=== PATIENT | male | born 1965 | race Caucasian/White ===

== ENCOUNTER 2016-10-21 15:16 | Inpatient (IN) | payer MEDICARE, OTHER ==
[2016-10-21] MEDS ORDERED: IPRATROPIUM-ALBUTEROL 3 ML NEB INHALATION STA ×2 (16:24→19:21)
[2016-10-21] MEDS ORDERED: methylPREDNISolone SOD SUCCI 125 MG/2 ML VIAL IV STA (16:35)
[2016-10-21 16:36] LABS: Basophils % (A) 1 %; CH 32.1; Eosinophils # (A) 0.3 k/uL (0-0.7); Eosinophils % (A) 4 %; HCT 44.7 % (39.0-53.0); HDW 2.82; HGB 14.8 gm/dL (13.0-17.5); Luc # (Auto) 0.13; Luc % (Auto) 2; Lymphocytes # (A) 1.3 k/uL (1.0-4.8); Lymphocytes % (A) 20 %; MCH 31.4 pg (25.0-35.0); MCHC 33.2 g/dL (31.0-37.0); MCV 94.8 fL (80.0-100.0); Mean Platelet Volume 6.7; Monocytes # (A) 0.3 k/uL (0-1.0); Monocytes % (A) 6 %; Neutrophils # (A) 4.2 k/uL (1.3-7.7); Neutrophils % (A) 68 %; RBC 4.72 m/uL (4.30-5.90); RDW 12.5 % (11.5-15.5); WBC 6.2 k/uL (3.8-10.6); WBC (Perox) 5.91
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
[2016-10-21 16:42] LABS: Partial Thromboplastin Time 23.4 sec (22.0-30.0); Prothrombin Time 10.2 sec (9.0-12.0)
[2016-10-21 16:44] LABS: ALT 72 U/L (21-72); AST 57 U/L (17-59); Alkaline Phosphatase 66 U/L (38-126); Anion Gap 13 mmol/L; Blood Urea Nitrogen 15 mg/dL (9-20); Calcium 9.2 mg/dL (8.4-10.2); Carbon Dioxide 30 mmol/L (22-30); Chloride 101 mmol/L (98-107); Glucose 105 mg/dL (74-99); Non-African American GFR(MDRD) >60 (>60 ml/min/1.73 sqM); Potassium 4.5 mmol/L (3.5-5.1); Sodium 144 mmol/L (137-145); Total Bilirubin 0.3 mg/dL (0.2-1.3); Total Protein 7.6 g/dL (6.3-8.2)
--- NOTE | 2016-10-21 17:32 | XR ---
EXAMINATION TYPE: XR chest 2V DATE OF EXAM: 10/21/2016 5:25 PM COMPARISON: 06/18/2016 HISTORY: Chest pain TECHNIQUE: Frontal and lateral views of the chest are obtained. FINDINGS: Right middle lobe infiltrate which may reflect pneumonia. Correlate clinically and progress studies a re recommended. No evidence for pnuemothorax.No pleural effusion. The cardiac silhouette size is within normal limits. The osseous structures are grossly intact. IMPRESSION: 1. Right middle lobe infiltrate which may reflect pneumonia. Correlate clinically and progress studi es are recommended.
[2016-10-21] MEDS ORDERED: LEVOFLOXACIN 750MG-D5W PMX 750 MG in DEXTROSE/WATER 1 150ML.BAG IVPB STA (19:21)
[2016-10-21] MEDS ORDERED: PIPERACILLIN-TAZOBACTAM 3.375 GM in DEXTROSE/WATER 1 50ML.BAG IVPB STA (19:33)
[2016-10-21] MEDS ORDERED: PNEUMONIA PROTOCOL UTILIZED 1 EACH MISC PO PRN (19:33)
[2016-10-21] MEDS: IPRATROPIUM-ALBUTEROL 3 ML NEB INHALATION SCH (21:15)
[2016-10-21 21:41] VITALS: BMI 24.3
[2016-10-21 23:08] LABS: Appearance,Urine Clear (Clear); Bilirubin,Urine Negative (Negative); Glucose,Urine (UA) Negative (Negative); Ketones,Urine Negative (Negative); Leukocyte Esterase,Urine Negative (Negative); Nitrite,Urine Negative (Negative); PH, Urine 7.5 (5.0-8.0); Protein,Urine Trace (Negative); Specific Gravity,Urine 1.015 (1.001-1.035); UA Billing (MACRO vs. MICRO) CHEM; Urobilinogen,Urine <2.0 mg/dL (<2.0)
[2016-10-21] MEDS: methylPREDNISolone SOD SUCCI 125 MG/2 ML VIAL IV SCH (23:50)
[2016-10-22] MEDS: IPRATROPIUM-ALBUTEROL 3 ML NEB INHALATION SCH ×4 (00:05→12:07)
[2016-10-22] MEDS: methylPREDNISolone SOD SUCCI 125 MG/2 ML VIAL IV SCH ×2 (05:49→12:13)
[2016-10-22 07:25] VITALS: BP 121/55; RESP 20; TEMP 96.2
[2016-10-22] MEDS ORDERED: PIPERACILLIN-TAZOBACTAM 3.375 GM in DEXTROSE/WATER 1 50ML.BAG IVPB SCH (08:00)
[2016-10-22 12:22] VITALS: PULSE 91
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
[2016-10-22] MEDS ORDERED: LEVOFLOXACIN 750MG-D5W PMX 750 MG in DEXTROSE/WATER 1 150ML.BAG IVPB SCH (20:00)
== END 2016-10-22 13:20 | disposition home or self-care (01) | DRG 178 ==
LOC: EC 15:16 → 4MS4W 19:34
PROVIDERS: ADMIT Internal Medicine; ATTEND Internal Medicine
DX: J69.0 Pneumonitis due to inhalation of food and vomit (principal); G81.91 Hemiplegia, unspecified affecting right dominant side; F32.9 Major depressive disorder, single episode, unspecified; F41.9 Anxiety disorder, unspecified; G40.909 Epilepsy, unspecified, not intractable, without status epilepticus; J45.909 Unspecified asthma, uncomplicated; R13.10 Dysphagia, unspecified; F79 Unspecified intellectual disabilities; R41.3 Other amnesia; Z87.891 Personal history of nicotine dependence; Z79.899 Other long term (current) drug therapy; Z82.49 Family history of ischemic heart disease and other diseases of the circulatory system; Z87.828 Personal history of other (healed) physical injury and trauma
CPT/HCPCS: 36415; 71020; 80053; 81003; 83605; 83880; 85025; 85610; 85730; 87040; 87086; 94640; 96365; 96366; 96375; 99291

== ENCOUNTER → 2017-06-11 | Outpatient (CLI) | payer MEDICARE, OTHER ==
--- NOTE | 2017-06-11 08:37 | CT ---
EXAMINATION TYPE: CT brain wo con DATE OF EXAM: 06/11/2017 COMPARISON: 05/03/2015 HISTORY: epilepsy, not using Lt arm CT DLP: 1403.[address] of the brain was performed. Patient kyphosis and difficulty in positioning in addition to artifact from prior craniotomy results in extensive artifact throughout most of the brain and the refore limiting the examination to virtually nondiagnostic. The ventricles, basal cisterns and sulci overlying the cerebral convexities demonstrate severe enlarg ement. No mass effects are seen.No midline shift. Right temporal parietal craniotomy changes. If symptoms persist consider MRI. IMPRESSION: 1. Essentially nondiagnostic examination for reasons given above. Severe prominence of the ventricula r system unchanged from prior study.
== END | disposition home or self-care (01) ==
LOC: RADCTMAIN 07:04
PROVIDERS: ATTEND Psychiatry & Neurology Neurology
DX: G40.209 Localization-related (focal) (partial) symptomatic epilepsy and epileptic syndromes with complex partial seizures, not intractable, without status epilepticus (principal)
CPT/HCPCS: 70450; 80175

== ENCOUNTER → 2017-06-30 | Outpatient (CLI) | payer MEDICARE, OTHER ==
--- NOTE | 2017-06-30 09:16 | CT ---
EXAMINATION TYPE: CT cervical spine wo con DATE OF EXAM: 06/30/2017 COMPARISON: NONE HISTORY: lt arm weakness CT DLP: 628.[address] of the cervical spine was performed with bone and soft tissue window settings submitted . Coronal and sagittal reconstruction is obtained. Study is limited given patient's overall conditio n and difficulty in positioning. C2-3, C3-4 appear to be within normal limits. C4-5: Mild degenerative disc space narrowing. Ventral spondylosis. Mild posterior disc bulge without herniation protrusion or central stenosis. Degenerative change of the cervical apophyseal joints with mild left foraminal encroachment. C5-6: Moderate degenerative disc space narrowing. Ventral spondylosis. Posterior disc bulge with enca psulating spur resulting in hard disc. Effacement of the ventral thecal sac and moderate left greater than right foraminal encroachment. No definite central stenosis appreciated. C6-7 and C7-T1 appear to be within normal limits. No evidence for fracture or malalignment. IMPRESSION: 1. Degenerative disc disease and spondylosis. Foraminal encroachment left greater than right at C5-6 and to a lesser extent C4-5.
== END | disposition home or self-care (01) ==
LOC: RADCTMAIN 08:32
PROVIDERS: ATTEND Psychiatry & Neurology Neurology
DX: M50.30 Other cervical disc degeneration, unspecified cervical region (principal); M47.812 Spondylosis without myelopathy or radiculopathy, cervical region
CPT/HCPCS: 72125

== ENCOUNTER 2017-10-23 23:17 | Inpatient (IN) | payer MEDICARE, OTHER ==
[2017-10-23] MEDS ORDERED: ACETAMINOPHEN TAB 500 MG TAB PO STA (23:56)
[2017-10-23] MEDS ORDERED: IBUPROFEN IV 600 MG in SODIUM CHLORIDE 0.9% 250 ML IV STA (23:56)
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
[2017-10-24 00:11] LABS: Basophils % (A) 0 %; Eosinophils % (A) 0 %; HCT 50.3 % (39.0-53.0); HGB 16.7 gm/dL (13.0-17.5); Lymphocytes # (A) 0.8 k/uL (1.0-4.8); Lymphocytes % (A) 8 %; MCH 31.8 pg (25.0-35.0); MCHC 33.3 g/dL (31.0-37.0); MCV 95.4 fL (80.0-100.0); Monocytes # (A) 0.4 k/uL (0-1.0); Monocytes % (A) 4 %; Neutrophils # (A) 8.7 k/uL (1.3-7.7); Neutrophils % (A) 87 %; Platelet Count 216 k/uL (150-450); RBC 5.27 m/uL (4.30-5.90); WBC 10.1 k/uL (3.8-10.6)
[2017-10-24 00:19] LABS: INR 1.1 (<1.2); Partial Thromboplastin Time 23.8 sec (22.0-30.0)
[2017-10-24 00:23] LABS: ALT 39 U/L (21-72); AST 26 U/L (17-59); Alkaline Phosphatase 72 U/L (38-126); Anion Gap 12 mmol/L; Blood Urea Nitrogen 30 mg/dL (9-20); Calcium 9.2 mg/dL (8.4-10.2); Carbon Dioxide 29 mmol/L (22-30); Chloride 108 mmol/L (98-107); Glucose 134 mg/dL (74-99); Potassium 3.9 mmol/L (3.5-5.1); Sodium 149 mmol/L (137-145); Total Bilirubin 0.4 mg/dL (0.2-1.3); Total Protein 7.1 g/dL (6.3-8.2)
[2017-10-24] MEDS: SODIUM CHLORIDE 0.9% 500 ML IV SCH ×2 (00:23→01:52)
[2017-10-24 00:28] LABS: Appearance,Urine Cloudy (Clear); Bilirubin,Urine Negative (Negative); Blood,Urine Negative (Negative); Color,Urine Yellow; Glucose,Urine (UA) Negative (Negative); Hyaline Casts,Urine 4 /lpf (0-2); Ketones,Urine Trace (Negative); Leukocyte Esterase,Urine Negative (Negative); Mucus,Urine Few /hpf; Nitrite,Urine Negative (Negative); PH, Urine 5.5 (5.0-8.0); Protein,Urine 1+ (Negative); RBC,Urine 2 /hpf (0-5); Specific Gravity,Urine 1.029 (1.001-1.035); Squamous Epithelial Cell,Urine <1 /hpf (0-4); WBC,Urine 3 /hpf (0-5)
[2017-10-24 00:38] LABS: Creatine Kinase 56 U/L (55-170)
[2017-10-24 00:51] LABS: Creatine Kinase MB 1.2 ng/mL (0.0-2.4); Troponin I <0.012 ng/mL (0.000-0.034)
[2017-10-24] MEDS ORDERED: OSELTAMIVIR 75 MG CAP PO STA (01:50)
--- NOTE | 2017-10-24 01:57 | XR ---
EXAMINATION TYPE: XR chest 2V DATE OF EXAM: 10/24/2017 COMPARISON: 10/21/2016 HISTORY: Fever TECHNIQUE: Frontal and lateral views of the chest are obtained. FINDINGS: Heart and mediastinum are normal. Lungs are clear. There is no evidence of pleural effusio n. There is no heart failure. There are chest leads. IMPRESSION: No active cardiopulmonary disease. There is clearing of the atelectasis in the left lowe r lobe compared to old exam.
[2017-10-24] MEDS ORDERED: IPRATROPIUM-ALBUTEROL 3 ML NEB INHALATION STA (02:11)
[2017-10-24] MEDS ORDERED: SODIUM CHLORIDE 0.9% 1,000 ML IV ONE ×2 (02:28→19:00)
[2017-10-24] MEDS: IPRATROPIUM-ALBUTEROL 3 ML NEB INHALATION PRN ×2 (07:47→12:06)
[2017-10-24] MEDS ORDERED: ACETAMINOPHEN TAB 325 MG TAB PO PRN (08:18)
[2017-10-24] MEDS: OSELTAMIVIR 75 MG CAP PO SCH ×3 (09:02→22:21)
--- NOTE | 2017-10-24 09:48 | XR ---
EXAMINATION TYPE: XR chest 1V portable DATE OF EXAM: 10/24/2017 HISTORY: Resp distress. REFERENCE: Previous study dated 10/24/2017. FINDINGS: Heart size is upper limits of normal. The lungs appear clear. Pleural spaces are clear. The re is prominence of the gastric bubble. IMPRESSION: BORDERLINE CARDIOMEGALY.
[2017-10-24 09:52] LABS: Basophils % (A) 0 %; Eosinophils # (A) 0.1 k/uL (0-0.7); Eosinophils % (A) 1 %; HCT 48.5 % (39.0-53.0); HGB 16.2 gm/dL (13.0-17.5); Lymphocytes # (A) 0.5 k/uL (1.0-4.8); Lymphocytes % (A) 4 %; MCH 31.9 pg (25.0-35.0); MCHC 33.3 g/dL (31.0-37.0); MCV 95.8 fL (80.0-100.0); Mean Platelet Volume 7.6; Monocytes # (A) 0.5 k/uL (0-1.0); Monocytes % (A) 4 %; Neutrophils # (A) 12.3 k/uL (1.3-7.7); Neutrophils % (A) 91 %; Platelet Count 221 k/uL (150-450); RBC 5.07 m/uL (4.30-5.90); RDW 12.3 % (11.5-15.5); WBC 13.5 k/uL (3.8-10.6)
[2017-10-24 09:53] LABS: Glucose,Whole Blood 131 mg/dL (75-99)
[2017-10-24] MEDS ORDERED: methylPREDNISolone SOD SUCCI 125 MG/2 ML VIAL IV STA (10:00)
[2017-10-24 10:03] LABS: ALT 33 U/L (21-72); AST 22 U/L (17-59); Albumin 3.8 g/dL (3.5-5.0); Alkaline Phosphatase 60 U/L (38-126); Anion Gap 13 mmol/L; Blood Urea Nitrogen 30 mg/dL (9-20); Calcium 8.8 mg/dL (8.4-10.2); Carbon Dioxide 24 mmol/L (22-30); Chloride 112 mmol/L (98-107); Glucose 153 mg/dL (74-99); Magnesium 1.8 mg/dL (1.6-2.3); Potassium 4.1 mmol/L (3.5-5.1); Sodium 149 mmol/L (137-145); Total Bilirubin 0.3 mg/dL (0.2-1.3); Total Protein 6.6 g/dL (6.3-8.2)
[2017-10-24 10:15] LABS: ABG HCO3 23 mmol/L (21-25); ABG PCO2 39 mmHg (35-45); ABG PH 7.38 (7.35-7.45); ABG PO2 77 mmHg (83-108); ABG TCO2 24 mmol/L (19-24)
[2017-10-24] MEDS: lamoTRIgine 100 MG TAB PO SCH ×2 (10:37→22:23)
[2017-10-24] MEDS: CITALOPRAM HYDROBROMIDE 20 MG TAB PO SCH (10:37)
[2017-10-24] MEDS ORDERED: cefTRIAXone IN SWFI 1,000 MG/10 ML SYRINGE IVP SCH (11:00)
[2017-10-24] MEDS ORDERED: RX INFO: IV CONTRAST WAS GIVEN 1 EACH MISC MISCELLANE PRN ×2 (11:06→18:53)
[2017-10-24] MEDS ORDERED: DEXTROSE 5%-0.45% NACL 1,000 ML IV SCH (11:15)
--- NOTE | 2017-10-24 12:08 | CT ---
EXAMINATION TYPE: CT angio chest DATE OF EXAM: 10/24/2017 11:55 AM COMPARISON: NONE HISTORY: Shortness of breath and fever CT DLP: 230.6 mGycm Automated exposure control for dose reduction was used. CONTRAST: CTA scan of the thorax is performed with IV Contrast, patient injected with 65 mL of Omnipaque 350, p ulmonary embolism protocol. . FINDINGS: is significant breathing motion artifact on this study. There is inflammation in the poste rior segment of the right upper lobe as well as at the right lung base. There is also inflammatory ch david in the superior segment of the left lower lobe. There is a small left pleural effusion. There is no significant axillary, mediastinal or hilar adenopathy. There is distention of the esophag us which is fluid-filled. There is also distention of the stomach was is partially fluid-filled. There is no evidence of pulmonary embolus. The aorta is normal in size without evidence of dissection . The heart is not enlarged. There is mild hypertrophic spondylosis within the spine. IMPRESSION: 1. THIS EXAMINATION IS NEGATIVE FOR PULMONARY EMBOLUS. 2. MULTIFOCAL INFLAMMATORY CHANGE OF BOTH LUNGS. 3. DILATED AND FLUID-FILLED ESOPHAGUS. 3. DILATED STOMACH. 5. SMALL LEFT EFFUSION. 6. MILD DEGENERATIVE CHANGE WITHIN THE SPINE.
[2017-10-24 14:47] LABS: Glucose,Whole Blood 171 mg/dL (75-99)
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
[2017-10-24] MEDS ORDERED: MORPHINE SULFATE 2 MG/ML SYRINGE ONE ×2 (15:34→15:37)
[2017-10-24] MEDS ORDERED: SUCCINYLCHOLINE CHLORIDE 100 MG/5 ML SYR IV ONE (15:34)
[2017-10-24] MEDS ORDERED: CISATRACURIUM 2 MG/ML 5 ML VIAL IV ONE (15:35)
[2017-10-24] MEDS ORDERED: LORazepam 2 MG/ML INJ ONE (15:35)
[2017-10-24] MEDS ORDERED: PROPOFOL 100 ML IV ONE (15:37)
[2017-10-24] MEDS: SODIUM CHLORIDE 0.9% 1,000 ML IV SCH ×3 (16:00→18:01)
[2017-10-24] MEDS ORDERED: LEVOFLOXACIN 750MG-D5W PMX 750 MG in DEXTROSE/WATER 1 150ML.BAG IVPB SCH (16:00)
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
[2017-10-24] MEDS ORDERED: IPRATROPIUM-ALBUTEROL 3 ML NEB INHALATION PRN (16:05)
[2017-10-24] MEDS ORDERED: Magnesium Replacement Protocol 1 EACH MISC MISCELLANE PRN (16:11)
[2017-10-24] MEDS ORDERED: Potassium Replacement Protocol 1 EACH MISC MISCELLANE PRN (16:11)
[2017-10-24] MEDS ORDERED: Phosphorus Replacement Protoco 1 EACH MISC MISCELLANE PRN (16:11)
[2017-10-24] MEDS ORDERED: NALOXONE 0.4 MG/ML 1 ML VIAL IV PRN (16:12)
--- NOTE | 2017-10-24 16:14 | PCN ---
PROCEDURE NOTE PROCEDURE: Emergent intubation. PREOP DIAGNOSIS: Impending respiratory failure. POSTOP DIAGNOSIS: Impending respiratory failure. DESCRIPTION OF PROCEDURE: We used a #8 endotracheal tube. I used a standard laryngoscope with #3 Marlen blade. The patient received rapid sequence intubation using 2 mg of Ativan, 5 mg of morphine, 3 mL or 60 mg succinylcholine and then after intubation, 10 mg of Nimbex IV push. After the patient was adequately sedated, the endotracheal tube was placed through the glottic opening into the trachea. It was seen to go through the glottic opening into the trachea. There was good bilateral breath sounds. There was good color change on the qualitative capnography. The cuff was inflated on the balloon. The patient was connected to the ventilator. There was no immediate complications. After assuring that the patient was properly intubated, 10 mg of Nimbex was given IV push. The patient tolerated the procedure well. He was stable throughout the procedure. MMODL / IJN: [id number] /
[2017-10-24] MEDS ORDERED: ACETAMINOPHEN IV (For NPO) 1,000 MG in EMPTY BAG 1 BAG IVPB ONE (16:23)
[2017-10-24] MEDS: PROPOFOL 1,000 MG in EMPTY BAG 1 BAG IV SCH (16:30)
[2017-10-24 16:54] LABS: ABG PCO2 58 mmHg (35-45); ABG PH 7.26 (7.35-7.45); ABG PO2 185 mmHg (83-108)
[2017-10-24 16:55] LABS: ABG Base Excess -0.9 mmol/L; ABG HCO3 25 mmol/L (21-25); ABG TCO2 27 mmol/L (19-24)
--- NOTE | 2017-10-24 17:01 | XR ---
EXAMINATION TYPE: XR chest 1V portable DATE OF EXAM: 10/24/2017 COMPARISON: October 24, 2017 HISTORY: Shortness of breath TECHNIQUE: Single frontal view of the chest is obtained. FINDINGS: Opacities identified at the left lung base which is nonsignificant change since previous s tudy. There is a new endotracheal tube which is between the level of the clavicles and jerod. There is an enteric tube which goes below the level of the diaphragm. IMPRESSION: Enteric tube and endotracheal tube appear to be in appropriate position.
--- NOTE | 2017-10-24 17:11 | XR ---
EXAMINATION TYPE: XR abdomen 1V DATE OF EXAM: 10/24/2017 4:50 PM CLINICAL HISTORY: Small bowel obstruction. TECHNIQUE: Single supine KUB image of the abdomen is obtained. COMPARISON: None. FINDINGS: Diffuse dilated small bowel loops are identified throughout the abdomen measuring up to 4.5 cm. Mandujano catheter is noted within the urinary bladder. IMPRESSION: Diffuse dilatation of small bowel loops consistent with small bowel obstruction.
[2017-10-24] MEDS ORDERED: ACETAMINOPHEN IV (For NPO) 1,000 MG in EMPTY BAG 1 BAG IVPB PRN (17:42)
[2017-10-24 17:50] LABS: Glucose,Whole Blood 123 mg/dL (75-99)
[2017-10-24] MEDS ORDERED: methylPREDNISolone SOD SUCCI 125 MG/2 ML VIAL IV SCH (18:00)
[2017-10-24 18:07] LABS: Amorphous Sediment,Urine Rare /hpf; Appearance,Urine Clear (Clear); Bilirubin,Urine Negative (Negative); Blood,Urine Small (Negative); Color,Urine Yellow; Glucose,Urine (UA) Negative (Negative); Ketones,Urine Trace (Negative); Leukocyte Esterase,Urine Negative (Negative); Mucus,Urine Moderate /hpf; Nitrite,Urine Negative (Negative); Protein,Urine 1+ (Negative); RBC,Urine 20 /hpf (0-5); Squamous Epithelial Cell,Urine 1 /hpf (0-4); WBC,Urine 5 /hpf (0-5)
[2017-10-24 18:16] LABS: Blood Urea Nitrogen 28 mg/dL (9-20)
[2017-10-24 18:31] LABS: Specific Gravity,Urine >1.050 (1.001-1.035)
[2017-10-24] MEDS: INSULIN ASPART 100 UNIT/ML 1 ML 10 ML VIAL SQ SCH ×2 (18:49→23:26)
[2017-10-24] MEDS: methylPREDNISolone SOD SUCCI 40 MG/ML 1 ML VIAL IV SCH ×2 (18:50→23:55)
[2017-10-24] MEDS: PANTOPRAZOLE 40 MG/10 ML VIAL IVP SCH (18:51)
[2017-10-24] MEDS: IOHEXOL 350 MG/ML 25 ML BOTTLE (ORAL USE) PO PRN ×2 (19:52→20:56)
[2017-10-24] MEDS: IPRATROPIUM-ALBUTEROL 3 ML NEB INHALATION SCH ×2 (20:21→23:40)
[2017-10-24] MEDS ORDERED: diphenhydrAMINE 50 MG/ML 1 ML VIAL IVP PRN (20:27)
[2017-10-24] MEDS: CHLORHEXIDINE GLUCONATE 15 ML CUP MUCOUS MEM SCH (21:01)
--- NOTE | 2017-10-24 22:03 | CT ---
EXAMINATION TYPE: CT abdomen pelvis w con DATE OF EXAM: 10/24/2017 COMPARISON: NONE HISTORY: Abdominal pain. CT DLP: 785 mGycm Automated exposure control for dose reduction was used. TECHNIQUE: Helical acquisition of images was performed from the lung bases through the pelvis. CONTRAST: Performed with Oral Contrast and with IV Contrast, patient injected with 100 mL of Omnipaque 300. FINDINGS: Lung bases are incompletely visualized. The liver, gallbladder, spleen, pancreas, right adrenal gland, and kidneys are unremarkable. The left adrenal gland is mildly thickened without a discrete mass. There is a large amount of stool in the rectum with rectal wall thickening consistent with a degree o f impaction. Mandujano catheter is noted in the urinary bladder. There are several prominent loops of sma ll bowel noted which measure up to 3 cm. There appears to be a transition point in the right upper qu adrant. There is no free intraperitoneal air or free fluid. There is no mesenteric or retroperitoneal lymphad enopathy. The aorta is not dilated no osteolytic or osteoblastic lesions are identified. IMPRESSION: 1. Small bowel obstruction is identified. Transition point is difficult to precisely identify but is felt to be in the right upper quadrant. 2. Impacted stool within the rectum.
[2017-10-24] MEDS: diphenhydrAMINE 50 MG/ML 1 ML VIAL IVP SCH (22:15)
[2017-10-24] MEDS: PIPERACILLIN-TAZOBACTAM 3.375 GM in DEXTROSE/WATER 1 50ML.BAG IVPB SCH (22:15)
[2017-10-24 22:58] LABS: Glucose,Whole Blood 110 mg/dL (75-99)
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
[2017-10-25] MEDS: IPRATROPIUM-ALBUTEROL 3 ML NEB INHALATION SCH ×6 (03:18→23:36)
[2017-10-25] MEDS: diphenhydrAMINE 50 MG/ML 1 ML VIAL IVP SCH ×2 (03:20→09:07)
[2017-10-25] MEDS: PROPOFOL 1,000 MG in EMPTY BAG 1 BAG IV SCH ×4 (03:35→17:24)
[2017-10-25 04:07] LABS: Glucose,Whole Blood 144 mg/dL (75-99)
[2017-10-25 04:40] LABS: Basophils % (A) 0 %; Eosinophils % (A) 0 %; HCT 40.9 % (39.0-53.0); HGB 13.5 gm/dL (13.0-17.5); Lymphocytes # (A) 0.5 k/uL (1.0-4.8); Lymphocytes % (A) 7 %; MCH 31.9 pg (25.0-35.0); MCV 96.7 fL (80.0-100.0); Mean Platelet Volume 8.9; Monocytes # (A) 0.2 k/uL (0-1.0); Monocytes % (A) 3 %; Neutrophils # (A) 6.4 k/uL (1.3-7.7); Neutrophils % (A) 90 %; Platelet Count 145 k/uL (150-450); RBC 4.23 m/uL (4.30-5.90); RDW 13.1 % (11.5-15.5); WBC 7.1 k/uL (3.8-10.6)
[2017-10-25 04:54] LABS: ALT 26 U/L (21-72); AST 21 U/L (17-59); Albumin 2.2 g/dL (3.5-5.0); Alkaline Phosphatase 35 U/L (38-126); Anion Gap 11 mmol/L; Blood Urea Nitrogen 22 mg/dL (9-20); Calcium 7.8 mg/dL (8.4-10.2); Carbon Dioxide 21 mmol/L (22-30); Chloride 114 mmol/L (98-107); Glucose 143 mg/dL (74-99); Magnesium 1.6 mg/dL (1.6-2.3); Phosphorus 2.1 mg/dL (2.5-4.5); Potassium 3.6 mmol/L (3.5-5.1); Sodium 146 mmol/L (137-145); Total Bilirubin 0.4 mg/dL (0.2-1.3); Total Protein 4.4 g/dL (6.3-8.2)
[2017-10-25] MEDS: INSULIN ASPART 100 UNIT/ML 1 ML 10 ML VIAL SQ SCH ×3 (04:54→17:34)
[2017-10-25] MEDS: methylPREDNISolone SOD SUCCI 40 MG/ML 1 ML VIAL IV SCH ×3 (05:02→17:24)
[2017-10-25] MEDS: PIPERACILLIN-TAZOBACTAM 3.375 GM in DEXTROSE/WATER 1 50ML.BAG IVPB SCH ×3 (05:06→21:07)
[2017-10-25 05:37] LABS: ABG Base Excess -2.8 mmol/L; ABG HCO3 21 mmol/L (21-25); ABG PCO2 36 mmHg (35-45); ABG PH 7.39 (7.35-7.45); ABG PO2 134 mmHg (83-108); ABG TCO2 22 mmol/L (19-24)
[2017-10-25] MEDS ORDERED: diphenhydrAMINE 50 MG/ML 1 ML VIAL IVP SCH (06:00)
[2017-10-25] MEDS: MAGNESIUM SULFATE-D5W PMX 1 GM in DEXTROSE/WATER 1 100ML.BAG IVPB SCH ×2 (06:31→08:05)
[2017-10-25 06:46] LABS: Glucose,Whole Blood 138 mg/dL (75-99)
[2017-10-25] MEDS: POTASSIUM CHLORIDE 10 MEQ in WATER FOR INJECTION 1 100ML.BAG IVPB SCH ×2 (06:57→08:05)
--- NOTE | 2017-10-25 07:21 | XR ---
EXAMINATION TYPE: XR abdomen 1V DATE OF EXAM: 10/25/2017 COMPARISON: 10/24/2017 HISTORY: Pain TECHNIQUE: Single supine KUB image of the abdomen is obtained FINDINGS: NG tube is noted to be in place. Normalization of small bowel with loops measuring up to 2.9 cm versus 4.5 cm previously. Contrast is seen within the colon. No convincing evidence for pneumoperitoneum. No unusual calcifications. The lung bases are clear. The osseous structures are intact. IMPRESSION: 1. Normalization of small bowel with loops measuring up to 2.9 cm versus 4.5 cm previously. Contrast is seen within the colon.
--- NOTE | 2017-10-25 07:23 | XR ---
EXAMINATION TYPE: XR chest 1V portable DATE OF EXAM: 10/25/2017 COMPARISON: 10/24/2017 HISTORY: SOB, Follow Up FINDINGS: Indwelling tubes and catheters are unchanged. No change in bibasilar opacities. Stable appearance of the cardio-mediastinal structures at this time. Pleural effusion unchanged. IMPRESSION: 1. Stable portable chest. Clinical correlation and follow up until resolution is recommended.
[2017-10-25] MEDS ORDERED: SODIUM PHOSPHATE 10 MMOL in SODIUM CHLORIDE 0.9% 250 ML IVPB ONE (07:36)
[2017-10-25] MEDS: CHLORHEXIDINE GLUCONATE 15 ML CUP MUCOUS MEM SCH ×2 (08:15→20:47)
[2017-10-25] MEDS: ENOXAPARIN 40 MG/0.4 ML SYRINGE SQ SCH (08:16)
[2017-10-25] MEDS: OSELTAMIVIR 75 MG CAP PO SCH ×2 (08:16→20:47)
[2017-10-25] MEDS: PANTOPRAZOLE 40 MG/10 ML VIAL IVP SCH (08:17)
[2017-10-25] MEDS: lamoTRIgine 100 MG TAB PO SCH ×2 (08:17→20:46)
[2017-10-25] MEDS: CITALOPRAM HYDROBROMIDE 20 MG TAB PO SCH (08:17)
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
[2017-10-25] MEDS ORDERED: diphenhydrAMINE 50 MG/ML 1 ML VIAL IVP PRN (10:47)
[2017-10-25] MEDS ORDERED: NA PHOS,M-B/NA PHOS,DI-BA 133 ML ENEMA RECTAL ONE (10:54)
[2017-10-25 11:08] LABS: Glucose,Whole Blood 145 mg/dL (75-99)
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
[2017-10-25] MEDS: SODIUM CHLORIDE 0.9% 1,000 ML IV SCH ×2 (13:40)
--- NOTE | 2017-10-25 13:59 | P.PN ---
Subjective Progress Note Date: 10/25/17 Patient's abdominal exam is markedly improved he had a bowel movement overnight. His abdomen is now soft and much less distended. Abdominal x-ray this morning revealed contrast in the colon along with decompressed small bowel Objective - Vital Signs Vital signs: Vital Signs Temp 98.7 F 10/25/17 08:00 Pulse 105 H 10/25/17 12:20 Resp 27 H 10/25/17 09:00 BP 92/54 10/25/17 10:00 Pulse Ox 97 10/25/17 10:00 Intake & Output 10/24/17 10/25/17 10/25/17 18:59 06:59 18:59 Intake Total 3400 2417.543 425.007 Output Total 650 1185 195 Balance 2750 1232.543 230.007 Weight 71.9 kg Intake: IV 400 Sodium Chloride 0.9% 1, 400 000 ml @ 100 mls/hr IV . Q10H [facility] Rx#:[id number] Intake, IV Titration 3400 2417.543 25.007 Amount ACETAMINOPHEN IV (For NPO 100 ) 1,000 mg In Empty Bag 1 bag @ 400 mls/hr IVPB Q6HR PRN Rx#:[id number] Levofloxacin 750Mg-D5w 100 Pmx 750 mg In Dextrose/ Water 1 150ml.bag @ 100 mls/hr IVPB Q24H [facility] Rx#: [id number] Magnesium Sulfate-D5w Pmx 100 1 gm In Dextrose/Water 1 100ml.bag @ 100 mls/hr IVPB Q1H [facility] Rx#: [id number] Piperacillin-Tazobactam 3 50 .375 gm In Dextrose/Water 1 50ml.bag @ 12.5 mls/hr IVPB Q8H [facility] Rx#: [id number] Propofol 1,000 mg In 67.543 25.007 Empty Bag 1 bag @ Titrate IV .Q0M [facility] Rx#: [id number] Sodium Chloride 0.9% 1, 1300 1100 000 ml @ 100 mls/hr IV . Q10H [facility] Rx#:[id number] Sodium Chloride 0.9% 1, 2000 1000 000 ml @ 999 mls/hr IV . Q1H1M [facility] Rx#:[id number] Output: Gastric Drainage 550 600 50 Urine 100 585 145 Other: Voiding Method Diaper Indwelling Catheter Indwelling Catheter # Voids 2 # Bowel Movements 1 1 - Respiratory Details: Intubated on a ventilator - Cardiovascular Rhythm: regular - Gastrointestinal Gastrointestinal Comment(s): Abdomen is soft nondistended nontender palpation - Labs CBC & Chem 7: 10/25/17 03:59 10/25/17 03:59 Labs: Abnormal Lab Results - Last 24 Hours (Table) 10/24/17 10/24/17 10/24/17 Range/Units 14:26 16:43 17:30 RBC (4.30-5.90) m/uL Plt Count (150-450) k/uL Lymphocytes # (1.0-4.8) k/uL ABG pH 7.26 L (7.35-7.45) ABG pCO2 58 H (35-45) mmHg ABG pO2 185 H (83-108) mmHg ABG Total CO2 27 H (19-24) mmol/L ABG O2 Saturation 99.0 H (94-97) % Sodium (137-145) mmol/L Chloride (98-107) mmol/L Carbon Dioxide (22-30) mmol/L BUN (9-20) mg/dL Glucose (74-99) mg/dL POC Glucose (mg/dL) 171 H (75-99) mg/dL Plasma Lactic Acid Patrice (0.7-2.0) mmol/L Calcium (8.4-10.2) mg/dL Phosphorus (2.5-4.5) mg/dL Alkaline Phosphatase (38-126) U/L Total Protein (6.3-8.2) g/dL Albumin (3.5-5.0) g/dL Ur Specific [place] >1.050 H (1.001-1.035) Urine Protein 1+ H (Negative) Urine Ketones Trace H (Negative) Urine Blood Small H (Negative) Urine RBC 20 H (0-5) /hpf Amorphous Sediment Rare H (None) /hpf Urine Mucus Moderate H (None) /hpf 10/24/17 10/24/17 10/24/17 Range/Units 17:43 17:47 19:21 RBC (4.30-5.90) m/uL Plt Count (150-450) k/uL Lymphocytes # (1.0-4.8) k/uL ABG pH (7.35-7.45) ABG pCO2 (35-45) mmHg ABG pO2 (83-108) mmHg ABG Total CO2 (19-24) mmol/L ABG O2 Saturation (94-97) % Sodium (137-145) mmol/L Chloride (98-107) mmol/L Carbon Dioxide (22-30) mmol/L BUN 28 H (9-20) mg/dL Glucose (74-99) mg/dL POC Glucose (mg/dL) 123 H (75-99) mg/dL Plasma Lactic Acid Patrice 2.6 H* (0.7-2.0) mmol/L Calcium (8.4-10.2) mg/dL Phosphorus (2.5-4.5) mg/dL Alkaline Phosphatase (38-126) U/L Total Protein (6.3-8.2) g/dL Albumin (3.5-5.0) g/dL Ur Specific [place] (1.001-1.035) Urine Protein (Negative) Urine Ketones (Negative) Urine Blood (Negative) Urine RBC (0-5) /hpf Amorphous Sediment (None) /hpf Urine Mucus (None) /hpf 10/24/17 10/25/17 10/25/17 Range/Units 22:55 00:00 03:59 RBC (4.30-5.90) m/uL Plt Count (150-450) k/uL Lymphocytes # (1.0-4.8) k/uL ABG pH (7.35-7.45) ABG pCO2 (35-45) mmHg ABG pO2 (83-108) mmHg ABG Total CO2 (19-24) mmol/L ABG O2 Saturation (94-97) % Sodium (137-145) mmol/L Chloride (98-107) mmol/L Carbon Dioxide (22-30) mmol/L BUN (9-20) mg/dL Glucose (74-99) mg/dL POC Glucose (mg/dL) 110 H (75-99) mg/dL Plasma Lactic Acid Patrice 4.8 H* 3.4 H* (0.7-2.0) mmol/L Calcium (8.4-10.2) mg/dL Phosphorus (2.5-4.5) mg/dL Alkaline Phosphatase (38-126) U/L Total Protein (6.3-8.2) g/dL Albumin (3.5-5.0) g/dL Ur Specific [place] (1.001-1.035) Urine Protein (Negative) Urine Ketones (Negative) Urine Blood (Negative) Urine RBC (0-5) /hpf Amorphous Sediment (None) /hpf Urine Mucus (None) /hpf 10/25/17 10/25/17 10/25/17 Range/Units 03:59 03:59 04:05 RBC 4.23 L (4.30-5.90) m/uL Plt Count 145 L (150-450) k/uL Lymphocytes # 0.5 L (1.0-4.8) k/uL ABG pH (7.35-7.45) ABG pCO2 (35-45) mmHg ABG pO2 (83-108) mmHg ABG Total CO2 (19-24) mmol/L ABG O2 Saturation (94-97) % Sodium 146 H (137-145) mmol/L Chloride 114 H (98-107) mmol/L Carbon Dioxide 21 L (22-30) mmol/L BUN 22 H (9-20) mg/dL Glucose 143 H (74-99) mg/dL POC Glucose (mg/dL) 144 H (75-99) mg/dL Plasma Lactic Acid Patrice (0.7-2.0) mmol/L Calcium 7.8 L (8.4-10.2) mg/dL Phosphorus 2.1 L (2.5-4.5) mg/dL Alkaline Phosphatase 35 L (38-126) U/L Total Protein 4.4 L (6.3-8.2) g/dL Albumin 2.2 L (3.5-5.0) g/dL Ur Specific [place] (1.001-1.035) Urine Protein (Negative) Urine Ketones (Negative) Urine Blood (Negative) Urine RBC (0-5) /hpf Amorphous Sediment (None) /hpf Urine Mucus (None) /hpf 10/25/17 10/25/17 10/25/17 Range/Units 05:31 06:32 08:12 RBC (4.30-5.90) m/uL Plt Count (150-450) k/uL Lymphocytes # (1.0-4.8) k/uL ABG pH (7.35-7.45) ABG pCO2 (35-45) mmHg ABG pO2 134 H (83-108) mmHg ABG Total CO2 (19-24) mmol/L ABG O2 Saturation 99.0 H (94-97) % Sodium (137-145) mmol/L Chloride (98-107) mmol/L Carbon Dioxide (22-30) mmol/L BUN (9-20) mg/dL Glucose (74-99) mg/dL POC Glucose (mg/dL) 138 H (75-99) mg/dL Plasma Lactic Acid Partice 4.1 H* (0.7-2.0) mmol/L Calcium (8.4-10.2) mg/dL Phosphorus (2.5-4.5) mg/dL Alkaline Phosphatase (38-126) U/L Total Protein (6.3-8.2) g/dL Albumin (3.5-5.0) g/dL Ur Specific [place] (1.001-1.035) Urine Protein (Negative) Urine Ketones (Negative) Urine Blood (Negative) Urine RBC (0-5) /hpf Amorphous Sediment (None) /hpf Urine Mucus (None) /hpf 10/25/17 Range/Units 11:07 RBC (4.30-5.90) m/uL Plt Count (150-450) k/uL Lymphocytes # (1.0-4.8) k/uL ABG pH (7.35-7.45) ABG pCO2 (35-45) mmHg ABG pO2 (83-108) mmHg ABG Total CO2 (19-24) mmol/L ABG O2 Saturation (94-97) % Sodium (137-145) mmol/L Chloride (98-107) mmol/L Carbon Dioxide (22-30) mmol/L BUN (9-20) mg/dL Glucose (74-99) mg/dL POC Glucose (mg/dL) 145 H (75-99) mg/dL Plasma Lactic Acid Patrice (0.7-2.0) mmol/L Calcium (8.4-10.2) mg/dL Phosphorus (2.5-4.5) mg/dL Alkaline Phosphatase (38-126) U/L Total Protein (6.3-8.2) g/dL Albumin (3.5-5.0) g/dL Ur Specific [place] (1.001-1.035) Urine Protein (Negative) Urine Ketones (Negative) Urine Blood (Negative) Urine RBC (0-5) /hpf Amorphous Sediment (None) /hpf Urine Mucus (None) /hpf Microbiology - Last 24 Hours (Table) 10/24/17 00:08 Urine Culture - Final Urine,Voided 10/23/17 23:35 Blood Culture - Preliminary Blood No Growth after 24 hours 10/24/17 15:45 Gram Stain - Preliminary Sputum Sputum Culture - Preliminary Assessment and Plan Assessment: Small bowel obstruction resolved Influenza Ventilator dependent respiratory failure Plan: Continue NG tube and nothing by mouth at this time. Medical management per ICU and primary. No plans for acute surgical intervention at this time
--- NOTE | 2017-10-25 14:59 | P.PN ---
Subjective Progress Note Date: 10/25/17 This is a 52-year-old mentally handicapped individual status post closed head injury for 30 years. The patient is unable to give any history and he is a verbal her nonverbal. Apparently had a fever and occasional cough. He was brought into the emergency room for evaluation. The patient was found to have influenza A. The patient was admitted to the fifth floor. There he apparently aspirated. It was apparently a large-volume aspiration. Her suctioning lots of material from the patient's posterior oropharynx. Here in the ICU I was asked to see him. The patient was impending respiratory failure. I intubated him with #8 endotracheal tube. The patient tolerated the procedure well. Chest x-ray shows some bilateral infiltrates. Computed tomography scan showed multifocal infiltrates and inflammatory changes particularly in the lower lobes. The patient has a stable hemodynamic status. He has adequate IV access. His past medical history is positive for seizure disorder and pneumonia. He also has a history of previous severe head injury back in 1985. He's had previous sprains surgery with skull plate placement in 1985, a tendon release and some other surgical procedures. On 10/25/2017 I'm seeing this patient for a follow-up. The patient remains intubated on a mechanical ventilator. He is on 50 mics of the prevent however despite that he is awake and he can follow some simple commands and is also communicating with his family members. He is intubated by #8 orotracheal tube. There is some looseness for secretions are being suctioned out. He is on assist control mode of ventilation with a tidal volume of 350, rate of 28, FiO2 of 50% with a PEEP of 5. The morning blood gases showed a pH of 7.39 with a pCO2 of 36 and pO2 of 134 and based on that I dropped FiO2 down to 40%. His chest x-ray from today shows a left lung consolidation indicating an underlying pneumonia. There is adequate positioning of the ET tube. No other acute pneumonitis of been noted. As for the x-ray of the abdomen, there was no air- fluid levels or bowel distention. The patient had a CAT scan of the abdomen earlier that raised the suspicion for bowel obstruction however, the patient seems to have mainly fecal impaction. He does have an NG tube in place at this point in time. No critical evidence of any abdominal distention or small bowel obstruction and he does have adequate bowel sounds. He'll be having a an MT at the bedside. Lactic acid level remains slightly elevated at 4.1 and this is something that we are monitoring. The patient is being treated with broad- spectrum antibiotics and currently the patient is a on a combination of IV Zosyn and Tamiflu for influenza a tracheal bronchitis. The patient was on bronchodilators and systemic steroids. He is on no pressors at this point in time. Objective - Vital Signs Vital signs: Vital Signs Temp 98.7 F 10/25/17 08:00 Pulse 105 H 10/25/17 12:20 Resp 27 H 10/25/17 09:00 BP 92/54 10/25/17 10:00 Pulse Ox 97 10/25/17 10:00 Intake & Output 10/24/17 10/25/17 10/25/17 18:59 06:59 18:59 Intake Total 3400 2417.543 425.007 Output Total 650 1185 195 Balance 2750 1232.543 230.007 Weight 71.9 kg Intake: IV 400 Sodium Chloride 0.9% 1, 400 000 ml @ 100 mls/hr IV . Q10H KORIN Rx#:[id number] Intake, IV Titration 3400 2417.543 25.007 Amount ACETAMINOPHEN IV (For NPO 100 ) 1,000 mg In Empty Bag 1 bag @ 400 mls/hr IVPB Q6HR PRN Rx#:[id number] Levofloxacin 750Mg-D5w 100 Pmx 750 mg In Dextrose/ Water 1 150ml.bag @ 100 mls/hr IVPB Q24H KORIN Rx#: [id number] Magnesium Sulfate-D5w Pmx 100 1 gm In Dextrose/Water 1 100ml.bag @ 100 mls/hr IVPB Q1H KORIN Rx#: [id number] Piperacillin-Tazobactam 3 50 .375 gm In Dextrose/Water 1 50ml.bag @ 12.5 mls/hr IVPB Q8H KORIN Rx#: [id number] Propofol 1,000 mg In 67.543 25.007 Empty Bag 1 bag @ Titrate IV .Q0M KORIN Rx#: [id number] Sodium Chloride 0.9% 1, 1300 1100 000 ml @ 100 mls/hr IV . Q10H KORIN Rx#:[id number] Sodium Chloride 0.9% 1, 2000 1000 000 ml @ 999 mls/hr IV . Q1H1M ONE Rx#:[id number] Output: Gastric Drainage 550 600 50 Urine 100 585 145 Other: Voiding Method Diaper Indwelling Catheter Indwelling Catheter # Voids 2 # Bowel Movements 1 1 - Exam The patient's nonverbal. The patient is intubated on a mechanical ventilator and the patient is calm comfortable on 50 mics of Diprivan. Orotracheal and orogastric tube are both in place. HEENT examination is grossly unremarkable. Mucous membranes are moist. No oral lesions. Orogastric and orotracheal tube are both in place. Neck is somewhat flexed. It's supple. No cervical lymphadenopathy. Neck supple. Full range of motion. No adenopathy thyromegaly or neck vein distention. Cardiovascular examination reveals regular rhythm rate. S1-S2 normal. No S3 or S4. No discernible murmur noted. Lungs reveal coarse bilateral breath sounds. Breath sounds are severely diminished. No wheezes. No crackles.. Abdomen soft bowel sounds are heard. No masses or tenderness. Extremities reveal some flexion contractures.. There is no edema or cyanosis or clubbing at this point Skin is without rash or lesion.Examination of the skin revealed no evidence of significant rashes, suspicious appearing nevi or other concerning lesions. Neurologic examination cannot be adequately assessed. Neurologically the patient is awake and following simple commands. He is bedridden/wheelchair- bound and has extensive contractures in lower oximetry is bilaterally. He has posttraumatic brain injury. - Labs CBC & Chem 7: 10/25/17 03:59 10/25/17 03:59 Labs: Abnormal Lab Results - Last 24 Hours (Table) 10/24/17 10/24/17 10/24/17 Range/Units 16:43 17:30 17:43 RBC (4.30-5.90) m/uL Plt Count (150-450) k/uL Lymphocytes # (1.0-4.8) k/uL ABG pH 7.26 L (7.35-7.45) ABG pCO2 58 H (35-45) mmHg ABG pO2 185 H (83-108) mmHg ABG Total CO2 27 H (19-24) mmol/L ABG O2 Saturation 99.0 H (94-97) % Sodium (137-145) mmol/L Chloride (98-107) mmol/L Carbon Dioxide (22-30) mmol/L BUN 28 H (9-20) mg/dL Glucose (74-99) mg/dL POC Glucose (mg/dL) (75-99) mg/dL Plasma Lactic Acid Patrice (0.7-2.0) mmol/L Calcium (8.4-10.2) mg/dL Phosphorus (2.5-4.5) mg/dL Alkaline Phosphatase (38-126) U/L Total Protein (6.3-8.2) g/dL Albumin (3.5-5.0) g/dL Ur Specific Hominy >1.050 H (1.001-1.035) Urine Protein 1+ H (Negative) Urine Ketones Trace H (Negative) Urine Blood Small H (Negative) Urine RBC 20 H (0-5) /hpf Amorphous Sediment Rare H (None) /hpf Urine Mucus Moderate H (None) /hpf 10/24/17 10/24/17 10/24/17 Range/Units 17:47 19:21 22:55 RBC (4.30-5.90) m/uL Plt Count (150-450) k/uL Lymphocytes # (1.0-4.8) k/uL ABG pH (7.35-7.45) ABG pCO2 (35-45) mmHg ABG pO2 (83-108) mmHg ABG Total CO2 (19-24) mmol/L ABG O2 Saturation (94-97) % Sodium (137-145) mmol/L Chloride (98-107) mmol/L Carbon Dioxide (22-30) mmol/L BUN (9-20) mg/dL Glucose (74-99) mg/dL POC Glucose (mg/dL) 123 H 110 H (75-99) mg/dL Plasma Lactic Acid Patrice 2.6 H* (0.7-2.0) mmol/L Calcium (8.4-10.2) mg/dL Phosphorus (2.5-4.5) mg/dL Alkaline Phosphatase (38-126) U/L Total Protein (6.3-8.2) g/dL Albumin (3.5-5.0) g/dL Ur Specific Hominy (1.001-1.035) Urine Protein (Negative) Urine Ketones (Negative) Urine Blood (Negative) Urine RBC (0-5) /hpf Amorphous Sediment (None) /hpf Urine Mucus (None) /hpf 10/25/17 10/25/17 10/25/17 Range/Units 00:00 03:59 03:59 RBC 4.23 L (4.30-5.90) m/uL Plt Count 145 L (150-450) k/uL Lymphocytes # 0.5 L (1.0-4.8) k/uL ABG pH (7.35-7.45) ABG pCO2 (35-45) mmHg ABG pO2 (83-108) mmHg ABG Total CO2 (19-24) mmol/L ABG O2 Saturation (94-97) % Sodium (137-145) mmol/L Chloride (98-107) mmol/L Carbon Dioxide (22-30) mmol/L BUN (9-20) mg/dL Glucose (74-99) mg/dL POC Glucose (mg/dL) (75-99) mg/dL Plasma Lactic Acid Patrice 4.8 H* 3.4 H* (0.7-2.0) mmol/L Calcium (8.4-10.2) mg/dL Phosphorus (2.5-4.5) mg/dL Alkaline Phosphatase (38-126) U/L Total Protein (6.3-8.2) g/dL Albumin (3.5-5.0) g/dL Ur Specific Hominy (1.001-1.035) Urine Protein (Negative) Urine Ketones (Negative) Urine Blood (Negative) Urine RBC (0-5) /hpf Amorphous Sediment (None) /hpf Urine Mucus (None) /hpf 10/25/17 10/25/17 10/25/17 Range/Units 03:59 04:05 05:31 RBC (4.30-5.90) m/uL Plt Count (150-450) k/uL Lymphocytes # (1.0-4.8) k/uL ABG pH (7.35-7.45) ABG pCO2 (35-45) mmHg ABG pO2 134 H (83-108) mmHg ABG Total CO2 (19-24) mmol/L ABG O2 Saturation 99.0 H (94-97) % Sodium 146 H (137-145) mmol/L Chloride 114 H (98-107) mmol/L Carbon Dioxide 21 L (22-30) mmol/L BUN 22 H (9-20) mg/dL Glucose 143 H (74-99) mg/dL POC Glucose (mg/dL) 144 H (75-99) mg/dL Plasma Lactic Acid Patrice (0.7-2.0) mmol/L Calcium 7.8 L (8.4-10.2) mg/dL Phosphorus 2.1 L (2.5-4.5) mg/dL Alkaline Phosphatase 35 L (38-126) U/L Total Protein 4.4 L (6.3-8.2) g/dL Albumin 2.2 L (3.5-5.0) g/dL Ur Specific Hominy (1.001-1.035) Urine Protein (Negative) Urine Ketones (Negative) Urine Blood (Negative) Urine RBC (0-5) /hpf Amorphous Sediment (None) /hpf Urine Mucus (None) /hpf 10/25/17 10/25/17 10/25/17 Range/Units 06:32 08:12 11:07 RBC (4.30-5.90) m/uL Plt Count (150-450) k/uL Lymphocytes # (1.0-4.8) k/uL ABG pH (7.35-7.45) ABG pCO2 (35-45) mmHg ABG pO2 (83-108) mmHg ABG Total CO2 (19-24) mmol/L ABG O2 Saturation (94-97) % Sodium (137-145) mmol/L Chloride (98-107) mmol/L Carbon Dioxide (22-30) mmol/L BUN (9-20) mg/dL Glucose (74-99) mg/dL POC Glucose (mg/dL) 138 H 145 H (75-99) mg/dL Plasma Lactic Acid Patrice 4.1 H* (0.7-2.0) mmol/L Calcium (8.4-10.2) mg/dL Phosphorus (2.5-4.5) mg/dL Alkaline Phosphatase (38-126) U/L Total Protein (6.3-8.2) g/dL Albumin (3.5-5.0) g/dL Ur Specific Hominy (1.001-1.035) Urine Protein (Negative) Urine Ketones (Negative) Urine Blood (Negative) Urine RBC (0-5) /hpf Amorphous Sediment (None) /hpf Urine Mucus (None) /hpf Microbiology - Last 24 Hours (Table) 10/24/17 00:08 Urine Culture - Final Urine,Voided 10/23/17 23:35 Blood Culture - Preliminary Blood No Growth after 24 hours 10/24/17 15:45 Gram Stain - Preliminary Sputum Sputum Culture - Preliminary Assessment and Plan Plan: Assessment 1 Acute hypoxemic respiratory failure, likely secondary to both influenza A and large-volume aspiration pneumonia. The patient continues to have a dense consolidation of the left lung. The patient remains intubated on a mechanical ventilator. Oxidation is improved. The patient is covered with a combination of Tamiflu and Zosyn. He is also on bronchodilators and systemic steroids. Blood gases was noted. FiO2 has been weaned down to 40%. 2 History of seizure disorder 3 History of severe head injury in 1985 with severe developmental delay and mental retardation 4 Previous history of surgery to skull, 1985 5 Previous history of urinary tract infections 6 mild lactic acidosis 7 stool impaction, post enema. The patient has no evidence of any bowel obstruction at this point. Plan: Continue vent support. Drop the FiO2 down to 40%. Continue sedating this patient with Diprivan. We'll give the patient sedation holiday within next 24 hours and assess the readiness to wean and weaning parameters. Meanwhile, give the patient an enema and facilitate bowel activity. No signs symptoms of small bowel obstruction at this point. Continue current antibiotic coverage. We'll keep the patient intubated for today and he'll be reevaluated in a.m. for possible weaning and extubation. Discussed the case with the family at the bedside and updated them on the condition. Continue DVT and GI prophylaxis. Continue Tamiflu. Continue IV Zosyn. We'll continue to follow. This is a critically care evaluation that was done and more than 35 minutes. Time with Patient: Greater than 30
[2017-10-25] MEDS ORDERED: FUROSEMIDE 10 MG/ML 2 ML VIAL IV ONE (16:37)
[2017-10-25] MEDS: POTASSIUM CHLORIDE 10 MEQ in SODIUM CHLORIDE 0.9% 100 ML IVPB SCH ×2 (17:25→18:36)
[2017-10-25 17:36] LABS: Glucose,Whole Blood 119 mg/dL (75-99)
[2017-10-25 23:52] LABS: Glucose,Whole Blood 119 mg/dL (75-99)
[2017-10-26] MEDS: INSULIN ASPART 100 UNIT/ML 1 ML 10 ML VIAL SQ SCH ×5 (00:19→22:52)
[2017-10-26] MEDS: PROPOFOL 1,000 MG in EMPTY BAG 1 BAG IV SCH ×2 (00:20→06:13)
[2017-10-26] MEDS: SODIUM CHLORIDE 0.9% 1,000 ML IV SCH ×2 (00:20→09:30)
[2017-10-26] MEDS: POTASSIUM CHLORIDE 10 MEQ in WATER FOR INJECTION 1 100ML.BAG IVPB SCH ×4 (00:21→06:48)
[2017-10-26] MEDS: methylPREDNISolone SOD SUCCI 40 MG/ML 1 ML VIAL IV SCH ×5 (00:23→22:57)
[2017-10-26] MEDS: IPRATROPIUM-ALBUTEROL 3 ML NEB INHALATION SCH ×5 (03:20→19:22)
[2017-10-26 04:42] LABS: Basophils % (A) 0 %; Eosinophils % (A) 1 %; HCT 31.4 % (39.0-53.0); HGB 10.7 gm/dL (13.0-17.5); Lymphocytes # (A) 0.4 k/uL (1.0-4.8); Lymphocytes % (A) 6 %; MCH 32.1 pg (25.0-35.0); MCHC 34.1 g/dL (31.0-37.0); MCV 93.9 fL (80.0-100.0); Monocytes # (A) 0.3 k/uL (0-1.0); Monocytes % (A) 4 %; Neutrophils # (A) 6.1 k/uL (1.3-7.7); Neutrophils % (A) 89 %; Platelet Count 152 k/uL (150-450); RBC 3.35 m/uL (4.30-5.90); RDW 13.1 % (11.5-15.5); WBC 6.9 k/uL (3.8-10.6)
[2017-10-26 04:56] LABS: Anion Gap 6 mmol/L; Blood Urea Nitrogen 21 mg/dL (9-20); Calcium 7.8 mg/dL (8.4-10.2); Carbon Dioxide 26 mmol/L (22-30); Chloride 113 mmol/L (98-107); Glucose 106 mg/dL (74-99); Magnesium 2.2 mg/dL (1.6-2.3); Phosphorus 2.3 mg/dL (2.5-4.5); Potassium 3.5 mmol/L (3.5-5.1); Sodium 145 mmol/L (137-145)
[2017-10-26 05:28] LABS: ABG Base Excess 4.7 mmol/L; ABG HCO3 28 mmol/L (21-25); ABG PCO2 37 mmHg (35-45); ABG PH 7.49 (7.35-7.45); ABG PO2 84 mmHg (83-108); ABG TCO2 66 mmol/L (19-24)
[2017-10-26 05:49] LABS: Glucose,Whole Blood 108 mg/dL (75-99)
[2017-10-26] MEDS: PIPERACILLIN-TAZOBACTAM 3.375 GM in DEXTROSE/WATER 1 50ML.BAG IVPB SCH ×3 (05:54→22:16)
[2017-10-26] MEDS ORDERED: POTASSIUM PHOSPHATE 10 MMOL in SODIUM CHLORIDE 0.9% 250 ML IV ONE (06:00)
--- NOTE | 2017-10-26 08:16 | PN ---
PROGRESS NOTE DATE OF SERVICE: 10/25/2017 REASON FOR FOLLOW UP: 1. Acute influenza. 2. Sepsis with aspiration pneumonia. INTERVAL HISTORY: The patient is afebrile. He seemed to be slightly awake and alert. Hemodynamically, he is stable. He did respond to the fluid support. FiO2 is down to 40%. NG is to suction. No diarrhea. PHYSICAL EXAMINATION: On examination, blood pressure 94/50 with a pulse of 96, temperature of 98.4. He is 98% on 40% FiO2. General description is a middle-aged male lying in bed in no distress. RESPIRATORY SYSTEM: Unlabored breathing, coarse breath sounds bilaterally. HEART: S1, S2. Regular rate and rhythm. ABDOMEN: Soft, no tenderness. LABS: Hemoglobin 13.5, white count of 7.1. BUN of 22, creatinine 0.701. Blood and sputum cultures currently pending. DIAGNOSTIC IMPRESSION AND PLAN: 1. Patient with acute influenza A with subsequent aspiration and acute respiratory failure vent dependent with a component of aspiration pneumonia. The patient is currently covered with Zosyn, that will be continued. We will follow up on blood and sputum cultures and adjust the medication further if needed. 2. Acute influenza, Tamiflu will be restarted once the gastrointestinal issues are resolved. Family was present at bedside. Their questions were answered. MMODL / IJN: [id number] /
--- NOTE | 2017-10-26 08:19 | XR ---
EXAMINATION TYPE: XR chest 1V portable DATE OF EXAM: 10/26/2017 COMPARISON: 10/25/2017 HISTORY: SOB, Follow Up FINDINGS: Indwelling tubes and catheters are unchanged. No change in bibasilar opacities. Stable appearance of the cardio-mediastinal structures at this time. Pleural effusion unchanged. IMPRESSION: 1. Stable portable chest. Clinical correlation and follow up until resolution is recommended.
[2017-10-26] MEDS: CHLORHEXIDINE GLUCONATE 15 ML CUP MUCOUS MEM SCH (08:36)
[2017-10-26] MEDS: PANTOPRAZOLE 40 MG/10 ML VIAL IVP SCH (08:36)
[2017-10-26] MEDS: OSELTAMIVIR 75 MG CAP PO SCH ×3 (08:37→20:48)
[2017-10-26] MEDS: lamoTRIgine 100 MG TAB PO SCH ×3 (08:37→20:48)
[2017-10-26] MEDS: CITALOPRAM HYDROBROMIDE 20 MG TAB PO SCH ×2 (08:37→12:00)
[2017-10-26] MEDS ORDERED: FUROSEMIDE 10 MG/ML 4 ML VIAL IV STA (09:04)
--- NOTE | 2017-10-26 09:07 | P.PN ---
Subjective Progress Note Date: 10/26/17 This is a 52-year-old mentally handicapped individual status post closed head injury for 30 years. The patient is unable to give any history and he is a verbal her nonverbal. Apparently had a fever and occasional cough. He was brought into the emergency room for evaluation. The patient was found to have influenza A. The patient was admitted to the fifth floor. There he apparently aspirated. It was apparently a large-volume aspiration. Her suctioning lots of material from the patient's posterior oropharynx. Here in the ICU I was asked to see him. The patient was impending respiratory failure. I intubated him with #8 endotracheal tube. The patient tolerated the procedure well. Chest x-ray shows some bilateral infiltrates. Computed tomography scan showed multifocal infiltrates and inflammatory changes particularly in the lower lobes. The patient has a stable hemodynamic status. He has adequate IV access. His past medical history is positive for seizure disorder and pneumonia. He also has a history of previous severe head injury back in 1985. He's had previous sprains surgery with skull plate placement in 1985, a tendon release and some other surgical procedures. On 10/25/2017 I'm seeing this patient for a follow-up. The patient remains intubated on a mechanical ventilator. He is on 50 mics of the prevent however despite that he is awake and he can follow some simple commands and is also communicating with his family members. He is intubated by #8 orotracheal tube. There is some looseness for secretions are being suctioned out. He is on assist control mode of ventilation with a tidal volume of 350, rate of 28, FiO2 of 50% with a PEEP of 5. The morning blood gases showed a pH of 7.39 with a pCO2 of 36 and pO2 of 134 and based on that I dropped FiO2 down to 40%. His chest x-ray from today shows a left lung consolidation indicating an underlying pneumonia. There is adequate positioning of the ET tube. No other acute pneumonitis of been noted. As for the x-ray of the abdomen, there was no air- fluid levels or bowel distention. The patient had a CAT scan of the abdomen earlier that raised the suspicion for bowel obstruction however, the patient seems to have mainly fecal impaction. He does have an NG tube in place at this point in time. No critical evidence of any abdominal distention or small bowel obstruction and he does have adequate bowel sounds. He'll be having a an [place] at the bedside. Lactic acid level remains slightly elevated at 4.1 and this is something that we are monitoring. The patient is being treated with broad- spectrum antibiotics and currently the patient is a on a combination of IV Zosyn and Tamiflu for influenza a tracheal bronchitis. The patient was on bronchodilators and systemic steroids. He is on no pressors at this point in time. On 10/26/2017 the patient is being seen for a follow-up. The patient remains intubated on a mechanical ventilator. This morning he is essentially on the same vent setting which includes an assist-control of 28, tidal volume 350, FiO2 of 40% and a PEEP of 5. Chest x-ray remains unchanged with stable left lung consolidation. There is also increased pulmonary vascular markings. ET tube is in a good location. The patient is not producing excess amount of respiratory secretions. Blood gases from this morning showed a pH of 7.49 with a pCO2 of 37 and pO2 of 84 and this was done on a FiO2 of 40%. White cell count is not elevated. The patient was taken off the Diprivan and currently the patient is in the process of undergoing a spot his breathing trial. I switched him to a pressure support of 5 and a PEEP of 5. He is weaning parameters were acceptable. He was noted to have a rapid shallow breathing index of less than 100. He started volume is currently ranging between 250 and 325 and he is breathing comfortably. He is coughing reflexes weak and I think it's probably related to some degree of sedation as the patient just came off sedation for now. He did have a bowel movement yesterday. NG tube is in place. Total amount of output from the NG is approximately 30 mL all night. As for the urine output is approximately 25 mL an hour. The patient remains on Tamiflu. The patient remains on Zosyn. The patient is receiving IV fluids at the rate of 100 mL an hour of normal saline. The patient had a drop in hemoglobin down to 10.9 yet that is no evidence of any GI bleeding. The patient remains on Lovenox. He is also on Protonix. He remains nothing by mouth. No evidence of any small bowel obstruction at this point. Objective - Vital Signs Vital signs: Vital Signs Temp 99.5 F 10/26/17 04:00 Pulse 82 10/26/17 08:17 Resp 27 H 10/26/17 07:00 BP 110/56 10/26/17 07:00 Pulse Ox 97 10/26/17 07:00 Intake & Output 10/25/17 10/26/17 10/26/17 18:59 06:59 18:59 Intake Total 2080.857 5012.245 130.037 Output Total 928 605 25 Balance 479.534 951.245 105.037 Weight 70.4 kg Intake: IV 1300 1400 100 Potassium Chloride 10 meq 300 In Water For Injection 1 100ml.bag @ 100 mls/hr IVPB Q1H [facility] Rx#: [id number] Sodium Chloride 0.9% 1, 1300 1100 100 000 ml @ 100 mls/hr IV . Q10H [facility] Rx#:[id number] Intake, IV Titration 107.534 156.245 30.037 Amount Propofol 1,000 mg In 107.534 156.245 30.037 Empty Bag 1 bag @ Titrate IV .Q0M [facility] Rx#: [id number] Output: Gastric Drainage 70 Urine 858 605 25 Other: Voiding Method Indwelling Catheter Indwelling Catheter # Bowel Movements 1 1 - Exam The patient's nonverbal. The patient is intubated on a mechanical ventilator and the patient is calm comfortable off Diprivan. Orotracheal and orogastric tube are both in place. HEENT examination is grossly unremarkable. Mucous membranes are moist. No oral lesions. Orogastric and orotracheal tube are both in place. Neck is somewhat flexed. It's supple. No cervical lymphadenopathy. Neck supple. Full range of motion. No adenopathy thyromegaly or neck vein distention. Cardiovascular examination reveals regular rhythm rate. S1-S2 normal. No S3 or S4. No discernible murmur noted. Lungs reveal coarse bilateral breath sounds. Breath sounds are severely diminished. No wheezes. No crackles.. Abdomen soft bowel sounds are heard. No masses or tenderness. Extremities reveal some flexion contractures.. There is no edema or cyanosis or clubbing at this point Skin is without rash or lesion.Examination of the skin revealed no evidence of significant rashes, suspicious appearing nevi or other concerning lesions. Neurologic examination cannot be adequately assessed. Neurologically the patient is awake and following simple commands. He is bedridden/wheelchair- bound and has extensive contractures in lower oximetry is bilaterally. He has posttraumatic brain injury. - Labs CBC & Chem 7: 10/26/17 04:01 10/26/17 04:01 Labs: Abnormal Lab Results - Last 24 Hours (Table) 10/25/17 10/25/17 10/25/17 Range/Units 11:07 15:26 15:26 RBC (4.30-5.90) m/uL Hgb (13.0-17.5) gm/dL Hct (39.0-53.0) % Lymphocytes # (1.0-4.8) k/uL ABG pH (7.35-7.45) ABG HCO3 (21-25) mmol/L ABG Total CO2 (19-24) mmol/L Potassium 3.2 L (3.5-5.1) mmol/L Chloride (98-107) mmol/L BUN (9-20) mg/dL Glucose (74-99) mg/dL POC Glucose (mg/dL) 145 H (75-99) mg/dL Plasma Lactic Acid Patrice 3.3 H* (0.7-2.0) mmol/L Calcium (8.4-10.2) mg/dL Phosphorus (2.5-4.5) mg/dL 10/25/17 10/25/17 10/25/17 Range/Units 17:34 21:20 23:49 RBC (4.30-5.90) m/uL Hgb (13.0-17.5) gm/dL Hct (39.0-53.0) % Lymphocytes # (1.0-4.8) k/uL ABG pH (7.35-7.45) ABG HCO3 (21-25) mmol/L ABG Total CO2 (19-24) mmol/L Potassium 3.4 L (3.5-5.1) mmol/L Chloride (98-107) mmol/L BUN (9-20) mg/dL Glucose (74-99) mg/dL POC Glucose (mg/dL) 119 H 119 H (75-99) mg/dL Plasma Lactic Acid Patrice (0.7-2.0) mmol/L Calcium (8.4-10.2) mg/dL Phosphorus (2.5-4.5) mg/dL 10/26/17 10/26/17 10/26/17 Range/Units 04:01 04:01 05:20 RBC 3.35 L (4.30-5.90) m/uL Hgb 10.7 L (13.0-17.5) gm/dL Hct 31.4 L (39.0-53.0) % Lymphocytes # 0.4 L (1.0-4.8) k/uL ABG pH 7.49 H (7.35-7.45) ABG HCO3 28 H (21-25) mmol/L ABG Total CO2 66 H (19-24) mmol/L Potassium (3.5-5.1) mmol/L Chloride 113 H (98-107) mmol/L BUN 21 H (9-20) mg/dL Glucose 106 H (74-99) mg/dL POC Glucose (mg/dL) (75-99) mg/dL Plasma Lactic Acid Patrice (0.7-2.0) mmol/L Calcium 7.8 L (8.4-10.2) mg/dL Phosphorus 2.3 L (2.5-4.5) mg/dL 10/26/17 Range/Units 05:48 RBC (4.30-5.90) m/uL Hgb (13.0-17.5) gm/dL Hct (39.0-53.0) % Lymphocytes # (1.0-4.8) k/uL ABG pH (7.35-7.45) ABG HCO3 (21-25) mmol/L ABG Total CO2 (19-24) mmol/L Potassium (3.5-5.1) mmol/L Chloride (98-107) mmol/L BUN (9-20) mg/dL Glucose (74-99) mg/dL POC Glucose (mg/dL) 108 H (75-99) mg/dL Plasma Lactic Acid Patrice (0.7-2.0) mmol/L Calcium (8.4-10.2) mg/dL Phosphorus (2.5-4.5) mg/dL Microbiology - Last 24 Hours (Table) 10/23/17 23:35 Blood Culture - Preliminary Blood No Growth after 48 hours 10/24/17 18:39 Blood Culture - Preliminary Blood No Growth after 24 hours 10/24/17 00:08 Urine Culture - Final Urine,Voided Assessment and Plan Plan: Assessment 1 Acute hypoxemic respiratory failure, likely secondary to both influenza A and large-volume aspiration pneumonia. The patient continues to have a dense consolidation of the left lung. The patient remains intubated on a mechanical ventilator. Oxidation is improved. The patient is covered with a combination of Tamiflu and Zosyn. He is also on bronchodilators and systemic steroids. Blood gases was noted. FiO2 has been weaned down to 40%. On 10/26/2017, the patient remains intubated on a mechanical ventilator. Chest x-ray findings are essentially stable. Suspect an aspiration left lung pneumonia. The patient also has acute influenza a tracheobronchitis/pneumonia and the patient is on a combination of Zosyn and Tamiflu. Blood gases was noted and there is a component of respiratory alkalosis. The patient is in process of being given a spontaneous breathing trial in anticipation for extubation if he is able to past a spontaneous breathing trial. 2 History of seizure disorder, currently inactive and stable. 3 History of severe head injury in 1985 with severe developmental delay and mental retardation 4 Previous history of surgery to skull, 1985 5 Previous history of urinary tract infections 6 mild lactic acidosis, the lactic acidosis recovered and the patient's lactic acid normalized is down to 1.0. 7 stool impaction, the patient had a enema yesterday and the patient produced an small amount of stool. Abdomen is non-distended. No clinical evidence of any small bowel obstruction and NG tube is still in place. 8 drop in hemoglobin without evidence of any GI bleeding. The patient is on Lovenox for DVT prophylaxis. Plan: The patient has been switched this point is breathing mode. Currently is on a pressure support mode with a personal support of 5 and a PEEP of 5. We'll obtain a blood gas in 30-45 minutes and if the patient has adequate blood gases an adequate ability to clear his rest or secretions he will be considered for extubation. He'll be taken off propofol for now. Continue antibiotics. Continue steroids. Given a dose of Lasix 40 mg IV push. Kept on IV fluids to 50 mL an hour. Monitor hemoglobin. Further recommendations are to follow based on his progress. Critically care evaluation was done and more than 30 minutes. Time with Patient: Greater than 30
[2017-10-26] MEDS: ENOXAPARIN 40 MG/0.4 ML SYRINGE SQ SCH (09:27)
[2017-10-26 09:50] LABS: ABG Base Excess 4.2 mmol/L; ABG HCO3 28 mmol/L (21-25); ABG Oxygen Saturation 97.2 % (94-97); ABG PCO2 39 mmHg (35-45); ABG PH 7.46 (7.35-7.45); ABG PO2 77 mmHg (83-108); ABG TCO2 65 mmol/L (19-24)
[2017-10-26] MEDS ORDERED: NA PHOS,M-B/NA PHOS,DI-BA 133 ML ENEMA RECTAL ONE (10:57)
--- NOTE | 2017-10-26 11:27 | XR ---
EXAMINATION TYPE: XR chest 1V portable DATE OF EXAM: 10/26/2017 COMPARISON: 10/26/2017 HISTORY: SOB, Follow Up FINDINGS: NG tube is coiled within the stomach. Endotracheal tube appears to have been removed. Perihilar and basilar infiltrates persist essentially unchanged. Stable appearance of the cardio-mediastinal structures at this time. Pleural effusion unchanged. IMPRESSION: 1. Stable portable chest. Clinical correlation and follow up until resolution is recommended.
--- NOTE | 2017-10-26 11:55 | P.PN ---
Subjective Progress Note Date: 10/26/17 Principal diagnosis: Esophageal gastric distention 52-year-old gentleman with a history of head trauma developmental delay admitted with acute influenza A aspiration pneumonia with radiographic imaging on admission suggestive of distention of esophagus and stomach as well as small bowel obstruction. Receiving Tamiflu. Patient has been evaluated by general surgery. Abdominal films yesterday reported no evidence of small bowel obstruction. Stool retention was identified. Patient was provided enema with small nonbloody bowel movement yesterday. No overt bleeding such as hematemesis hematochezia melena. Nasogastric tube in place without hematemesis. Hemoglobin today 10.7. Resting comfortably. Family at bedside. Objective - Vital Signs Vital signs: Vital Signs Temp 98.3 F 10/26/17 08:00 Pulse 90 10/26/17 11:00 Resp 26 H 10/26/17 11:00 BP 109/61 10/26/17 11:00 Pulse Ox 95 10/26/17 11:00 Intake & Output 10/25/17 10/26/17 10/26/17 18:59 06:59 18:59 Intake Total 8608.776 4977.245 480.825 Output Total 839 071 3199 Balance 479.534 951.245 -1554.175 Weight 70.4 kg Intake: IV 1300 1400 450 Potassium Chloride 10 meq 200 In Sodium Chloride 0.9% 100 ml @ 100 mls/hr IVPB Q1H [facility] Rx#:[id number] Potassium Chloride 10 meq 300 In Water For Injection 1 100ml.bag @ 100 mls/hr IVPB Q1H [facility] Rx#: [id number] Sodium Chloride 0.9% 1, 1300 1100 250 000 ml @ 50 mls/hr IV . Q20H [facility] Rx#:[id number] Intake, IV Titration 107.534 156.245 30.825 Amount Propofol 1,000 mg In 107.534 156.245 30.825 Empty Bag 1 bag @ Titrate IV .Q0M [facility] Rx#: [id number] Output: Gastric Drainage 70 Urine [phone] Other: Voiding Method Indwelling Catheter Indwelling Catheter # Bowel Movements 1 1 - Exam General appearance: The patient is alert, in no acute distress. HET: Head is normocephalic and atraumatic. Pupils are equal and reactive. Oropharynx is clear without lesions. Naso gastric tube with bilious fluid. Neck: Supple without lymphadenopathy. Trachea midline. Heart: S1 S2. Regular rate and rhythm. Lungs: Coarse bilaterally diminished in bases. Abdomen: Soft, nontender, nondistended with bowel sounds. No peritoneal signs. No palpable organomegaly or masses. Extremities: Normal skin color and turgor. No cyanosis, rash, ulceration, clubbing, or edema. Radial and pedal pulses are 2/4 bilaterally. Neurological: No focal deficits. Strength and sensation are grossly intact. - Labs CBC & Chem 7: 10/26/17 04:01 10/26/17 04:01 Labs: Abnormal Lab Results - Last 24 Hours (Table) 10/25/17 10/25/17 10/25/17 Range/Units 15:26 15:26 17:34 RBC (4.30-5.90) m/uL Hgb (13.0-17.5) gm/dL Hct (39.0-53.0) % Lymphocytes # (1.0-4.8) k/uL ABG pH (7.35-7.45) ABG pO2 (83-108) mmHg ABG HCO3 (21-25) mmol/L ABG Total CO2 (19-24) mmol/L ABG O2 Saturation (94-97) % Potassium 3.2 L (3.5-5.1) mmol/L Chloride (98-107) mmol/L BUN (9-20) mg/dL Glucose (74-99) mg/dL POC Glucose (mg/dL) 119 H (75-99) mg/dL Plasma Lactic Acid Patrice 3.3 H* (0.7-2.0) mmol/L Calcium (8.4-10.2) mg/dL Phosphorus (2.5-4.5) mg/dL 10/25/17 10/25/17 10/26/17 Range/Units 21:20 23:49 04:01 RBC 3.35 L (4.30-5.90) m/uL Hgb 10.7 L (13.0-17.5) gm/dL Hct 31.4 L (39.0-53.0) % Lymphocytes # 0.4 L (1.0-4.8) k/uL ABG pH (7.35-7.45) ABG pO2 (83-108) mmHg ABG HCO3 (21-25) mmol/L ABG Total CO2 (19-24) mmol/L ABG O2 Saturation (94-97) % Potassium 3.4 L (3.5-5.1) mmol/L Chloride (98-107) mmol/L BUN (9-20) mg/dL Glucose (74-99) mg/dL POC Glucose (mg/dL) 119 H (75-99) mg/dL Plasma Lactic Acid Patrice (0.7-2.0) mmol/L Calcium (8.4-10.2) mg/dL Phosphorus (2.5-4.5) mg/dL 10/26/17 10/26/17 10/26/17 Range/Units 04:01 05:20 05:48 RBC (4.30-5.90) m/uL Hgb (13.0-17.5) gm/dL Hct (39.0-53.0) % Lymphocytes # (1.0-4.8) k/uL ABG pH 7.49 H (7.35-7.45) ABG pO2 (83-108) mmHg ABG HCO3 28 H (21-25) mmol/L ABG Total CO2 66 H (19-24) mmol/L ABG O2 Saturation (94-97) % Potassium (3.5-5.1) mmol/L Chloride 113 H (98-107) mmol/L BUN 21 H (9-20) mg/dL Glucose 106 H (74-99) mg/dL POC Glucose (mg/dL) 108 H (75-99) mg/dL Plasma Lactic Acid Patrice (0.7-2.0) mmol/L Calcium 7.8 L (8.4-10.2) mg/dL Phosphorus 2.3 L (2.5-4.5) mg/dL 10/26/17 Range/Units 09:45 RBC (4.30-5.90) m/uL Hgb (13.0-17.5) gm/dL Hct (39.0-53.0) % Lymphocytes # (1.0-4.8) k/uL ABG pH 7.46 H (7.35-7.45) ABG pO2 77 L (83-108) mmHg ABG HCO3 28 H (21-25) mmol/L ABG Total CO2 65 H (19-24) mmol/L ABG O2 Saturation 97.2 H (94-97) % Potassium (3.5-5.1) mmol/L Chloride (98-107) mmol/L BUN (9-20) mg/dL Glucose (74-99) mg/dL POC Glucose (mg/dL) (75-99) mg/dL Plasma Lactic Acid Patrice (0.7-2.0) mmol/L Calcium (8.4-10.2) mg/dL Phosphorus (2.5-4.5) mg/dL Microbiology - Last 24 Hours (Table) 10/24/17 18:39 Blood Culture Gram Stain - Preliminary Blood 10/24/17 18:39 Blood Culture - Final Blood 10/24/17 15:45 Gram Stain - Final Sputum Sputum Culture - Final 10/23/17 23:35 Blood Culture - Preliminary Blood No Growth after 48 hours 10/24/17 00:08 Urine Culture - Final Urine,Voided Assessment and Plan (1) Small bowel obstruction Narrative/Plan: Dilated esophagus and stomach on CT imaging most likely on the basis of admission small bowel obstruction since resolved. Repeat abdominal films reported no evidence of obstruction. Fecal impaction evident on imaging received enema yesterday with result of small nonbloody bowel movement. Presently no symptoms to suggest bowel obstruction. Current Visit: Yes Status: Acute Code(s): K56.609 - UNSP INTESTNL OBST, UNSP TO PARTIAL VERSUS COMPLETE OBST SNOMED Code(s): 084218099 (2) Influenza Current Visit: Yes Status: Acute Code(s): J11.1 - FLU DUE TO UNIDENTIFIED INFLUENZA VIRUS W OTH RESP MANIFEST SNOMED Code(s): 3228738 (3) Acute respiratory failure Current Visit: No Status: Acute Code(s): J96.00 - ACUTE RESPIRATORY FAILURE , UNSP W HYPOXIA OR HYPERCAPNIA SNOMED Code(s): 62403162 (4) Aspiration pneumonia Current Visit: No Status: Acute Code(s): J69.0 - PNEUMONITIS DUE TO INHALATION OF FOOD AND VOMIT SNOMED Code(s): 362949382 (5) Fecal impaction Current Visit: Yes Status: Acute Code(s): K56.41 - FECAL IMPACTION SNOMED Code(s): 23994627 Plan: 1. Continue with stool softeners repeat enema laxatives. 2. Upper endoscopy will be contingent on clinical course will continue to monitor. 3. CBC monitoring. Observe for any overt GI bleeding. 4. Plan a care was discussed with patient's sister at bedside. We'll continue to follow. 5. Diet per surgery and vice president mission integration; swallow eval prior to initiation of diet. Assessment and plan a care discussed with Dr. Wang.
[2017-10-26 12:14] LABS: Glucose,Whole Blood 112 mg/dL (75-99)
[2017-10-26] MEDS: DEXTROSE 5%-0.9% NACL 1,000 ML IV SCH (12:15)
[2017-10-26] MEDS ORDERED: VANCOMYCIN IV PER PHARMACY 1 EACH MISC MISCELLANE PRN (12:24)
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
[2017-10-26] MEDS: VANCOMYCIN 1,250 MG in SODIUM CHLORIDE 0.9% 250 ML IVPB SCH ×2 (13:49→20:30)
[2017-10-26] MEDS: POTASSIUM CHLORIDE ORAL LIQUID 40 MEQ/30 ML CUP NG-TUBE SCH ×2 (17:09→18:09)
[2017-10-26 18:10] LABS: Glucose,Whole Blood 138 mg/dL (75-99)
--- NOTE | 2017-10-26 22:25 | PN ---
PROGRESS NOTE DATE OF SERVICE: 10/26/2017. REASON FOR FOLLOWUP: 1. Acute influenza. 2. Aspiration pneumonia. 3. Gram-positive bacteremia. INTERVAL HISTORY: The patient is afebrile. He was extubated this morning. Post extubation, the patient has been breathing comfortably. No distress. No nausea, vomiting, or any diarrhea. EXAMINATION: Blood pressure 132/65 with a pulse of 97, temperature 98. He is 95% on 8 L high-flow oxygen. General description is a middle-aged male lying in bed in no distress. Respiratory system: Unlabored breathing. Some coarse breath sounds bilaterally. No wheeze. Heart S1, S2. Regular rate and rhythm. Abdomen soft, minimally distended. No guarding or rigidity. LABS: Hemoglobin is 10.7, white count 6.9, BUN of 21, creatinine 0.70. Sputum culture currently pending. Blood cultures with gram-positive cocci. DIAGNOSTIC IMPRESSION AND PLAN: Patient admitted to the hospital with fever in a patient who did have a component of acute influenza subsequently did have an abscess aspiration pneumonia. The patient is now with positive blood culture with gram-positive cocci with question of possible Staph aureus/MRSA. Vancomycin will be added after obtaining a repeat blood cultures. Keep the patient on Zosyn and Tamiflu adjusting antibiotics further on the basis of his clinical response and culture. Continue supportive care. MMODL / IJN: [id number] /
[2017-10-26 22:54] LABS: Glucose,Whole Blood 108 mg/dL (75-99)
[2017-10-27] MEDS ORDERED: IPRATROPIUM-ALBUTEROL 3 ML NEB ONE
[2017-10-27] MEDS: IPRATROPIUM-ALBUTEROL 3 ML NEB INHALATION SCH ×5 (04:58→20:03)
[2017-10-27] MEDS: VANCOMYCIN 1,250 MG in SODIUM CHLORIDE 0.9% 250 ML IVPB SCH ×3 (05:07→20:37)
[2017-10-27] MEDS: methylPREDNISolone SOD SUCCI 40 MG/ML 1 ML VIAL IV SCH ×4 (05:41→23:58)
[2017-10-27] MEDS: PIPERACILLIN-TAZOBACTAM 3.375 GM in DEXTROSE/WATER 1 50ML.BAG IVPB SCH ×3 (05:47→22:22)
[2017-10-27 05:55] LABS: Basophils % (A) 0 %; Eosinophils % (A) 0 %; HCT 32.5 % (39.0-53.0); HGB 10.8 gm/dL (13.0-17.5); Lymphocytes # (A) 0.5 k/uL (1.0-4.8); Lymphocytes % (A) 5 %; MCH 31.5 pg (25.0-35.0); MCHC 33.1 g/dL (31.0-37.0); MCV 95.1 fL (80.0-100.0); Mean Platelet Volume 8.4; Monocytes # (A) 0.3 k/uL (0-1.0); Monocytes % (A) 3 %; Neutrophils % (A) 91 %; Platelet Count 161 k/uL (150-450); RBC 3.42 m/uL (4.30-5.90); RDW 13.5 % (11.5-15.5); WBC 8.8 k/uL (3.8-10.6)
[2017-10-27] MEDS: INSULIN ASPART 100 UNIT/ML 1 ML 10 ML VIAL SQ SCH ×4 (05:56→22:24)
[2017-10-27 06:10] LABS: Glucose,Whole Blood 116 mg/dL (75-99)
[2017-10-27 06:22] LABS: Anion Gap 6 mmol/L; Blood Urea Nitrogen 25 mg/dL (9-20); Calcium 8.1 mg/dL (8.4-10.2); Carbon Dioxide 31 mmol/L (22-30); Chloride 109 mmol/L (98-107); Glucose 126 mg/dL (74-99); Magnesium 2.5 mg/dL (1.6-2.3); Phosphorus 3.2 mg/dL (2.5-4.5); Potassium 3.9 mmol/L (3.5-5.1); Sodium 146 mmol/L (137-145)
--- NOTE | 2017-10-27 07:21 | XR ---
EXAMINATION TYPE: XR chest 1V portable DATE OF EXAM: 10/27/2017 COMPARISON: 10/26/2017 HISTORY: Shortness of breath TECHNIQUE: Single frontal view of the chest is obtained. FINDINGS: Bilateral effusion diffuse airspace disease stable. NG tube stable. No pneumothorax. IMPRESSION: Stable bilateral diffuse airspace disease and pleural effusion.
[2017-10-27] MEDS: CITALOPRAM HYDROBROMIDE 20 MG TAB PO SCH (08:46)
[2017-10-27] MEDS: ENOXAPARIN 40 MG/0.4 ML SYRINGE SQ SCH (08:46)
[2017-10-27] MEDS: OSELTAMIVIR 75 MG CAP PO SCH ×2 (08:46→20:37)
[2017-10-27] MEDS: PANTOPRAZOLE 40 MG/10 ML VIAL IVP SCH (08:46)
[2017-10-27] MEDS: lamoTRIgine 100 MG TAB PO SCH ×2 (08:46→20:37)
[2017-10-27] MEDS: DEXTROSE 5%-0.9% NACL 1,000 ML IV SCH (10:09)
[2017-10-27] MEDS ORDERED: DEXTROSE 5% IN WATER 1,000 ML IV ONE (11:02)
[2017-10-27] MEDS: FUROSEMIDE 10 MG/ML 2 ML VIAL IV SCH ×2 (11:47→20:37)
[2017-10-27 11:56] LABS: Glucose,Whole Blood 123 mg/dL (75-99)
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
--- NOTE | 2017-10-27 12:26 | P.PN ---
Subjective Progress Note Date: 10/27/17 Principal diagnosis: Esophageal gastric distention 52-year-old gentleman with a history of head trauma developmental delay admitted with acute influenza A aspiration pneumonia with radiographic imaging on admission suggestive of distention of esophagus and stomach as well as small bowel obstruction. Receiving Tamiflu. Patient has been evaluated by general surgery. Abdominal films 2 days ago reported no evidence of small bowel obstruction. Stool retention was identified. Patient was provided enemas with nonbloody bowel movements. Failed bedside swallow. NGT present possible initiation of tube feeds today. No overt bleeding such as hematemesis hematochezia melena. Hemoglobin today 10.8. Resting comfortably. Objective - Vital Signs Vital signs: Vital Signs Temp 98.6 F 10/27/17 12:00 Pulse 72 10/27/17 12:00 Resp 12 10/27/17 12:00 BP 118/55 10/27/17 12:00 Pulse Ox 93 L 10/27/17 12:00 Intake & Output 10/26/17 10/27/17 10/27/17 18:59 06:59 18:59 Intake Total 1060.825 825 425 Output Total 3505 635 515 Balance -2444.175 190 -90 Weight 68.1 kg 68.1 kg Intake: IV 1000.0 825 425 Dextrose 5%-0.9% NaCl 1, 350 250 000 ml @ 50 mls/hr IV . Q20H [facility] Rx#:[id number] Piperacillin-Tazobactam 3 50.0 50 .375 gm In Dextrose/Water 1 50ml.bag @ 12.5 mls/hr IVPB Q8H [facility] Rx#: [id number] Potassium Chloride 10 meq 200 In Sodium Chloride 0.9% 100 ml @ 100 mls/hr IVPB Q1H [facility] Rx#:[id number] Sodium Chloride 0.9% 1, 500 100 000 ml @ 50 mls/hr IV . Q20H [facility] Rx#:[id number] Vancomycin 1,250 mg In 250 375 125 Sodium Chloride 0.9% 250 ml @ 125 mls/hr IVPB Q8HR @0400,1200,2000 [facility] Rx#: [id number] Intake, IV Titration 30.825 Amount Propofol 1,000 mg In 30.825 Empty Bag 1 bag @ Titrate IV .Q0M [facility] Rx#: [id number] Tube Feeding 30 Output: Gastric Drainage 200 Urine 3505 635 315 Other: Voiding Method Indwelling Catheter Indwelling Catheter Indwelling Catheter - Exam General appearance: The patient is alert, in no acute distress. HET: Head is normocephalic and atraumatic. Pupils are equal and reactive. Oropharynx is clear without lesions. Naso gastric tube with bilious fluid. Neck: Supple without lymphadenopathy. Trachea midline. Heart: S1 S2. Regular rate and rhythm. Lungs: Coarse bilaterally diminished in bases. Abdomen: Soft, nontender, nondistended with bowel sounds. No peritoneal signs. No palpable organomegaly or masses. Extremities: Normal skin color and turgor. No cyanosis, rash, ulceration, clubbing, or edema. Radial and pedal pulses are 2/4 bilaterally. Neurological: No focal deficits. Strength and sensation are grossly intact. - Labs CBC & Chem 7: 10/27/17 05:32 10/27/17 05:32 Labs: Abnormal Lab Results - Last 24 Hours (Table) 10/26/17 10/26/17 10/27/17 Range/Units 18:08 22:52 05:32 RBC 3.42 L (4.30-5.90) m/uL Hgb 10.8 L (13.0-17.5) gm/dL Hct 32.5 L (39.0-53.0) % Neutrophils # 8.0 H (1.3-7.7) k/uL Lymphocytes # 0.5 L (1.0-4.8) k/uL Sodium (137-145) mmol/L Chloride (98-107) mmol/L Carbon Dioxide (22-30) mmol/L BUN (9-20) mg/dL Glucose (74-99) mg/dL POC Glucose (mg/dL) 138 H 108 H (75-99) mg/dL Calcium (8.4-10.2) mg/dL Magnesium (1.6-2.3) mg/dL 10/27/17 10/27/17 10/27/17 Range/Units 05:32 05:56 11:52 RBC (4.30-5.90) m/uL Hgb (13.0-17.5) gm/dL Hct (39.0-53.0) % Neutrophils # (1.3-7.7) k/uL Lymphocytes # (1.0-4.8) k/uL Sodium 146 H (137-145) mmol/L Chloride 109 H (98-107) mmol/L Carbon Dioxide 31 H (22-30) mmol/L BUN 25 H (9-20) mg/dL Glucose 126 H (74-99) mg/dL POC Glucose (mg/dL) 116 H 123 H (75-99) mg/dL Calcium 8.1 L (8.4-10.2) mg/dL Magnesium 2.5 H (1.6-2.3) mg/dL Microbiology - Last 24 Hours (Table) 10/23/17 23:35 Blood Culture - Preliminary Blood No Growth after 72 hours 10/24/17 18:39 Blood Culture Gram Stain - Preliminary Blood 10/24/17 18:39 Blood Culture - Final Blood 10/24/17 15:45 Gram Stain - Final Sputum Sputum Culture - Final Assessment and Plan (1) Small bowel obstruction Narrative/Plan: Dilated esophagus and stomach on CT imaging most likely on the basis of admission small bowel obstruction since resolved. Repeat abdominal films reported no evidence of obstruction. Fecal impaction evident on imaging received enema yesterday with result of small nonbloody bowel movement. Presently no symptoms to suggest bowel obstruction. Current Visit: Yes Status: Acute Code(s): K56.609 - UNSP INTESTNL OBST, UNSP TO PARTIAL VERSUS COMPLETE OBST SNOMED Code(s): 642838405 (2) Influenza Current Visit: Yes Status: Acute Code(s): J11.1 - FLU DUE TO UNIDENTIFIED INFLUENZA VIRUS W OTH RESP MANIFEST SNOMED Code(s): 7986669 (3) Acute respiratory failure Current Visit: No Status: Acute Code(s): J96.00 - ACUTE RESPIRATORY FAILURE , UNSP W HYPOXIA OR HYPERCAPNIA SNOMED Code(s): 75664902 (4) Aspiration pneumonia Current Visit: No Status: Acute Code(s): J69.0 - PNEUMONITIS DUE TO INHALATION OF FOOD AND VOMIT SNOMED Code(s): 223984551 (5) Fecal impaction Current Visit: Yes Status: Acute Code(s): K56.41 - FECAL IMPACTION SNOMED Code(s): 63887479 Plan: 1. Continue with stool softeners repeat enema laxatives as needed. 2. Upper endoscopy will be contingent on clinical course will continue to monitor; not planned at this time. 3. CBC monitoring. Observe for any overt GI bleeding. 4. Enteral feeds. Assessment and plan a care discussed with Dr. Wang.
[2017-10-27] MEDS ORDERED: BISACODYL 10 MG SUPP RECTAL PRN (12:28)
--- NOTE | 2017-10-27 17:22 | P.PN ---
<Dee Whelan - Last Filed: 10/27/17 17:13> Subjective Progress Note Date: 10/27/17 Principal diagnosis: Acute hypoxic respiratory failure secondary to both influenza A and a large volume aspiration pneumonia. This is a 52-year-old mentally handicapped individual status post closed head injury for 30 years. The patient is unable to give any history and he is a verbal her nonverbal. Apparently had a fever and occasional cough. He was brought into the emergency room for evaluation. The patient was found to have influenza A. The patient was admitted to the fifth floor. There he apparently aspirated. It was apparently a large-volume aspiration. Her suctioning lots of material from the patient's posterior oropharynx. Here in the ICU I was asked to see him. The patient was impending respiratory failure. I intubated him with #8 endotracheal tube. The patient tolerated the procedure well. Chest x-ray shows some bilateral infiltrates. Computed tomography scan showed multifocal infiltrates and inflammatory changes particularly in the lower lobes. The patient has a stable hemodynamic status. He has adequate IV access. His past medical history is positive for seizure disorder and pneumonia. He also has a history of previous severe head injury back in 1985. He's had previous sprains surgery with skull plate placement in 1985, a tendon release and some other surgical procedures. On 10/25/2017 I'm seeing this patient for a follow-up. The patient remains intubated on a mechanical ventilator. He is on 50 mics of the prevent however despite that he is awake and he can follow some simple commands and is also communicating with his family members. He is intubated by #8 orotracheal tube. There is some looseness for secretions are being suctioned out. He is on assist control mode of ventilation with a tidal volume of 350, rate of 28, FiO2 of 50% with a PEEP of 5. The morning blood gases showed a pH of 7.39 with a pCO2 of 36 and pO2 of 134 and based on that I dropped FiO2 down to 40%. His chest x-ray from today shows a left lung consolidation indicating an underlying pneumonia. There is adequate positioning of the ET tube. No other acute pneumonitis of been noted. As for the x-ray of the abdomen, there was no air- fluid levels or bowel distention. The patient had a CAT scan of the abdomen earlier that raised the suspicion for bowel obstruction however, the patient seems to have mainly fecal impaction. He does have an NG tube in place at this point in time. No critical evidence of any abdominal distention or small bowel obstruction and he does have adequate bowel sounds. He'll be having a an OH at the bedside. Lactic acid level remains slightly elevated at 4.1 and this is something that we are monitoring. The patient is being treated with broad- spectrum antibiotics and currently the patient is a on a combination of IV Zosyn and Tamiflu for influenza a tracheal bronchitis. The patient was on bronchodilators and systemic steroids. He is on no pressors at this point in time. On 10/26/2017 the patient is being seen for a follow-up. The patient remains intubated on a mechanical ventilator. This morning he is essentially on the same vent setting which includes an assist-control of 28, tidal volume 350, FiO2 of 40% and a PEEP of 5. Chest x-ray remains unchanged with stable left lung consolidation. There is also increased pulmonary vascular markings. ET tube is in a good location. The patient is not producing excess amount of respiratory secretions. Blood gases from this morning showed a pH of 7.49 with a pCO2 of 37 and pO2 of 84 and this was done on a FiO2 of 40%. White cell count is not elevated. The patient was taken off the Diprivan and currently the patient is in the process of undergoing a spot his breathing trial. I switched him to a pressure support of 5 and a PEEP of 5. He is weaning parameters were acceptable. He was noted to have a rapid shallow breathing index of less than 100. He started volume is currently ranging between 250 and 325 and he is breathing comfortably. He is coughing reflexes weak and I think it's probably related to some degree of sedation as the patient just came off sedation for now. He did have a bowel movement yesterday. NG tube is in place. Total amount of output from the NG is approximately 30 mL all night. As for the urine output is approximately 25 mL an hour. The patient remains on Tamiflu. The patient remains on Zosyn. The patient is receiving IV fluids at the rate of 100 mL an hour of normal saline. The patient had a drop in hemoglobin down to 10.9 yet that is no evidence of any GI bleeding. The patient remains on Lovenox. He is also on Protonix. He remains nothing by mouth. No evidence of any small bowel obstruction at this point. The patient is seen again today 10/27/2017 in follow-up in the intensive care unit. He was successfully extubated yesterday. He is still requiring 7 L of high flow nasal cannula to maintain O2 saturations in the 90s. He's had a low- grade fever currently 99.1. He has been hemodynamically stable. Sputum and urine cultures revealed no growth. One blood culture is revealing gram- positive bacilli. He has been maintained on vancomycin, Zosyn. He remains on Tamiflu. His chest x-ray reveals stable bilateral diffuse airspace disease and small pleural effusions. He is on Lasix IV 20 mg every 12 hours. White count 8.8, hemoglobin 10.8, creatinine 0.70. Sodium 146. Objective - Vital Signs Vital signs: Vital Signs Temp 99.1 F 10/27/17 16:00 Pulse 80 10/27/17 17:00 Resp 20 10/27/17 17:00 BP 111/72 10/27/17 17:00 Pulse Ox 93 L 10/27/17 17:00 Intake & Output 10/26/17 10/27/17 10/27/17 18:59 06:59 18:59 Intake Total 1060.825 825 775.0 Output Total 3505 635 1890 Balance -2444.175 190 -1115.0 Weight 68.1 kg 68.1 kg Intake: IV 1000.0 825 725.0 Dextrose 5% in Water 1, 150 000 ml @ 50 mls/hr IV . Q20H [facility] Rx#:[id number] Dextrose 5%-0.9% NaCl 1, 350 250 000 ml @ 50 mls/hr IV . Q20H [facility] Rx#:[id number] Piperacillin-Tazobactam 3 50.0 75.0 .375 gm In Dextrose/Water 1 50ml.bag @ 12.5 mls/hr IVPB Q8H [facility] Rx#: [id number] Potassium Chloride 10 meq 200 In Sodium Chloride 0.9% 100 ml @ 100 mls/hr IVPB Q1H [facility] Rx#:[id number] Sodium Chloride 0.9% 1, 500 100 000 ml @ 50 mls/hr IV . Q20H [facility] Rx#:[id number] Vancomycin 1,250 mg In 250 375 250 Sodium Chloride 0.9% 250 ml @ 125 mls/hr IVPB Q8HR @0400,1200,2000 [facility] Rx#: [id number] Intake, IV Titration 30.825 Amount Propofol 1,000 mg In 30.825 Empty Bag 1 bag @ Titrate IV .Q0M [facility] Rx#: [id number] Tube Feeding 30 20 Other 30 Output: Gastric Drainage 200 Urine 3505 635 1690 Other: Voiding Method Indwelling Catheter Indwelling Catheter Indwelling Catheter - Exam The patient's nonverbal. HEENT examination is grossly unremarkable. Mucous membranes are moist. No oral lesions. Orogastric and orotracheal tube are both in place. Neck is somewhat flexed. It's supple. No cervical lymphadenopathy. Neck supple. Full range of motion. No adenopathy thyromegaly or neck vein distention. Cardiovascular examination reveals regular rhythm rate. S1-S2 normal. No S3 or S4. No discernible murmur noted. Lungs reveal coarse bilateral breath sounds. Breath sounds are severely diminished. No wheezes. No crackles.. Abdomen soft bowel sounds are heard. No masses or tenderness. Extremities reveal some flexion contractures.. There is no edema or cyanosis or clubbing at this point Skin is without rash or lesion.Examination of the skin revealed no evidence of significant rashes, suspicious appearing nevi or other concerning lesions. Neurologic examination cannot be adequately assessed. Neurologically the patient is awake and following simple commands. He is bedridden/wheelchair- bound and has extensive contractures in lower oximetry is bilaterally. He has posttraumatic brain injury. - Labs CBC & Chem 7: 10/27/17 05:32 10/27/17 05:32 Labs: Abnormal Lab Results - Last 24 Hours (Table) 10/26/17 10/26/17 10/27/17 Range/Units 18:08 22:52 05:32 RBC 3.42 L (4.30-5.90) m/uL Hgb 10.8 L (13.0-17.5) gm/dL Hct 32.5 L (39.0-53.0) % Neutrophils # 8.0 H (1.3-7.7) k/uL Lymphocytes # 0.5 L (1.0-4.8) k/uL Sodium (137-145) mmol/L Chloride (98-107) mmol/L Carbon Dioxide (22-30) mmol/L BUN (9-20) mg/dL Glucose (74-99) mg/dL POC Glucose (mg/dL) 138 H 108 H (75-99) mg/dL Calcium (8.4-10.2) mg/dL Magnesium (1.6-2.3) mg/dL 10/27/17 10/27/17 10/27/17 Range/Units 05:32 05:56 11:52 RBC (4.30-5.90) m/uL Hgb (13.0-17.5) gm/dL Hct (39.0-53.0) % Neutrophils # (1.3-7.7) k/uL Lymphocytes # (1.0-4.8) k/uL Sodium 146 H (137-145) mmol/L Chloride 109 H (98-107) mmol/L Carbon Dioxide 31 H (22-30) mmol/L BUN 25 H (9-20) mg/dL Glucose 126 H (74-99) mg/dL POC Glucose (mg/dL) 116 H 123 H (75-99) mg/dL Calcium 8.1 L (8.4-10.2) mg/dL Magnesium 2.5 H (1.6-2.3) mg/dL Microbiology - Last 24 Hours (Table) 10/26/17 12:58 Blood Culture - Preliminary Blood No Growth after 24 hours 10/23/17 23:35 Blood Culture - Preliminary Blood No Growth after 72 hours 10/24/17 18:39 Blood Culture Gram Stain - Preliminary Blood Assessment and Plan Assessment: Assessment 1 Acute hypoxemic respiratory failure, likely secondary to both influenza A and large-volume aspiration pneumonia. The patient continues to have a dense consolidation of the left lung. Successfully extubated yesterday. He is currently on 7 L high flow nasal cannula.. The patient is covered with a combination of Tamiflu and Zosyn and vancomycin.. He is also on bronchodilators and systemic steroids. On 10/26/2017, the patient remains intubated on a mechanical ventilator. Chest x-ray findings are essentially stable. Suspect an aspiration left lung pneumonia. The patient also has acute influenza a tracheobronchitis/pneumonia and the patient is on a combination of Zosyn and Tamiflu. Blood gases was noted and there is a component of respiratory alkalosis. The patient is in process of being given a spontaneous breathing trial in anticipation for extubation if he is able to past a spontaneous breathing trial. On 10/27/2017, the patient was successfully extubated yesterday. His chest x- ray is stable. He remains on vancomycin, Zosyn and Tamiflu. He had 1 blood culture positive for gram-positive bacilli. He is initiated on Lasix 20 mg IV push every 12 hours. 2 History of seizure disorder, currently inactive and stable. 3 History of severe head injury in 1985 with severe developmental delay and mental retardation 4 Previous history of surgery to skull, 1985 5 Previous history of urinary tract infections 6 mild lactic acidosis, the lactic acidosis recovered and the patient's lactic acid normalized is down to 1.0. 7 stool impaction, the patient had a enema yesterday and the patient produced an small amount of stool. Abdomen is non-distended. No clinical evidence of any small bowel obstruction and NG tube is still in place. 8 drop in hemoglobin without evidence of any GI bleeding. The patient is on Lovenox for DVT prophylaxis. Plan: The patient was seen and evaluated by Dr. Ortega. His chest x-ray and labs were reviewed. He had a recent echocardiogram in September 2017 that revealed preserved left ventricular systolic function. He'll remain on Lasix 20 mg IV push every 12 hours. Change the IV to D5W at 50 MLS per hour. We'll begin tube feedings per dietary recommendations. We'll repeat his chest x-ray in the a.m. We'll continue to follow and make further recommendations based on his clinical status. I, the cosigning physician, performed a history & physical examination of the patient. Lungs sounds have few scattered rhonchi, crackles in the posterior bases. Maintaining good O2 saturations in the 90s on 7 L high flow nasal cannula I discussed the assessment and plan of care with my nurse practitioner, Dee Whelan. I attest to the above note as dictated by her. Time with Patient: Greater than 30 <Nelly Ortega - Last Filed: 10/27/17 18:12> Objective - Vital Signs Vital signs: Vital Signs Temp 99.1 F 10/27/17 16:00 Pulse 80 10/27/17 17:00 Resp 20 10/27/17 17:00 BP 111/72 10/27/17 17:00 Pulse Ox 93 L 10/27/17 17:00 Intake & Output 10/26/17 10/27/17 10/27/17 18:59 06:59 18:59 Intake Total 1060.825 825 847.5 Output Total 3505 635 1965 Balance -2444.175 190 -1117.5 Weight 68.1 kg 68.1 kg Intake: IV 1000.0 825 787.5 Dextrose 5% in Water 1, 200 000 ml @ 50 mls/hr IV . Q20H [facility] Rx#:[id number] Dextrose 5%-0.9% NaCl 1, 350 250 000 ml @ 50 mls/hr IV . Q20H [facility] Rx#:[id number] Piperacillin-Tazobactam 3 50.0 87.5 .375 gm In Dextrose/Water 1 50ml.bag @ 12.5 mls/hr IVPB Q8H [facility] Rx#: [id number] Potassium Chloride 10 meq 200 In Sodium Chloride 0.9% 100 ml @ 100 mls/hr IVPB Q1H [facility] Rx#:[id number] Sodium Chloride 0.9% 1, 500 100 000 ml @ 50 mls/hr IV . Q20H [facility] Rx#:[id number] Vancomycin 1,250 mg In 250 375 250 Sodium Chloride 0.9% 250 ml @ 125 mls/hr IVPB Q8HR @0400,1200,2000 [facility] Rx#: [id number] Intake, IV Titration 30.825 Amount Propofol 1,000 mg In 30.825 Empty Bag 1 bag @ Titrate IV .Q0M [facility] Rx#: [id number] Tube Feeding 30 30 Other 30 Output: Gastric Drainage 200 Urine 3505 635 1765 Other: Voiding Method Indwelling Catheter Indwelling Catheter Indwelling Catheter - Labs CBC & Chem 7: 10/27/17 05:32 10/27/17 05:32 Labs: Abnormal Lab Results - Last 24 Hours (Table) 10/26/17 10/27/17 10/27/17 Range/Units 22:52 05:32 05:32 RBC 3.42 L (4.30-5.90) m/uL Hgb 10.8 L (13.0-17.5) gm/dL Hct 32.5 L (39.0-53.0) % Neutrophils # 8.0 H (1.3-7.7) k/uL Lymphocytes # 0.5 L (1.0-4.8) k/uL Sodium 146 H (137-145) mmol/L Chloride 109 H (98-107) mmol/L Carbon Dioxide 31 H (22-30) mmol/L BUN 25 H (9-20) mg/dL Glucose 126 H (74-99) mg/dL POC Glucose (mg/dL) 108 H (75-99) mg/dL Calcium 8.1 L (8.4-10.2) mg/dL Magnesium 2.5 H (1.6-2.3) mg/dL 10/27/17 10/27/17 10/27/17 Range/Units 05:56 11:52 17:23 RBC (4.30-5.90) m/uL Hgb (13.0-17.5) gm/dL Hct (39.0-53.0) % Neutrophils # (1.3-7.7) k/uL Lymphocytes # (1.0-4.8) k/uL Sodium (137-145) mmol/L Chloride (98-107) mmol/L Carbon Dioxide (22-30) mmol/L BUN (9-20) mg/dL Glucose (74-99) mg/dL POC Glucose (mg/dL) 116 H 123 H 136 H (75-99) mg/dL Calcium (8.4-10.2) mg/dL Magnesium (1.6-2.3) mg/dL Microbiology - Last 24 Hours (Table) 10/26/17 12:58 Blood Culture - Preliminary Blood No Growth after 24 hours 10/23/17 23:35 Blood Culture - Preliminary Blood No Growth after 72 hours 10/24/17 18:39 Blood Culture Gram Stain - Preliminary Blood Assessment and Plan Assessment: Joint evaluation and I attest to the above-mentioned information. The patient will be started on a Lasix. The patient will continue the current antibiotic coverage. Keep NG tube in place. Keep the patient nothing by mouth for now. Start enteral feeding through NG tube. We'll continue to follow. High likelihood that the patient may fail again knowing that he has a weak cough and he has extensive consolidation in the lung specially on the left. We'll monitor here in the ICU very closely.
[2017-10-27 17:25] LABS: Glucose,Whole Blood 136 mg/dL (75-99)
[2017-10-27] MEDS ORDERED: VANCOMYCIN TROUGH DUE 1 EACH MISC MISCELLANE ONE (19:00)
--- NOTE | 2017-10-27 19:41 | PN ---
PROGRESS NOTE DATE OF SERVICE: 10/27/2017 REASON FOR FOLLOWUP: 1. Acute influenza A. 2. Aspiration pneumonia. 3. Positive blood culture. INTERVAL HISTORY: The patient is afebrile. He is breathing comfortably, hemodynamically stable, not on any pressor support. No nausea, vomiting or any diarrhea. He remains non-verbal and unable to provide a reliable history. PHYSICAL EXAMINATION: Blood pressure is 119/55 with a pulse of 84, temperature of 98. He is 94% on 7 L high- flow oxygen. General description is a middle-aged male lying in bed in no distress. RESPIRATORY SYSTEM: Unlabored breathing. Some coarse breath sounds in the bases. No wheeze. HEART: S1, S2. Regular rate and rhythm. ABDOMEN: Soft. Mildly distended. EXTREMITIES: No edema of feet. LABS: Hemoglobin is 10.8, white count 8.8 with a BUN of 25, creatinine 0.70. Blood cultures with a Gram-positive, ID and sensitivity pending. Sputum culture so far negative. DIAGNOSTIC IMPRESSION AND PLAN: Patient with acute influenza A with subsequent element of aspiration with aspiration pneumonia and vent-dependent respiratory failure. The patient has shown overall clinical improvement, as he has been extubated, currently breathing comfortably. He will be kept on Zosyn and vancomycin while waiting for the final ID on the composite in the blood. Continue supportive care. MMODL / IJN: [id number] /
[2017-10-27] MEDS: DOCUSATE ORAL SOLN 100 MG/10 ML CUP NG-TUBE SCH (20:37)
--- NOTE | 2017-10-27 21:14 | XR ---
EXAMINATION: XR chest 1V DATE AND TIME: 10/27/2017 8:39 PM ORDERING PROVIDER: Nelly Ortega CLINICAL INDICATION: verify NG tube placement TECHNIQUE: AP upright portable COMPARISON: 10/27/2017 at 6:43 AM DESCRIPTION: NG tube courses over the expected course of the thoracic esophagus, the stomach, and the first and second portion of the duodenum. The port of the NG tube is superimposed over the expected position of the proximal second portion of the duodenum. If the NG tube is retracted by 5 cm, it is s uspected that the port of the NG tube would be within the stomach. The previously seen left-sided lung abnormalities are redemonstrated. There is evidence of the overal l lung inflation pattern is mildly improved when compared the prior study. There is no pneumothorax. No evident pneumoperitoneum. IMPRESSION: NG tube placement.
[2017-10-27 22:27] LABS: Glucose,Whole Blood 123 mg/dL (75-99)
[2017-10-27] MEDS ORDERED: POTASSIUM CHLORIDE ORAL LIQUID 40 MEQ/30 ML CUP NG-TUBE SCH (23:00)
[2017-10-27 23:44] LABS: Glucose,Whole Blood 121 mg/dL (75-99)
[2017-10-28] MEDS: IPRATROPIUM-ALBUTEROL 3 ML NEB INHALATION SCH ×7 (00:06→23:43)
[2017-10-28 04:43] LABS: Basophils % (A) 0 %; Eosinophils % (A) 0 %; HCT 33.3 % (39.0-53.0); HGB 11.5 gm/dL (13.0-17.5); Lymphocytes # (A) 0.4 k/uL (1.0-4.8); Lymphocytes % (A) 4 %; MCH 31.9 pg (25.0-35.0); MCHC 34.6 g/dL (31.0-37.0); MCV 92.3 fL (80.0-100.0); Monocytes # (A) 0.4 k/uL (0-1.0); Monocytes % (A) 4 %; Neutrophils # (A) 8.7 k/uL (1.3-7.7); Neutrophils % (A) 91 %; Platelet Count 180 k/uL (150-450); RDW 12.9 % (11.5-15.5); WBC 9.5 k/uL (3.8-10.6)
[2017-10-28 04:57] LABS: Glucose,Whole Blood 137 mg/dL (75-99)
[2017-10-28] MEDS: VANCOMYCIN 1,250 MG in SODIUM CHLORIDE 0.9% 250 ML IVPB SCH ×2 (04:58→12:04)
[2017-10-28] MEDS: methylPREDNISolone SOD SUCCI 40 MG/ML 1 ML VIAL IV SCH ×3 (05:01→17:50)
[2017-10-28] MEDS: INSULIN ASPART 100 UNIT/ML 1 ML 10 ML VIAL SQ SCH ×4 (05:01→23:30)
[2017-10-28 05:03] LABS: Anion Gap 7 mmol/L; Blood Urea Nitrogen 30 mg/dL (9-20); Calcium 8.5 mg/dL (8.4-10.2); Carbon Dioxide 32 mmol/L (22-30); Chloride 103 mmol/L (98-107); Glucose 144 mg/dL (74-99); Magnesium 2.6 mg/dL (1.6-2.3); Phosphorus 3.5 mg/dL (2.5-4.5); Potassium 4.3 mmol/L (3.5-5.1); Sodium 142 mmol/L (137-145)
[2017-10-28] MEDS: PIPERACILLIN-TAZOBACTAM 3.375 GM in DEXTROSE/WATER 1 50ML.BAG IVPB SCH ×3 (06:32→21:59)
[2017-10-28] MEDS: ENOXAPARIN 40 MG/0.4 ML SYRINGE SQ SCH (09:07)
[2017-10-28] MEDS: lamoTRIgine 100 MG TAB PO SCH ×2 (09:07→21:02)
[2017-10-28] MEDS: CITALOPRAM HYDROBROMIDE 20 MG TAB PO SCH (09:07)
[2017-10-28] MEDS: OSELTAMIVIR 75 MG CAP PO SCH ×2 (09:07→21:02)
[2017-10-28] MEDS: DOCUSATE ORAL SOLN 100 MG/10 ML CUP NG-TUBE SCH ×2 (09:07→21:02)
[2017-10-28] MEDS: PANTOPRAZOLE 40 MG/10 ML VIAL IVP SCH (09:07)
[2017-10-28] MEDS: FUROSEMIDE 10 MG/ML 2 ML VIAL IV SCH ×2 (09:07→21:02)
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
--- NOTE | 2017-10-28 11:03 | XR ---
EXAMINATION TYPE: XR chest 1V portable DATE OF EXAM: 10/28/2017 COMPARISON: Prior chest x-ray 10/27/2017 HISTORY: Tube placement TECHNIQUE: Single frontal view of the chest is obtained. FINDINGS: NG tube is in place and coiled within the stomach, distal tip not included on the exam may course into the proximal small bowel. Lung volumes are low. Airspace disease present in the left low er lobe. Exam is expiratory rotated. No evident pneumothorax. Patchy density also present at the righ t lung base may represent atelectasis rather than airspace disease. Heart is stable. There are overly ing cardiac leads. Chronic acromioclavicular separation noted on the right. IMPRESSION: Findings likely represent left lower lobe pneumonia. Distal tip of the NG tube is not in cluded on the exam.
[2017-10-28 12:02] LABS: Glucose,Whole Blood 127 mg/dL (75-99)
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
[2017-10-28] MEDS: DEXTROSE 5% IN WATER 1,000 ML IV SCH (14:07)
--- NOTE | 2017-10-28 14:54 | P.PN ---
Subjective Progress Note Date: 10/28/17 Principal diagnosis: Small bowel obstruction Patient is progressing well. He is having bowel movements. He is tolerating his tube feeds at this time. Objective - Vital Signs Vital signs: Vital Signs Temp 97.5 F L 10/28/17 12:00 Pulse 77 10/28/17 14:00 Resp 19 10/28/17 14:00 BP 124/65 10/28/17 14:00 Pulse Ox 91 L 10/28/17 14:00 Intake & Output 10/27/17 10/28/17 10/28/17 18:59 06:59 18:59 Intake Total 920.0 1160 700 Output Total 202 1445 1865 Balance -1105.0 -285 -1165 Weight 68.1 kg Intake: IV 850.0 900 400 Dextrose 5% in Water 1, 250 600 400 000 ml @ 50 mls/hr IV . Q20H [facility] Rx#:[id number] Dextrose 5%-0.9% NaCl 1, 250 000 ml @ 50 mls/hr IV . Q20H [facility] Rx#:[id number] Piperacillin-Tazobactam 3 100.0 50 .375 gm In Dextrose/Water 1 50ml.bag @ 12.5 mls/hr IVPB Q8H [facility] Rx#: [id number] Vancomycin 1,250 mg In 250 250 Sodium Chloride 0.9% 250 ml @ 125 mls/hr IVPB Q8HR @0400,1200,2000 [facility] Rx#: [id number] Tube Feeding 40 260 240 Other 30 60 Output: Gastric Drainage 200 Urine 1825 1445 1865 Other: Voiding Method Indwelling Catheter Indwelling Catheter Indwelling Catheter - Constitutional General appearance: Present: cooperative - Respiratory Details: Nonlabored - Cardiovascular Rhythm: regular - Gastrointestinal Gastrointestinal Comment(s): Soft nondistended nontender to palpation - Labs CBC & Chem 7: 10/28/17 04:22 10/28/17 04:22 Labs: Abnormal Lab Results - Last 24 Hours (Table) 10/27/17 10/27/17 10/27/17 Range/Units 17:23 22:23 23:43 RBC (4.30-5.90) m/uL Hgb (13.0-17.5) gm/dL Hct (39.0-53.0) % Neutrophils # (1.3-7.7) k/uL Lymphocytes # (1.0-4.8) k/uL Carbon Dioxide (22-30) mmol/L BUN (9-20) mg/dL Glucose (74-99) mg/dL POC Glucose (mg/dL) 136 H 123 H 121 H (75-99) mg/dL Magnesium (1.6-2.3) mg/dL 10/28/17 10/28/17 10/28/17 Range/Units 04:22 04:22 04:56 RBC 3.60 L (4.30-5.90) m/uL Hgb 11.5 L (13.0-17.5) gm/dL Hct 33.3 L (39.0-53.0) % Neutrophils # 8.7 H (1.3-7.7) k/uL Lymphocytes # 0.4 L (1.0-4.8) k/uL Carbon Dioxide 32 H (22-30) mmol/L BUN 30 H (9-20) mg/dL Glucose 144 H (74-99) mg/dL POC Glucose (mg/dL) 137 H (75-99) mg/dL Magnesium 2.6 H (1.6-2.3) mg/dL 10/28/17 Range/Units 11:59 RBC (4.30-5.90) m/uL Hgb (13.0-17.5) gm/dL Hct (39.0-53.0) % Neutrophils # (1.3-7.7) k/uL Lymphocytes # (1.0-4.8) k/uL Carbon Dioxide (22-30) mmol/L BUN (9-20) mg/dL Glucose (74-99) mg/dL POC Glucose (mg/dL) 127 H (75-99) mg/dL Magnesium (1.6-2.3) mg/dL Microbiology - Last 24 Hours (Table) 10/23/17 23:35 Blood Culture - Preliminary Blood No Growth after 96 hours 10/26/17 12:58 Blood Culture - Preliminary Blood No Growth after 24 hours Assessment and Plan Assessment: Small bowel obstruction resolved Plan: Patient small bowel obstruction is resolved, he can continue enteral feeding as tolerated. Should there be any more concerns please feel free to contact me.
--- NOTE | 2017-10-28 15:23 | P.PN ---
<Dee Whelan - Last Filed: 10/28/17 15:11> Subjective Progress Note Date: 10/28/17 Principal diagnosis: Acute hypoxic respiratory failure secondary to both influenza A and a large volume aspiration pneumonia. This is a 52-year-old mentally handicapped individual status post closed head injury for 30 years. The patient is unable to give any history and he is a verbal her nonverbal. Apparently had a fever and occasional cough. He was brought into the emergency room for evaluation. The patient was found to have influenza A. The patient was admitted to the fifth floor. There he apparently aspirated. It was apparently a large-volume aspiration. Her suctioning lots of material from the patient's posterior oropharynx. Here in the ICU I was asked to see him. The patient was impending respiratory failure. I intubated him with #8 endotracheal tube. The patient tolerated the procedure well. Chest x-ray shows some bilateral infiltrates. Computed tomography scan showed multifocal infiltrates and inflammatory changes particularly in the lower lobes. The patient has a stable hemodynamic status. He has adequate IV access. His past medical history is positive for seizure disorder and pneumonia. He also has a history of previous severe head injury back in 1985. He's had previous sprains surgery with skull plate placement in 1985, a tendon release and some other surgical procedures. On 10/25/2017 I'm seeing this patient for a follow-up. The patient remains intubated on a mechanical ventilator. He is on 50 mics of the prevent however despite that he is awake and he can follow some simple commands and is also communicating with his family members. He is intubated by #8 orotracheal tube. There is some looseness for secretions are being suctioned out. He is on assist control mode of ventilation with a tidal volume of 350, rate of 28, FiO2 of 50% with a PEEP of 5. The morning blood gases showed a pH of 7.39 with a pCO2 of 36 and pO2 of 134 and based on that I dropped FiO2 down to 40%. His chest x-ray from today shows a left lung consolidation indicating an underlying pneumonia. There is adequate positioning of the ET tube. No other acute pneumonitis of been noted. As for the x-ray of the abdomen, there was no air- fluid levels or bowel distention. The patient had a CAT scan of the abdomen earlier that raised the suspicion for bowel obstruction however, the patient seems to have mainly fecal impaction. He does have an NG tube in place at this point in time. No critical evidence of any abdominal distention or small bowel obstruction and he does have adequate bowel sounds. He'll be having a an WA at the bedside. Lactic acid level remains slightly elevated at 4.1 and this is something that we are monitoring. The patient is being treated with broad- spectrum antibiotics and currently the patient is a on a combination of IV Zosyn and Tamiflu for influenza a tracheal bronchitis. The patient was on bronchodilators and systemic steroids. He is on no pressors at this point in time. On 10/26/2017 the patient is being seen for a follow-up. The patient remains intubated on a mechanical ventilator. This morning he is essentially on the same vent setting which includes an assist-control of 28, tidal volume 350, FiO2 of 40% and a PEEP of 5. Chest x-ray remains unchanged with stable left lung consolidation. There is also increased pulmonary vascular markings. ET tube is in a good location. The patient is not producing excess amount of respiratory secretions. Blood gases from this morning showed a pH of 7.49 with a pCO2 of 37 and pO2 of 84 and this was done on a FiO2 of 40%. White cell count is not elevated. The patient was taken off the Diprivan and currently the patient is in the process of undergoing a spot his breathing trial. I switched him to a pressure support of 5 and a PEEP of 5. He is weaning parameters were acceptable. He was noted to have a rapid shallow breathing index of less than 100. He started volume is currently ranging between 250 and 325 and he is breathing comfortably. He is coughing reflexes weak and I think it's probably related to some degree of sedation as the patient just came off sedation for now. He did have a bowel movement yesterday. NG tube is in place. Total amount of output from the NG is approximately 30 mL all night. As for the urine output is approximately 25 mL an hour. The patient remains on Tamiflu. The patient remains on Zosyn. The patient is receiving IV fluids at the rate of 100 mL an hour of normal saline. The patient had a drop in hemoglobin down to 10.9 yet that is no evidence of any GI bleeding. The patient remains on Lovenox. He is also on Protonix. He remains nothing by mouth. No evidence of any small bowel obstruction at this point. The patient is seen again today 10/27/2017 in follow-up in the intensive care unit. He was successfully extubated yesterday. He is still requiring 7 L of high flow nasal cannula to maintain O2 saturations in the 90s. He's had a low- grade fever currently 99.1. He has been hemodynamically stable. Sputum and urine cultures revealed no growth. One blood culture is revealing gram- positive bacilli. He has been maintained on vancomycin, Zosyn. He remains on Tamiflu. His chest x-ray reveals stable bilateral diffuse airspace disease and small pleural effusions. He is on Lasix IV 20 mg every 12 hours. White count 8.8, hemoglobin 10.8, creatinine 0.70. Sodium 146. The patient is seen again today 10/28/2017 in follow-up in the intensive care unit. He is more awake and alert today. He is stating short sentences. He has a stronger cough as well. Tolerating his tube feedings for now. No plans for barium swallow at this point. His chest x-ray continues to show low lung volumes and airspace disease in the left lower lobe secondary to aspiration pneumonia. There is slight improvement however. He is currently maintaining O2 saturations in the low 90s on 7 L of high flow nasal cannula. He's been afebrile. Hemodynamically stable. Blood and sputum cultures revealed no growth. No leukocytosis. He does remain on Zosyn. He continues to diurese well. He is on Lasix 20 mg IV twice a day. Echocardiogram from September 2017 revealed preserved left ventricular systolic function. Objective - Vital Signs Vital signs: Vital Signs Temp 97.5 F L 10/28/17 12:00 Pulse 77 10/28/17 14:00 Resp 19 10/28/17 14:00 BP 124/65 10/28/17 14:00 Pulse Ox 91 L 10/28/17 14:00 Intake & Output 10/27/17 10/28/17 10/28/17 18:59 06:59 18:59 Intake Total 920.0 1160 700 Output Total 2024 1445 1865 Balance -1105.0 -285 -1165 Weight 68.1 kg Intake: IV 850.0 900 400 Dextrose 5% in Water 1, 250 600 400 000 ml @ 50 mls/hr IV . Q20H [facility] Rx#:[id number] Dextrose 5%-0.9% NaCl 1, 250 000 ml @ 50 mls/hr IV . Q20H [facility] Rx#:[id number] Piperacillin-Tazobactam 3 100.0 50 .375 gm In Dextrose/Water 1 50ml.bag @ 12.5 mls/hr IVPB Q8H [facility] Rx#: [id number] Vancomycin 1,250 mg In 250 250 Sodium Chloride 0.9% 250 ml @ 125 mls/hr IVPB Q8HR @0400,1200,2000 [facility] Rx#: [id number] Tube Feeding 40 260 240 Other 30 60 Output: Gastric Drainage 200 Urine 1825 1445 1865 Other: Voiding Method Indwelling Catheter Indwelling Catheter Indwelling Catheter - Exam The patient is alert. He is stating short sentences including "I feel fine now ". He has a stronger cough as well.. HEENT examination is grossly unremarkable. Mucous membranes are moist. No oral lesions. Neck is somewhat flexed. It's supple. No cervical lymphadenopathy. Neck supple. Full range of motion. No adenopathy thyromegaly or neck vein distention. Cardiovascular examination reveals regular rhythm rate. S1-S2 normal. No S3 or S4. No discernible murmur noted. Lungs reveal coarse bilateral breath sounds. Crackles in the bases more so on the left. Abdomen soft bowel sounds are heard. No masses or tenderness. Extremities reveal some flexion contractures.. There is no edema or cyanosis or clubbing at this point Skin is without rash or lesion.Examination of the skin revealed no evidence of significant rashes, suspicious appearing nevi or other concerning lesions. Neurologic examination cannot be adequately assessed. Neurologically the patient is awake and following simple commands. He is bedridden/wheelchair- bound and has extensive contractures in lower extremities bilaterally. He has posttraumatic brain injury. - Labs CBC & Chem 7: 10/28/17 04:22 10/28/17 04:22 Labs: Abnormal Lab Results - Last 24 Hours (Table) 10/27/17 10/27/17 10/27/17 Range/Units 17:23 22:23 23:43 RBC (4.30-5.90) m/uL Hgb (13.0-17.5) gm/dL Hct (39.0-53.0) % Neutrophils # (1.3-7.7) k/uL Lymphocytes # (1.0-4.8) k/uL Carbon Dioxide (22-30) mmol/L BUN (9-20) mg/dL Glucose (74-99) mg/dL POC Glucose (mg/dL) 136 H 123 H 121 H (75-99) mg/dL Magnesium (1.6-2.3) mg/dL 10/28/17 10/28/17 10/28/17 Range/Units 04:22 04:22 04:56 RBC 3.60 L (4.30-5.90) m/uL Hgb 11.5 L (13.0-17.5) gm/dL Hct 33.3 L (39.0-53.0) % Neutrophils # 8.7 H (1.3-7.7) k/uL Lymphocytes # 0.4 L (1.0-4.8) k/uL Carbon Dioxide 32 H (22-30) mmol/L BUN 30 H (9-20) mg/dL Glucose 144 H (74-99) mg/dL POC Glucose (mg/dL) 137 H (75-99) mg/dL Magnesium 2.6 H (1.6-2.3) mg/dL 10/28/17 Range/Units 11:59 RBC (4.30-5.90) m/uL Hgb (13.0-17.5) gm/dL Hct (39.0-53.0) % Neutrophils # (1.3-7.7) k/uL Lymphocytes # (1.0-4.8) k/uL Carbon Dioxide (22-30) mmol/L BUN (9-20) mg/dL Glucose (74-99) mg/dL POC Glucose (mg/dL) 127 H (75-99) mg/dL Magnesium (1.6-2.3) mg/dL Microbiology - Last 24 Hours (Table) 10/23/17 23:35 Blood Culture - Preliminary Blood No Growth after 96 hours 10/26/17 12:58 Blood Culture - Preliminary Blood No Growth after 24 hours Assessment and Plan Assessment: Assessment 1 Acute hypoxemic respiratory failure, likely secondary to both influenza A and large-volume aspiration pneumonia. The patient continues to have a dense consolidation of the left lung. Successfully extubated yesterday. He is currently on 7 L high flow nasal cannula.. The patient is covered with a combination of Tamiflu and Zosyn. He is also on bronchodilators and systemic steroids. On 10/26/2017, the patient remains intubated on a mechanical ventilator. Chest x-ray findings are essentially stable. Suspect an aspiration left lung pneumonia. The patient also has acute influenza a tracheobronchitis/pneumonia and the patient is on a combination of Zosyn and Tamiflu. Blood gases was noted and there is a component of respiratory alkalosis. The patient is in process of being given a spontaneous breathing trial in anticipation for extubation if he is able to past a spontaneous breathing trial. On 10/27/2017, the patient was successfully extubated yesterday. His chest x- ray is stable. He remains on vancomycin, Zosyn and Tamiflu. He had 1 blood culture positive for gram-positive bacilli. He is initiated on Lasix 20 mg IV push every 12 hours. On 10/28/2017, the patient is more awake and alert today. He is stating short sentences. He is coughing stronger. Chest x-ray continues to show some left lower lobe infiltration but slightly improved today as compared to yesterday. He is currently on Zosyn and Tamiflu. No plans for barium swallow today. He is tolerating his tube feedings well. 2 History of seizure disorder, currently inactive and stable. 3 History of severe head injury in 1985 with severe developmental delay and mental retardation 4 Previous history of surgery to skull, 1985 5 Previous history of urinary tract infections 6 mild lactic acidosis, the lactic acidosis recovered and the patient's lactic acid normalized is down to 1.0. 7 stool impaction, the patient had a enema yesterday and the patient produced an small amount of stool. Abdomen is non-distended. No clinical evidence of any small bowel obstruction and NG tube is still in place. 8 drop in hemoglobin without evidence of any GI bleeding. The patient is on Lovenox for DVT prophylaxis. Plan: The patient was seen and evaluated by Dr. Ortega. His chest x-ray and labs were reviewed. He'll remain on Lasix 20 mg IV push every 12 hours. Change the IV to D5W at 50 MLS per hour. Tolerating tube feedings. Continue Zosyn and Tamiflu. He is on Lovenox for DVT prophylaxis. Protonix for GI prophylaxis. We'll repeat his chest x-ray in the a.m. We'll continue to follow and make further recommendations based on his clinical status. I, the cosigning physician, performed a history & physical examination of the patient. Lungs sounds have few scattered rhonchi, crackles in the posterior bases. Maintaining good O2 saturations in the 90s on 7 L high flow nasal cannula I discussed the assessment and plan of care with my nurse practitioner, Dee Whelan. I attest to the above note as dictated by her. <Nelly Ortega - Last Filed: 10/28/17 15:44> Objective - Vital Signs Vital signs: Vital Signs Temp 97.5 F L 10/28/17 12:00 Pulse 77 10/28/17 14:00 Resp 19 10/28/17 14:00 BP 124/65 10/28/17 14:00 Pulse Ox 91 L 10/28/17 14:00 Intake & Output 10/27/17 10/28/17 10/28/17 18:59 06:59 18:59 Intake Total 920.0 1160 700 Output Total 202 1445 1865 Balance -1105.0 -285 -1165 Weight 68.1 kg Intake: IV 850.0 900 400 Dextrose 5% in Water 1, 250 600 400 000 ml @ 50 mls/hr IV . Q20H [facility] Rx#:[id number] Dextrose 5%-0.9% NaCl 1, 250 000 ml @ 50 mls/hr IV . Q20H [facility] Rx#:[id number] Piperacillin-Tazobactam 3 100.0 50 .375 gm In Dextrose/Water 1 50ml.bag @ 12.5 mls/hr IVPB Q8H [facility] Rx#: [id number] Vancomycin 1,250 mg In 250 250 Sodium Chloride 0.9% 250 ml @ 125 mls/hr IVPB Q8HR @0400,1200,2000 [facility] Rx#: [id number] Tube Feeding 40 260 240 Other 30 60 Output: Gastric Drainage 200 Urine 1825 1445 1865 Other: Voiding Method Indwelling Catheter Indwelling Catheter Indwelling Catheter - Labs CBC & Chem 7: 10/28/17 04:22 10/28/17 04:22 Labs: Abnormal Lab Results - Last 24 Hours (Table) 10/27/17 10/27/17 10/27/17 Range/Units 17:23 22:23 23:43 RBC (4.30-5.90) m/uL Hgb (13.0-17.5) gm/dL Hct (39.0-53.0) % Neutrophils # (1.3-7.7) k/uL Lymphocytes # (1.0-4.8) k/uL Carbon Dioxide (22-30) mmol/L BUN (9-20) mg/dL Glucose (74-99) mg/dL POC Glucose (mg/dL) 136 H 123 H 121 H (75-99) mg/dL Magnesium (1.6-2.3) mg/dL 10/28/17 10/28/17 10/28/17 Range/Units 04:22 04:22 04:56 RBC 3.60 L (4.30-5.90) m/uL Hgb 11.5 L (13.0-17.5) gm/dL Hct 33.3 L (39.0-53.0) % Neutrophils # 8.7 H (1.3-7.7) k/uL Lymphocytes # 0.4 L (1.0-4.8) k/uL Carbon Dioxide 32 H (22-30) mmol/L BUN 30 H (9-20) mg/dL Glucose 144 H (74-99) mg/dL POC Glucose (mg/dL) 137 H (75-99) mg/dL Magnesium 2.6 H (1.6-2.3) mg/dL 10/28/17 Range/Units 11:59 RBC (4.30-5.90) m/uL Hgb (13.0-17.5) gm/dL Hct (39.0-53.0) % Neutrophils # (1.3-7.7) k/uL Lymphocytes # (1.0-4.8) k/uL Carbon Dioxide (22-30) mmol/L BUN (9-20) mg/dL Glucose (74-99) mg/dL POC Glucose (mg/dL) 127 H (75-99) mg/dL Magnesium (1.6-2.3) mg/dL Microbiology - Last 24 Hours (Table) 10/26/17 12:58 Blood Culture - Preliminary Blood No Growth after 48 hours 10/23/17 23:35 Blood Culture - Preliminary Blood No Growth after 96 hours Assessment and Plan Assessment: I attest to the above-mentioned information. The patient is quite stable. There is still a dense consolidation of the left lung. He is coughing better and he is producing some sputum. Continue Zosyn and Tamiflu. Repeat chest x- ray in the morning. Continue diuretics. Continue enteral feeding for nutritional support. Chest PT. Percussion. Echo is showing preserved LV function. We'll continue to follow.
[2017-10-28 17:50] LABS: Glucose,Whole Blood 128 mg/dL (75-99)
[2017-10-28 23:23] LABS: Glucose,Whole Blood 117 mg/dL (75-99)
[2017-10-29] MEDS: methylPREDNISolone SOD SUCCI 40 MG/ML 1 ML VIAL IV SCH ×4 (00:33→18:36)
[2017-10-29] MEDS: IPRATROPIUM-ALBUTEROL 3 ML NEB INHALATION SCH ×6 (03:43→23:47)
[2017-10-29 04:48] LABS: Basophils % (A) 0 %; Eosinophils # (A) 0.1 k/uL (0-0.7); Eosinophils % (A) 1 %; HCT 37.8 % (39.0-53.0); HGB 12.9 gm/dL (13.0-17.5); Lymphocytes # (A) 0.6 k/uL (1.0-4.8); Lymphocytes % (A) 5 %; MCH 31.5 pg (25.0-35.0); MCV 92.7 fL (80.0-100.0); Mean Platelet Volume 7.9; Monocytes # (A) 0.7 k/uL (0-1.0); Monocytes % (A) 5 %; Neutrophils # (A) 11.5 k/uL (1.3-7.7); Neutrophils % (A) 88 %; Platelet Count 227 k/uL (150-450); RBC 4.08 m/uL (4.30-5.90); RDW 13.2 % (11.5-15.5)
[2017-10-29 04:57] LABS: Anion Gap 10 mmol/L; Blood Urea Nitrogen 31 mg/dL (9-20); Calcium 8.6 mg/dL (8.4-10.2); Carbon Dioxide 31 mmol/L (22-30); Chloride 97 mmol/L (98-107); Glucose 130 mg/dL (74-99); Magnesium 2.4 mg/dL (1.6-2.3); Phosphorus 3.6 mg/dL (2.5-4.5); Potassium 4.2 mmol/L (3.5-5.1); Sodium 138 mmol/L (137-145)
--- NOTE | 2017-10-29 05:03 | XR ---
EXAM: XR Chest, 1 View CLINICAL HISTORY: Reason: Confirm Nasogastric tube placement TECHNIQUE: Frontal view of the chest. COMPARISON: Chest x-ray dated 10/28/17 FINDINGS: Lungs: Lungs demonstrate left greater than right alveolar infiltrates. Pleural space: Unremarkable. No pneumothorax. Heart: Unremarkable. No cardiomegaly. Mediastinum: Unremarkable. Bones/joints: Unremarkable. Tubes, lines and devices: Nasogastric tube tip below the edge of the study, possibly within the duodenum. IMPRESSION: 1. Nasogastric tube tip below the edge of the study, possibly within the duodenum. 2. Lungs demonstrate left greater than right alveolar infiltrates.
[2017-10-29] MEDS: INSULIN ASPART 100 UNIT/ML 1 ML 10 ML VIAL SQ SCH ×4 (05:05→22:03)
[2017-10-29] MEDS: PIPERACILLIN-TAZOBACTAM 3.375 GM in DEXTROSE/WATER 1 50ML.BAG IVPB SCH ×3 (06:13→21:59)
--- NOTE | 2017-10-29 06:19 | XR ---
EXAMINATION TYPE: XR chest 1V portable DATE OF EXAM: 10/29/2017 CLINICAL HISTORY: NG tube placement. TECHNIQUE: Single AP portable upright view of the chest is obtained. COMPARISON: Chest x-ray from earlier today. FINDINGS: Nasogastric tube is redemonstrated with tip likely in proximal portion of duodenum some bu t there is some retraction from prior. There is persistent low lung volumes with bilateral lower lung and perihilar opacities and elevated r ight hemidiaphragm. Upper lungs are clear without pneumothorax. Cardiac silhouette size is stable and upper limits of normal. Osseous structures are intact. IMPRESSION: Some interval retraction of nasogastric tube. Persistent low lung volumes with elevated r ight hemidiaphragm and bilateral mid to lower lung edema and/or infiltrates all redemonstrated.
--- NOTE | 2017-10-29 06:58 | PN ---
PROGRESS NOTE DATE OF SERVICE: 10/28/2017. REASON FOR FOLLOWUP: 1. Acute influenza. 2. Aspiration pneumonia. INTERVAL HISTORY: The patient is afebrile. He is hemodynamically stable not on pressor support. A NG has been placed for nutrition. No nausea, vomiting, or any diarrhea. EXAMINATION: Blood pressure is 119/59 with a pulse of 92, temperature of 98. He is 94% on 2 L nasal cannula. General description is a middle-aged male lying in bed in no distress. RESPIRATORY SYSTEM: Unlabored breathing. Coarse breath sounds bilaterally. No wheeze. HEART: S1, S2. Regular rate and rhythm. ABDOMEN: Soft, no tenderness. EXTREMITIES: No edema of the feet. LABS: Hemoglobin 11.5, white count 9.5, BUN of 13, creatinine 0.90. Blood culture with gram- positive bacilli. DIAGNOSTIC IMPRESSION AND PLAN: Patient with acute influenza with an episode of vomiting and aspiration, aspiration pneumonia. The patient's sputum has been negative so far. Blood culture with gram- positive bacilli that could be more likely contamination. Repeat blood culture should be negative. Keep the patient on Zosyn and discontinue the vancomycin. MMODL / IJN: [id number] /
--- NOTE | 2017-10-29 07:01 | XR ---
EXAMINATION TYPE: XR chest 1V portable DATE OF EXAM: 10/29/2017 CLINICAL HISTORY: NG tube placement. TECHNIQUE: Single AP portable upright view of the chest is obtained. COMPARISON: Chest x-ray from earlier today FINDINGS: Nasogastric tube has been retracted and now is completely within stomach and side-port is below diaphragm. There is persistent low lung volumes are elevated right hemidiaphragm. There is persistent bilateral hilar and lower lung opacities. Cardiac silhouette size is stable and upper limits of normal. Osseous structures are intact. IMPRESSION: Satisfactory positioning of nasogastric tube after adjustment. Other findings stable.
[2017-10-29] MEDS: PANTOPRAZOLE 40 MG/10 ML VIAL IVP SCH (08:40)
[2017-10-29] MEDS: ENOXAPARIN 40 MG/0.4 ML SYRINGE SQ SCH (08:40)
[2017-10-29] MEDS: lamoTRIgine 100 MG TAB PO SCH ×2 (08:40→20:25)
[2017-10-29] MEDS: FUROSEMIDE 10 MG/ML 2 ML VIAL IV SCH (08:40)
[2017-10-29] MEDS: DOCUSATE ORAL SOLN 100 MG/10 ML CUP NG-TUBE SCH ×2 (08:41→20:25)
[2017-10-29] MEDS: CITALOPRAM HYDROBROMIDE 20 MG TAB PO SCH (08:41)
[2017-10-29 11:57] LABS: Glucose,Whole Blood 135 mg/dL (75-99)
[2017-10-29] MEDS: DEXTROSE 5% IN WATER 1,000 ML IV SCH (12:09)
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
[2017-10-29 18:37] LABS: Glucose,Whole Blood 138 mg/dL (75-99)
[2017-10-29 22:06] LABS: Glucose,Whole Blood 122 mg/dL (75-99)
[2017-10-30] MEDS: methylPREDNISolone SOD SUCCI 40 MG/ML 1 ML VIAL IV SCH ×4 (00:52→18:57)
[2017-10-30] MEDS: IPRATROPIUM-ALBUTEROL 3 ML NEB INHALATION SCH ×5 (03:59→20:27)
[2017-10-30 06:00] LABS: Basophils # (A) 0.1 k/uL (0-0.2); Basophils % (A) 1 %; Eosinophils % (A) 0 %; HCT 38.4 % (39.0-53.0); HGB 12.3 gm/dL (13.0-17.5); Lymphocytes # (A) 0.5 k/uL (1.0-4.8); Lymphocytes % (A) 4 %; MCH 30.3 pg (25.0-35.0); MCHC 32.1 g/dL (31.0-37.0); MCV 94.4 fL (80.0-100.0); Mean Platelet Volume 8.3; Monocytes # (A) 0.7 k/uL (0-1.0); Monocytes % (A) 5 %; Neutrophils # (A) 11.5 k/uL (1.3-7.7); Neutrophils % (A) 89 %; Platelet Count 247 k/uL (150-450); RBC 4.07 m/uL (4.30-5.90); RDW 12.9 % (11.5-15.5); WBC 12.8 k/uL (3.8-10.6)
[2017-10-30] MEDS: DEXTROSE 5% IN WATER 1,000 ML IV SCH (06:02)
[2017-10-30 06:03] LABS: Glucose,Whole Blood 163 mg/dL (75-99)
[2017-10-30] MEDS: INSULIN ASPART 100 UNIT/ML 1 ML 10 ML VIAL SQ SCH ×4 (06:04→22:20)
[2017-10-30] MEDS: PIPERACILLIN-TAZOBACTAM 3.375 GM in DEXTROSE/WATER 1 50ML.BAG IVPB SCH ×3 (06:04→22:17)
[2017-10-30 06:24] LABS: Anion Gap 9 mmol/L; Blood Urea Nitrogen 26 mg/dL (9-20); Calcium 8.4 mg/dL (8.4-10.2); Carbon Dioxide 31 mmol/L (22-30); Chloride 97 mmol/L (98-107); Glucose 140 mg/dL (74-99); Magnesium 2.3 mg/dL (1.6-2.3); Phosphorus 3.7 mg/dL (2.5-4.5); Sodium 137 mmol/L (137-145)
--- NOTE | 2017-10-30 07:56 | XR ---
EXAMINATION TYPE: XR chest 1V portable DATE OF EXAM: 10/30/2017 HISTORY: PNA. REFERENCE: Previous study dated 10/29/2017. FINDINGS: Left-sided airspace disease is largely cleared. There is, however, worsening right basilar airspace disease. The heart is not enlarged. Patient is ET tube and NG tube remain in place, unchanged in appearance. There is blunting of the right CP angle. I could not exclude a small right effusion. IMPRESSION: 1. IMPROVING LEFT-SIDED PNEUMONIA. 2. WORSENING RIGHT-SIDED PNEUMONIA. 3. I CANNOT EXCLUDE A SMALL EFFUSION ON THE RIGHT.
[2017-10-30] MEDS: FUROSEMIDE 10 MG/ML 2 ML VIAL IV SCH (08:44)
[2017-10-30] MEDS: CITALOPRAM HYDROBROMIDE 20 MG TAB PO SCH (08:44)
[2017-10-30] MEDS: PANTOPRAZOLE 40 MG/10 ML VIAL IVP SCH (08:44)
[2017-10-30] MEDS: ENOXAPARIN 40 MG/0.4 ML SYRINGE SQ SCH (08:44)
[2017-10-30] MEDS: DOCUSATE ORAL SOLN 100 MG/10 ML CUP NG-TUBE SCH ×2 (08:44→20:10)
[2017-10-30] MEDS: lamoTRIgine 100 MG TAB PO SCH ×2 (08:44→20:16)
[2017-10-30] MEDS: metroNIDAZOLE-NS PMX 500 MG in SALINE 1 100ML.BAG IVPB SCH ×2 (09:52→09:58)
--- NOTE | 2017-10-30 10:02 | PN ---
PROGRESS NOTE DATE OF SERVICE: 10/29/2017. REASON FOR FOLLOWUP: 1. Acute influenza A. 2. Aspiration pneumonia. INTERVAL HISTORY: The patient is afebrile. He has been breathing comfortably. Seems to be more awake and alert. Denies having any chest pain. He did have some cough. No nausea, vomiting, or any diarrhea. EXAMINATION: Blood pressure 105/62 with a pulse of 82, temperature of 98. He is 97% on 4 L nasal cannula. General description is a middle-aged male lying in bed in no distress. RESPIRATORY SYSTEM: Unlabored breathing. Coarse breath sounds bilaterally. No wheeze. HEART: S1, S2. Regular rate and rhythm. ABDOMEN: Soft, no tenderness. LABS: Hemoglobin is 12.9, white count 94983, BUN of 31, creatinine 0.70. Blood culture with diphtheroid species. Patient's sputum so far negative. DIAGNOSTIC IMPRESSION AND PLAN: 1. Patient with acute influenza A with subsequently episode of vomiting and aspiration with acute vent dependent respiratory failure. Since then the patient has been extubated. Sputum has been negative for any resistant pathogen. Currently on pip- tazobactam to cover for his aspiration pneumonia and has finished his 5 week course of therapy for the flu. 2. Positive blood culture with diphtheroid species, likely a contamination. No need for further therapy for the same. MMODL / IJN: [id number] /
[2017-10-30] MEDS ORDERED: INFLUENZA VACCINE (6 MOS+) 60 MCG/0.5 ML SYRINGE IM ONE (11:25)
[2017-10-30 11:29] LABS: Glucose,Whole Blood 141 mg/dL (75-99)
--- NOTE | 2017-10-30 13:26 | P.PN ---
<Dee Whelan - Last Filed: 10/30/17 13:19> Subjective Progress Note Date: 10/30/17 Principal diagnosis: Acute hypoxic respiratory failure secondary to both influenza A and a large volume aspiration pneumonia. This is a 52-year-old mentally handicapped individual status post closed head injury for 30 years. The patient is unable to give any history and he is a verbal her nonverbal. Apparently had a fever and occasional cough. He was brought into the emergency room for evaluation. The patient was found to have influenza A. The patient was admitted to the fifth floor. There he apparently aspirated. It was apparently a large-volume aspiration. Her suctioning lots of material from the patient's posterior oropharynx. Here in the ICU I was asked to see him. The patient was impending respiratory failure. I intubated him with #8 endotracheal tube. The patient tolerated the procedure well. Chest x-ray shows some bilateral infiltrates. Computed tomography scan showed multifocal infiltrates and inflammatory changes particularly in the lower lobes. The patient has a stable hemodynamic status. He has adequate IV access. His past medical history is positive for seizure disorder and pneumonia. He also has a history of previous severe head injury back in 1985. He's had previous sprains surgery with skull plate placement in 1985, a tendon release and some other surgical procedures. On 10/25/2017 I'm seeing this patient for a follow-up. The patient remains intubated on a mechanical ventilator. He is on 50 mics of the prevent however despite that he is awake and he can follow some simple commands and is also communicating with his family members. He is intubated by #8 orotracheal tube. There is some looseness for secretions are being suctioned out. He is on assist control mode of ventilation with a tidal volume of 350, rate of 28, FiO2 of 50% with a PEEP of 5. The morning blood gases showed a pH of 7.39 with a pCO2 of 36 and pO2 of 134 and based on that I dropped FiO2 down to 40%. His chest x-ray from today shows a left lung consolidation indicating an underlying pneumonia. There is adequate positioning of the ET tube. No other acute pneumonitis of been noted. As for the x-ray of the abdomen, there was no air- fluid levels or bowel distention. The patient had a CAT scan of the abdomen earlier that raised the suspicion for bowel obstruction however, the patient seems to have mainly fecal impaction. He does have an NG tube in place at this point in time. No critical evidence of any abdominal distention or small bowel obstruction and he does have adequate bowel sounds. He'll be having a an AL at the bedside. Lactic acid level remains slightly elevated at 4.1 and this is something that we are monitoring. The patient is being treated with broad- spectrum antibiotics and currently the patient is a on a combination of IV Zosyn and Tamiflu for influenza a tracheal bronchitis. The patient was on bronchodilators and systemic steroids. He is on no pressors at this point in time. On 10/26/2017 the patient is being seen for a follow-up. The patient remains intubated on a mechanical ventilator. This morning he is essentially on the same vent setting which includes an assist-control of 28, tidal volume 350, FiO2 of 40% and a PEEP of 5. Chest x-ray remains unchanged with stable left lung consolidation. There is also increased pulmonary vascular markings. ET tube is in a good location. The patient is not producing excess amount of respiratory secretions. Blood gases from this morning showed a pH of 7.49 with a pCO2 of 37 and pO2 of 84 and this was done on a FiO2 of 40%. White cell count is not elevated. The patient was taken off the Diprivan and currently the patient is in the process of undergoing a spot his breathing trial. I switched him to a pressure support of 5 and a PEEP of 5. He is weaning parameters were acceptable. He was noted to have a rapid shallow breathing index of less than 100. He started volume is currently ranging between 250 and 325 and he is breathing comfortably. He is coughing reflexes weak and I think it's probably related to some degree of sedation as the patient just came off sedation for now. He did have a bowel movement yesterday. NG tube is in place. Total amount of output from the NG is approximately 30 mL all night. As for the urine output is approximately 25 mL an hour. The patient remains on Tamiflu. The patient remains on Zosyn. The patient is receiving IV fluids at the rate of 100 mL an hour of normal saline. The patient had a drop in hemoglobin down to 10.9 yet that is no evidence of any GI bleeding. The patient remains on Lovenox. He is also on Protonix. He remains nothing by mouth. No evidence of any small bowel obstruction at this point. The patient is seen again today 10/27/2017 in follow-up in the intensive care unit. He was successfully extubated yesterday. He is still requiring 7 L of high flow nasal cannula to maintain O2 saturations in the 90s. He's had a low- grade fever currently 99.1. He has been hemodynamically stable. Sputum and urine cultures revealed no growth. One blood culture is revealing gram- positive bacilli. He has been maintained on vancomycin, Zosyn. He remains on Tamiflu. His chest x-ray reveals stable bilateral diffuse airspace disease and small pleural effusions. He is on Lasix IV 20 mg every 12 hours. White count 8.8, hemoglobin 10.8, creatinine 0.70. Sodium 146. The patient is seen again today 10/28/2017 in follow-up in the intensive care unit. He is more awake and alert today. He is stating short sentences. He has a stronger cough as well. Tolerating his tube feedings for now. No plans for barium swallow at this point. His chest x-ray continues to show low lung volumes and airspace disease in the left lower lobe secondary to aspiration pneumonia. There is slight improvement however. He is currently maintaining O2 saturations in the low 90s on 7 L of high flow nasal cannula. He's been afebrile. Hemodynamically stable. Blood and sputum cultures revealed no growth. No leukocytosis. He does remain on Zosyn. He continues to diurese well. He is on Lasix 20 mg IV twice a day. Echocardiogram from September 2017 revealed preserved left ventricular systolic function. On 10/29/2017, the patient is being seen for a follow-up in the intensive care unit. I reviewed his follow-up chest x-ray and it shows some limited improvement in the lateral pulmonary infiltrates that were perihilar more so on the left. The patient is coughing and he is trying hard to bring up any sputum. He is unable to still do adequate pulmonary toileting knowing that his cough is still weak. The patient is on 3 L of oxygen nasal cannula. No significant hypoxemia. No respiratory distress. He is tolerating the NG tube feeding which is currently on goal. The patient was also adequate diuresis with IV Lasix. The patient is afebrile. No leukocytosis. Echocardiac Robbin showed a preserved LV function. Blood cultures showing a diphtheroid species which is probably contaminant. The patient undergoing chest aggressive physical therapy and chest percussion. The patient is seen again today 10/30/2017 in follow-up in the intensive care unit. He is more awake and alert today as compared to yesterday. He continues with a stronger cough. His chest x-ray reveals improving left-sided pneumonia with continued right-sided pneumonia. White count 12.8. He is maintaining good O2 saturations in the 90s on 3 L/m per nasal cannula. He's been afebrile. No tachycardia. No tachypnea. Continues with chest physiotherapy. Objective - Vital Signs Vital signs: Vital Signs Temp 97.6 F 10/30/17 12:00 Pulse 82 10/30/17 13:13 Resp 14 10/30/17 12:00 BP 114/66 10/30/17 12:00 Pulse Ox 93 L 10/30/17 12:00 Intake & Output 10/29/17 10/30/17 10/30/17 18:59 06:59 18:59 Intake Total 840 1627.5 865.0 Output Total 730 625 825 Balance 110 1002.5 40.0 Weight 68.1 kg 65.2 kg Intake: IV 600 637.5 325.0 D5W 500 600 300 Dextrose 5% in Water 1, 50 000 ml @ 50 mls/hr IV . Q20H ONE Rx#:[id number] Piperacillin-Tazobactam 3 50 37.5 25.0 .375 gm In Dextrose/Water 1 50ml.bag @ 12.5 mls/hr IVPB Q8H [facility] Rx#: [id number] Tube Feeding 240 900 480 Other 90 60 Output: Urine 730 625 825 Other: Voiding Method Indwelling Catheter Indwelling Catheter Indwelling Catheter # Bowel Movements 1 - Exam The patient is alert. He is stating short sentences. He has a stronger cough as well.. HEENT examination is grossly unremarkable. Mucous membranes are moist. No oral lesions. Neck is somewhat flexed. It's supple. No cervical lymphadenopathy. Neck supple. Full range of motion. No adenopathy thyromegaly or neck vein distention. Cardiovascular examination reveals regular rhythm rate. S1-S2 normal. No S3 or S4. No discernible murmur noted. Lungs reveal coarse bilateral breath sounds. Crackles in the bases more so on the left. Abdomen soft bowel sounds are heard. No masses or tenderness. Extremities reveal some flexion contractures.. There is no edema or cyanosis or clubbing at this point Skin is without rash or lesion.Examination of the skin revealed no evidence of significant rashes, suspicious appearing nevi or other concerning lesions. Neurologic examination cannot be adequately assessed. Neurologically the patient is awake and following simple commands. He is bedridden/wheelchair- bound and has extensive contractures in lower extremities bilaterally. He has posttraumatic brain injury. - Labs CBC & Chem 7: 10/30/17 05:18 10/30/17 05:18 Labs: Abnormal Lab Results - Last 24 Hours (Table) 10/29/17 10/29/17 10/30/17 Range/Units 18:34 22:01 05:18 WBC 12.8 H (3.8-10.6) k/uL RBC 4.07 L (4.30-5.90) m/uL Hgb 12.3 L (13.0-17.5) gm/dL Hct 38.4 L (39.0-53.0) % Neutrophils # 11.5 H (1.3-7.7) k/uL Lymphocytes # 0.5 L (1.0-4.8) k/uL Chloride (98-107) mmol/L Carbon Dioxide (22-30) mmol/L BUN (9-20) mg/dL Glucose (74-99) mg/dL POC Glucose (mg/dL) 138 H 122 H (75-99) mg/dL 10/30/17 10/30/17 10/30/17 Range/Units 05:18 06:01 11:27 WBC (3.8-10.6) k/uL RBC (4.30-5.90) m/uL Hgb (13.0-17.5) gm/dL Hct (39.0-53.0) % Neutrophils # (1.3-7.7) k/uL Lymphocytes # (1.0-4.8) k/uL Chloride 97 L (98-107) mmol/L Carbon Dioxide 31 H (22-30) mmol/L BUN 26 H (9-20) mg/dL Glucose 140 H (74-99) mg/dL POC Glucose (mg/dL) 163 H 141 H (75-99) mg/dL Microbiology - Last 24 Hours (Table) 10/23/17 23:35 Blood Culture - Final Blood No Growth after 144 hours 10/26/17 12:58 Blood Culture - Preliminary Blood No Growth after 72 hours Assessment and Plan Assessment: Assessment 1 Acute hypoxemic respiratory failure, likely secondary to both influenza A and large-volume aspiration pneumonia. The patient continues to have a dense consolidation of the left lung. Successfully extubated yesterday. He is currently on 7 L high flow nasal cannula.. The patient is covered with a combination of Tamiflu and Zosyn. He is also on bronchodilators and systemic steroids. On 10/26/2017, the patient remains intubated on a mechanical ventilator. Chest x-ray findings are essentially stable. Suspect an aspiration left lung pneumonia. The patient also has acute influenza a tracheobronchitis/pneumonia and the patient is on a combination of Zosyn and Tamiflu. Blood gases was noted and there is a component of respiratory alkalosis. The patient is in process of being given a spontaneous breathing trial in anticipation for extubation if he is able to past a spontaneous breathing trial. On 10/27/2017, the patient was successfully extubated yesterday. His chest x- ray is stable. He remains on vancomycin, Zosyn and Tamiflu. He had 1 blood culture positive for gram-positive bacilli. He is initiated on Lasix 20 mg IV push every 12 hours. On 10/28/2017, the patient is more awake and alert today. He is stating short sentences. He is coughing stronger. Chest x-ray continues to show some left lower lobe infiltration but slightly improved today as compared to yesterday. He is currently on Zosyn and Tamiflu. No plans for barium swallow today. He is tolerating his tube feedings well. On 10/29/2017, the patient is being seen for a follow-up. There is some limited improvement in the perihilar pulmonary consolidation the most extensive which is on the left. The patient is still on IV Zosyn. No worsening in her oxygenation. The patient is undergoing aggressive all my toileting and chest PT. He may need some deep suctioning. NG tube is in place and the patient is receiving enteral feeding for nutritional support. No signs of septicemia this point. There is ongoing slow yesterday improvement. The patient is seen again today 10/30/2017 in follow-up in the intensive care unit. He is awake and alert in no acute distress. His chest x-ray is showing improvement been in the infiltrate of the left lung, stable right lung. He is receiving chest physiotherapy. His cough is stronger today compared to yesterday. Continue to try to bring up some sputum. 2 History of seizure disorder, currently inactive and stable. 3 History of severe head injury in 1985 with severe developmental delay and mental retardation 4 Previous history of surgery to skull, 1985 5 Previous history of urinary tract infections 6 mild lactic acidosis, the lactic acidosis recovered and the patient's lactic acid normalized is down to 1.0. 7 stool impaction, the patient had a enema yesterday and the patient produced an small amount of stool. Abdomen is non-distended. No clinical evidence of any small bowel obstruction and NG tube is still in place. 8 drop in hemoglobin without evidence of any GI bleeding. The patient is on Lovenox for DVT prophylaxis. Plan: The patient was seen and evaluated by Dr. Ortega. His chest x-ray and labs were reviewed. His Lasix was dropped to 20 mg IV daily. Tolerating tube feedings. Continue Zosyn. He is on Lovenox for DVT prophylaxis. Protonix for GI prophylaxis. We'll continue to follow and make further recommendations based on his clinical status. I, the cosigning physician, performed a history & physical examination of the patient. Lungs sounds have few scattered rhonchi, crackles in the posterior bases. Maintaining good O2 saturations in the 90s on 3 L nasal cannula I discussed the assessment and plan of care with my nurse practitioner, Dee Whelan. I attest to the above note as dictated by her. <Nelly Ortega - Last Filed: 10/31/17 15:18> Objective - Vital Signs Vital signs: Vital Signs Temp 97.9 F 10/31/17 12:00 Pulse 73 10/31/17 14:00 Resp 11 L 10/31/17 14:00 BP 100/54 10/31/17 14:00 Pulse Ox 96 10/31/17 14:00 Intake & Output 10/30/17 10/31/17 10/31/17 18:59 06:59 18:59 Intake Total 1615.0 2040.0 865.0 Output Total 1185 665 785 Balance 430.0 1375.0 80.0 Weight 59.1 kg Intake: IV 625.0 1650.0 325.0 D5W 600 600 300 Piperacillin-Tazobactam 3 25.0 50.0 25.0 .375 gm In Dextrose/Water 1 50ml.bag @ 12.5 mls/hr IVPB Q8H [facility] Rx#: [id number] Sodium Chloride 0.9% 1, 1000 000 ml @ 999 mls/hr IV . Q1H1M [facility] Rx#:[id number] Tube Feeding 900 360 480 Other 90 30 60 Output: Urine 1185 665 785 Other: Voiding Method Indwelling Catheter Indwelling Catheter Indwelling Catheter # Bowel Movements 1 - Labs CBC & Chem 7: 10/31/17 04:37 10/31/17 04:37 Labs: Abnormal Lab Results - Last 24 Hours (Table) 10/30/17 10/30/17 10/31/17 Range/Units 18:54 22:19 04:37 WBC 11.3 H (3.8-10.6) k/uL RBC 3.89 L (4.30-5.90) m/uL Hgb 12.0 L (13.0-17.5) gm/dL Hct 37.7 L (39.0-53.0) % Neutrophils # 9.8 H (1.3-7.7) k/uL Lymphocytes # 0.6 L (1.0-4.8) k/uL Carbon Dioxide (22-30) mmol/L BUN (9-20) mg/dL Glucose (74-99) mg/dL POC Glucose (mg/dL) 110 H 105 H (75-99) mg/dL Calcium (8.4-10.2) mg/dL 10/31/17 10/31/17 10/31/17 Range/Units 04:37 05:24 12:09 WBC (3.8-10.6) k/uL RBC (4.30-5.90) m/uL Hgb (13.0-17.5) gm/dL Hct (39.0-53.0) % Neutrophils # (1.3-7.7) k/uL Lymphocytes # (1.0-4.8) k/uL Carbon Dioxide 31 H (22-30) mmol/L BUN 25 H (9-20) mg/dL Glucose 112 H (74-99) mg/dL POC Glucose (mg/dL) 105 H 106 H (75-99) mg/dL Calcium 8.2 L (8.4-10.2) mg/dL Microbiology - Last 24 Hours (Table) 10/26/17 12:58 Blood Culture - Preliminary Blood No Growth after 120 hours Assessment and Plan Assessment: This is a joint evaluation that was done along with a nurse practitioner. I do attest to the above-mentioned information. I also have to add that the patient will be kept on IV Zosyn. The pneumonia itself is improving. NG tube is in place. The patient is receiving his enteral feeding for nutritional support without any major difficulties. May consider a PEG tube inserted later stage regarding enteral feeding at high risk of aspiration. We'll continue to follow.
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
[2017-10-30 19:10] LABS: Glucose,Whole Blood 110 mg/dL (75-99)
[2017-10-30 22:23] LABS: Glucose,Whole Blood 105 mg/dL (75-99)
[2017-10-30] MEDS ORDERED: SODIUM CHLORIDE 0.9% 1,000 ML IV ONE (23:44)
[2017-10-31] MEDS: DEXTROSE 5% IN WATER 1,000 ML IV SCH ×2 (00:08→23:41)
[2017-10-31] MEDS: methylPREDNISolone SOD SUCCI 40 MG/ML 1 ML VIAL IV SCH ×3 (00:09→12:04)
[2017-10-31] MEDS: IPRATROPIUM-ALBUTEROL 3 ML NEB INHALATION SCH ×6 (00:11→19:49)
--- NOTE | 2017-10-31 02:33 | XR ---
EXAM: XR Chest, 1 View CLINICAL HISTORY: Reason: replaced NG tube. TECHNIQUE: Frontal view of the chest. COMPARISON: 10/30/17 FINDINGS: Lungs: Stable interstitial and alveolar airspace opacities. Pleural space: Unremarkable. No pneumothorax. Heart: Stable cardiac size. Mediastinum: Unremarkable. Bones/joints: Unremarkable. Tubes, lines and devices: Nasogastric tube is noted with side-port at the gastric antrum and tip likely within the proximity of the pylorus. Upper abdomen: Stable nonspecific bowel gas pattern. IMPRESSION: 1. Nasogastric tube in adequate location as above. 2. Otherwise stable findings.
[2017-10-31 05:01] LABS: Basophils # (A) 0.1 k/uL (0-0.2); Basophils % (A) 1 %; Eosinophils # (A) 0.1 k/uL (0-0.7); Eosinophils % (A) 1 %; HCT 37.7 % (39.0-53.0); Lymphocytes # (A) 0.6 k/uL (1.0-4.8); Lymphocytes % (A) 6 %; MCH 30.9 pg (25.0-35.0); MCHC 31.9 g/dL (31.0-37.0); MCV 96.9 fL (80.0-100.0); Monocytes # (A) 0.6 k/uL (0-1.0); Monocytes % (A) 6 %; Neutrophils # (A) 9.8 k/uL (1.3-7.7); Neutrophils % (A) 87 %; Platelet Count 288 k/uL (150-450); RBC 3.89 m/uL (4.30-5.90); RDW 13.5 % (11.5-15.5); WBC 11.3 k/uL (3.8-10.6)
[2017-10-31 05:11] LABS: Anion Gap 7 mmol/L; Blood Urea Nitrogen 25 mg/dL (9-20); Calcium 8.2 mg/dL (8.4-10.2); Carbon Dioxide 31 mmol/L (22-30); Chloride 101 mmol/L (98-107); Glucose 112 mg/dL (74-99); Magnesium 2.2 mg/dL (1.6-2.3); Phosphorus 3.9 mg/dL (2.5-4.5); Potassium 4.3 mmol/L (3.5-5.1); Sodium 139 mmol/L (137-145)
[2017-10-31 05:26] LABS: Glucose,Whole Blood 105 mg/dL (75-99)
[2017-10-31] MEDS: INSULIN ASPART 100 UNIT/ML 1 ML 10 ML VIAL SQ SCH ×4 (05:43→23:42)
[2017-10-31] MEDS: PIPERACILLIN-TAZOBACTAM 3.375 GM in DEXTROSE/WATER 1 50ML.BAG IVPB SCH ×3 (06:19→21:08)
[2017-10-31] MEDS: DOCUSATE ORAL SOLN 100 MG/10 ML CUP NG-TUBE SCH ×2 (08:10→20:27)
[2017-10-31] MEDS: ENOXAPARIN 40 MG/0.4 ML SYRINGE SQ SCH (08:10)
[2017-10-31] MEDS: CITALOPRAM HYDROBROMIDE 20 MG TAB PO SCH (08:10)
[2017-10-31] MEDS: lamoTRIgine 100 MG TAB PO SCH ×2 (08:10→20:30)
[2017-10-31] MEDS: PANTOPRAZOLE 40 MG/10 ML VIAL IVP SCH (08:11)
[2017-10-31] MEDS: FUROSEMIDE 10 MG/ML 2 ML VIAL IV SCH (08:11)
--- NOTE | 2017-10-31 11:52 | XR ---
EXAMINATION TYPE: XR chest 1V portable DATE OF EXAM: 10/31/2017 HISTORY: poss pneumonia, NG tube in place. REFERENCE: Previous study dated 10/31/2017. FINDINGS: Unfortunately, the patient's chin projects over the chest. An NG tube is present. Its tip i s in the stomach. The heart is mildly enlarged. The lungs appear clear. Pleural spaces are clear. IMPRESSION: MILD CARDIOMEGALY.
[2017-10-31 12:12] LABS: Glucose,Whole Blood 106 mg/dL (75-99)
--- NOTE | 2017-10-31 15:23 | P.PN ---
Subjective Progress Note Date: 10/31/17 Acute hypoxic respiratory failure secondary to both influenza A and a large volume aspiration pneumonia. This is a 52-year-old mentally handicapped individual status post closed head injury for 30 years. The patient is unable to give any history and he is a verbal her nonverbal. Apparently had a fever and occasional cough. He was brought into the emergency room for evaluation. The patient was found to have influenza A. The patient was admitted to the fifth floor. There he apparently aspirated. It was apparently a large-volume aspiration. Her suctioning lots of material from the patient's posterior oropharynx. Here in the ICU I was asked to see him. The patient was impending respiratory failure. I intubated him with #8 endotracheal tube. The patient tolerated the procedure well. Chest x-ray shows some bilateral infiltrates. Computed tomography scan showed multifocal infiltrates and inflammatory changes particularly in the lower lobes. The patient has a stable hemodynamic status. He has adequate IV access. His past medical history is positive for seizure disorder and pneumonia. He also has a history of previous severe head injury back in 1985. He's had previous sprains surgery with skull plate placement in 1985, a tendon release and some other surgical procedures. On 10/25/2017 I'm seeing this patient for a follow-up. The patient remains intubated on a mechanical ventilator. He is on 50 mics of the prevent however despite that he is awake and he can follow some simple commands and is also communicating with his family members. He is intubated by #8 orotracheal tube. There is some looseness for secretions are being suctioned out. He is on assist control mode of ventilation with a tidal volume of 350, rate of 28, FiO2 of 50% with a PEEP of 5. The morning blood gases showed a pH of 7.39 with a pCO2 of 36 and pO2 of 134 and based on that I dropped FiO2 down to 40%. His chest x-ray from today shows a left lung consolidation indicating an underlying pneumonia. There is adequate positioning of the ET tube. No other acute pneumonitis of been noted. As for the x-ray of the abdomen, there was no air- fluid levels or bowel distention. The patient had a CAT scan of the abdomen earlier that raised the suspicion for bowel obstruction however, the patient seems to have mainly fecal impaction. He does have an NG tube in place at this point in time. No critical evidence of any abdominal distention or small bowel obstruction and he does have adequate bowel sounds. He'll be having a an RI at the bedside. Lactic acid level remains slightly elevated at 4.1 and this is something that we are monitoring. The patient is being treated with broad- spectrum antibiotics and currently the patient is a on a combination of IV Zosyn and Tamiflu for influenza a tracheal bronchitis. The patient was on bronchodilators and systemic steroids. He is on no pressors at this point in time. On 10/26/2017 the patient is being seen for a follow-up. The patient remains intubated on a mechanical ventilator. This morning he is essentially on the same vent setting which includes an assist-control of 28, tidal volume 350, FiO2 of 40% and a PEEP of 5. Chest x-ray remains unchanged with stable left lung consolidation. There is also increased pulmonary vascular markings. ET tube is in a good location. The patient is not producing excess amount of respiratory secretions. Blood gases from this morning showed a pH of 7.49 with a pCO2 of 37 and pO2 of 84 and this was done on a FiO2 of 40%. White cell count is not elevated. The patient was taken off the Diprivan and currently the patient is in the process of undergoing a spot his breathing trial. I switched him to a pressure support of 5 and a PEEP of 5. He is weaning parameters were acceptable. He was noted to have a rapid shallow breathing index of less than 100. He started volume is currently ranging between 250 and 325 and he is breathing comfortably. He is coughing reflexes weak and I think it's probably related to some degree of sedation as the patient just came off sedation for now. He did have a bowel movement yesterday. NG tube is in place. Total amount of output from the NG is approximately 30 mL all night. As for the urine output is approximately 25 mL an hour. The patient remains on Tamiflu. The patient remains on Zosyn. The patient is receiving IV fluids at the rate of 100 mL an hour of normal saline. The patient had a drop in hemoglobin down to 10.9 yet that is no evidence of any GI bleeding. The patient remains on Lovenox. He is also on Protonix. He remains nothing by mouth. No evidence of any small bowel obstruction at this point. The patient is seen again today 10/27/2017 in follow-up in the intensive care unit. He was successfully extubated yesterday. He is still requiring 7 L of high flow nasal cannula to maintain O2 saturations in the 90s. He's had a low- grade fever currently 99.1. He has been hemodynamically stable. Sputum and urine cultures revealed no growth. One blood culture is revealing gram- positive bacilli. He has been maintained on vancomycin, Zosyn. He remains on Tamiflu. His chest x-ray reveals stable bilateral diffuse airspace disease and small pleural effusions. He is on Lasix IV 20 mg every 12 hours. White count 8.8, hemoglobin 10.8, creatinine 0.70. Sodium 146. The patient is seen again today 10/28/2017 in follow-up in the intensive care unit. He is more awake and alert today. He is stating short sentences. He has a stronger cough as well. Tolerating his tube feedings for now. No plans for barium swallow at this point. His chest x-ray continues to show low lung volumes and airspace disease in the left lower lobe secondary to aspiration pneumonia. There is slight improvement however. He is currently maintaining O2 saturations in the low 90s on 7 L of high flow nasal cannula. He's been afebrile. Hemodynamically stable. Blood and sputum cultures revealed no growth. No leukocytosis. He does remain on Zosyn. He continues to diurese well. He is on Lasix 20 mg IV twice a day. Echocardiogram from September 2017 revealed preserved left ventricular systolic function. On 10/29/2017, the patient is being seen for a follow-up in the intensive care unit. I reviewed his follow-up chest x-ray and it shows some limited improvement in the lateral pulmonary infiltrates that were perihilar more so on the left. The patient is coughing and he is trying hard to bring up any sputum. He is unable to still do adequate pulmonary toileting knowing that his cough is still weak. The patient is on 3 L of oxygen nasal cannula. No significant hypoxemia. No respiratory distress. He is tolerating the NG tube feeding which is currently on goal. The patient was also adequate diuresis with IV Lasix. The patient is afebrile. No leukocytosis. Echocardiac Robbin showed a preserved LV function. Blood cultures showing a diphtheroid species which is probably contaminant. The patient undergoing chest aggressive physical therapy and chest percussion. The patient is seen again today 10/30/2017 in follow-up in the intensive care unit. He is more awake and alert today as compared to yesterday. He continues with a stronger cough. His chest x-ray reveals improving left-sided pneumonia with continued right-sided pneumonia. White count 12.8. He is maintaining good O2 saturations in the 90s on 3 L/m per nasal cannula. He's been afebrile. No tachycardia. No tachypnea. Continues with chest physiotherapy. On 10/31/2079 I'm seeing this patient for a follow-up. The patient is awake and interactive. The mother is the bedside. I am very much impressed with the recover the patient is making. The patient was extubated in the patient's subsequent chest x-ray shows improvement in the consolidation of the lungs especially the one on the left. The patient is receiving enteral feeding through an NG tube today. Is tolerating the every feeding well without any aspiration. His having regular bowel movements. No chest pain. He has occasional cough. His cough is getting gradually stronger. He does not have any significant sputum production. He is receiving chest PT. He is receiving chest percussion. He is hemodynamically stable. No fever. A swallow evaluation will be done at a later stage probably by tomorrow before making a final decision regarding PEG tube insertion. Atelectatic discussion with the patient's mother. I am more inclined of putting the PEG tube knowing that the patient may be at an increased risk of aspiration the future. Influenza is also being treated with Tamiflu. The patient is resting comfortably in bed. Objective - Vital Signs Vital signs: Vital Signs Temp 97.9 F 10/31/17 12:00 Pulse 73 10/31/17 14:00 Resp 11 L 10/31/17 14:00 BP 100/54 10/31/17 14:00 Pulse Ox 96 10/31/17 14:00 Intake & Output 10/30/17 10/31/17 10/31/17 18:59 06:59 18:59 Intake Total 1615.0 2040.0 865.0 Output Total 1185 665 785 Balance 430.0 1375.0 80.0 Weight 59.1 kg Intake: IV 625.0 1650.0 325.0 D5W 600 600 300 Piperacillin-Tazobactam 3 25.0 50.0 25.0 .375 gm In Dextrose/Water 1 50ml.bag @ 12.5 mls/hr IVPB Q8H [facility] Rx#: [id number] Sodium Chloride 0.9% 1, 1000 000 ml @ 999 mls/hr IV . Q1H1M ONE Rx#:[id number] Tube Feeding 900 360 480 Other 90 30 60 Output: Urine 1185 [id number] 785 Other: Voiding Method Indwelling Catheter Indwelling Catheter Indwelling Catheter # Bowel Movements 1 - Exam The patient is alert. He is stating short sentences. He has a stronger cough as well.. The patient is an NG tube in place for enteral feeding and nutritional support. His chronic contractures in lower extremities bilaterally. He has a BMI of 21.7. HEENT examination is grossly unremarkable. Mucous membranes are moist. No oral lesions. Neck is somewhat flexed. It's supple. No cervical lymphadenopathy. Neck supple. Full range of motion. No adenopathy thyromegaly or neck vein distention. Cardiovascular examination reveals regular rhythm rate. S1-S2 normal. No S3 or S4. No discernible murmur noted. Lungs sounds are improved bilaterally without any significant rhonchi or crackles at this point Abdomen soft bowel sounds are heard. No masses or tenderness. Extremities reveal some flexion contractures.. There is no edema or cyanosis or clubbing at this point Skin is without rash or lesion.Examination of the skin revealed no evidence of significant rashes, suspicious appearing nevi or other concerning lesions. Neurologic examination cannot be adequately assessed. Neurologically the patient is awake and following simple commands. He is bedridden/wheelchair- bound and has extensive contractures in lower extremities bilaterally. He has posttraumatic brain injury. - Labs CBC & Chem 7: 10/31/17 04:37 10/31/17 04:37 Labs: Abnormal Lab Results - Last 24 Hours (Table) 10/30/17 10/30/17 10/31/17 Range/Units 18:54 22:19 04:37 WBC 11.3 H (3.8-10.6) k/uL RBC 3.89 L (4.30-5.90) m/uL Hgb 12.0 L (13.0-17.5) gm/dL Hct 37.7 L (39.0-53.0) % Neutrophils # 9.8 H (1.3-7.7) k/uL Lymphocytes # 0.6 L (1.0-4.8) k/uL Carbon Dioxide (22-30) mmol/L BUN (9-20) mg/dL Glucose (74-99) mg/dL POC Glucose (mg/dL) 110 H 105 H (75-99) mg/dL Calcium (8.4-10.2) mg/dL 10/31/17 10/31/17 10/31/17 Range/Units 04:37 05:24 12:09 WBC (3.8-10.6) k/uL RBC (4.30-5.90) m/uL Hgb (13.0-17.5) gm/dL Hct (39.0-53.0) % Neutrophils # (1.3-7.7) k/uL Lymphocytes # (1.0-4.8) k/uL Carbon Dioxide 31 H (22-30) mmol/L BUN 25 H (9-20) mg/dL Glucose 112 H (74-99) mg/dL POC Glucose (mg/dL) 105 H 106 H (75-99) mg/dL Calcium 8.2 L (8.4-10.2) mg/dL Microbiology - Last 24 Hours (Table) 10/26/17 12:58 Blood Culture - Preliminary Blood No Growth after 120 hours Assessment and Plan Plan: 1 Acute hypoxemic respiratory failure, likely secondary to both influenza A and large-volume aspiration pneumonia. This patient is post extubation subsequent chest x-ray showed complete clearing of the previous described pulmonary consolidation and pneumonias. I'm very pleased with his overall progress. His acute hypoxic respiratory failure was related to influenza A and pneumonia and aspiration and we have stabilized his own rest status and currently is only on 2 L of oxygen nasal cannula. He is having some difficulties in performing pulmonate toileting due to a weak cough. He is receiving chest PT and percussion. The patient is whether to allow this patient to go back swallowing and for that reason he will need a swallow evaluation to later stage. Currently is receiving enteral feeding through an NG tube for nutritional support. 2 History of seizure disorder, currently inactive and stable. 3 History of severe head injury in 1985 with severe developmental delay and mental retardation 4 Previous history of surgery to skull, 1985 5 Previous history of urinary tract infections 6 mild lactic acidosis, the lactic acidosis recovered and the patient's lactic acid normalized is down to 1.0. 7 stool impaction, the patient had a enema yesterday and the patient produced an small amount of stool. Abdomen is non-distended. No clinical evidence of any small bowel obstruction and NG tube is still in place. The patient is tolerating her tube feeds and the patient was able to have a bowel movement yesterday. Plan Continued IV Zosyn. Continue Tamiflu. Give the swelling in a.m. Give another 24-48 hours to see if the patient will be able to swallow independently versus the a PEG tube to be inserted for enteral feeding and nutritional support. Hemodynamically stable. We'll cut down the Solu-Medrol to 40 mg by mouth 24 hours. Continue IV fluid D5 water at the rate of 50 mL an hour. Continue IV Zosyn. Will follow.
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
[2017-10-31 18:04] LABS: Glucose,Whole Blood 118 mg/dL (75-99)
[2017-10-31 23:42] LABS: Glucose,Whole Blood 93 mg/dL (75-99)
[2017-11-01 05:12] LABS: Basophils # (A) 0.1 k/uL (0-0.2); Basophils % (A) 1 %; Eosinophils % (A) 0 %; HCT 36.4 % (39.0-53.0); Lymphocytes # (A) 1.4 k/uL (1.0-4.8); Lymphocytes % (A) 13 %; MCH 31.2 pg (25.0-35.0); MCV 94.5 fL (80.0-100.0); Mean Platelet Volume 7.8; Monocytes # (A) 0.7 k/uL (0-1.0); Monocytes % (A) 6 %; Neutrophils # (A) 9.2 k/uL (1.3-7.7); Neutrophils % (A) 80 %; Platelet Count 308 k/uL (150-450); RBC 3.86 m/uL (4.30-5.90); RDW 14.2 % (11.5-15.5); WBC 11.5 k/uL (3.8-10.6)
[2017-11-01 05:41] LABS: Anion Gap 7 mmol/L; Blood Urea Nitrogen 25 mg/dL (9-20); Calcium 8.4 mg/dL (8.4-10.2); Carbon Dioxide 32 mmol/L (22-30); Chloride 100 mmol/L (98-107); Glucose 102 mg/dL (74-99); Magnesium 2.2 mg/dL (1.6-2.3); Phosphorus 3.5 mg/dL (2.5-4.5); Potassium 3.6 mmol/L (3.5-5.1); Sodium 139 mmol/L (137-145)
[2017-11-01 05:59] LABS: Glucose,Whole Blood 105 mg/dL (75-99)
[2017-11-01] MEDS: PIPERACILLIN-TAZOBACTAM 3.375 GM in DEXTROSE/WATER 1 50ML.BAG IVPB SCH ×3 (05:59→23:18)
[2017-11-01] MEDS: INSULIN ASPART 100 UNIT/ML 1 ML 10 ML VIAL SQ SCH ×4 (05:59→18:35)
[2017-11-01] MEDS ORDERED: POTASSIUM CHLORIDE ORAL LIQUID 40 MEQ/30 ML CUP NG-TUBE SCH (06:00)
[2017-11-01] MEDS: IPRATROPIUM-ALBUTEROL 3 ML NEB INHALATION SCH ×4 (07:37→20:26)
--- NOTE | 2017-11-01 08:01 | PN ---
PROGRESS NOTE DATE OF SERVICE: 10/31/2017. REASON FOR FOLLOW UP: Aspiration pneumonia and acute influenza. INTERVAL HISTORY: The patient is afebrile, has been hemodynamically stable, breathing comfortably. Denies significant chest pain. Did have some congested cough. No nausea, vomiting. Tolerating his tube feeds and no significant diarrhea per the RN. EXAMINATION: Blood pressure is 96/55 with a pulse of 68, temperature of 97.5. He is 98% on 2 L nasal cannula. General description is a middle-aged male lying in bed in no distress. Respiratory system unlabored breathing. Coarse crackles bilaterally. No wheeze. Heart S1 , S2. Regular rate and rhythm. ABDOMEN: Soft, no tenderness. LABS: Hemoglobin 12, white count 11.3. BUN of 25, creatinine 0.70. Blood culture repeat has been negative. Sputum was negative. DIAGNOSTIC IMPRESSION AND PLAN: 1. Patient with acute influenza A with a component of vomiting and aspiration pneumonia with vent dependent respiratory failure. Patient has been extubated. Currently on Zosyn. Waiting for his oral intake to improve to transition him to oral antibiotics to finish a course of antibiotics. 2. Patient with acute influenza has finished his Tamiflu therapy. MMODL / IJN: [id number] / MTDD
[2017-11-01] MEDS: FUROSEMIDE 10 MG/ML 2 ML VIAL IV SCH (08:10)
[2017-11-01] MEDS: DOCUSATE ORAL SOLN 100 MG/10 ML CUP NG-TUBE SCH ×2 (08:10→23:18)
[2017-11-01] MEDS: ENOXAPARIN 40 MG/0.4 ML SYRINGE SQ SCH (08:10)
[2017-11-01] MEDS: CITALOPRAM HYDROBROMIDE 20 MG TAB PO SCH (08:10)
[2017-11-01] MEDS: PANTOPRAZOLE 40 MG/10 ML VIAL IVP SCH (08:11)
[2017-11-01] MEDS: lamoTRIgine 100 MG TAB PO SCH ×2 (08:11→23:18)
[2017-11-01] MEDS: methylPREDNISolone SOD SUCCI 40 MG/ML 1 ML VIAL IV SCH (08:11)
--- NOTE | 2017-11-01 10:54 | P.PN ---
Subjective Progress Note Date: 11/01/17 Principal diagnosis: Acute hypoxic respiratory failure secondary to aspiration pneumonia and influenza A. This is a 52-year-old mentally handicapped individual status post closed head injury for 30 years. The patient is unable to give any history and he is a verbal her nonverbal. Apparently had a fever and occasional cough. He was brought into the emergency room for evaluation. The patient was found to have influenza A. The patient was admitted to the fifth floor. There he apparently aspirated. It was apparently a large-volume aspiration. Her suctioning lots of material from the patient's posterior oropharynx. Here in the ICU I was asked to see him. The patient was impending respiratory failure. I intubated him with #8 endotracheal tube. The patient tolerated the procedure well. Chest x-ray shows some bilateral infiltrates. Computed tomography scan showed multifocal infiltrates and inflammatory changes particularly in the lower lobes. The patient has a stable hemodynamic status. He has adequate IV access. His past medical history is positive for seizure disorder and pneumonia. He also has a history of previous severe head injury back in 1985. He's had previous sprains surgery with skull plate placement in 1985, a tendon release and some other surgical procedures. On 10/25/2017 I'm seeing this patient for a follow-up. The patient remains intubated on a mechanical ventilator. He is on 50 mics of the prevent however despite that he is awake and he can follow some simple commands and is also communicating with his family members. He is intubated by #8 orotracheal tube. There is some looseness for secretions are being suctioned out. He is on assist control mode of ventilation with a tidal volume of 350, rate of 28, FiO2 of 50% with a PEEP of 5. The morning blood gases showed a pH of 7.39 with a pCO2 of 36 and pO2 of 134 and based on that I dropped FiO2 down to 40%. His chest x-ray from today shows a left lung consolidation indicating an underlying pneumonia. There is adequate positioning of the ET tube. No other acute pneumonitis of been noted. As for the x-ray of the abdomen, there was no air- fluid levels or bowel distention. The patient had a CAT scan of the abdomen earlier that raised the suspicion for bowel obstruction however, the patient seems to have mainly fecal impaction. He does have an NG tube in place at this point in time. No critical evidence of any abdominal distention or small bowel obstruction and he does have adequate bowel sounds. He'll be having a an MT at the bedside. Lactic acid level remains slightly elevated at 4.1 and this is something that we are monitoring. The patient is being treated with broad- spectrum antibiotics and currently the patient is a on a combination of IV Zosyn and Tamiflu for influenza a tracheal bronchitis. The patient was on bronchodilators and systemic steroids. He is on no pressors at this point in time. On 10/26/2017 the patient is being seen for a follow-up. The patient remains intubated on a mechanical ventilator. This morning he is essentially on the same vent setting which includes an assist-control of 28, tidal volume 350, FiO2 of 40% and a PEEP of 5. Chest x-ray remains unchanged with stable left lung consolidation. There is also increased pulmonary vascular markings. ET tube is in a good location. The patient is not producing excess amount of respiratory secretions. Blood gases from this morning showed a pH of 7.49 with a pCO2 of 37 and pO2 of 84 and this was done on a FiO2 of 40%. White cell count is not elevated. The patient was taken off the Diprivan and currently the patient is in the process of undergoing a spot his breathing trial. I switched him to a pressure support of 5 and a PEEP of 5. He is weaning parameters were acceptable. He was noted to have a rapid shallow breathing index of less than 100. He started volume is currently ranging between 250 and 325 and he is breathing comfortably. He is coughing reflexes weak and I think it's probably related to some degree of sedation as the patient just came off sedation for now. He did have a bowel movement yesterday. NG tube is in place. Total amount of output from the NG is approximately 30 mL all night. As for the urine output is approximately 25 mL an hour. The patient remains on Tamiflu. The patient remains on Zosyn. The patient is receiving IV fluids at the rate of 100 mL an hour of normal saline. The patient had a drop in hemoglobin down to 10.9 yet that is no evidence of any GI bleeding. The patient remains on Lovenox. He is also on Protonix. He remains nothing by mouth. No evidence of any small bowel obstruction at this point. The patient is seen again today 10/27/2017 in follow-up in the intensive care unit. He was successfully extubated yesterday. He is still requiring 7 L of high flow nasal cannula to maintain O2 saturations in the 90s. He's had a low- grade fever currently 99.1. He has been hemodynamically stable. Sputum and urine cultures revealed no growth. One blood culture is revealing gram- positive bacilli. He has been maintained on vancomycin, Zosyn. He remains on Tamiflu. His chest x-ray reveals stable bilateral diffuse airspace disease and small pleural effusions. He is on Lasix IV 20 mg every 12 hours. White count 8.8, hemoglobin 10.8, creatinine 0.70. Sodium 146. The patient is seen again today 10/28/2017 in follow-up in the intensive care unit. He is more awake and alert today. He is stating short sentences. He has a stronger cough as well. Tolerating his tube feedings for now. No plans for barium swallow at this point. His chest x-ray continues to show low lung volumes and airspace disease in the left lower lobe secondary to aspiration pneumonia. There is slight improvement however. He is currently maintaining O2 saturations in the low 90s on 7 L of high flow nasal cannula. He's been afebrile. Hemodynamically stable. Blood and sputum cultures revealed no growth. No leukocytosis. He does remain on Zosyn. He continues to diurese well. He is on Lasix 20 mg IV twice a day. Echocardiogram from September 2017 revealed preserved left ventricular systolic function. On 10/29/2017, the patient is being seen for a follow-up in the intensive care unit. I reviewed his follow-up chest x-ray and it shows some limited improvement in the lateral pulmonary infiltrates that were perihilar more so on the left. The patient is coughing and he is trying hard to bring up any sputum. He is unable to still do adequate pulmonary toileting knowing that his cough is still weak. The patient is on 3 L of oxygen nasal cannula. No significant hypoxemia. No respiratory distress. He is tolerating the NG tube feeding which is currently on goal. The patient was also adequate diuresis with IV Lasix. The patient is afebrile. No leukocytosis. Echocardiac Robbin showed a preserved LV function. Blood cultures showing a diphtheroid species which is probably contaminant. The patient undergoing chest aggressive physical therapy and chest percussion. The patient is seen again today 10/30/2017 in follow-up in the intensive care unit. He is more awake and alert today as compared to yesterday. He continues with a stronger cough. His chest x-ray reveals improving left-sided pneumonia with continued right-sided pneumonia. White count 12.8. He is maintaining good O2 saturations in the 90s on 3 L/m per nasal cannula. He's been afebrile. No tachycardia. No tachypnea. Continues with chest physiotherapy. On 10/31/2017 I'm seeing this patient for a follow-up. The patient is awake and interactive. The mother is the bedside. I am very much impressed with the recover the patient is making. The patient was extubated in the patient's subsequent chest x-ray shows improvement in the consolidation of the lungs especially the one on the left. The patient is receiving enteral feeding through an NG tube today. Is tolerating the every feeding well without any aspiration. His having regular bowel movements. No chest pain. He has occasional cough. His cough is getting gradually stronger. He does not have any significant sputum production. He is receiving chest PT. He is receiving chest percussion. He is hemodynamically stable. No fever. A swallow evaluation will be done at a later stage probably by tomorrow before making a final decision regarding PEG tube insertion. Atelectatic discussion with the patient's mother. I am more inclined of putting the PEG tube knowing that the patient may be at an increased risk of aspiration the future. Influenza is also being treated with Tamiflu. The patient is resting comfortably in bed. Reevaluated today on 11/01/2017, patient is awake, interactive, seems to be in no form of respiratory distress, follow-up chest x-ray showed improvement, patient is now receiving enteral feeding via nasogastric tube, seems to be tolerating that quite well, may consider swallow evaluation again and possibly recommend a PEG tube placement. Considering the presentation, I believe the patient will definitely need a PEG tube placement, in the meantime the patient is to be continued on Tamiflu. CBC was reviewed and basic metabolic profile was also reviewed and they seem to be relatively unremarkable. Chest x-ray today showed areas of atelectasis especially in the right lower lobe and left midlung. Nasogastric tube seems to be in proper position. Objective - Vital Signs Vital signs: Vital Signs Temp 98.1 F 11/01/17 08:00 Pulse 78 11/01/17 10:00 Resp 12 11/01/17 10:00 BP 87/57 11/01/17 10:00 Pulse Ox 93 L 11/01/17 10:00 Intake & Output 10/31/17 11/01/17 11/01/17 18:59 06:59 18:59 Intake Total 1542.5 1652.5 687.5 Output Total 1020 770 700 Balance 522.5 882.5 -12.5 Weight 61.5 kg Intake: IV 612.5 662.5 237.5 D5W 550 600 200 Piperacillin-Tazobactam 3 62.5 62.5 37.5 .375 gm In Dextrose/Water 1 50ml.bag @ 12.5 mls/hr IVPB Q8H [facility] Rx#: [id number] Tube Feeding 840 900 360 Other 90 90 90 Output: Urine 1020 770 700 Other: Voiding Method Indwelling Catheter Indwelling Catheter Indwelling Catheter - Exam The patient is alert. He is stating short sentences. He has a stronger cough as well.. The patient is an NG tube in place for enteral feeding and nutritional support. His chronic contractures in lower extremities bilaterally. He has a BMI of 21.7. HEENT examination is grossly unremarkable. Mucous membranes are moist. No oral lesions. Neck is somewhat flexed. It's supple. No cervical lymphadenopathy. Neck supple. Full range of motion. No adenopathy thyromegaly or neck vein distention. Cardiovascular examination reveals regular rhythm rate. S1-S2 normal. No S3 or S4. No discernible murmur noted. Lungs sounds clear bilaterally, no crackles or rhonchi or wheezes noted. Abdomen soft bowel sounds are heard. No masses or tenderness. Extremities reveal some flexion contractures.. There is no edema or cyanosis or clubbing at this point Skin is without rash or lesion.Examination of the skin revealed no evidence of significant rashes, suspicious appearing nevi or other concerning lesions. Neurologic examination cannot be adequately assessed. Neurologically the patient is awake and following simple commands. He is bedridden/wheelchair- bound and has extensive contractures in lower extremities bilaterally. He has posttraumatic brain injury. - Labs CBC & Chem 7: 11/01/17 04:35 11/01/17 04:35 Labs: Abnormal Lab Results - Last 24 Hours (Table) 10/31/17 10/31/17 11/01/17 Range/Units 12:09 18:03 04:35 WBC 11.5 H (3.8-10.6) k/uL RBC 3.86 L (4.30-5.90) m/uL Hgb 12.0 L (13.0-17.5) gm/dL Hct 36.4 L (39.0-53.0) % Neutrophils # 9.2 H (1.3-7.7) k/uL Carbon Dioxide (22-30) mmol/L BUN (9-20) mg/dL Glucose (74-99) mg/dL POC Glucose (mg/dL) 106 H 118 H (75-99) mg/dL 11/01/17 11/01/17 Range/Units 04:35 05:58 WBC (3.8-10.6) k/uL RBC (4.30-5.90) m/uL Hgb (13.0-17.5) gm/dL Hct (39.0-53.0) % Neutrophils # (1.3-7.7) k/uL Carbon Dioxide 32 H (22-30) mmol/L BUN 25 H (9-20) mg/dL Glucose 102 H (74-99) mg/dL POC Glucose (mg/dL) 105 H (75-99) mg/dL Microbiology - Last 24 Hours (Table) 10/26/17 12:58 Blood Culture - Preliminary Blood No Growth after 120 hours Assessment and Plan Assessment: 1 Acute hypoxemic respiratory failure, likely secondary to both influenza A and large-volume aspiration pneumonia. This patient is post extubation subsequent chest x-ray showed complete clearing of the previous described pulmonary consolidation and pneumonias. I'm very pleased with his overall progress. His acute hypoxic respiratory failure was related to influenza A and pneumonia and aspiration and we have stabilized his own rest status and currently is only on 2 L of oxygen nasal cannula. He is having some difficulties in performing pulmonate toileting due to a weak cough. He is receiving chest PT and percussion. I will plan to send the patient for a modified barium swallow based on the recommendation of the speech therapist. This will be done today. In the meantime we'll start making arrangements for the patient be transferred out of the ICU to a regular medical floor. 2 History of seizure disorder, currently inactive and stable. 3 History of severe head injury in 1985 with severe developmental delay and mental retardation 4 Previous history of surgery to skull, 1985 5 Previous history of urinary tract infections 6 mild lactic acidosis, the lactic acidosis recovered and the patient's lactic acid normalized is down to 1.0. 7 stool impaction, improving, patient is tolerating feeding via nasogastric tube. Recommendation: Continue Zosyn, Tamiflu, modified barium swallow to be done today, possibly arrange for transfer out of the ICU in the next 24 hours. We' ll continue to follow. Time with Patient: Less than 30
[2017-11-01 12:29] LABS: Glucose,Whole Blood 100 mg/dL (75-99)
--- NOTE | 2017-11-01 13:02 | FL ---
EXAMINATION TYPE: FL barium swallow w video DATE OF EXAM: 11/01/2017 MODIFIED SWALLOW / DEGLUTITION STUDY CLINICAL HISTORY: Dysphagia. Possible silent aspiration. Admitted for flu. TECHNIQUE: Deglutition study is performed utilizing honey thick liquid barium, barium thick applesau ce, and barium coated cracker. A total of 74 seconds of fluoroscopic time was utilized during procedu re. Approximately 9 cine sequences were acquired. 0 images are saved to PACS. COMPARISON: None. FINDINGS: Exam noted suboptimal due to patient underlying medical condition of chronic head trauma. T he oral and pharyngeal phases show some mild delay in initiation with satisfactory propagation with a ll modalities tested. Satisfactory mastication is seen with solid modalities tested. There is no donna dence of penetration or aspiration with any modality tested. No significant pharyngeal residue was a ppreciated. IMPRESSION: No penetration or aspiration observed. Please refer to speech therapist notes for further details if necessary.
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
[2017-11-01] MEDS: DEXTROSE 5% IN WATER 1,000 ML IV SCH (15:19)
--- NOTE | 2017-11-01 16:24 | PN ---
PROGRESS NOTE DATE OF SERVICE: 11/01/2017. REASON FOR FOLLOWUP: Aspiration pneumonia. INTERVAL HISTORY: The patient is afebrile, has been breathing comfortably. No nausea or vomiting has been noted. Has been tolerating his tube feeds. No significant diarrhea. EXAMINATION: Blood pressure is 93/52 with a pulse of 90, temperature 98.1. He is 96% on 2 L nasal cannula. General description is a middle-aged male lying in bed in no distress. Respiratory system unlabored breathing. Some coarse breath sounds in the bases bilaterally. Heart S1, S2. Regular rate and rhythm. Abdomen soft, no tenderness. LABS: Hemoglobin is 12.7, white count 11.5 with a BUN of 25, creatinine 0.70. Blood culture has been negative. DIAGNOSTIC IMPRESSION AND PLAN: Patient with acute influenza adequatly treated followed by an episode of aspiration and aspiration pneumonia with vent dependent respiratory failure. The patient at this time will continue Zosyn. Await the swallow evaluation. Once his oral intake is improved to switch him to oral antibiotics. Continue supportive care. MMODL / IJN: [id number] / MTDD
--- NOTE | 2017-11-01 16:58 | P.PN ---
Progress Note - Text Progress Note Date: 11/01/17 Patient underwent video swallow today with no aspiration seen. Will follow up with speech recs on swallowing and if patient needs PEG. Available for PEG placement should patient require PEG.
[2017-11-01 18:25] LABS: Glucose,Whole Blood 103 mg/dL (75-99)
--- NOTE | 2017-11-01 22:07 | XR ---
EXAMINATION TYPE: XR chest 1V portable DATE OF EXAM: 11/01/2017 COMPARISON: 10/31/2017 INDICATION: Pneumonia NG tube placement TECHNIQUE: Single frontal view of the chest is obtained. FINDINGS: The heart size is normal. The pulmonary vasculature is normal. There is mild infiltrate through the left midlung. Correlate for atelectasis. Right basilar atelectas is is present. Patient is rotated to the right on this examination. Nasogastric tube transverses the thorax with tip in the midabdomen. Multiple EKG leads overlie the ch est. IMPRESSION: 1. Right basilar and left midlung atelectasis. 2. Nasogastric tube with the tip within the mid abdomen.
[2017-11-02 00:03] LABS: Glucose,Whole Blood 98 mg/dL (75-99)
[2017-11-02] MEDS: INSULIN ASPART 100 UNIT/ML 1 ML 10 ML VIAL SQ SCH ×4 (00:23→18:12)
[2017-11-02 06:05] LABS: Glucose,Whole Blood 88 mg/dL (75-99)
[2017-11-02] MEDS: PIPERACILLIN-TAZOBACTAM 3.375 GM in DEXTROSE/WATER 1 50ML.BAG IVPB SCH ×3 (06:19→22:58)
[2017-11-02] MEDS: IPRATROPIUM-ALBUTEROL 3 ML NEB INHALATION SCH ×4 (07:18→20:22)
[2017-11-02] MEDS: PANTOPRAZOLE 40 MG/10 ML VIAL IVP SCH (09:13)
[2017-11-02] MEDS: ENOXAPARIN 40 MG/0.4 ML SYRINGE SQ SCH (09:14)
[2017-11-02] MEDS: DOCUSATE ORAL SOLN 100 MG/10 ML CUP NG-TUBE SCH ×2 (09:14→22:57)
[2017-11-02] MEDS: FUROSEMIDE 10 MG/ML 2 ML VIAL IV SCH (09:14)
[2017-11-02] MEDS: lamoTRIgine 100 MG TAB PO SCH ×2 (09:14→22:57)
[2017-11-02] MEDS: methylPREDNISolone SOD SUCCI 40 MG/ML 1 ML VIAL IV SCH (09:14)
[2017-11-02] MEDS: CITALOPRAM HYDROBROMIDE 20 MG TAB PO SCH (09:14)
[2017-11-02 10:20] LABS: Basophils % (A) 0 %; Eosinophils # (A) 0.1 k/uL (0-0.7); Eosinophils % (A) 1 %; HCT 40.9 % (39.0-53.0); Lymphocytes # (A) 1.5 k/uL (1.0-4.8); Lymphocytes % (A) 14 %; MCH 30.8 pg (25.0-35.0); MCHC 31.9 g/dL (31.0-37.0); MCV 96.6 fL (80.0-100.0); Mean Platelet Volume 7.2; Monocytes # (A) 0.6 k/uL (0-1.0); Monocytes % (A) 6 %; Neutrophils % (A) 77 %; Platelet Count 343 k/uL (150-450); RBC 4.23 m/uL (4.30-5.90); RDW 12.7 % (11.5-15.5); WBC 10.3 k/uL (3.8-10.6)
[2017-11-02 10:37] LABS: Anion Gap 9 mmol/L; Blood Urea Nitrogen 25 mg/dL (9-20); Calcium 8.5 mg/dL (8.4-10.2); Carbon Dioxide 28 mmol/L (22-30); Chloride 101 mmol/L (98-107); Glucose 109 mg/dL (74-99); Phosphorus 3.9 mg/dL (2.5-4.5); Potassium 3.7 mmol/L (3.5-5.1); Sodium 138 mmol/L (137-145)
--- NOTE | 2017-11-02 11:25 | P.PN ---
Subjective Progress Note Date: 11/02/17 Principal diagnosis: Acute hypoxic respiratory failure secondary to both influenza A and a large volume aspiration pneumonia. This is a 52-year-old mentally handicapped individual status post closed head injury for 30 years. The patient is unable to give any history and he is a verbal her nonverbal. Apparently had a fever and occasional cough. He was brought into the emergency room for evaluation. The patient was found to have influenza A. The patient was admitted to the fifth floor. There he apparently aspirated. It was apparently a large-volume aspiration. Her suctioning lots of material from the patient's posterior oropharynx. Here in the ICU I was asked to see him. The patient was impending respiratory failure. I intubated him with #8 endotracheal tube. The patient tolerated the procedure well. Chest x-ray shows some bilateral infiltrates. Computed tomography scan showed multifocal infiltrates and inflammatory changes particularly in the lower lobes. The patient has a stable hemodynamic status. He has adequate IV access. His past medical history is positive for seizure disorder and pneumonia. He also has a history of previous severe head injury back in 1985. He's had previous sprains surgery with skull plate placement in 1985, a tendon release and some other surgical procedures. On 10/25/2017 I'm seeing this patient for a follow-up. The patient remains intubated on a mechanical ventilator. He is on 50 mics of the prevent however despite that he is awake and he can follow some simple commands and is also communicating with his family members. He is intubated by #8 orotracheal tube. There is some looseness for secretions are being suctioned out. He is on assist control mode of ventilation with a tidal volume of 350, rate of 28, FiO2 of 50% with a PEEP of 5. The morning blood gases showed a pH of 7.39 with a pCO2 of 36 and pO2 of 134 and based on that I dropped FiO2 down to 40%. His chest x-ray from today shows a left lung consolidation indicating an underlying pneumonia. There is adequate positioning of the ET tube. No other acute pneumonitis of been noted. As for the x-ray of the abdomen, there was no air- fluid levels or bowel distention. The patient had a CAT scan of the abdomen earlier that raised the suspicion for bowel obstruction however, the patient seems to have mainly fecal impaction. He does have an NG tube in place at this point in time. No critical evidence of any abdominal distention or small bowel obstruction and he does have adequate bowel sounds. He'll be having a an ME at the bedside. Lactic acid level remains slightly elevated at 4.1 and this is something that we are monitoring. The patient is being treated with broad- spectrum antibiotics and currently the patient is a on a combination of IV Zosyn and Tamiflu for influenza a tracheal bronchitis. The patient was on bronchodilators and systemic steroids. He is on no pressors at this point in time. On 10/26/2017 the patient is being seen for a follow-up. The patient remains intubated on a mechanical ventilator. This morning he is essentially on the same vent setting which includes an assist-control of 28, tidal volume 350, FiO2 of 40% and a PEEP of 5. Chest x-ray remains unchanged with stable left lung consolidation. There is also increased pulmonary vascular markings. ET tube is in a good location. The patient is not producing excess amount of respiratory secretions. Blood gases from this morning showed a pH of 7.49 with a pCO2 of 37 and pO2 of 84 and this was done on a FiO2 of 40%. White cell count is not elevated. The patient was taken off the Diprivan and currently the patient is in the process of undergoing a spot his breathing trial. I switched him to a pressure support of 5 and a PEEP of 5. He is weaning parameters were acceptable. He was noted to have a rapid shallow breathing index of less than 100. He started volume is currently ranging between 250 and 325 and he is breathing comfortably. He is coughing reflexes weak and I think it's probably related to some degree of sedation as the patient just came off sedation for now. He did have a bowel movement yesterday. NG tube is in place. Total amount of output from the NG is approximately 30 mL all night. As for the urine output is approximately 25 mL an hour. The patient remains on Tamiflu. The patient remains on Zosyn. The patient is receiving IV fluids at the rate of 100 mL an hour of normal saline. The patient had a drop in hemoglobin down to 10.9 yet that is no evidence of any GI bleeding. The patient remains on Lovenox. He is also on Protonix. He remains nothing by mouth. No evidence of any small bowel obstruction at this point. The patient is seen again today 10/27/2017 in follow-up in the intensive care unit. He was successfully extubated yesterday. He is still requiring 7 L of high flow nasal cannula to maintain O2 saturations in the 90s. He's had a low- grade fever currently 99.1. He has been hemodynamically stable. Sputum and urine cultures revealed no growth. One blood culture is revealing gram- positive bacilli. He has been maintained on vancomycin, Zosyn. He remains on Tamiflu. His chest x-ray reveals stable bilateral diffuse airspace disease and small pleural effusions. He is on Lasix IV 20 mg every 12 hours. White count 8.8, hemoglobin 10.8, creatinine 0.70. Sodium 146. The patient is seen again today 10/28/2017 in follow-up in the intensive care unit. He is more awake and alert today. He is stating short sentences. He has a stronger cough as well. Tolerating his tube feedings for now. No plans for barium swallow at this point. His chest x-ray continues to show low lung volumes and airspace disease in the left lower lobe secondary to aspiration pneumonia. There is slight improvement however. He is currently maintaining O2 saturations in the low 90s on 7 L of high flow nasal cannula. He's been afebrile. Hemodynamically stable. Blood and sputum cultures revealed no growth. No leukocytosis. He does remain on Zosyn. He continues to diurese well. He is on Lasix 20 mg IV twice a day. Echocardiogram from September 2017 revealed preserved left ventricular systolic function. On 10/29/2017, the patient is being seen for a follow-up in the intensive care unit. I reviewed his follow-up chest x-ray and it shows some limited improvement in the lateral pulmonary infiltrates that were perihilar more so on the left. The patient is coughing and he is trying hard to bring up any sputum. He is unable to still do adequate pulmonary toileting knowing that his cough is still weak. The patient is on 3 L of oxygen nasal cannula. No significant hypoxemia. No respiratory distress. He is tolerating the NG tube feeding which is currently on goal. The patient was also adequate diuresis with IV Lasix. The patient is afebrile. No leukocytosis. Echocardiac Robbin showed a preserved LV function. Blood cultures showing a diphtheroid species which is probably contaminant. The patient undergoing chest aggressive physical therapy and chest percussion. The patient is seen again today 10/30/2017 in follow-up in the intensive care unit. He is more awake and alert today as compared to yesterday. He continues with a stronger cough. His chest x-ray reveals improving left-sided pneumonia with continued right-sided pneumonia. White count 12.8. He is maintaining good O2 saturations in the 90s on 3 L/m per nasal cannula. He's been afebrile. No tachycardia. No tachypnea. Continues with chest physiotherapy. On 10/31/2017 I'm seeing this patient for a follow-up. The patient is awake and interactive. The mother is the bedside. I am very much impressed with the recover the patient is making. The patient was extubated in the patient's subsequent chest x-ray shows improvement in the consolidation of the lungs especially the one on the left. The patient is receiving enteral feeding through an NG tube today. Is tolerating the every feeding well without any aspiration. His having regular bowel movements. No chest pain. He has occasional cough. His cough is getting gradually stronger. He does not have any significant sputum production. He is receiving chest PT. He is receiving chest percussion. He is hemodynamically stable. No fever. A swallow evaluation will be done at a later stage probably by tomorrow before making a final decision regarding PEG tube insertion. Atelectatic discussion with the patient's mother. I am more inclined of putting the PEG tube knowing that the patient may be at an increased risk of aspiration the future. Influenza is also being treated with Tamiflu. The patient is resting comfortably in bed. Reevaluated today on 11/01/2017, patient is awake, interactive, seems to be in no form of respiratory distress, follow-up chest x-ray showed improvement, patient is now receiving enteral feeding via nasogastric tube, seems to be tolerating that quite well, may consider swallow evaluation again and possibly recommend a PEG tube placement. Considering the presentation, I believe the patient will definitely need a PEG tube placement, in the meantime the patient is to be continued on Tamiflu. CBC was reviewed and basic metabolic profile was also reviewed and they seem to be relatively unremarkable. Chest x-ray today showed areas of atelectasis especially in the right lower lobe and left midlung. Nasogastric tube seems to be in proper position. The patient is seen again today 11/02/2017 in follow-up on the regular medical floor. He is awake and alert in no acute distress. He is answering yes and no questions. He is tolerating his tube feedings. He did undergo a video swallowing examination yesterday and there was no aspiration seen. He is maintaining good O2 saturations in the 90s on 3 L/m per nasal cannula. He has been afebrile. Hemodynamically stable. No tachycardia, no tachypnea. No leukocytosis. The plan is for discharge to an extended care facility once cleared medically. Objective - Vital Signs Vital signs: Vital Signs Temp 97.7 F 11/02/17 07:00 Pulse 76 11/02/17 11:08 Resp 20 11/02/17 07:00 BP 104/54 11/02/17 07:00 Pulse Ox 96 11/02/17 09:43 Intake & Output 11/01/17 11/02/17 11/02/17 18:59 06:59 18:59 Intake Total 1047.5 180 Output Total 850 Balance 197.5 180 Weight 71.5 kg Intake: IV 337.5 D5W 250 Piperacillin-Tazobactam 3 87.5 .375 gm In Dextrose/Water 1 50ml.bag @ 12.5 mls/hr IVPB Q8H [facility] Rx#: [id number] Intake, IV Titration 200 Amount Dextrose 5% in Water 1, 200 000 ml @ 50 mls/hr IV . Q20H [facility] Rx#:[id number] Tube Feeding 420 180 Other 90 Output: Urine 850 Other: Voiding Method Indwelling Catheter Urinal # Voids 2 - Exam The patient is alert. He is stating short sentences. He has a stronger cough as well.. HEENT examination is grossly unremarkable. Mucous membranes are moist. No oral lesions. Neck is somewhat flexed. It's supple. No cervical lymphadenopathy. Neck supple. Full range of motion. No adenopathy thyromegaly or neck vein distention. Cardiovascular examination reveals regular rhythm rate. S1-S2 normal. No S3 or S4. No discernible murmur noted. Lungs reveal coarse bilateral breath sounds. Crackles in the bases more so on the left. Abdomen soft bowel sounds are heard. No masses or tenderness. Extremities reveal some flexion contractures.. There is no edema or cyanosis or clubbing at this point Skin is without rash or lesion.Examination of the skin revealed no evidence of significant rashes, suspicious appearing nevi or other concerning lesions. Neurologic examination cannot be adequately assessed. Neurologically the patient is awake and following simple commands. He is bedridden/wheelchair- bound and has extensive contractures in lower extremities bilaterally. He has posttraumatic brain injury. - Labs CBC & Chem 7: 11/02/17 09:34 11/02/17 09:34 Labs: Abnormal Lab Results - Last 24 Hours (Table) 11/01/17 11/01/17 11/02/17 Range/Units 12:09 18:12 09:34 RBC 4.23 L (4.30-5.90) m/uL Neutrophils # 8.0 H (1.3-7.7) k/uL BUN (9-20) mg/dL Glucose (74-99) mg/dL POC Glucose (mg/dL) 100 H 103 H (75-99) mg/dL 11/02/17 Range/Units 09:34 RBC (4.30-5.90) m/uL Neutrophils # (1.3-7.7) k/uL BUN 25 H (9-20) mg/dL Glucose 109 H (74-99) mg/dL POC Glucose (mg/dL) (75-99) mg/dL Microbiology - Last 24 Hours (Table) 10/26/17 12:58 Blood Culture - Final Blood No Growth after 144 hours Assessment and Plan Assessment: Assessment 1 Acute hypoxemic respiratory failure, likely secondary to both influenza A and large-volume aspiration pneumonia. The patient continues to have a dense consolidation of the left lung. Successfully extubated yesterday. He is currently on 7 L high flow nasal cannula.. The patient is covered with a combination of Tamiflu and Zosyn. He is also on bronchodilators and systemic steroids. 2 History of seizure disorder, currently inactive and stable. 3 History of severe head injury in 1985 with severe developmental delay and mentally challenged. 4 Previous history of surgery to skull, 1985 5 Previous history of urinary tract infections 6 mild lactic acidosis, the lactic acidosis recovered. 7 stool impaction, the patient had a enema yesterday and the patient produced an small amount of stool. Abdomen is non-distended. No clinical evidence of any small bowel obstruction and NG tube is still in place. 8 drop in hemoglobin without evidence of any GI bleeding. The patient is on Lovenox for DVT prophylaxis. Plan: The patient was seen and evaluated by Dr. Lazcano. He is stable from the pulmonary standpoint. The plan is for transfer to an extended care facility post discharge. The patient did not reveal evidence of aspiration during a video swallow examination. Surgical services and speech therapy are determining whether PEG tube is needed or not. I, the cosigning physician, performed a history & physical examination of the patient. Lungs sounds have few scattered rhonchi, crackles in the posterior bases. Maintaining good O2 saturations in the 90s on 3 L nasal cannula I discussed the assessment and plan of care with my nurse practitioner, Dee Whelan. I attest to the above note as dictated by her.
[2017-11-02 12:13] LABS: Glucose,Whole Blood 113 mg/dL (75-99)
[2017-11-02] MEDS: DEXTROSE 5% IN WATER 1,000 ML IV SCH (13:01)
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
[2017-11-02 18:04] LABS: Glucose,Whole Blood 110 mg/dL (75-99)
--- NOTE | 2017-11-02 19:10 | PN ---
PROGRESS NOTE DATE OF SERVICE: 11/02/2017 REASON FOR FOLLOWUP: Recurrent aspiration pneumonia and acute influenza. INTERVAL HISTORY: The patient is afebrile. He seems to be slightly lethargic though awake and alert. No nausea or vomiting has been noted. He has been tolerating his tube feeds. No significant diarrhea, per the nursing staff. PHYSICAL EXAMINATION: Blood pressure is 104/54 with a pulse of 80, temperature of 97.7. He is 93% on room air. General description is a middle-aged male lying in bed in no distress. RESPIRATORY SYSTEM: Unlabored breathing. Some coarse breath sounds in the bases. No wheeze. HEART: S1, S2. Regular rate and rhythm. ABDOMEN: Soft. No tenderness. LABS: Hemoglobin is 13, white count 10.3, BUN of 25, creatinine 0.75. DIAGNOSTIC IMPRESSION AND PLAN: 1. Patient with acute influenza, adequately treated. 2. Patient with aspiration pneumonia with concern about recurrent aspiration, for which a PEG tube is being considered. He is currently on Zosyn. Once his GI issues are resolved, will switch him to oral antibiotic to finish a course of therapy. Family was present at the bedside. Their questions were answered. MMODL / IJN: [id number] /
[2017-11-03 00:03] LABS: Glucose,Whole Blood 83 mg/dL (75-99)
[2017-11-03] MEDS: INSULIN ASPART 100 UNIT/ML 1 ML 10 ML VIAL SQ SCH ×4 (00:07→17:38)
[2017-11-03] MEDS: PIPERACILLIN-TAZOBACTAM 3.375 GM in DEXTROSE/WATER 1 50ML.BAG IVPB SCH ×2 (06:04→15:57)
[2017-11-03 06:10] LABS: Glucose,Whole Blood 102 mg/dL (75-99)
[2017-11-03] MEDS: IPRATROPIUM-ALBUTEROL 3 ML NEB INHALATION SCH ×4 (06:54→19:17)
--- NOTE | 2017-11-03 08:25 | P.PN ---
Subjective Progress Note Date: 11/03/17 Principal diagnosis: Recurrent aspiration, inability to safely tolerate by mouth intake Medically patient is much improved however there is concern that he is not able to safely tolerate by mouth intake. He is a significant aspiration risk. Objective - Vital Signs Vital signs: Vital Signs Temp 97.2 F L 11/03/17 07:00 Pulse 77 11/03/17 07:04 Resp 18 11/03/17 07:00 BP 110/62 11/03/17 07:00 Pulse Ox 92 L 11/03/17 07:00 Intake & Output 11/02/17 11/03/17 11/03/17 18:59 06:59 18:59 Intake Total 660 900 Balance 660 900 Weight 71.5 kg Intake: Tube Feeding 660 900 Other: Voiding Method Urinal Urinal Diaper Diaper - EENT Eyes: Present: PERRLA - Respiratory Details: Nonlabored breathing - Cardiovascular Rhythm: regular - Gastrointestinal Gastrointestinal Comment(s): Soft and nontender nondistended, upper midline incision from previous G-tube many years ago when he was a child - Labs CBC & Chem 7: 11/02/17 09:34 11/02/17 09:34 Labs: Abnormal Lab Results - Last 24 Hours (Table) 11/02/17 11/02/17 11/02/17 Range/Units 09:34 09:34 11:46 RBC 4.23 L (4.30-5.90) m/uL Neutrophils # 8.0 H (1.3-7.7) k/uL BUN 25 H (9-20) mg/dL Glucose 109 H (74-99) mg/dL POC Glucose (mg/dL) 113 H (75-99) mg/dL 11/02/17 11/03/17 Range/Units 18:02 06:08 RBC (4.30-5.90) m/uL Neutrophils # (1.3-7.7) k/uL BUN (9-20) mg/dL Glucose (74-99) mg/dL POC Glucose (mg/dL) 110 H 102 H (75-99) mg/dL Assessment and Plan Assessment: Aspiration risk Plan: Plan is for nothing by mouth after midnight discussed PEG tube placement with family who was agreeable. Patient is a significant risk for pulling out the PEG tube. Because of this I would recommend having abdominal binder on the patient at all times. The binder should be fastened in the back to avoid the patient undoing the binder and pulling the tube.
[2017-11-03] MEDS: PANTOPRAZOLE 40 MG/10 ML VIAL IVP SCH (10:22)
[2017-11-03] MEDS: DOCUSATE ORAL SOLN 100 MG/10 ML CUP NG-TUBE SCH ×2 (10:22→20:52)
[2017-11-03] MEDS: lamoTRIgine 100 MG TAB PO SCH ×2 (10:23→23:40)
[2017-11-03] MEDS: methylPREDNISolone SOD SUCCI 40 MG/ML 1 ML VIAL IV SCH (10:23)
[2017-11-03] MEDS: ENOXAPARIN 40 MG/0.4 ML SYRINGE SQ SCH (10:23)
[2017-11-03] MEDS: CITALOPRAM HYDROBROMIDE 20 MG TAB PO SCH (10:23)
[2017-11-03] MEDS: FUROSEMIDE 10 MG/ML 2 ML VIAL IV SCH (10:23)
[2017-11-03] MEDS: DEXTROSE 5% IN WATER 1,000 ML IV SCH (10:27)
[2017-11-03 12:09] LABS: Glucose,Whole Blood 119 mg/dL (75-99)
--- NOTE | 2017-11-03 13:19 | P.PN ---
Subjective Progress Note Date: 11/03/17 Principal diagnosis: Acute hypoxic respiratory failure secondary to both influenza A and a large volume aspiration pneumonia. This is a 52-year-old mentally handicapped individual status post closed head injury for 30 years. The patient is unable to give any history and he is a verbal her nonverbal. Apparently had a fever and occasional cough. He was brought into the emergency room for evaluation. The patient was found to have influenza A. The patient was admitted to the fifth floor. There he apparently aspirated. It was apparently a large-volume aspiration. Her suctioning lots of material from the patient's posterior oropharynx. Here in the ICU I was asked to see him. The patient was impending respiratory failure. I intubated him with #8 endotracheal tube. The patient tolerated the procedure well. Chest x-ray shows some bilateral infiltrates. Computed tomography scan showed multifocal infiltrates and inflammatory changes particularly in the lower lobes. The patient has a stable hemodynamic status. He has adequate IV access. His past medical history is positive for seizure disorder and pneumonia. He also has a history of previous severe head injury back in 1985. He's had previous sprains surgery with skull plate placement in 1985, a tendon release and some other surgical procedures. On 10/25/2017 I'm seeing this patient for a follow-up. The patient remains intubated on a mechanical ventilator. He is on 50 mics of the prevent however despite that he is awake and he can follow some simple commands and is also communicating with his family members. He is intubated by #8 orotracheal tube. There is some looseness for secretions are being suctioned out. He is on assist control mode of ventilation with a tidal volume of 350, rate of 28, FiO2 of 50% with a PEEP of 5. The morning blood gases showed a pH of 7.39 with a pCO2 of 36 and pO2 of 134 and based on that I dropped FiO2 down to 40%. His chest x-ray from today shows a left lung consolidation indicating an underlying pneumonia. There is adequate positioning of the ET tube. No other acute pneumonitis of been noted. As for the x-ray of the abdomen, there was no air- fluid levels or bowel distention. The patient had a CAT scan of the abdomen earlier that raised the suspicion for bowel obstruction however, the patient seems to have mainly fecal impaction. He does have an NG tube in place at this point in time. No critical evidence of any abdominal distention or small bowel obstruction and he does have adequate bowel sounds. He'll be having a an WA at the bedside. Lactic acid level remains slightly elevated at 4.1 and this is something that we are monitoring. The patient is being treated with broad- spectrum antibiotics and currently the patient is a on a combination of IV Zosyn and Tamiflu for influenza a tracheal bronchitis. The patient was on bronchodilators and systemic steroids. He is on no pressors at this point in time. On 10/26/2017 the patient is being seen for a follow-up. The patient remains intubated on a mechanical ventilator. This morning he is essentially on the same vent setting which includes an assist-control of 28, tidal volume 350, FiO2 of 40% and a PEEP of 5. Chest x-ray remains unchanged with stable left lung consolidation. There is also increased pulmonary vascular markings. ET tube is in a good location. The patient is not producing excess amount of respiratory secretions. Blood gases from this morning showed a pH of 7.49 with a pCO2 of 37 and pO2 of 84 and this was done on a FiO2 of 40%. White cell count is not elevated. The patient was taken off the Diprivan and currently the patient is in the process of undergoing a spot his breathing trial. I switched him to a pressure support of 5 and a PEEP of 5. He is weaning parameters were acceptable. He was noted to have a rapid shallow breathing index of less than 100. He started volume is currently ranging between 250 and 325 and he is breathing comfortably. He is coughing reflexes weak and I think it's probably related to some degree of sedation as the patient just came off sedation for now. He did have a bowel movement yesterday. NG tube is in place. Total amount of output from the NG is approximately 30 mL all night. As for the urine output is approximately 25 mL an hour. The patient remains on Tamiflu. The patient remains on Zosyn. The patient is receiving IV fluids at the rate of 100 mL an hour of normal saline. The patient had a drop in hemoglobin down to 10.9 yet that is no evidence of any GI bleeding. The patient remains on Lovenox. He is also on Protonix. He remains nothing by mouth. No evidence of any small bowel obstruction at this point. The patient is seen again today 10/27/2017 in follow-up in the intensive care unit. He was successfully extubated yesterday. He is still requiring 7 L of high flow nasal cannula to maintain O2 saturations in the 90s. He's had a low- grade fever currently 99.1. He has been hemodynamically stable. Sputum and urine cultures revealed no growth. One blood culture is revealing gram- positive bacilli. He has been maintained on vancomycin, Zosyn. He remains on Tamiflu. His chest x-ray reveals stable bilateral diffuse airspace disease and small pleural effusions. He is on Lasix IV 20 mg every 12 hours. White count 8.8, hemoglobin 10.8, creatinine 0.70. Sodium 146. The patient is seen again today 10/28/2017 in follow-up in the intensive care unit. He is more awake and alert today. He is stating short sentences. He has a stronger cough as well. Tolerating his tube feedings for now. No plans for barium swallow at this point. His chest x-ray continues to show low lung volumes and airspace disease in the left lower lobe secondary to aspiration pneumonia. There is slight improvement however. He is currently maintaining O2 saturations in the low 90s on 7 L of high flow nasal cannula. He's been afebrile. Hemodynamically stable. Blood and sputum cultures revealed no growth. No leukocytosis. He does remain on Zosyn. He continues to diurese well. He is on Lasix 20 mg IV twice a day. Echocardiogram from September 2017 revealed preserved left ventricular systolic function. On 10/29/2017, the patient is being seen for a follow-up in the intensive care unit. I reviewed his follow-up chest x-ray and it shows some limited improvement in the lateral pulmonary infiltrates that were perihilar more so on the left. The patient is coughing and he is trying hard to bring up any sputum. He is unable to still do adequate pulmonary toileting knowing that his cough is still weak. The patient is on 3 L of oxygen nasal cannula. No significant hypoxemia. No respiratory distress. He is tolerating the NG tube feeding which is currently on goal. The patient was also adequate diuresis with IV Lasix. The patient is afebrile. No leukocytosis. Echocardiac Robbin showed a preserved LV function. Blood cultures showing a diphtheroid species which is probably contaminant. The patient undergoing chest aggressive physical therapy and chest percussion. The patient is seen again today 10/30/2017 in follow-up in the intensive care unit. He is more awake and alert today as compared to yesterday. He continues with a stronger cough. His chest x-ray reveals improving left-sided pneumonia with continued right-sided pneumonia. White count 12.8. He is maintaining good O2 saturations in the 90s on 3 L/m per nasal cannula. He's been afebrile. No tachycardia. No tachypnea. Continues with chest physiotherapy. On 10/31/2017 I'm seeing this patient for a follow-up. The patient is awake and interactive. The mother is the bedside. I am very much impressed with the recover the patient is making. The patient was extubated in the patient's subsequent chest x-ray shows improvement in the consolidation of the lungs especially the one on the left. The patient is receiving enteral feeding through an NG tube today. Is tolerating the every feeding well without any aspiration. His having regular bowel movements. No chest pain. He has occasional cough. His cough is getting gradually stronger. He does not have any significant sputum production. He is receiving chest PT. He is receiving chest percussion. He is hemodynamically stable. No fever. A swallow evaluation will be done at a later stage probably by tomorrow before making a final decision regarding PEG tube insertion. Atelectatic discussion with the patient's mother. I am more inclined of putting the PEG tube knowing that the patient may be at an increased risk of aspiration the future. Influenza is also being treated with Tamiflu. The patient is resting comfortably in bed. Reevaluated today on 11/01/2017, patient is awake, interactive, seems to be in no form of respiratory distress, follow-up chest x-ray showed improvement, patient is now receiving enteral feeding via nasogastric tube, seems to be tolerating that quite well, may consider swallow evaluation again and possibly recommend a PEG tube placement. Considering the presentation, I believe the patient will definitely need a PEG tube placement, in the meantime the patient is to be continued on Tamiflu. CBC was reviewed and basic metabolic profile was also reviewed and they seem to be relatively unremarkable. Chest x-ray today showed areas of atelectasis especially in the right lower lobe and left midlung. Nasogastric tube seems to be in proper position. The patient is seen again today 11/02/2017 in follow-up on the regular medical floor. He is awake and alert in no acute distress. He is answering yes and no questions. He is tolerating his tube feedings. He did undergo a video swallowing examination yesterday and there was no aspiration seen. He is maintaining good O2 saturations in the 90s on 3 L/m per nasal cannula. He has been afebrile. Hemodynamically stable. No tachycardia, no tachypnea. No leukocytosis. The plan is for discharge to an extended care facility once cleared medically. The patient is seen again today 11/03/2017 in follow-up on the regular medical floor. He is resting quite comfortably in bed. No acute distress. Maintaining O2 saturations in the 90s on room air. His been afebrile. No tachycardia. No tachypnea. Hemodynamically stable. He is tolerating his tube feedings. The plan is for PEG tube insertion tomorrow morning. Objective - Vital Signs Vital signs: Vital Signs Temp 97.2 F L 11/03/17 07:00 Pulse 74 11/03/17 10:51 Resp 18 11/03/17 10:33 BP 110/62 11/03/17 07:00 Pulse Ox 92 L 11/03/17 07:00 Intake & Output 11/02/17 11/03/17 11/03/17 18:59 06:59 18:59 Intake Total 660 900 300 Balance 660 900 300 Weight 71.5 kg Intake: Tube Feeding 660 900 300 Other: Voiding Method Urinal Urinal Urinal Diaper Diaper Diaper # Voids 2 - Exam The patient is alert. He is stating short sentences. He has a stronger cough as well.. HEENT examination is grossly unremarkable. Mucous membranes are moist. No oral lesions. Neck is somewhat flexed. It's supple. No cervical lymphadenopathy. Neck supple. Full range of motion. No adenopathy thyromegaly or neck vein distention. Cardiovascular examination reveals regular rhythm rate. S1-S2 normal. No S3 or S4. No discernible murmur noted. Lungs reveal coarse bilateral breath sounds. Crackles in the bases more so on the left. Abdomen soft bowel sounds are heard. No masses or tenderness. Extremities reveal some flexion contractures.. There is no edema or cyanosis or clubbing at this point Skin is without rash or lesion.Examination of the skin revealed no evidence of significant rashes, suspicious appearing nevi or other concerning lesions. Neurologic examination cannot be adequately assessed. Neurologically the patient is awake and following simple commands. He is bedridden/wheelchair- bound and has extensive contractures in lower extremities bilaterally. He has posttraumatic brain injury. - Labs CBC & Chem 7: 11/02/17 09:34 11/02/17 09:34 Labs: Abnormal Lab Results - Last 24 Hours (Table) 11/02/17 11/03/17 11/03/17 Range/Units 18:02 06:08 12:04 POC Glucose (mg/dL) 110 H 102 H 119 H (75-99) mg/dL Assessment and Plan Assessment: Assessment 1 Acute hypoxemic respiratory failure, likely secondary to both influenza A and large-volume aspiration pneumonia. The patient continues to have a dense consolidation of the left lung. Successfully extubated yesterday. He is currently on 7 L high flow nasal cannula.. The patient is covered with a combination of Tamiflu and Zosyn. He is also on bronchodilators and systemic steroids. 2 History of seizure disorder, currently inactive and stable. 3 History of severe head injury in 1985 with severe developmental delay and mentally challenged. 4 Previous history of surgery to skull, 1985 5 Previous history of urinary tract infections 6 mild lactic acidosis, the lactic acidosis recovered. 7 stool impaction, the patient had a enema yesterday and the patient produced an small amount of stool. Abdomen is non-distended. No clinical evidence of any small bowel obstruction and NG tube is still in place. 8 drop in hemoglobin without evidence of any GI bleeding. The patient is on Lovenox for DVT prophylaxis. Plan: The patient was seen and evaluated by Dr. Lazcano. He is stable from the pulmonary standpoint. The plan is for PEG tube insertion tomorrow morning. The plan is for transfer to an extended care facility post discharge. I, the cosigning physician, performed a history & physical examination of the patient. Lungs sounds have few scattered rhonchi, crackles in the posterior bases. Maintaining good O2 saturations in the 90s on 3 L nasal cannula I discussed the assessment and plan of care with my nurse practitioner, Dee Whelan. I attest to the above note as dictated by her.
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
[2017-11-03 18:36] LABS: Glucose,Whole Blood 112 mg/dL (75-99)
--- NOTE | 2017-11-03 19:57 | PN ---
PROGRESS NOTE DATE OF SERVICE: 11/03/2017 REASON FOR FOLLOWUP: Aspiration pneumonia. INTERVAL HISTORY: The patient is afebrile, has been breathing comfortably. The patient did pull up his NG and is scheduled to go for a PEG tube placement tomorrow. No nausea, vomiting or diarrhea per the patient's nursing staff. PHYSICAL EXAMINATION: Blood pressure is 101/59 with a pulse of 89, temperature of 98. He is 91% on room air. General description is a middle-aged male lying in bed in no distress. RESPIRATORY SYSTEM: Unlabored breathing. Clear to auscultation anteriorly. HEART: S1, S2. Regular rate and rhythm. ABDOMEN: Soft. No tenderness. LABS: Reviewed. DIAGNOSTIC IMPRESSION AND PLAN: 1. Patient with acute influenza, adequately treated. 2. Patient with a component of aspiration pneumonia with recurrent aspiration. He is currently waiting for PEG tube placement. Once the patient's enteral feeding starts, the antibiotic will be switched to down the PEG tube and Zosyn will be discontinued. Continue with supportive care. MMODL / IJN: [id number] / JAVAD
[2017-11-03] MEDS ORDERED: levETIRAcetam IV 500 MG in SODIUM CHLORIDE 0.9% 100 ML IVPB STA (23:35)
[2017-11-03] MEDS ORDERED: LORazepam 2 MG/ML INJ IV PRN (23:37)
[2017-11-04] MEDS: PIPERACILLIN-TAZOBACTAM 3.375 GM in DEXTROSE/WATER 1 50ML.BAG IVPB SCH ×4 (00:08→23:02)
[2017-11-04 00:17] LABS: Glucose,Whole Blood 96 mg/dL (75-99)
[2017-11-04] MEDS: INSULIN ASPART 100 UNIT/ML 1 ML 10 ML VIAL SQ SCH ×4 (00:28→18:15)
[2017-11-04] MEDS ORDERED: LORazepam 2 MG/ML INJ IV PRN (04:48)
[2017-11-04] MEDS: DEXTROSE 5% IN WATER 1,000 ML IV SCH ×2 (05:59→16:10)
[2017-11-04 06:25] LABS: Glucose,Whole Blood 111 mg/dL (75-99)
[2017-11-04 07:23] LABS: HCT 38.9 % (39.0-53.0); HGB 12.5 gm/dL (13.0-17.5); MCH 31.3 pg (25.0-35.0); MCHC 32.2 g/dL (31.0-37.0); MCV 97.2 fL (80.0-100.0); Mean Platelet Volume 7.3; Platelet Count 384 k/uL (150-450); RDW 13.9 % (11.5-15.5); WBC 9.3 k/uL (3.8-10.6)
[2017-11-04] MEDS: IPRATROPIUM-ALBUTEROL 3 ML NEB INHALATION SCH ×4 (07:49→19:40)
[2017-11-04 07:54] LABS: Prothrombin Time 11.3 sec (9.0-12.0)
[2017-11-04 07:55] LABS: INR 1.2 (<1.2)
[2017-11-04] MEDS: DOCUSATE ORAL SOLN 100 MG/10 ML CUP NG-TUBE SCH ×2 (10:02→19:59)
[2017-11-04] MEDS: CITALOPRAM HYDROBROMIDE 20 MG TAB PO SCH ×2 (10:02→11:04)
[2017-11-04] MEDS: lamoTRIgine 100 MG TAB PO SCH ×2 (10:03→19:59)
[2017-11-04] MEDS: ENOXAPARIN 40 MG/0.4 ML SYRINGE SQ SCH ×2 (10:03→11:03)
[2017-11-04] MEDS ORDERED: IV FLUID CONTINUATION 1,000 ML IV ONE (10:06)
[2017-11-04] MEDS ORDERED: fentaNYL (PF) 50 MCG/ML 2 ML AMP ONE (10:06)
[2017-11-04] MEDS ORDERED: GLYCOPYRROLATE 0.2 MG/ML 2 ML VIAL ONE (10:06)
[2017-11-04] MEDS ORDERED: PROPOFOL 10 MG/ML 20 ML VIAL IV ONE (10:06)
[2017-11-04] MEDS ORDERED: LIDOCAINE 1% INJ 10MG/ML (20 ML MDV) ONE (10:06)
--- NOTE | 2017-11-04 10:46 | P.OP ---
Date of Procedure: 11/04/17 Preoperative Diagnosis: Aspiration Risk Postoperative Diagnosis: Same Procedure(s) Performed: EGD with biopsy and Attempted PEG tube placement Anesthesia: MAC Surgeon: Herminio Higginbotham Estimated Blood Loss (ml): 5 Pathology: other (Biopsy of stomach body) Condition: stable Disposition: floor Indications for Procedure: This is a 52-year-old male who presents with aspiration. He is unable to tolerate oral intake and therefore PEG tube was indicated. Patient has a history of an open G-tube when he was a child. There is an upper midline scar and a G-tube scar. Risks benefits and alternatives were discussed with the family stated they understood agreed and consented Description of Procedure: Patient was brought into the Endo suite remained in the supine position underwent sedation per department of anesthesia endoscope was then passed through the oropharynx down the esophagus under direct visualization. This passed and the first and second part of the duodenum there is no abnormalities noted the scope was withdrawn and retroflexed it was an area of inflammation in the body of the stomach this was biopsied likely secondary to the NG tube that had been placed and replaced many times. Attempts were then made at transilluminating the stomach. Poor transillumination was noted. An area where transillumination was able to be seen was prepped and draped and then local anesthetic was used to anesthetize the skin as a needle was passed before it entered the stomach it was withdrawn and air was noted. At this time did not feel that it was safe to continue the procedure with poor transillumination and therefore the procedure was terminated. The scope was withdrawn patient tolerated the procedure well no apparent complications
--- NOTE | 2017-11-04 10:47 | P.PN ---
Progress Note - Text Progress Note Date: 11/04/17 was unable to safely perform PEG tube placement secondary to old scar tissue and poor transillumination patient has previously had open G-tube placement. Plan will be for open feeding tube placement in the operating room tomorrow. this is discussed with the patient's family who were agreeable
[2017-11-04] MEDS: PANTOPRAZOLE 40 MG/10 ML VIAL IVP SCH (11:04)
[2017-11-04] MEDS: methylPREDNISolone SOD SUCCI 40 MG/ML 1 ML VIAL IV SCH (11:04)
[2017-11-04] MEDS: FUROSEMIDE 10 MG/ML 2 ML VIAL IV SCH (11:04)
--- NOTE | 2017-11-04 11:47 | P.PN ---
Subjective Progress Note Date: 11/04/17 Principal diagnosis: Acute hypoxic respiratory failure secondary to both influenza A and a large volume aspiration pneumonia This is a 52-year-old mentally handicapped individual status post closed head injury for 30 years. The patient is unable to give any history and he is a verbal her nonverbal. Apparently had a fever and occasional cough. He was brought into the emergency room for evaluation. The patient was found to have influenza A. The patient was admitted to the fifth floor. There he apparently aspirated. It was apparently a large-volume aspiration. Her suctioning lots of material from the patient's posterior oropharynx. Here in the ICU I was asked to see him. The patient was impending respiratory failure. I intubated him with #8 endotracheal tube. The patient tolerated the procedure well. Chest x-ray shows some bilateral infiltrates. Computed tomography scan showed multifocal infiltrates and inflammatory changes particularly in the lower lobes. The patient has a stable hemodynamic status. He has adequate IV access. His past medical history is positive for seizure disorder and pneumonia. He also has a history of previous severe head injury back in 1985. He's had previous sprains surgery with skull plate placement in 1985, a tendon release and some other surgical procedures. On 10/25/2017 I'm seeing this patient for a follow-up. The patient remains intubated on a mechanical ventilator. He is on 50 mics of the prevent however despite that he is awake and he can follow some simple commands and is also communicating with his family members. He is intubated by #8 orotracheal tube. There is some looseness for secretions are being suctioned out. He is on assist control mode of ventilation with a tidal volume of 350, rate of 28, FiO2 of 50% with a PEEP of 5. The morning blood gases showed a pH of 7.39 with a pCO2 of 36 and pO2 of 134 and based on that I dropped FiO2 down to 40%. His chest x-ray from today shows a left lung consolidation indicating an underlying pneumonia. There is adequate positioning of the ET tube. No other acute pneumonitis of been noted. As for the x-ray of the abdomen, there was no air- fluid levels or bowel distention. The patient had a CAT scan of the abdomen earlier that raised the suspicion for bowel obstruction however, the patient seems to have mainly fecal impaction. He does have an NG tube in place at this point in time. No critical evidence of any abdominal distention or small bowel obstruction and he does have adequate bowel sounds. He'll be having a an AR at the bedside. Lactic acid level remains slightly elevated at 4.1 and this is something that we are monitoring. The patient is being treated with broad- spectrum antibiotics and currently the patient is a on a combination of IV Zosyn and Tamiflu for influenza a tracheal bronchitis. The patient was on bronchodilators and systemic steroids. He is on no pressors at this point in time. On 10/26/2017 the patient is being seen for a follow-up. The patient remains intubated on a mechanical ventilator. This morning he is essentially on the same vent setting which includes an assist-control of 28, tidal volume 350, FiO2 of 40% and a PEEP of 5. Chest x-ray remains unchanged with stable left lung consolidation. There is also increased pulmonary vascular markings. ET tube is in a good location. The patient is not producing excess amount of respiratory secretions. Blood gases from this morning showed a pH of 7.49 with a pCO2 of 37 and pO2 of 84 and this was done on a FiO2 of 40%. White cell count is not elevated. The patient was taken off the Diprivan and currently the patient is in the process of undergoing a spot his breathing trial. I switched him to a pressure support of 5 and a PEEP of 5. He is weaning parameters were acceptable. He was noted to have a rapid shallow breathing index of less than 100. He started volume is currently ranging between 250 and 325 and he is breathing comfortably. He is coughing reflexes weak and I think it's probably related to some degree of sedation as the patient just came off sedation for now. He did have a bowel movement yesterday. NG tube is in place. Total amount of output from the NG is approximately 30 mL all night. As for the urine output is approximately 25 mL an hour. The patient remains on Tamiflu. The patient remains on Zosyn. The patient is receiving IV fluids at the rate of 100 mL an hour of normal saline. The patient had a drop in hemoglobin down to 10.9 yet that is no evidence of any GI bleeding. The patient remains on Lovenox. He is also on Protonix. He remains nothing by mouth. No evidence of any small bowel obstruction at this point. The patient is seen again today 10/27/2017 in follow-up in the intensive care unit. He was successfully extubated yesterday. He is still requiring 7 L of high flow nasal cannula to maintain O2 saturations in the 90s. He's had a low- grade fever currently 99.1. He has been hemodynamically stable. Sputum and urine cultures revealed no growth. One blood culture is revealing gram- positive bacilli. He has been maintained on vancomycin, Zosyn. He remains on Tamiflu. His chest x-ray reveals stable bilateral diffuse airspace disease and small pleural effusions. He is on Lasix IV 20 mg every 12 hours. White count 8.8, hemoglobin 10.8, creatinine 0.70. Sodium 146. The patient is seen again today 10/28/2017 in follow-up in the intensive care unit. He is more awake and alert today. He is stating short sentences. He has a stronger cough as well. Tolerating his tube feedings for now. No plans for barium swallow at this point. His chest x-ray continues to show low lung volumes and airspace disease in the left lower lobe secondary to aspiration pneumonia. There is slight improvement however. He is currently maintaining O2 saturations in the low 90s on 7 L of high flow nasal cannula. He's been afebrile. Hemodynamically stable. Blood and sputum cultures revealed no growth. No leukocytosis. He does remain on Zosyn. He continues to diurese well. He is on Lasix 20 mg IV twice a day. Echocardiogram from September 2017 revealed preserved left ventricular systolic function. On 10/29/2017, the patient is being seen for a follow-up in the intensive care unit. I reviewed his follow-up chest x-ray and it shows some limited improvement in the lateral pulmonary infiltrates that were perihilar more so on the left. The patient is coughing and he is trying hard to bring up any sputum. He is unable to still do adequate pulmonary toileting knowing that his cough is still weak. The patient is on 3 L of oxygen nasal cannula. No significant hypoxemia. No respiratory distress. He is tolerating the NG tube feeding which is currently on goal. The patient was also adequate diuresis with IV Lasix. The patient is afebrile. No leukocytosis. Echocardiac Robbin showed a preserved LV function. Blood cultures showing a diphtheroid species which is probably contaminant. The patient undergoing chest aggressive physical therapy and chest percussion. The patient is seen again today 10/30/2017 in follow-up in the intensive care unit. He is more awake and alert today as compared to yesterday. He continues with a stronger cough. His chest x-ray reveals improving left-sided pneumonia with continued right-sided pneumonia. White count 12.8. He is maintaining good O2 saturations in the 90s on 3 L/m per nasal cannula. He's been afebrile. No tachycardia. No tachypnea. Continues with chest physiotherapy. On 10/31/2017 I'm seeing this patient for a follow-up. The patient is awake and interactive. The mother is the bedside. I am very much impressed with the recover the patient is making. The patient was extubated in the patient's subsequent chest x-ray shows improvement in the consolidation of the lungs especially the one on the left. The patient is receiving enteral feeding through an NG tube today. Is tolerating the every feeding well without any aspiration. His having regular bowel movements. No chest pain. He has occasional cough. His cough is getting gradually stronger. He does not have any significant sputum production. He is receiving chest PT. He is receiving chest percussion. He is hemodynamically stable. No fever. A swallow evaluation will be done at a later stage probably by tomorrow before making a final decision regarding PEG tube insertion. Atelectatic discussion with the patient's mother. I am more inclined of putting the PEG tube knowing that the patient may be at an increased risk of aspiration the future. Influenza is also being treated with Tamiflu. The patient is resting comfortably in bed. Reevaluated today on 11/01/2017, patient is awake, interactive, seems to be in no form of respiratory distress, follow-up chest x-ray showed improvement, patient is now receiving enteral feeding via nasogastric tube, seems to be tolerating that quite well, may consider swallow evaluation again and possibly recommend a PEG tube placement. Considering the presentation, I believe the patient will definitely need a PEG tube placement, in the meantime the patient is to be continued on Tamiflu. CBC was reviewed and basic metabolic profile was also reviewed and they seem to be relatively unremarkable. Chest x-ray today showed areas of atelectasis especially in the right lower lobe and left midlung. Nasogastric tube seems to be in proper position. The patient is seen again today 11/02/2017 in follow-up on the regular medical floor. He is awake and alert in no acute distress. He is answering yes and no questions. He is tolerating his tube feedings. He did undergo a video swallowing examination yesterday and there was no aspiration seen. He is maintaining good O2 saturations in the 90s on 3 L/m per nasal cannula. He has been afebrile. Hemodynamically stable. No tachycardia, no tachypnea. No leukocytosis. The plan is for discharge to an extended care facility once cleared medically. The patient is seen again today 11/03/2017 in follow-up on the regular medical floor. He is resting quite comfortably in bed. No acute distress. Maintaining O2 saturations in the 90s on room air. His been afebrile. No tachycardia. No tachypnea. Hemodynamically stable. He is tolerating his tube feedings. The plan is for PEG tube insertion tomorrow morning. On 11/04/2017 patient is seen in follow-up on medical surgical floor. He had just returned from his procedure, EGD with biopsy and attempted PEG tube placement. The PEG tube placement was unsuccessful due to poor transillumination of the stomach secondary to old scar tissue where the patient had a previous open G-tube placement. Gen. surgery is planning for open feeding tube placement in the OR tomorrow on 11/05/2017. Patient is currently somnolent, still under the effect of sedatives, but arousable to verbal stimuli , able to give 1 or 2 word answers. In no distress, lung sounds are diminished , but no rhonchi or wheezes were noted. his vitals are stable,he has been afebrile, currently on room air with O2 sat at 93%.blood culture from 2017 showed diphtheroid species, awaiting final report. Sputum and urine culture as well as the follow-up blood culture on 10/26/2017 are negative. He remains on Zosyn, methylprednisolone 40 mg IV push daily. Objective - Vital Signs Vital signs: Vital Signs Temp 97.6 F 11/04/17 09:21 Pulse 66 11/04/17 09:21 Resp 16 11/04/17 09:21 BP 95/49 11/04/17 09:21 Pulse Ox 93 L 11/04/17 09:21 Intake & Output 0111/04/17 11/04/17 18:59 06:59 18:59 Intake Total 300 300 Balance 300 300 Weight 71.5 kg 63 kg Intake: IV 300 Tube Feeding 300 Other: Voiding Method Urinal Urinal Urinal Diaper Diaper Diaper # Voids 2 2 1 # Bowel Movements 1 - Exam The patient is somnolent, but arousable to verbal stimuli. He is able to give 1 -2 word answers. He has a stronger cough as well.. HEENT examination is grossly unremarkable. Mucous membranes are moist. No oral lesions. Neck is somewhat flexed. It's supple. No cervical lymphadenopathy. Neck supple. Full range of motion. No adenopathy thyromegaly or neck vein distention. Cardiovascular examination reveals regular rhythm rate. S1-S2 normal. No S3 or S4. No discernible murmur noted. Lungs reveal diminished breath sounds, no rhonchi, wheezes or rales auscultated. Abdomen soft bowel sounds are heard. No masses or tenderness. Extremities reveal some flexion contractures.. There is no edema or cyanosis or clubbing at this point Skin is without rash or lesion.Examination of the skin revealed no evidence of significant rashes, suspicious appearing nevi or other concerning lesions. Neurologic examination cannot be adequately assessed. Neurologically the patient is sleepy, but able to follow simple commands. He is bedridden/ wheelchair-bound and has extensive contractures in lower extremities bilaterally. He has posttraumatic brain injury. - Labs CBC & Chem 7: 11/04/17 06:46 11/02/17 09:34 Labs: Abnormal Lab Results - Last 24 Hours (Table) 11/03/17 11/03/17 11/04/17 Range/Units 12:04 18:16 06:09 RBC (4.30-5.90) m/uL Hgb (13.0-17.5) gm/dL Hct (39.0-53.0) % INR (<1.2) POC Glucose (mg/dL) 119 H 112 H 111 H (75-99) mg/dL 11/04/17 11/04/17 Range/Units 06:46 06:46 RBC 4.00 L (4.30-5.90) m/uL Hgb 12.5 L (13.0-17.5) gm/dL Hct 38.9 L (39.0-53.0) % INR 1.2 H (<1.2) POC Glucose (mg/dL) (75-99) mg/dL Assessment and Plan Plan: 1 Acute hypoxemic respiratory failure, likely secondary to both influenza A and large-volume aspiration pneumonia. The patient continues to have a dense consolidation of the left lung. Successfully extubated. He is currently on room air, and maintaining his oxygenation at 93%. patient has completed a course of Tamiflu, remains on Zosyn, IV steroids, and bronchodilator treatments. 2. dysphagia, with history of recurrent aspiration pneumonia. Patient underwent EGD and attempted PEG tube placement today, the PEG tube placement was unsuccessful due to scar tissue related to previous placement of G-tube. The plan is for surgical placement of a G-tube on 11/05/2017 3 History of seizure disorder, currently inactive and stable. 4 History of severe head injury in 1985 with severe developmental delay and mentally challenged. 5 Previous history of surgery to skull, 1985 6 Previous history of urinary tract infections 7 mild lactic acidosis, the lactic acidosis recovered. 8 stool impaction, resolved 9 drop in hemoglobin without evidence of any GI bleeding. The patient is on Lovenox for DVT prophylaxis. Plan: Continue present antibiotics, Zosyn, continue IV Solu-Medrol, DuoNeb nebulized treatments. clinically from pulmonary standpoint patient continues to improve. He is currently on room air, no acute dyspnea, chest congestion or cough production. Maintain aspiration precautions. His placement of a PEG tube was unsuccessful today, the plan is to proceed with surgically placed G-tube tomorrow on 11/05/2017. Following that discharge to subacute rehab is anticipated. I performed a history & physical examination of the patient and discussed their management with my nurse practitioner, Flora Siegel. I reviewed the nurse practitioner's note and agree with the documented findings and plan of care. Lung sounds are diminished. The findings and the impression was discussed with the patient. I attest to the documentation by the nurse practitioner. Time with Patient: Less than 30
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
[2017-11-04 12:06] LABS: Glucose,Whole Blood 96 mg/dL (75-99)
[2017-11-04] MEDS: levETIRAcetam IV 750 MG in SODIUM CHLORIDE 0.9% 100 ML IVPB SCH ×2 (13:32→23:00)
[2017-11-04 18:03] LABS: Glucose,Whole Blood 101 mg/dL (75-99)
[2017-11-04] MEDS ORDERED: SODIUM CHLORIDE 0.9% 500 ML IV ONE (20:36)
--- NOTE | 2017-11-04 20:56 | PN ---
PROGRESS NOTE DATE OF SERVICE: 11/04/2017. REASON FOR FOLLOWUP: Recurrent aspiration pneumonia. INTERVAL HISTORY: The patient is afebrile. The patient is status post EGD with attempted PEG tube placement by surgery. The patient RN mentioned no vomiting has been noticed or any diarrhea. EXAMINATION: Blood pressure 96/54 with a pulse of 84, temperature 97.4. He is 94% on room air. General description is a middle-aged male lying in bed in no distress. Respiratory system: Unlabored breathing. Clear to auscultation anteriorly. Heart S1, S2. Regular rate and rhythm. Abdomen soft, nontender. No guarding. No rigidity. LABS: Hemoglobin 12.5, white count 9.3. DIAGNOSTIC IMPRESSION AND PLAN: 1. Patient with acute influenza adequately treated. 2. Patient with aspiration pneumonia and complaint of recurrent aspiration with attempted PEG tube placement currently maintained on Zosyn. That'll be continued until the PEG tube is placed at that time switched to Augmentin Continue supportive care. MMODL / IJN: [id number] / MTDD
[2017-11-05] MEDS: INSULIN ASPART 100 UNIT/ML 1 ML 10 ML VIAL SQ SCH ×4 (00:19→18:23)
[2017-11-05 00:26] LABS: Glucose,Whole Blood 80 mg/dL (75-99)
[2017-11-05] MEDS: PIPERACILLIN-TAZOBACTAM 3.375 GM in DEXTROSE/WATER 1 50ML.BAG IVPB SCH ×3 (06:27→22:22)
[2017-11-05 06:31] LABS: Glucose,Whole Blood 81 mg/dL (75-99)
[2017-11-05] MEDS: methylPREDNISolone SOD SUCCI 40 MG/ML 1 ML VIAL IV SCH (07:32)
[2017-11-05] MEDS: ENOXAPARIN 40 MG/0.4 ML SYRINGE SQ SCH (07:32)
[2017-11-05] MEDS: PANTOPRAZOLE 40 MG/10 ML VIAL IVP SCH (07:33)
[2017-11-05] MEDS: CITALOPRAM HYDROBROMIDE 20 MG TAB PO SCH (07:40)
[2017-11-05] MEDS: DOCUSATE ORAL SOLN 100 MG/10 ML CUP NG-TUBE SCH ×2 (07:40→19:25)
[2017-11-05] MEDS: FUROSEMIDE 10 MG/ML 2 ML VIAL IV SCH (07:41)
[2017-11-05] MEDS: lamoTRIgine 100 MG TAB PO SCH ×2 (07:41→19:25)
[2017-11-05] MEDS: IPRATROPIUM-ALBUTEROL 3 ML NEB INHALATION SCH ×4 (08:51→19:28)
--- NOTE | 2017-11-05 09:53 | XR ---
EXAMINATION TYPE: XR chest 1V portable DATE OF EXAM: 11/05/2017 COMPARISON: Prior chest x-ray 11/01/2017 HISTORY: Pneumonia TECHNIQUE: Single frontal view of the chest is obtained. FINDINGS: There is been interval removal of the NG tube. Patient is again rotated. Lung volumes are low. Perihilar increased density may reflect atelectasis or scar. There is some improved aeration at the right lung base. Heart size is likely stable. No pneumothorax or pleural effusion evident. IMPRESSION: There is some improvement in aeration at the right lung base. Persistent abnormal densit y in the perihilar region on the left, follow-up PA and lateral chest x-ray recommended.
[2017-11-05] MEDS ORDERED: LACTATED RINGERS 1,000 ML IV ONE (11:29)
[2017-11-05] MEDS ORDERED: SUCCINYLCHOLINE CHLORIDE 100 MG/5 ML SYR IV ONE (11:54)
[2017-11-05] MEDS ORDERED: VECURONIUM 10 MG VIAL IV ONE (11:54)
[2017-11-05] MEDS ORDERED: GLYCOPYRROLATE 0.2 MG/ML 2 ML VIAL ONE (11:54)
[2017-11-05] MEDS ORDERED: NEOSTIGMINE 1 MG/ML 10 ML VIAL ONE (11:54)
[2017-11-05] MEDS ORDERED: PROPOFOL 10 MG/ML 20 ML VIAL IV ONE (11:54)
[2017-11-05] MEDS ORDERED: LIDOCAINE 1% INJ 10MG/ML (20 ML MDV) ONE (11:54)
[2017-11-05] MEDS ORDERED: fentaNYL (PF) 50 MCG/ML 2 ML AMP ONE (11:54)
--- NOTE | 2017-11-05 11:56 | P.PN ---
Progress Note - Text Progress Note Date: 11/05/17 Plan for patient to go to OR for open feeding tube today. This is secondary to being unable to trans illuminate during PEG. Plan discussed with family who consented.
--- NOTE | 2017-11-05 13:11 | P.OP ---
Date of Procedure: 11/05/17 Preoperative Diagnosis: Aspiration Risk Postoperative Diagnosis: Same Procedure(s) Performed: Open G-tube placement Anesthesia: ELSY Surgeon: Herminio Higginbotham Estimated Blood Loss (ml): 10 Pathology: none sent Condition: stable Disposition: PACU Indications for Procedure: This is a 52-year-old male who was admitted to the hospital with influenza and subsequently had an aspiration he was then intubated for some time in the ICU. After extubation he was found to not be able to swallow and is a high aspiration risk. PEG tube was attempted to be placed however transillumination was not possible therefore open G-tube placement was discussed with the family they were agreeable. Description of Procedure: Patient brought operative suite remained supine position underwent general endotracheal anesthesia per Department of anesthesia was then prepped and draped in the usual sterile fashion timeout was performed correct patient correct procedure correct site was verified. An upper midline incision was made directly over his old incision from a previous G-tube. This was carried down to the fascia which was incised. Multiple adhesions were noted these were taken down. The stomach was noted to be covered by the transverse colon. The transverse colon was swept out of the way caudad and the stomach was dressed with Payal graspers. The body of the stomach along the greater curve was identified and double pursestring sutures placed with 3-0 Vicryl suture. A small gastrotomy was made in the middle and a 14-Irish ANGELA tube was placed. The balloon was inflated to 5 mL and the pursestrings were tied. The stomach was then pexied to the anterior abdominal wall using 3-0 Vicryl. Hemostasis was achieved and the incision was closed with a running looped Maxon suture. Skin humberto were applied and the ANGELA tube bumper was placed at [address] with nylon sutures. Patient tolerated procedure well no apparent complications
--- NOTE | 2017-11-05 13:12 | P.PN ---
Progress Note - Text Progress Note Date: 11/12/17 PEG tube placed without complication. We will begin tube feeds at 10 mL tomorrow 11/06/17. Nothing through PEG tube at this time. Patient is to leave abdominal binder fastened with the Velcro behind him covering the PEG tube at all times.
[2017-11-05] MEDS: HYDROmorphone 4 MG/ML 1 ML SYRINGE IVP ONE ×2 (13:50→14:00)
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
[2017-11-05] MEDS: levETIRAcetam IV 750 MG in SODIUM CHLORIDE 0.9% 100 ML IVPB SCH (14:33)
[2017-11-05 14:55] LABS: Glucose,Whole Blood 114 mg/dL (75-99)
[2017-11-05 18:13] LABS: Glucose,Whole Blood 107 mg/dL (75-99)
[2017-11-05] MEDS ORDERED: LACTATED RINGERS 1,000 ML IV SCH (19:40)
[2017-11-05] MEDS ORDERED: ACETAMINOPHEN IV (For NPO) 1,000 MG in EMPTY BAG 1 BAG IVPB PRN (21:36)
[2017-11-05] MEDS: DEXTROSE 5%-0.45% NACL 1,000 ML IV SCH (22:22)
--- NOTE | 2017-11-05 23:12 | PN ---
PROGRESS NOTE DATE OF SERVICE: 11/05/2017 REASON FOR FOLLOWUP: Recurrent aspiration pneumonia. INTERVAL HISTORY: The patient is afebrile. The patient is status post open G-tube placement for recurrent aspiration pneumonia, unable to breathe and PEG tube. The patient had tolerated her procedure. The patient is breathing comfortably. He remains to be nonverbal, unable to provide any history. No nausea or vomiting has been noticed or any diarrhea per the nursing staff. EXAMINATION: Blood pressure 108/72 with a pulse 88, temperature of 97.8. He is 99% on 8L nasal cannula. General description is a middle-aged male lying in bed in no distress. RESPIRATORY SYSTEM: Unlabored breathing. Decreased breath sounds in the bases. No wheeze. HEART: S1, S2. Regular rate and rhythm. ABDOMEN: Soft. EXTREMITIES: No edema of the feet. LABS: Hemoglobin 12.5 with a white count 9.3. BUN of 25, creatinine 0.75. DIAGNOSTIC IMPRESSION AND PLAN: 1. Patient with acute aspiration pneumonia, adequately treated. 2. Positive blood culture likely contamination. 3. Aspiration pneumonia, status post gastrostomy tube placement, currently on Zosyn, hopefully switch to Augmentin and down the percutaneous endoscopic gastrostomy tube when his tube feeds restarted and the patient able to tolerate. MMODL / IJN: [id number] / JAVAD
[2017-11-06] MEDS: levETIRAcetam IV 750 MG in SODIUM CHLORIDE 0.9% 100 ML IVPB SCH (00:43)
[2017-11-06 01:20] LABS: Glucose,Whole Blood 91 mg/dL (75-99)
[2017-11-06] MEDS: INSULIN ASPART 100 UNIT/ML 1 ML 10 ML VIAL SQ SCH ×4 (01:33→19:08)
[2017-11-06 05:30] LABS: Glucose,Whole Blood 102 mg/dL (75-99)
[2017-11-06] MEDS: PIPERACILLIN-TAZOBACTAM 3.375 GM in DEXTROSE/WATER 1 50ML.BAG IVPB SCH ×3 (07:10→22:00)
[2017-11-06 07:30] LABS: HCT 37.3 % (39.0-53.0); HGB 12.1 gm/dL (13.0-17.5); MCHC 32.5 g/dL (31.0-37.0); MCV 95.3 fL (80.0-100.0); Mean Platelet Volume 6.5; Platelet Count 388 k/uL (150-450); RBC 3.91 m/uL (4.30-5.90); RDW 12.7 % (11.5-15.5); WBC 10.4 k/uL (3.8-10.6)
[2017-11-06] MEDS: IPRATROPIUM-ALBUTEROL 3 ML NEB INHALATION SCH ×4 (07:41→21:06)
[2017-11-06 08:07] LABS: ALT 41 U/L (21-72); AST 20 U/L (17-59); Albumin 2.5 g/dL (3.5-5.0); Alkaline Phosphatase 33 U/L (38-126); Anion Gap 7 mmol/L; Blood Urea Nitrogen 16 mg/dL (9-20); Calcium 8.2 mg/dL (8.4-10.2); Carbon Dioxide 29 mmol/L (22-30); Chloride 102 mmol/L (98-107); Glucose 108 mg/dL (74-99); Potassium 3.9 mmol/L (3.5-5.1); Sodium 138 mmol/L (137-145); Total Bilirubin 0.5 mg/dL (0.2-1.3); Total Protein 4.9 g/dL (6.3-8.2)
[2017-11-06 08:18] VITALS: RESP 16
[2017-11-06] MEDS: DOCUSATE ORAL SOLN 100 MG/10 ML CUP NG-TUBE SCH ×2 (09:58→19:30)
[2017-11-06] MEDS: ENOXAPARIN 40 MG/0.4 ML SYRINGE SQ SCH (09:58)
[2017-11-06] MEDS: PANTOPRAZOLE 40 MG/10 ML VIAL IVP SCH (09:58)
[2017-11-06] MEDS: methylPREDNISolone SOD SUCCI 40 MG/ML 1 ML VIAL IV SCH (09:59)
[2017-11-06] MEDS: FUROSEMIDE 10 MG/ML 2 ML VIAL IV SCH (09:59)
[2017-11-06] MEDS: CITALOPRAM HYDROBROMIDE 20 MG TAB PO SCH (09:59)
[2017-11-06] MEDS: lamoTRIgine 100 MG TAB PO SCH ×2 (09:59→22:00)
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
[2017-11-06 11:39] LABS: Glucose,Whole Blood 106 mg/dL (75-99)
--- NOTE | 2017-11-06 13:24 | P.PN ---
Subjective Progress Note Date: 11/06/17 Patient seen and examined at bedside. Tube feeds are currently running. No nausea or emesis. Abdominal binder in place. Objective - Vital Signs Vital signs: Vital Signs Temp 96.8 F L 11/06/17 07:00 Pulse 82 11/06/17 11:29 Resp 16 11/06/17 08:00 BP 111/64 11/06/17 07:00 Pulse Ox 94 L 11/06/17 07:43 Intake & Output 11/05/17 11/06/17 11/06/17 18:59 06:59 18:59 Intake Total 900 Output Total 30 Balance 870 Weight 64.8 kg Intake: IV 900 Output: Estimated Blood Loss 30 Other: Voiding Method Diaper Diaper Diaper # Voids 1 - Constitutional General appearance: Present: cooperative - Respiratory Details: No difficulty with respiration - Gastrointestinal Gastrointestinal Comment(s): Soft, nontender, nondistended, no rebound, no guarding, G-tube in place with tube feeds currently running at 20 mL per hour - Labs CBC & Chem 7: 11/06/17 07:04 11/06/17 07:04 Labs: Abnormal Lab Results - Last 24 Hours (Table) 11/05/17 11/05/17 11/06/17 Range/Units 14:53 18:10 05:22 RBC (4.30-5.90) m/uL Hgb (13.0-17.5) gm/dL Hct (39.0-53.0) % Glucose (74-99) mg/dL POC Glucose (mg/dL) 114 H 107 H 102 H (75-99) mg/dL Calcium (8.4-10.2) mg/dL Alkaline Phosphatase (38-126) U/L Total Protein (6.3-8.2) g/dL Albumin (3.5-5.0) g/dL 11/06/17 11/06/17 11/06/17 Range/Units 07:04 07:04 11:36 RBC 3.91 L (4.30-5.90) m/uL Hgb 12.1 L (13.0-17.5) gm/dL Hct 37.3 L (39.0-53.0) % Glucose 108 H (74-99) mg/dL POC Glucose (mg/dL) 106 H (75-99) mg/dL Calcium 8.2 L (8.4-10.2) mg/dL Alkaline Phosphatase 33 L (38-126) U/L Total Protein 4.9 L (6.3-8.2) g/dL Albumin 2.5 L (3.5-5.0) g/dL Assessment and Plan Plan: 52-year-old male status post G-tube placement postop day #1 #1 continue tube feeds, check residuals every 4 hours until advanced to goal #2 continue abdominal binder #3 medical management
[2017-11-06 18:00] LABS: Glucose,Whole Blood 122 mg/dL (75-99)
[2017-11-06] MEDS: DEXTROSE 5%-0.45% NACL 1,000 ML IV SCH (19:08)
--- NOTE | 2017-11-06 22:44 | PN ---
PROGRESS NOTE DATE OF SERVICE: 11/06/2016. REASON FOR FOLLOWUP: Aspiration pneumonia, recurrent. INTERVAL HISTORY: The patient is afebrile. The patient is status post G-tube placement, has been started on tube feeds, which the patient has been currently tolerating. He seems to be breathing comfortably. No nausea, no vomiting or any diarrhea per the nursing staff pt cant provide history. EXAMINATION: Blood pressure is a 111/64, pulse of 83, temperature of 96.8. He is 92% on 2L nasal cannula. General description is a middle-aged male lying in bed in no distress. RESPIRATORY SYSTEM: Unlabored breathing, decreased breath sounds at the base. No wheeze. HEART: S1, S2. Regular rate and rhythm. ABDOMEN: Soft, nontender. LABS: White count of 10.4 with a BUN of 16, creatinine 0.70. DIAGNOSTIC IMPRESSION AND PLAN: Patient with recurrent aspiration pneumonia, status post gastrostomy tube placement. Has received about 8 days of IV antibiotic therapy. Antibiotic will be switched over to Augmentin down gastrostomy tube for another week. Continue supportive care. MMODL / IJN: [id number] / MTDD
[2017-11-07 00:25] LABS: Glucose,Whole Blood 92 mg/dL (75-99)
[2017-11-07] MEDS: INSULIN ASPART 100 UNIT/ML 1 ML 10 ML VIAL SQ SCH ×4 (00:25→17:08)
[2017-11-07 05:13] LABS: Glucose,Whole Blood 87 mg/dL (75-99)
[2017-11-07] MEDS: ACETAMINOPHEN ORAL SUSP 160 MG/5 ML CUP PEJ/J-Tube PRN ×3 (06:15→23:10)
[2017-11-07] MEDS: IPRATROPIUM-ALBUTEROL 3 ML NEB INHALATION SCH ×4 (07:25→19:53)
[2017-11-07] MEDS: AMOXIC-POT CLAV 875-125MG 1 EACH TAB PEG/G-TUBE SCH ×2 (08:47→23:58)
[2017-11-07] MEDS: CITALOPRAM HYDROBROMIDE 20 MG TAB PO SCH (08:47)
[2017-11-07] MEDS: DOCUSATE ORAL SOLN 100 MG/10 ML CUP NG-TUBE SCH ×2 (08:48→23:09)
[2017-11-07] MEDS: ENOXAPARIN 40 MG/0.4 ML SYRINGE SQ SCH (08:48)
[2017-11-07] MEDS: lamoTRIgine 100 MG TAB PO SCH ×2 (08:49→23:11)
[2017-11-07] MEDS: FUROSEMIDE 10 MG/ML 2 ML VIAL IV SCH (08:49)
[2017-11-07] MEDS: methylPREDNISolone SOD SUCCI 40 MG/ML 1 ML VIAL IV SCH (08:50)
[2017-11-07] MEDS: PANTOPRAZOLE 40 MG/10 ML VIAL IVP SCH (08:50)
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
[2017-11-07 11:44] LABS: Glucose,Whole Blood 95 mg/dL (75-99)
[2017-11-07] MEDS: predniSONE 20 MG TAB PO SCH (12:32)
--- NOTE | 2017-11-07 12:45 | P.PN ---
Subjective Patient seen and examined at bedside. G-tube is in place with tube feeds at goal. No evidence of residuals. Objective - Vital Signs Vital signs: Vital Signs Temp 98.3 F 11/07/17 05:39 Pulse 88 11/07/17 11:26 Resp 16 11/07/17 08:00 BP 109/68 11/07/17 05:39 Pulse Ox 94 L 11/07/17 07:25 Intake & Output 11/06/17 11/07/17 11/07/17 18:59 06:59 18:59 Intake Total 280 240 Balance 280 240 Weight 64.5 kg Intake: Tube Feeding 280 240 Other: Voiding Method Diaper Diaper Diaper - Constitutional General appearance: Present: cooperative - Respiratory Details: No difficulty with respiration - Gastrointestinal Gastrointestinal Comment(s): Soft, appropriate tenderness, nondistended, no rebound, no guarding, G-tube in place and secure, abdominal binder in place. - Labs CBC & Chem 7: 11/06/17 07:04 11/06/17 07:04 Labs: Abnormal Lab Results - Last 24 Hours (Table) 11/06/17 Range/Units 17:48 POC Glucose (mg/dL) 122 H (75-99) mg/dL Assessment and Plan Plan: 52-year-old male status post G-tube placement postop day #2 #1 continue tube feeds at goal #2 continue abdominal binder #3 local tube care #4 medical management
[2017-11-07 16:54] LABS: Glucose,Whole Blood 92 mg/dL (75-99)
[2017-11-08 00:38] LABS: Glucose,Whole Blood 111 mg/dL (75-99)
[2017-11-08] MEDS: INSULIN ASPART 100 UNIT/ML 1 ML 10 ML VIAL SQ SCH ×4 (04:11→18:11)
[2017-11-08 06:07] LABS: Glucose,Whole Blood 97 mg/dL (75-99)
[2017-11-08] MEDS: IPRATROPIUM-ALBUTEROL 3 ML NEB INHALATION SCH ×3 (06:58→15:53)
[2017-11-08] MEDS: DOCUSATE ORAL SOLN 100 MG/10 ML CUP NG-TUBE SCH (07:02)
--- NOTE | 2017-11-08 07:02 | PN ---
PROGRESS NOTE DATE OF SERVICE: 11/07/2017 REASON FOR FOLLOWUP: Recurrent aspiration pneumonia. INTERVAL HISTORY: The patient is afebrile. Has been breathing comfortably. Tolerating his tube feeds. No nausea, vomiting has been noticed or any diarrhea or any respiratory distress. Currently on room air. PHYSICAL EXAMINATION: On examination, blood pressure is 102/59 with a pulse of 91, temperature of 97. He is 92% on room air. General description is a middle aged male up in the bed, in no distress. RESPIRATORY SYSTEM: Unlabored breathing with decreased breath sounds in the bases. HEART: S1, S2. Regular rate and rhythm. ABDOMEN: Soft, no tenderness. LABS: Hemoglobin is 12.1 with a white count of 10.4. BUN of 16, creatinine 0.70. DIAGNOSTIC IMPRESSION AND PLAN: Patient with recurrent aspiration pneumonia. The patient did get a G-tube and is tolerating his tube feeds and Augmentin down the G-tube. Continue for another 5 to 7 days to finish course of therapy. Continue supportive care. MMODL / IJN: [id number] /
[2017-11-08 08:50] VITALS: BP 103/60; TEMP 98.4
[2017-11-08] MEDS: predniSONE 20 MG TAB PO SCH (09:43)
[2017-11-08] MEDS: lamoTRIgine 100 MG TAB PO SCH (09:43)
[2017-11-08] MEDS: CITALOPRAM HYDROBROMIDE 20 MG TAB PO SCH (09:43)
[2017-11-08] MEDS: AMOXIC-POT CLAV 875-125MG 1 EACH TAB PEG/G-TUBE SCH (09:43)
[2017-11-08] MEDS: ENOXAPARIN 40 MG/0.4 ML SYRINGE SQ SCH (09:43)
[2017-11-08] MEDS: FUROSEMIDE 10 MG/ML 2 ML VIAL IV SCH (09:43)
[2017-11-08] MEDS: PANTOPRAZOLE 40 MG/10 ML VIAL IVP SCH (09:43)
--- NOTE | 2017-11-08 11:23 | PN ---
PROGRESS NOTE DATE OF SERVICE: 11/08/2017 REASON FOR FOLLOWUP: 1. Aspiration pneumonia. 2. Diarrhea. INTERVAL HISTORY: The patient is afebrile. Has been tolerating his tube feed. However, the patient did have multiple loose stools per the RN. He seemed to be in no distress, unable to provide reliable history. No nausea or vomiting has been noticed. Only worsening respiratory status. PHYSICAL EXAMINATION: On examination, blood pressure is 103/60 with a pulse of 87, temperature 98.4. He is 92% on room air. General description is a middle-aged male lying in bed in no distress. RESPIRATORY SYSTEM: Unlabored breathing, clear to auscultation anteriorly. HEART: S1, S2. Regular rate and rhythm. ABDOMEN: Soft, no tenderness. LABS: No new labs have been obtained today. DIAGNOSTIC IMPRESSION AND PLAN: 1. The patient has recurrent aspiration pneumonia, status post G-tube placement. Plan at this time is to continue with oral Augmentin for another 4 to 5 days. 2. Patient with diarrhea, could be antibiotic associated. Will check a stool for Clostridium difficile. If negative, will add Questran for symptomatic relief. MMODL / IJN: [id number] /
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
[2017-11-08 11:52] LABS: Glucose,Whole Blood 116 mg/dL (75-99)
[2017-11-08 14:01] VITALS: BMI 23.7
[2017-11-08 15:55] VITALS: PULSE 88
== END 2017-11-08 18:10 | DRG 853 ==
LOC: EC 23:17 → 5MS5E 10-24 02:28 → 6ICU 10-24 14:24 → 4MS4W 11-01 11:04 → 5MS5E 11-03 19:41
PROVIDERS: ADMIT Internal Medicine; ATTEND Internal Medicine
PROC: 5A1945Z Respiratory Ventilation, 24-96 Consecutive Hours (ICD-10-PCS; 2017-10-24)
PROC: 0BH17EZ Insertion of Endotracheal Airway into Trachea, Via Natural or Artificial Opening (ICD-10-PCS; 2017-10-24)
PROC: 0D9670Z Drainage of Stomach with Drainage Device, Via Natural or Artificial Opening (ICD-10-PCS; 2017-10-24)
PROC: 3E0234Z Introduction of Serum, Toxoid and Vaccine into Muscle, Percutaneous Approach (ICD-10-PCS; 2017-10-30)
PROC: 0DB68ZX Excision of Stomach, Via Natural or Artificial Opening Endoscopic, Diagnostic (ICD-10-PCS; 2017-11-04)
PROC: 0DH60UZ Insertion of Feeding Device into Stomach, Open Approach (ICD-10-PCS; principal; 2017-11-05 11:30)
PROC: 3E0G76Z Introduction of Nutritional Substance into Upper GI, Via Natural or Artificial Opening (ICD-10-PCS; 2017-11-06)
DX: A41.9 Sepsis, unspecified organism (principal); J10.08 Influenza due to other identified influenza virus with other specified pneumonia; J96.01 Acute respiratory failure with hypoxia; J69.0 Pneumonitis due to inhalation of food and vomit; K56.609 Unspecified intestinal obstruction, unspecified as to partial versus complete obstruction; E43 Unspecified severe protein-calorie malnutrition; R65.21 Severe sepsis with septic shock; E87.4 Mixed disorder of acid-base balance; E87.0 Hyperosmolality and hypernatremia; G81.91 Hemiplegia, unspecified affecting right dominant side; F72 Severe intellectual disabilities; R47.01 Aphasia; J98.11 Atelectasis; R71.0 Precipitous drop in hematocrit; Z23 Encounter for immunization; R13.10 Dysphagia, unspecified; J10.1 Influenza due to other identified influenza virus with other respiratory manifestations; J20.9 Acute bronchitis, unspecified; K22.8 Other specified diseases of esophagus; K31.89 Other diseases of stomach and duodenum; F89 Unspecified disorder of psychological development; K56.41 Fecal impaction; F41.1 Generalized anxiety disorder; G40.909 Epilepsy, unspecified, not intractable, without status epilepticus; Z79.899 Other long term (current) drug therapy; Z87.891 Personal history of nicotine dependence; Z87.820 Personal history of traumatic brain injury; Z99.3 Dependence on wheelchair; Z87.440 Personal history of urinary (tract) infections; Z87.828 Personal history of other (healed) physical injury and trauma
CPT/HCPCS: 36415; 36600; 43239; 51701; 71045; 71046; 71275; 74018; 74177; 74230; 80048; 80053; 80202; 81001; 82550; 82553; 82565; 82805; 83036; 83605; 83735; 84100; 84132; 84484; 84520; 85025; 85027; 85610; 85730; 87040; 87070; 87086; 87205; 87502; 88305; 88342; 90686; 93005; 94002; 94003; 94640; 94760; 96365; 99285

== ENCOUNTER 2018-12-21 14:16 | Emergency (ER) | payer MEDICARE, OTHER ==
[2018-12-21 14:27] VITALS: BP 131/87; PULSE 98; RESP 19; TEMP 97.3
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
[2018-12-21 15:11] LABS: Basophils % (A) 0 %; Eosinophils # (A) 0.3 k/uL (0-0.7); Eosinophils % (A) 5 %; HCT 48.1 % (39.0-53.0); HGB 15.5 gm/dL (13.0-17.5); Lymphocytes # (A) 2.5 k/uL (1.0-4.8); Lymphocytes % (A) 40 %; MCHC 32.2 g/dL (31.0-37.0); MCV 96.2 fL (80.0-100.0); Mean Platelet Volume 7.8; Monocytes # (A) 0.5 k/uL (0-1.0); Monocytes % (A) 8 %; Neutrophils # (A) 2.8 k/uL (1.3-7.7); Neutrophils % (A) 45 %; Platelet Count 225 k/uL (150-450); RDW 12.5 % (11.5-15.5); WBC 6.3 k/uL (3.8-10.6)
[2018-12-21 15:25] LABS: ALT 26 U/L (21-72); AST 24 U/L (17-59); Albumin 4.3 g/dL (3.5-5.0); Alkaline Phosphatase 60 U/L (38-126); Anion Gap 7 mmol/L; Blood Urea Nitrogen 24 mg/dL (9-20); Calcium 9.8 mg/dL (8.4-10.2); Carbon Dioxide 32 mmol/L (22-30); Chloride 109 mmol/L (98-107); Glucose 113 mg/dL (74-99); Potassium 3.8 mmol/L (3.5-5.1); Sodium 148 mmol/L (137-145); Total Bilirubin 0.5 mg/dL (0.2-1.3); Total Protein 7.4 g/dL (6.3-8.2)
--- NOTE | 2018-12-21 15:28 | XR ---
EXAMINATION TYPE: XR chest 2V DATE OF EXAM: 12/21/2018 COMPARISON: 10/24/2017 HISTORY: Shortness of breath TECHNIQUE: Frontal and lateral views of the chest are obtained. FINDINGS: Scattered senescent parenchymal changes noted. Hyperinflation compatible with COPD. No evidence for infiltrate. No evidence for atelectasis. Heart size is stable. Mediastinal structures are stable and grossly unremarkable. No evidence for hilar prominence. Degenerative changes dorsal spine. IMPRESSION: 1. No evidence for acute pulmonary disease.
== END 2018-12-21 16:07 | disposition home or self-care (01) ==
LOC: EC 14:16
DX: T17.920A Food in respiratory tract, part unspecified causing asphyxiation, initial encounter (principal); G40.909 Epilepsy, unspecified, not intractable, without status epilepticus; Z86.14 Personal history of Methicillin resistant Staphylococcus aureus infection; Z87.891 Personal history of nicotine dependence; Z79.899 Other long term (current) drug therapy
CPT/HCPCS: 36415; 71046; 80053; 85025; 87040; 99285

== ENCOUNTER 2019-05-15 16:41 | Emergency (ER) | payer MEDICARE, OTHER ==
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
[2019-05-15] MEDS ORDERED: ACETAMINOPHEN TAB 500 MG TAB PO STA (18:45)
[2019-05-15 18:58] LABS: ALT 27 U/L (21-72); AST 32 U/L (17-59); African American GFR (CKD) >90 (>60 ml/min/1.73 sqM); Albumin 4.4 g/dL (3.5-5.0); Alkaline Phosphatase 61 U/L (38-126); Anion Gap 10 mmol/L; Blood Urea Nitrogen 22 mg/dL (9-20); Calcium 9.3 mg/dL (8.4-10.2); Carbon Dioxide 32 mmol/L (22-30); Chloride 98 mmol/L (98-107); Glucose 102 mg/dL (74-99); Magnesium 2.1 mg/dL (1.6-2.3); Potassium 4.1 mmol/L (3.5-5.1); Sodium 140 mmol/L (137-145); Total Bilirubin 0.6 mg/dL (0.2-1.3); Total Protein 7.8 g/dL (6.3-8.2)
[2019-05-15 18:59] LABS: Prothrombin Time 10.8 sec (9.0-12.0)
--- NOTE | 2019-05-15 19:00 | XR ---
EXAMINATION TYPE: XR chest 2V DATE OF EXAM: 05/15/2019 COMPARISON: 12/21/2018 HISTORY: Chest pain TECHNIQUE: Frontal and lateral views of the chest are obtained. FINDINGS: Heart and mediastinum are normal. There is some elevation of the right diaphragm and sligh t blunting right costophrenic angle. There is no heart failure. IMPRESSION: There is some pleural reaction at the right lung base with atelectasis that is increased compared to last exam. No heart failure.
[2019-05-15 19:15] LABS: Basophils % (A) 0 %; Eosinophils % (A) 0 %; HCT 43.5 % (39.0-53.0); Lymphocytes # (A) 0.7 k/uL (1.0-4.8); Lymphocytes % (A) 4 %; MCH 32.8 pg (25.0-35.0); MCHC 34.5 g/dL (31.0-37.0); MCV 94.9 fL (80.0-100.0); Mean Platelet Volume 7.9; Monocytes # (A) 0.5 k/uL (0-1.0); Monocytes % (A) 3 %; Neutrophils # (A) 14.6 k/uL (1.3-7.7); Neutrophils % (A) 92 %; Platelet Count 219 k/uL (150-450); RBC 4.59 m/uL (4.30-5.90); RDW 14.3 % (11.5-15.5)
[2019-05-15] MEDS ORDERED: cefTRIAXone IN SWFI 1,000 MG/10 ML SYRINGE IVP STA (20:44)
[2019-05-15] MEDS ORDERED: AZITHROMYCIN 500 MG TAB PO STA (20:44)
[2019-05-15 21:01] LABS: Appearance,Urine Cloudy (Clear); Bilirubin,Urine Negative (Negative); Blood,Urine Negative (Negative); Color,Urine Yellow; Glucose,Urine (UA) Negative (Negative); Ketones,Urine Trace (Negative); Leukocyte Esterase,Urine Negative (Negative); Mucus,Urine Many /hpf; Nitrite,Urine Negative (Negative); PH, Urine 5.5 (5.0-8.0); Protein,Urine 1+ (Negative); RBC,Urine 1 /hpf (0-5); Specific Gravity,Urine 1.041 (1.001-1.035); WBC,Urine 2 /hpf (0-5)
[2019-05-15 21:19] VITALS: BP 121/57; PULSE 79; RESP 19; TEMP 98.5
== END 2019-05-15 21:59 | disposition home or self-care (01) ==
LOC: EC 16:41
DX: J18.9 Pneumonia, unspecified organism (principal); J98.11 Atelectasis; D72.829 Elevated white blood cell count, unspecified; R10.9 Unspecified abdominal pain; R00.0 Tachycardia, unspecified; R07.9 Chest pain, unspecified; F99 Mental disorder, not otherwise specified; R41.3 Other amnesia; G40.909 Epilepsy, unspecified, not intractable, without status epilepticus; Z79.899 Other long term (current) drug therapy; Z87.891 Personal history of nicotine dependence; Z86.14 Personal history of Methicillin resistant Staphylococcus aureus infection; Z87.820 Personal history of traumatic brain injury
CPT/HCPCS: 36415; 93005; 80053; 83605; 83735; 84484; 85025; 85610; 81001; 87040; 87086; 71046; 99284; 96374; J0696

== ENCOUNTER 2021-03-18 03:39 | Inpatient (IN) | payer MEDICARE, OTHER ==
[2021-03-18] MEDS ORDERED: ALBUTEROL NEBULIZED 2.5 MG/3 ML INHALATION STA (03:47)
[2021-03-18] MEDS ORDERED: IPRATROPIUM 0.5 MG/2.5 ML NEBU INHALATION STA (03:47)
[2021-03-18] MEDS ORDERED: methylPREDNISolone SOD SUCCI 125 MG/2 ML VIAL IV STA (03:47)
[2021-03-18] MEDS ORDERED: SODIUM CHLORIDE 0.9% 1,000 ML IV STA ×2 (03:47→06:46)
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
[2021-03-18] MEDS ORDERED: MORPHINE SULFATE 4 MG/ML SYRINGE IVP STA (03:55)
[2021-03-18] MEDS ORDERED: MORPHINE SULFATE 4 MG/ML SYRINGE IVP PRN (03:55)
[2021-03-18 04:32] LABS: Basophils # (A) 0.1 k/uL (0-0.2); Basophils % (A) 1 %; Eosinophils % (A) 10 %; HCT 46.5 % (39.0-53.0); HGB 16.4 gm/dL (13.0-17.5); Lymphocytes # (A) 1.6 k/uL (1.0-4.8); Lymphocytes % (A) 16 %; MCH 33.3 pg (25.0-35.0); MCHC 35.3 g/dL (31.0-37.0); MCV 94.4 fL (80.0-100.0); Mean Platelet Volume 7.7; Monocytes # (A) 0.6 k/uL (0-1.0); Monocytes % (A) 6 %; Neutrophils # (A) 6.9 k/uL (1.3-7.7); Neutrophils % (A) 67 %; Platelet Count 268 k/uL (150-450); RBC 4.93 m/uL (4.30-5.90); RDW 12.4 % (11.5-15.5); WBC 10.3 k/uL (3.8-10.6)
[2021-03-18 04:44] LABS: INR 0.9 (<1.2); Partial Thromboplastin Time 24.6 sec (22.0-30.0)
[2021-03-18 05:05] LABS: ALT 20 U/L (4-49); AST 28 U/L (17-59); African American GFR (CKD) >90 (>60 ml/min/1.73 sqM); Albumin 4.3 g/dL (3.5-5.0); Alkaline Phosphatase 66 U/L (38-126); Anion Gap 9 mmol/L; Blood Urea Nitrogen 27 mg/dL (9-20); Calcium 9.7 mg/dL (8.4-10.2); Carbon Dioxide 31 mmol/L (22-30); Chloride 105 mmol/L (98-107); Creatine Kinase 68 U/L (55-170); Glucose 103 mg/dL (74-99); Magnesium 1.9 mg/dL (1.6-2.3); Non-African American GFR(CKD) >90 (>60 ml/min/1.73 sqM); Potassium 4.3 mmol/L (3.5-5.1); Sodium 145 mmol/L (137-145); Total Bilirubin 0.1 mg/dL (0.2-1.3); Total Protein 7.1 g/dL (6.3-8.2)
[2021-03-18] MEDS ORDERED: SODIUM CHLORIDE 0.9% 500 ML 500 ML IV STA (06:46)
[2021-03-18] MEDS ORDERED: LORazepam 2 MG/ML INJ IV STA (07:42)
--- NOTE | 2021-03-18 07:42 | CT ---
EXAM: CT Abdomen and Pelvis With Intravenous Contrast CLINICAL HISTORY: pain TECHNIQUE: Axial computed tomography images of the abdomen and pelvis with intravenous contrast. CTDI is 19.88 mGy and DLP is 740.85 mGy-cm. This CT exam was performed using one or more of the following dose reduction techniques: automated exposure control, adjustment of the mA and/or kV according to patient size, and/or use of iterative reconstruction technique. COMPARISON: CT of the abdomen/pelvis dated 10/24/2017. FINDINGS: Artifacts: Patient's arms were not elevated which results in beam hardening artifact and limits evaluation. ABDOMEN: Liver: Unremarkable. No mass. Gallbladder and bile ducts: Unremarkable. No calcified stones. No ductal dilation. Pancreas: Unremarkable. No mass. No ductal dilation. Spleen: Unremarkable. No splenomegaly. Adrenals: Unremarkable. No mass. Kidneys and ureters: Unremarkable. No solid mass. No hydronephrosis. Stomach and bowel: Increased stool burden is seen throughout the colon. Moderate stool ball is seen within the rectum, likely impacted, with finding suggestive of early stercoral proctitis. No obstruction. PELVIS: Appendix: No findings to suggest acute appendicitis. Bladder: Unremarkable. No mass. Reproductive: Prostatomegaly, measuring up to 4.5 cm in greatest transverse dimension. ABDOMEN and PELVIS: Intraperitoneal space: Unremarkable. No free air. No significant fluid collection. Bones/joints: Osseous structures are essentially unchanged. No acute fracture. No dislocation. Soft tissues: Small fat-containing left inguinal hernia. Vasculature: Flattening of the IVC suggesting hypovolemia. No abdominal aortic aneurysm. Lymph nodes: Mildly prominent upper abdominal lymph nodes, likely reactive to the esophageal pathology. IMPRESSION: 1. Increased stool burden throughout the colon. Moderate stool ball is seen within the rectum, likely impacted, with finding suggestive of early stercoral proctitis. 2. Flattening of the IVC suggesting hypovolemia. <MYCVCSECTION> Communications: 03/18/21 07:34 Call Doctor Regarding Other, called Dr. Loera on 03/18 07: 34 (-04:00)
--- NOTE | 2021-03-18 07:49 | CT ---
EXAM: CT Angiography Chest With Intravenous Contrast CLINICAL HISTORY: pain TECHNIQUE: Axial computed tomographic angiography images of the chest with intravenous contrast. CTDI is 19.88 mGy and DLP is 740.8 mGy-cm. This CT exam was performed using one or more of the following dose reduction techniques: automated exposure control, adjustment of the mA and/or kV according to patient size, and/or use of iterative reconstruction technique. MIP reconstructed images were created and reviewed. COMPARISON: CT of the chest dated 10/24/2017 FINDINGS: Limitations: Motion degrades image quality and limits evaluation. Pulmonary arteries: No evidence of PE. Aorta: No acute findings. No thoracic aortic aneurysm. Lungs: Elevation of the right hemidiaphragm resulting in compressive atelectasis of the right lung base. No mass. Pleural space: Unremarkable. No significant effusion. No pneumothorax. Heart: Unremarkable. No cardiomegaly. No significant pericardial effusion. No evidence of RV dysfunction. Mediastinum: Esophageal wall thickening suggesting infectious versus inflammatory esophagitis. Fluid is seen throughout the esophagus raising concern for gastroesophageal reflux, as seen on prior study. Bones/joints: No acute fracture. No dislocation. Soft tissues: Unremarkable. Lymph nodes: Unremarkable. No enlarged lymph nodes. IMPRESSION: 1. No evidence of PE. 2. Esophageal wall thickening suggesting infectious versus inflammatory esophagitis. Fluid is seen throughout the esophagus raising concern for gastroesophageal reflux, as seen on prior study.
[2021-03-18] MEDS ORDERED: DOCUSATE 283 MG/5 ML ENEMA RECTAL STA (08:08)
--- NOTE | 2021-03-18 08:31 | XR ---
EXAMINATION TYPE: XR chest 1V portable DATE OF EXAM: 03/18/2021 COMPARISON: Chest x-ray May 15, 2019 HISTORY: Shortness of breath TECHNIQUE: Single AP portable frontal upright view of the chest is obtained. FINDINGS: Low lung volumes and elevated right hemidiaphragm redemonstrated. Increased interstitial pr ominence bilaterally. There is no new focal air space opacity, pleural effusion, or pneumothorax seen . The cardiac silhouette size is stable and mildly enlarged. The osseous structures are intact. IMPRESSION: Low lung volumes redemonstrated. New mild interstitial edema. Correlate for fluid overlo ad state and/or CHF exacerbation.
[2021-03-18] MEDS ORDERED: LORazepam 2 MG/ML INJ IV PRN (08:37)
[2021-03-18] MEDS ORDERED: NALOXONE 0.4 MG/ML 1 ML VIAL IV PRN (08:37)
[2021-03-18] MEDS: SODIUM CHLORIDE 0.9% 1,000 ML IV SCH (09:28)
[2021-03-18] MEDS: bisacodyL 10 MG SUPP RECTAL SCH (09:28)
[2021-03-18] MEDS: PANTOPRAZOLE 40 MG/10 ML VIAL IV SCH (09:28)
[2021-03-18] MEDS ORDERED: IPRATROPIUM-ALBUTEROL 3 ML NEB INHALATION PRN (12:54)
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
[2021-03-18] MEDS: methylPREDNISolone SOD SUCCI 125 MG/2 ML VIAL IV SCH (14:44)
[2021-03-18] MEDS: PIPERACILLIN-TAZOBACTAM 3.375 GM in SODIUM CHLORIDE 0.9% 100 ML IVPB SCH (17:11)
--- NOTE | 2021-03-18 17:14 | ECHOF ---
Referral Reason:LVF MEASUREMENTS -------- HEIGHT: 180.3 cm WEIGHT: 59.0 kg BP: IVSd: 0.9 cm (0.6 - 1.1) LVIDd: 2.9 cm (3.9 - 5.3) LVPWd: 1.0 cm (0.6 - 1.1) IVSs: 1.2 cm LVIDs: 1.5 cm LVPWs: 1.2 cm Ao Diam: 3.3 cm (2.0 - 3.7) AV Cusp: 1.9 cm (1.5 - 2.6) LA Diam: 3.0 cm (2.7 - 3.8) MV E Alon: 1.14 m/s MV DecT: 147 ms MV A Alon: 1.25 m/s MV E/A Ratio: 0.92 RAP: 5.00 mmHg RVSP: 17.13 mmHg FINDINGS -------- Sinus rhythm. This was a technically difficult study with suboptimal views. The left ventricular size is normal. Left ventricular wall thickness is normal. Overall left vent ricular systolic function is normal with, an EF between 55 - 60 %. The right ventricle is normal in size. The left atrial size is normal. The right atrial size is normal. Lumason used The aortic valve is trileaflet, and appears structurally normal. No aortic stenosis or regurgitation. The mitral valve is normal. There is trace mitral regurgitation. The tricuspid valve appears structurally normal. Trace tricuspid regurgitation present. Right abhinav tricular systolic pressure is normal at < 35 mmHg. The pulmonic valve was not well visualized. The aortic root size is normal. IVC Not well visulized. There is no pericardial effusion. CONCLUSIONS -------- 1. Left ventricular wall thickness is normal. 2. Overall left ventricular systolic function is normal with, an EF between 55 - 60 %. 3. The left atrial size is normal. 4. The aortic valve is trileaflet, and appears structurally normal. No aortic stenosis or regurgitati on. 5. There is trace mitral regurgitation. 6. Trace tricuspid regurgitation present. 7. There is no pericardial effusion. LEG MAN: Izabela Carr [facility]
[2021-03-18] MEDS: INSULIN ASPART (NovoLOG) 100 UNIT/ML VIAL SQ SCH ×2 (17:52→22:51)
[2021-03-18] MEDS: IPRATROPIUM-ALBUTEROL 3 ML NEB INHALATION SCH ×2 (20:04→20:06)
[2021-03-18 22:04] LABS: Glucose,Whole Blood 109 mg/dL (75-99)
[2021-03-19] MEDS: methylPREDNISolone SOD SUCCI 125 MG/2 ML VIAL IV SCH ×4 (02:59→15:11)
[2021-03-19] MEDS: HEPARIN SODIUM,PORCINE/PF 5,000 UNIT/0.5 ML SYRINGE SQ SCH ×3 (03:00→20:55)
[2021-03-19] MEDS: lamoTRIgine 100 MG TAB PO SCH ×3 (03:01→20:53)
[2021-03-19] MEDS: PIPERACILLIN-TAZOBACTAM 3.375 GM in SODIUM CHLORIDE 0.9% 100 ML IVPB SCH ×4 (03:03→23:30)
[2021-03-19 06:48] LABS: Glucose,Whole Blood 111 mg/dL (75-99)
[2021-03-19] MEDS: INSULIN ASPART (NovoLOG) 100 UNIT/ML VIAL SQ SCH ×4 (07:18→20:36)
[2021-03-19] MEDS: bisacodyL 10 MG SUPP RECTAL SCH (09:17)
[2021-03-19] MEDS: CITALOPRAM HYDROBROMIDE 20 MG TAB PO SCH (09:17)
[2021-03-19] MEDS: PANTOPRAZOLE 40 MG/10 ML VIAL IV SCH (09:26)
[2021-03-19] MEDS: IPRATROPIUM-ALBUTEROL 3 ML NEB INHALATION SCH ×3 (09:47→19:24)
[2021-03-19] MEDS: SODIUM CHLORIDE 0.9% 1,000 ML IV SCH (10:30)
--- NOTE | 2021-03-19 11:16 | FL ---
EXAMINATION TYPE: FL barium swallow w video DATE OF EXAM: 03/19/2021 MODIFIED SWALLOW / DEGLUTITION STUDY CLINICAL HISTORY: Dysphagia. TECHNIQUE: Deglutition study is performed utilizing thick liquid barium, barium thick pudding, and b arium coated cracker. Videofluoroscopy was obtained. Total fluoroscopy time 2 minutes and 18 seconds. COMPARISON: 11/01/2017. FINDINGS: The oral and pharyngeal phases show delayed initiation and propagation with all modalities tested. Normal mastication is seen with solid modalities tested. There is penetration and gross asp iration with thick barium. There is no evidence of penetration or aspiration with pudding or barium coated cracker. IMPRESSION: 1. Penetration with gross aspiration of barium. 2. Delayed initiation and propagation with thick barium, barium pudding and barium coated cracker.
[2021-03-19 11:18] LABS: Glucose,Whole Blood 168 mg/dL (75-99)
[2021-03-19 12:44] VITALS: BMI 18.6
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
[2021-03-19 16:11] LABS: Glucose,Whole Blood 101 mg/dL (75-99)
[2021-03-19] MEDS: methylPREDNISolone SOD SUCCI 40 MG/ML 1 ML VIAL IV SCH ×2 (16:46→23:31)
[2021-03-19 20:36] LABS: Glucose,Whole Blood 115 mg/dL (75-99)
[2021-03-19] MEDS: levETIRAcetam IV 500 MG in SODIUM CHLORIDE 0.9% 100 ML IVPB SCH (21:55)
[2021-03-20 06:57] LABS: Glucose,Whole Blood 117 mg/dL (75-99)
[2021-03-20] MEDS: INSULIN ASPART (NovoLOG) 100 UNIT/ML VIAL SQ SCH ×4 (07:32→21:12)
[2021-03-20] MEDS: PANTOPRAZOLE 40 MG/10 ML VIAL IV SCH (08:44)
[2021-03-20] MEDS: methylPREDNISolone SOD SUCCI 40 MG/ML 1 ML VIAL IV SCH ×3 (08:44→23:39)
[2021-03-20] MEDS: PIPERACILLIN-TAZOBACTAM 3.375 GM in SODIUM CHLORIDE 0.9% 100 ML IVPB SCH ×3 (08:44→23:37)
[2021-03-20] MEDS: HEPARIN SODIUM,PORCINE/PF 5,000 UNIT/0.5 ML SYRINGE SQ SCH ×2 (08:45→20:11)
[2021-03-20] MEDS: bisacodyL 10 MG SUPP RECTAL SCH (08:45)
[2021-03-20] MEDS: CITALOPRAM HYDROBROMIDE 20 MG TAB PO SCH (08:50)
[2021-03-20] MEDS: lamoTRIgine 100 MG TAB PO SCH ×2 (08:50→20:06)
[2021-03-20] MEDS: IPRATROPIUM-ALBUTEROL 3 ML NEB INHALATION SCH ×3 (09:52→21:48)
[2021-03-20 11:12] LABS: Glucose,Whole Blood 115 mg/dL (75-99)
[2021-03-20] MEDS: levETIRAcetam IV 500 MG in SODIUM CHLORIDE 0.9% 100 ML IVPB SCH ×2 (11:25→20:11)
[2021-03-20 11:39] LABS: HCT 40.6 % (39.6-50.0); HGB 13.2 g/dL (13.0-17.0); MCH 31.7 pg (27.0-32.0); MCHC 32.5 g/dL (32.0-37.0); MCV 97.6 fL (80.0-97.0); Mean Platelet Volume 10.7 fL (9.5-12.2); Platelet Count 244 X 10*3/uL (140-440); RBC 4.16 X 10*6/uL (4.40-5.60); RDW 12.5 % (11.5-14.5); WBC 9.52 X 10*3/uL (4.50-10.00)
--- NOTE | 2021-03-20 13:44 | P.PN ---
Subjective Progress Note Date: 03/20/21 Principal diagnosis: Altered mental status This is a 56-year-old white male patient with past medical history of closed head injury, seizure disorder, right hemiplegia, chronic dysphagia, and aphasia, previous history of aspiration pneumonia, and a remote history of tobacco abuse. Patient used to reside at a local [facility], [facility] on the [place], but most recently has been living in an apartment and has a 24-hour caregiver. Patient usually able to self transfer and feed himself, but needs assistance with all other ADLs. He is currently on the chopped consistency diet with nectar thick liquids. Patient was recently started on antibiotic Augmentin in possibly a steroid last , 5 days ago for cough and congestion. He was tested for COVID-19 and was found to be negative, his chest x-ray was reportedly negative for pneumonia. On 03/18/2021 patient was brought in to the hospital per EMS at 3:30 in the morning for complaints of worsening shortness of breath, chest pain, and his caregivers reported acting unusual last night. He was yelling out, and trying to communicate to his caregiver that he was having chest discomfort and stomach discomfort. Patient was found to be afebrile on presentation, generally does not require oxygen, however he was placed on nasal cannula at 3 L and his pulse ox of 99%. No evidence of leukocytosis on his lab work, white blood cell count was 10.3, hemoglobin is 16.4, coagulation profile is within normal limits, CO2 is 31, the rest of the electrolytes were unremarkable, B1 is 27, creatinine 0.81, lactic acid was 1.4, troponins were negative 3 at less than 0.012, proBNP was 19, he was tested for COVID-19 again and was found to be negative, CTA chest showed no evidence of ulnar embolism, and esophageal wall thickening suggesting infectious versus inflammatory esophagitis, and fluid was seen throughout the esophagus raising concern for gastroesophageal reflux. CT of the abdomen and pelvis showed increased stool b urden throughout the colon, moderate stool ball within the rectum likely impacted suggestive of early stercoral proctitis, there was flattening of the IVC suggesting hypovolemia. Patient was given 1/2 L fluid bolus in the emergency department, he was started on Zosyn and breathing treatments for an tibiotic coverage, IV steroids have also been started. On 03/19/2021 patient seen in follow-up on medical surgical floor. He is awake and alert, much more responsive today, his speech is garbled, difficult to understand, but patient is more interactive, he denies any acute distress, he states his breathing is okay, no cough, no chest pain complaints, his lungs are clear on today's exam. No wheezing. His been afebrile overnight, he is on room air, pulse ox is 92-94%, he remains on Zosyn for possibility of aspiration. No new labs, COVID-19 test was negative. Patient had a modified barium swallow today which showed evidence penetration with gross aspiration of barium. Delayed initiation and propagation with thick barium, barium pudding and barium coated cracker. Patient is being followed by speech therapy, and patient was observed at the bedside with severe coughing episode with honey thick liquids. Patient apparently tolerated all other consistencies with no overt signs of aspiration. However he remains a high risk for aspiration related to his delayed swallow initiation, impaired laryngeal excursion oral transit difficulties. Patient is well-known totherapy related to his lengthy history of dysphagia. We're awaiting further recommendations based on his modified barium swallow. For now he remains on chopped diet with thick liquids. Clinically he is stable, feeling much better, much more awake. On 03/20/2021 patient seen in follow-up on medical surgical floor, he is awake and in no acute distress breathing comfortably, room air pulse ox is 96%, no fever or chills. Vital signs have been stable, she has a productive cough, denies any chest discomfort, no phlegm production. Patient's MBS showed evidence of penetration even with thickened liquids, and there is a possibility that PEG tube insertion will be recommended. Patient is nothing by mouth right now. He is on 0.9 normal saline at a rate of 75 ML per hour. He is on Zosyn for antibiotic coverage, he is on IV Solu-Medrol 40 mg every 12 hours, is receiving breathing treatments. These labs have been reviewed, white blood cell count 9.5, hemoglobin is 13.2, BMP is pending right now. No altered mentation, he seems to be back to his baseline neurologically, his speech is at times difficult to understand, however patient is able to make his needs known. Is pleasant and cooperative, denies any acute distress. No abd pain, no nausea or vomiting. Objective - Vital Signs Vital signs: Vital Signs Temp 98.4 F 03/20/21 07:00 Pulse 68 03/20/21 10:01 Resp 16 03/20/21 07:47 BP 123/78 03/20/21 07:00 Pulse Ox 96 03/20/21 07:00 Intake & Output 03/19/21 03/20/21 03/20/21 18:59 06:59 18:59 Intake Total 100 440 Balance 100 440 Weight 58.967 kg Intake: IV 100 240 Sodium Chloride 0.9% 1, 100 240 000 ml @ 20 mls/hr IV . 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 patient has garbled speech related to his history of closed head injury HEAD: Normocephalic/atraumatic. EYES: Normal reaction of pupils, equal size. Conjunctiva pink, sclera white. NOSE: Clear with pink turbinates. THROAT: No erythema or exudates. NECK: No masses, no JVD, no thyroid enlargement, no adenopathy. CHEST: No chest wall deformity. Symmetrical expansion. LUNGS: Equal air entry with no crackles, wheeze, rhonchi or dullness. CVS: Regular rate and rhythm, normal S1 and S2, no gallops, no murmurs, no rubs ABDOMEN: Soft, nontender. No hepatosplenomegaly, normal bowel sounds, no guarding or rigidity. EXTREMITIES: No clubbing, no edema, no cyanosis, 2+ pulses and upper and lower extremities. has chronic contractures of his bilateral hands, more so in his right hand MUSCULOSKELETAL: Muscle strength and tone normal. SPINE: No scoliosis or deformity SKIN: No rashes CENTRAL NERVOUS SYSTEM: Alert and oriented, oriented to self and place. No focal deficits, tone is normal in all 4 extremities. - Labs CBC & Chem 7: 03/20/21 06:48 03/18/21 04:19 Labs: Abnormal Lab Results - Last 24 Hours (Table) 03/19/21 03/19/21 03/20/21 Range/Units 16:09 20:34 06:48 RBC 4.16 L (4.40-5.60) X 10*6/uL MCV 97.6 H (80.0-97.0) fL POC Glucose (mg/dL) 101 H 115 H (75-99) mg/dL 03/20/21 03/20/21 Range/Units 06:53 11:10 RBC (4.40-5.60) X 10*6/uL MCV (80.0-97.0) fL POC Glucose (mg/dL) 117 H 115 H (75-99) mg/dL Assessment and Plan Plan: 1 Acute hypoxemic respiratory failure, likely secondary to aspiration, bacterial versus chemical. Patient is known to have aspiration and patient had previous hospitalizations requiring intubation and placement on mechanical ventilator for aspiration related pneumonia. CT chest shows chronic changes at the lung bases supporting the diagnosis of chronic aspiration. Patient's previous although evaluations with modified barium swallow showed evidence of penetration with nectar thick liquids. As such, his clinical scenario, its reasonable to some of the patient is having episodes of aspiration on a chronic basis. Currently his present back with worsening shortness of breath and there is some chronic changes in the lung bases bilaterally supporting diagnosis of ongoing episodic aspiration. 2 History of seizure disorder, currently inactive and stable. 3 History of severe head injury in 1985 with severe developmental delay and me ntal retardation 4 Previous history of surgery to skull, 1985 5 Previous history of urinary tract infections, currently inactive 6 mild lactic acidosis, the lactic acidosis recovered and the patient's lactic acid normalized is down to 1.0. 7 stool impaction, a chronic problem because the patient was having the same issue on previous hospitalizations. 8 Abdominal pain, likely secondary to chronic constipation Right-sided hemiparesis secondary to traumatic brain injury, status. Plan Maintain Aspiration precautions Await further recommendations from speech therapy Patient appears to be stable from pulmonary perspective, he is on room air Follow-up chest x-rays pending Clinically improving No altered mentation Continue Zosyn Continue bronchodilators Patient may require PEG tube placement, and this will be left up to the patient to decide If no plans for PEG tube placement, patient may be considered for discharge back to his residence on the diet of speech therapist's recommendation I performed a history & physical examination of the patient and discussed their management with my nurse practitioner, Flora Siegel. I reviewed the nurse practitioner's note and agree with the documented findings and plan of care. Lung sounds are positive for diminished breath sounds throughout the lung boo. The findings and the impression was discussed with the patient. I atte st to the documentation by the nurse practitioner. Time with Patient: Less than 30
[2021-03-20 14:30] LABS: African American GFR (CKD) 111.8 (60.0-200.0); Albumin 3.8 g/dL (3.80-4.90); Albumin/Globulin Ratio 1.58 (1.60-3.17); Anion Gap 11.1 mmol/L (4.00-12.00); BUN/Creat Ratio 21.11 Ratio (12.00-20.00); Carbon Dioxide 24.9 mmol/L (21.6-31.8); Globulin 2.4 g/dL (1.6-3.3); Non-African American GFR(CKD) 96.5 (60.0-200.0); Potassium 4.1 mmol/L (3.5-5.5); Total Bilirubin 0.5 mg/dL (0.3-1.2); Total Protein 6.2 g/dL (6.2-8.2)
[2021-03-20] MEDS ORDERED: NA PHOS,M-B/NA PHOS,DI-BA 133 ML ENEMA RECTAL STA (15:57)
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
[2021-03-20] MEDS: SODIUM CHLORIDE 0.9% 1,000 ML IV SCH ×2 (16:38→16:42)
[2021-03-20 17:03] LABS: Glucose,Whole Blood 101 mg/dL (75-99)
[2021-03-20 20:11] LABS: Glucose,Whole Blood 114 mg/dL (75-99)
[2021-03-21] MEDS: SODIUM CHLORIDE 0.9% 1,000 ML IV SCH ×3 (05:57→22:06)
[2021-03-21] MEDS: lamoTRIgine 100 MG TAB PO SCH ×2 (07:11→22:06)
[2021-03-21 07:12] LABS: Glucose,Whole Blood 109 mg/dL (75-99)
[2021-03-21] MEDS: INSULIN ASPART (NovoLOG) 100 UNIT/ML VIAL SQ SCH ×4 (07:26→22:05)
[2021-03-21] MEDS: bisacodyL 10 MG SUPP RECTAL SCH (07:28)
[2021-03-21] MEDS: levETIRAcetam IV 500 MG in SODIUM CHLORIDE 0.9% 100 ML IVPB SCH ×2 (07:28→22:09)
[2021-03-21] MEDS: PANTOPRAZOLE 40 MG/10 ML VIAL IV SCH (07:28)
[2021-03-21] MEDS: HEPARIN SODIUM,PORCINE/PF 5,000 UNIT/0.5 ML SYRINGE SQ SCH ×2 (07:28→22:10)
[2021-03-21] MEDS: CITALOPRAM HYDROBROMIDE 20 MG TAB PO SCH (07:30)
[2021-03-21] MEDS: PIPERACILLIN-TAZOBACTAM 3.375 GM in SODIUM CHLORIDE 0.9% 100 ML IVPB SCH ×2 (07:30→16:35)
[2021-03-21] MEDS: IPRATROPIUM-ALBUTEROL 3 ML NEB INHALATION SCH ×3 (08:27→20:30)
[2021-03-21] MEDS: methylPREDNISolone SOD SUCCI 40 MG/ML 1 ML VIAL IV SCH (11:52)
[2021-03-21 12:03] LABS: Glucose,Whole Blood 91 mg/dL (75-99)
[2021-03-21] MEDS ORDERED: IV FLUID CONTINUATION 700 ML IV ONE (15:43)
--- NOTE | 2021-03-21 16:13 | P.OP ---
Date of Procedure: 03/21/21 Preoperative Diagnosis: Dysphagia Aspiration risk Postoperative Diagnosis: Dysphagia Aspiration risk Procedure(s) Performed: Percutaneous endoscopic gastric tube placement Anesthesia: MAC Surgeon: Yoselin Desouza Pathology: none sent Condition: stable Disposition: floor Indications for Procedure: 56-year-old male with history of traumatic brain injury and mental retardation has developed worsening dysphagia and high risk of aspiration. He is unable to pass swallow tests. Secondary to this, plan is for PEG tube insertion. Patient's guardians did provide consent after being explained the risks, benefits and alternatives to the procedure. Operative Findings: Appropriate transillumination and ballottement Description of Procedure: The patient was brought to the endoscopy suite and placed in supine position. After adequate IV sedation was obtained by anesthesia, EGD was performed. The esophagus, stomach and duodenum were visualized without difficulty. There is no gross evidence of any malignancy or any ulceration. The appropriate location was noted on the anterior wall of the stomach. The area was transilluminated with appropriate visualization along with ballottement. This area was then localized externally with 1% lidocaine. Large gauge needle was used to enter the lumen of the stomach under direct visualization. A guidewire was then passed again under visualization of the needle was subsequently removed. The guidewire was then adhered with the snare and pulled through. The scope was then removed completely and the PEG tube was secured to the guidewire. The guidewire and PEG tube were then pulled through the mouth and esophagus and snugged to the abdominal wall. This was confirmed with direct visualization from the scope. There was no evidence of bleeding. Photos were taken. Scope was then removed. The bolster was then placed on the PEG site. This was secured in place using 2-0 nylon suture and secured to the abdominal wall. At this point, patient was awakened and taken to postanesthesia care unit in stable condition. Abdominal binder was placed. We will wait 24 hours prior to using tube.
--- NOTE | 2021-03-21 16:24 | P.PN ---
Subjective Progress Note Date: 03/21/21 Principal diagnosis: Altered mental status This is a 56-year-old white male patient with past medical history of closed head injury, seizure disorder, right hemiplegia, chronic dysphagia, and aphasia, previous history of aspiration pneumonia, and a remote history of tobacco abuse. Patient used to reside at a local [facility], [facility] on the [address], but most recently has been living in an apartment and has a 24-hour caregiver. Patient usually able to self transfer and feed himself, but needs assistance with all other ADLs. He is currently on the chopped consistency diet with nectar thick liquids. Patient was recently started on antibiotic Augmentin in possibly a steroid last , 5 days ago for cough and congestion. He was tested for COVID-19 and was found to be negative, his chest x-ray was reportedly negative for pneumonia. On 03/18/2021 patient was brought in to the hospital per EMS at 3:30 in the morning for complaints of worsening shortness of breath, chest pain, and his caregivers reported acting unusual last night. He was yelling out, and trying to communicate to his caregiver that he was having chest discomfort and stomach discomfort. Patient was found to be afebrile on presentation, generally does not require oxygen, however he was placed on nasal cannula at 3 L and his pulse ox of 99%. No evidence of leukocytosis on his lab work, white blood cell count was 10.3, hemoglobin is 16.4, coagulation profile is within normal limits, CO2 is 31, the rest of the electrolytes were unremarkable, B1 is 27, creatinine 0.81, lactic acid was 1.4, troponins were negative 3 at less than 0.012, proBNP was 19, he was tested for COVID-19 again and was found to be negative, CTA chest showed no evidence of ulnar embolism, and esophageal wall thickening suggesting infectious versus inflammatory esophagitis, and fluid was seen throughout the esophagus raising concern for gastroesophageal reflux. CT of the abdomen and pelvis showed increased stool b urden throughout the colon, moderate stool ball within the rectum likely impacted suggestive of early stercoral proctitis, there was flattening of the IVC suggesting hypovolemia. Patient was given 1/2 L fluid bolus in the emergency department, he was started on Zosyn and breathing treatments for an tibiotic coverage, IV steroids have also been started. On 03/19/2021 patient seen in follow-up on medical surgical floor. He is awake and alert, much more responsive today, his speech is garbled, difficult to understand, but patient is more interactive, he denies any acute distress, he states his breathing is okay, no cough, no chest pain complaints, his lungs are clear on today's exam. No wheezing. His been afebrile overnight, he is on room air, pulse ox is 92-94%, he remains on Zosyn for possibility of aspiration. No new labs, COVID-19 test was negative. Patient had a modified barium swallow today which showed evidence penetration with gross aspiration of barium. Delayed initiation and propagation with thick barium, barium pudding and barium coated cracker. Patient is being followed by speech therapy, and patient was observed at the bedside with severe coughing episode with honey thick liquids. Patient apparently tolerated all other consistencies with no overt signs of aspiration. However he remains a high risk for aspiration related to his delayed swallow initiation, impaired laryngeal excursion oral transit difficulties. Patient is well-known totherapy related to his lengthy history of dysphagia. We're awaiting further recommendations based on his modified barium swallow. For now he remains on chopped diet with thick liquids. Clinically he is stable, feeling much better, much more awake. On 03/20/2021 patient seen in follow-up on medical surgical floor, he is awake and in no acute distress breathing comfortably, room air pulse ox is 96%, no fever or chills. Vital signs have been stable, she has a productive cough, denies any chest discomfort, no phlegm production. Patient's MBS showed evidence of penetration even with thickened liquids, and there is a possibility that PEG tube insertion will be recommended. Patient is nothing by mouth right now. He is on 0.9 normal saline at a rate of 75 ML per hour. He is on Zosyn for antibiotic coverage, he is on IV Solu-Medrol 40 mg every 12 hours, is receiving breathing treatments. These labs have been reviewed, white blood cell count 9.5, hemoglobin is 13.2, BMP is pending right now. No altered mentation, he seems to be back to his baseline neurologically, his speech is at times difficult to understand, however patient is able to make his needs known. Is pleasant and cooperative, denies any acute distress. No abd pain, no nausea or vomiting. On 03/21/2021 patient is seen in follow-up. He is awake and alert, he is on room air pulse ox 93%, he is afebrile. He is awake and alert, in no acute distress, he is breathing comfortably. Vital signs have been stable, he denies any chest discomfort, general surgery was consulted in regards to a failed modified barium swallow that showed evidence of penetration even with thickened liquids. PEG tube placement is scheduled for this afternoon. In the meantime patient remains on Zosyn and IV steroids. No new chest x-rays today Objective - Vital Signs Vital signs: Vital Signs Temp 97.0 F L 03/21/21 16:02 Pulse 84 03/21/21 16:02 Resp 16 03/21/21 16:02 BP 130/88 03/21/21 16:02 Pulse Ox 93 L 03/21/21 16:02 Intake & Output 03/20/21 03/21/21 03/21/21 18:59 06:59 18:59 Intake Total 430 240 600 Output Total 200 Balance 430 240 400 Weight 58.967 kg Intake: IV 240 600 Sodium Chloride 0.9% 1, 240 000 ml @ 20 mls/hr IV . Q24H KORIN Rx#:[id number] Intake, IV Titration 430 Amount Piperacillin-Tazobactam 3 100 .375 gm In Sodium Chloride 0.9% 100 ml @ 25 mls/hr IVPB Q8HR K[facility]IN Rx# :[id number] Sodium Chloride 0.9% 1, 80 000 ml @ 20 mls/hr IV . Q24H KORIN Rx#:[id number] Sodium Chloride 0.9% 1, 150 000 ml @ 75 mls/hr IV . [id number] K[facility]IN Rx#:[id number] levETIRAcetam IV 500 mg 100 In Sodium Chloride 0.9% 100 ml @ 400 mls/hr IVPB Q12HR [facility]IN Rx#:[id number] Output: Urine 200 Other: Voiding Method Diaper Diaper Incontinent Incontinent # Voids 1 3 # Bowel Movements 1 - Exam GENERAL EXAM: Alert, active, 56-year-old white male, resting comfortably in bed, on room air, with a pulse ox of 93% comfortable in no apparent distress. patient has garbled speech related to his history of closed head injury HEAD: Normocephalic/atraumatic. EYES: Normal reaction of pupils, equal size. Conjunctiva pink, sclera white. NOSE: Clear with pink turbinates. THROAT: No erythema or exudates. NECK: No masses, no JVD, no thyroid enlargement, no adenopathy. CHEST: No chest wall deformity. Symmetrical expansion. LUNGS: Equal air entry with no crackles, wheeze, rhonchi or dullness. CVS: Regular rate and rhythm, normal S1 and S2, no gallops, no murmurs, no rubs ABDOMEN: Soft, nontender. No hepatosplenomegaly, normal bowel sounds, no guarding or rigidity. EXTREMITIES: No clubbing, no edema, no cyanosis, 2+ pulses and upper and lower extremities. has chronic contractures of his bilateral hands, more so in his right hand MUSCULOSKELETAL: Muscle strength and tone normal. SPINE: No scoliosis or deformity SKIN: No rashes CENTRAL NERVOUS SYSTEM: Alert and oriented, oriented to self and place. No focal deficits, tone is normal in all 4 extremities. - Labs CBC & Chem 7: 03/20/21 06:48 03/20/21 06:48 Labs: Abnormal Lab Results - Last 24 Hours (Table) 03/20/21 03/20/21 03/21/21 Range/Units 17:01 20:08 07:10 POC Glucose (mg/dL) 101 H 114 H 109 H (75-99) mg/dL Assessment and Plan Plan: 1 Acute hypoxemic respiratory failure, likely secondary to aspiration, bacterial versus chemical. Patient is known to have aspiration and patient had previous hospitalizations requiring intubation and placement on mechanical ventilator for aspiration related pneumonia. CT chest shows chronic changes at the lung bases supporting the diagnosis of chronic aspiration. Patient's previous although evaluations with modified barium swallow showed evidence of penetration with nectar thick liquids. As such, his clinical scenario, its reasonable to some of the patient is having episodes of aspiration on a chronic basis. Currently his present back with worsening shortness of breath and there is some chronic changes in the lung bases bilaterally supporting diagnosis of ongoing episodic aspiration. 2 History of seizure disorder, currently inactive and stable. 3 History of severe head injury in 1985 with severe developmental delay and mental retardation 4 Previous history of surgery to skull, 1985 5 Previous history of urinary tract infections, currently inactive 6 mild lactic acidosis, the lactic acidosis recovered and the patient's lactic acid normalized is down to 1.0. 7 stool impaction, a chronic problem because the patient was having the same issue on previous hospitalizations. 8 Abdominal pain, likely secondary to chronic constipation Right-sided hemiparesis secondary to traumatic brain injury, status. Plan Continue current antibiotics Continue breathing treatments Maintain aspiration precautions PEG tube placement is scheduled for today We'll continue to follow Obtain follow-up chest x-ray tomorrow I performed a history & physical examination of the patient and discussed their management with my nurse practitioner, Flora Siegel. I reviewed the nurse practitioner's note and agree with the documented findings and plan of care. Lung sounds are positive for diminished breath sounds throughout the lung boo. The findings and the impression was discussed with the patient. I attest to the documentation by the nurse practitioner. Time with Patient: Less than 30
[2021-03-21 16:56] LABS: Glucose,Whole Blood 111 mg/dL (75-99)
[2021-03-21 20:32] LABS: Glucose,Whole Blood 100 mg/dL (75-99)
[2021-03-22] MEDS: PIPERACILLIN-TAZOBACTAM 3.375 GM in SODIUM CHLORIDE 0.9% 100 ML IVPB SCH ×3 (00:04→16:01)
[2021-03-22] MEDS: methylPREDNISolone SOD SUCCI 40 MG/ML 1 ML VIAL IV SCH ×2 (00:05→12:56)
[2021-03-22] MEDS: SODIUM CHLORIDE 0.9% 1,000 ML IV SCH ×3 (00:05→21:12)
[2021-03-22 07:13] LABS: Glucose,Whole Blood 103 mg/dL (75-99)
[2021-03-22] MEDS: IPRATROPIUM-ALBUTEROL 3 ML NEB INHALATION SCH ×3 (08:09→19:04)
[2021-03-22] MEDS: INSULIN ASPART (NovoLOG) 100 UNIT/ML VIAL SQ SCH ×4 (08:22→21:13)
[2021-03-22] MEDS: HEPARIN SODIUM,PORCINE/PF 5,000 UNIT/0.5 ML SYRINGE SQ SCH ×2 (09:01→21:19)
[2021-03-22] MEDS: bisacodyL 10 MG SUPP RECTAL SCH (09:05)
--- NOTE | 2021-03-22 09:18 | P.PN ---
Subjective Progress Note Date: 03/22/21 Patient seen and examined. No acute events. Objective - Vital Signs Vital signs: Vital Signs Temp 97.2 F L 03/22/21 07:55 Pulse 60 03/22/21 08:19 Resp 16 03/22/21 07:55 BP 116/69 03/22/21 07:55 Pulse Ox 91 L 03/22/21 07:55 Intake & Output 03/21/21 03/22/21 03/22/21 18:59 06:59 18:59 Intake Total 1000 800 Output Total 200 Balance 800 800 Weight 58.967 kg Intake: IV 600 Intake, IV Titration 400 800 Amount Piperacillin-Tazobactam 3 100 100 .375 gm In Sodium Chloride 0.9% 100 ml @ 25 mls/hr IVPB Q8HR [facility]IN Rx# :[id number] Sodium Chloride 0.9% 1, 200 000 ml @ 20 mls/hr IV . Q24H [facility]ORIN Rx#:[id number] Sodium Chloride 0.9% 1, 600 000 ml @ 75 mls/hr IV . [id number] [facility]IN Rx#:[id number] levETIRAcetam IV 500 mg 100 100 In Sodium Chloride 0.9% 100 ml @ 400 mls/hr IVPB Q12HR [facility]IN Rx#:[id number] Output: Urine 200 Other: Voiding Method Diaper Diaper Incontinent Incontinent # Voids 1 - Constitutional General appearance: Present: no acute distress - Gastrointestinal Gastrointestinal Comment(s): Soft, nontender, G-tube in place with abdominal binder - Labs CBC & Chem 7: 03/20/21 06:48 03/20/21 06:48 Labs: Abnormal Lab Results - Last 24 Hours (Table) 03/21/21 03/21/21 03/22/21 Range/Units 16:55 20:31 07:11 POC Glucose (mg/dL) 111 H 100 H 103 H (75-99) mg/dL Assessment and Plan Plan: 56-year-old male status post placement of PEG tube. Currently, no significant abdominal distention. Okay to begin using gastric tube this afternoon. Begin trickle feeds and advance as tolerated every 4 hours. I did discuss case with nursing. Based on patient's mental delay, there is concern that patient will pull PEG tube. He will need to be closely monitored and continue abdominal binder to protect the tube.
[2021-03-22] MEDS: levETIRAcetam IV 500 MG in SODIUM CHLORIDE 0.9% 100 ML IVPB SCH ×2 (10:39→21:19)
[2021-03-22] MEDS: CITALOPRAM HYDROBROMIDE 20 MG TAB PO SCH (10:43)
[2021-03-22] MEDS: lamoTRIgine 100 MG TAB PO SCH ×2 (10:44→21:19)
[2021-03-22] MEDS: PANTOPRAZOLE 40 MG/10 ML VIAL IV SCH (10:57)
[2021-03-22 11:45] LABS: Glucose,Whole Blood 96 mg/dL (75-99)
--- NOTE | 2021-03-22 11:55 | P.PN ---
Subjective Progress Note Date: 03/22/21 Principal diagnosis: Altered mental status This is a 56-year-old white male patient with past medical history of closed head injury, seizure disorder, right hemiplegia, chronic dysphagia, and aphasia, previous history of aspiration pneumonia, and a remote history of tobacco abuse. Patient used to reside at a local [facility], [facility] on the [place], but most recently has been living in an apartment and has a 24-hour caregiver. Patient usually able to self transfer and feed himself, but needs assistance with all other ADLs. He is currently on the chopped consistency diet with nectar thick liquids. Patient was recently started on antibiotic Augmentin in possibly a steroid last , 5 days ago for cough and congestion. He was tested for COVID-19 and was found to be negative, his chest x-ray was reportedly negative for pneumonia. On 03/18/2021 patient was brought in to the hospital per EMS at 3:30 in the morning for complaints of worsening shortness of breath, chest pain, and his caregivers reported acting unusual last night. He was yelling out, and trying to communicate to his caregiver that he was having chest discomfort and stomach discomfort. Patient was found to be afebrile on presentation, generally does not require oxygen, however he was placed on nasal cannula at 3 L and his pulse ox of 99%. No evidence of leukocytosis on his lab work, white blood cell count was 10.3, hemoglobin is 16.4, coagulation profile is within normal limits, CO2 is 31, the rest of the electrolytes were unremarkable, B1 is 27, creatinine 0.81, lactic acid was 1.4, troponins were negative 3 at less than 0.012, proBNP was 19, he was tested for COVID-19 again and was found to be negative, CTA chest showed no evidence of ulnar embolism, and esophageal wall thickening suggesting infectious versus inflammatory esophagitis, and fluid was seen throughout the esophagus raising concern for gastroesophageal reflux. CT of the abdomen and pelvis showed increased stool b urden throughout the colon, moderate stool ball within the rectum likely impacted suggestive of early stercoral proctitis, there was flattening of the IVC suggesting hypovolemia. Patient was given 1/2 L fluid bolus in the emergency department, he was started on Zosyn and breathing treatments for an tibiotic coverage, IV steroids have also been started. On 03/19/2021 patient seen in follow-up on medical surgical floor. He is awake and alert, much more responsive today, his speech is garbled, difficult to understand, but patient is more interactive, he denies any acute distress, he states his breathing is okay, no cough, no chest pain complaints, his lungs are clear on today's exam. No wheezing. His been afebrile overnight, he is on room air, pulse ox is 92-94%, he remains on Zosyn for possibility of aspiration. No new labs, COVID-19 test was negative. Patient had a modified barium swallow today which showed evidence penetration with gross aspiration of barium. Delayed initiation and propagation with thick barium, barium pudding and barium coated cracker. Patient is being followed by speech therapy, and patient was observed at the bedside with severe coughing episode with honey thick liquids. Patient apparently tolerated all other consistencies with no overt signs of aspiration. However he remains a high risk for aspiration related to his delayed swallow initiation, impaired laryngeal excursion oral transit difficulties. Patient is well-known totherapy related to his lengthy history of dysphagia. We're awaiting further recommendations based on his modified barium swallow. For now he remains on chopped diet with thick liquids. Clinically he is stable, feeling much better, much more awake. On 03/20/2021 patient seen in follow-up on medical surgical floor, he is awake and in no acute distress breathing comfortably, room air pulse ox is 96%, no fever or chills. Vital signs have been stable, she has a productive cough, denies any chest discomfort, no phlegm production. Patient's MBS showed evidence of penetration even with thickened liquids, and there is a possibility that PEG tube insertion will be recommended. Patient is nothing by mouth right now. He is on 0.9 normal saline at a rate of 75 ML per hour. He is on Zosyn for antibiotic coverage, he is on IV Solu-Medrol 40 mg every 12 hours, is receiving breathing treatments. These labs have been reviewed, white blood cell count 9.5, hemoglobin is 13.2, BMP is pending right now. No altered mentation, he seems to be back to his baseline neurologically, his speech is at times difficult to understand, however patient is able to make his needs known. Is pleasant and cooperative, denies any acute distress. No abd pain, no nausea or vomiting. On 03/21/2021 patient is seen in follow-up. He is awake and alert, he is on room air pulse ox 93%, he is afebrile. He is awake and alert, in no acute distress, he is breathing comfortably. Vital signs have been stable, he denies any chest discomfort, general surgery was consulted in regards to a failed modified barium swallow that showed evidence of penetration even with thickened liquids. PEG tube placement is scheduled for this afternoon. In the meantime patient remains on Zosyn and IV steroids. No new chest x-rays today The patient is seen today 03/22/2021 in follow-up on the regular medical floor. He is currently resting comfortably in bed. Awake and alert. He is maintaining O2 saturations in the low 90s on room air. He is continued on DuoNeb inhalations, IV Solu-Medrol, antibiotics in the form of Zosyn. He's afebrile. Hemodynamically stable. He did have another PEG tube placed yesterday. To resume tube feeds after 24 hours. Objective - Vital Signs Vital signs: Vital Signs Temp 97.2 F L 03/22/21 07:55 Pulse 70 03/22/21 11:46 Resp 16 03/22/21 07:55 BP 116/69 03/22/21 07:55 Pulse Ox 91 L 03/22/21 07:55 Intake & Output 03/21/21 03/22/21 03/22/21 18:59 06:59 18:59 Intake Total 1000 800 Output Total 200 Balance 800 800 Weight 58.967 kg Intake: IV 600 Intake, IV Titration 400 800 Amount Piperacillin-Tazobactam 3 100 100 .375 gm In Sodium Chloride 0.9% 100 ml @ 25 mls/hr IVPB Q8HR [facility] Rx# :[id number] Sodium Chloride 0.9% 1, 200 000 ml @ 20 mls/hr IV . Q24H [facility] Rx#:[id number] Sodium Chloride 0.9% 1, 600 000 ml @ 75 mls/hr IV . [id number] [facility] Rx#:[id number] levETIRAcetam IV 500 mg 100 100 In Sodium Chloride 0.9% 100 ml @ 400 mls/hr IVPB Q12HR [facility] Rx#:[id number] Output: Urine 200 Other: Voiding Method Diaper Diaper Diaper Incontinent Incontinent Incontinent # Voids 1 - Exam GENERAL EXAM: Alert, active, 56-year-old male patient, resting comfortably in bed, on room air, with a pulse ox of 91% comfortable in no apparent distress. patient has garbled speech related to his history of closed head injury HEAD: Normocephalic/atraumatic. EYES: Normal reaction of pupils, equal size. Conjunctiva pink, sclera white. NOSE: Clear with pink turbinates. THROAT: No erythema or exudates. NECK: No masses, no JVD, no thyroid enlargement, no adenopathy. CHEST: No chest wall deformity. Symmetrical expansion. LUNGS: Equal air entry with no crackles, wheeze, rhonchi or dullness. CVS: Regular rate and rhythm, normal S1 and S2, no gallops, no murmurs, no rubs ABDOMEN: Soft, nontender. No hepatosplenomegaly, normal bowel sounds, no guarding or rigidity. EXTREMITIES: No clubbing, no edema, no cyanosis, 2+ pulses and upper and lower extremities. has chronic contractures of his bilateral hands, more so in his right hand MUSCULOSKELETAL: Muscle strength and tone normal. SPINE: No scoliosis or deformity SKIN: No rashes CENTRAL NERVOUS SYSTEM: Alert and oriented, oriented to self and place. No focal deficits, tone is normal in all 4 extremities. - Labs CBC & Chem 7: 03/20/21 06:48 03/20/21 06:48 Labs: Abnormal Lab Results - Last 24 Hours (Table) 03/21/21 03/21/21 03/22/21 Range/Units 16:55 20:31 07:11 POC Glucose (mg/dL) 111 H 100 H 103 H (75-99) mg/dL Assessment and Plan Assessment: 1 Acute hypoxemic respiratory failure, likely secondary to aspiration, bacterial versus chemical. Patient is known to have aspiration and patient had previous hospitalizations requiring intubation and placement on mechanical ventilator for aspiration related pneumonia. CT chest shows chronic changes at the lung bases supporting the diagnosis of chronic aspiration. Patient's previous although evaluations with modified barium swallow showed evidence of penetration with nectar thick liquids. As such, his clinical scenario, its reasonable to some of the patient is having episodes of aspiration on a chronic basis. Currently his present back with worsening shortness of breath and there is some chronic changes in the lung bases bilaterally supporting diagnosis of ongoing episodic aspiration. 2 History of seizure disorder, currently inactive and stable. 3 History of severe head injury in 1985 with severe developmental delay and mental retardation 4 Previous history of surgery to skull, 1985 5 Previous history of urinary tract infections, currently inactive 6 mild lactic acidosis, the lactic acidosis recovered and the patient's lactic acid normalized is down to 1.0. 7 stool impaction, a chronic problem because the patient was having the same issue on previous hospitalizations. 8 Abdominal pain, likely secondary to chronic constipation 9 Right-sided hemiparesis secondary to traumatic brain injury, status. Plan The patient was seen and evaluated by Dr. Ortega Currently stable from the pulmonary standpoint On room air Continued on bronchodilators, IV Solu-Medrol, Zosyn PEG tube placed yesterday Initiate tube feeds after 24 hours Continue aspiration precautions We'll continue to follow I, the cosigning physician, performed a history & physical examination of the patient. Lungs sounds are clear, diminished. Maintaining good O2 saturations in the 90s on room air. I discussed the assessment and plan of care with my nurse practitioner, Dee Whelan. I attest to the above note as dictated by her.
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
[2021-03-22 16:42] LABS: Glucose,Whole Blood 109 mg/dL (75-99)
[2021-03-22 20:35] LABS: Glucose,Whole Blood 119 mg/dL (75-99)
[2021-03-23] MEDS: PIPERACILLIN-TAZOBACTAM 3.375 GM in SODIUM CHLORIDE 0.9% 100 ML IVPB SCH ×3 (00:13→16:05)
[2021-03-23 06:44] LABS: Glucose,Whole Blood 97 mg/dL (75-99)
[2021-03-23] MEDS: INSULIN ASPART (NovoLOG) 100 UNIT/ML VIAL SQ SCH ×4 (06:53→20:39)
[2021-03-23] MEDS: IPRATROPIUM-ALBUTEROL 3 ML NEB INHALATION SCH ×3 (07:25→21:31)
[2021-03-23] MEDS: levETIRAcetam IV 500 MG in SODIUM CHLORIDE 0.9% 100 ML IVPB SCH (08:47)
[2021-03-23] MEDS ORDERED: methylPREDNISolone SOD SUCCI 40 MG/ML 1 ML VIAL IV SCH (09:00)
[2021-03-23] MEDS: SODIUM CHLORIDE 0.9% 1,000 ML IV SCH ×3 (09:11→20:36)
[2021-03-23] MEDS: PANTOPRAZOLE 40 MG/10 ML VIAL IV SCH (09:13)
--- NOTE | 2021-03-23 09:17 | P.PN ---
Subjective Progress Note Date: 03/23/21 Patient seen and examined at bedside. No acute events. Currently gastric tube feeding is running at 40 mL/h. Objective - Vital Signs Vital signs: Vital Signs Temp 97.5 F L 03/23/21 07:23 Pulse 73 03/23/21 07:34 Resp 18 03/23/21 07:23 BP 118/66 03/23/21 07:23 Pulse Ox 91 L 03/23/21 07:23 Intake & Output 03/22/21 03/23/21 03/23/21 18:59 06:59 18:59 Weight 58.967 kg 59.2 kg Other: Voiding Method Diaper Diaper Incontinent Incontinent # Voids 1 1 # Bowel Movements 1 - Gastrointestinal Gastrointestinal Comment(s): Soft, nontender, nondistended, PEG tube in place - Labs CBC & Chem 7: 03/20/21 06:48 03/20/21 06:48 Labs: Abnormal Lab Results - Last 24 Hours (Table) 03/22/21 03/22/21 Range/Units 16:41 20:34 POC Glucose (mg/dL) 109 H 119 H (75-99) mg/dL Assessment and Plan Plan: 56-year-old male status post placement of PEG tube. Currently, no significant abdominal distention. Tolerating PEG tube feeding. Currently running at 40 mL an hour with increase every 8 hours to goal. Continue to use abdominal binder as patient is high risk for pulling PEG tube based on mental delay.
[2021-03-23] MEDS: HEPARIN SODIUM,PORCINE/PF 5,000 UNIT/0.5 ML SYRINGE SQ SCH ×2 (09:47→20:39)
[2021-03-23] MEDS: lamoTRIgine 100 MG TAB PO SCH ×2 (09:48→20:39)
[2021-03-23] MEDS: CITALOPRAM HYDROBROMIDE 20 MG TAB PO SCH (09:48)
[2021-03-23] MEDS: bisacodyL 10 MG SUPP RECTAL SCH (09:48)
--- NOTE | 2021-03-23 10:44 | P.PN ---
Subjective Progress Note Date: 03/23/21 Principal diagnosis: Altered mental status This is a 56-year-old white male patient with past medical history of closed head injury, seizure disorder, right hemiplegia, chronic dysphagia, and aphasia, previous history of aspiration pneumonia, and a remote history of tobacco abuse. Patient used to reside at a local [facility], [facility] on the [place], but most recently has been living in an apartment and has a 24-hour caregiver. Patient usually able to self transfer and feed himself, but needs assistance with all other ADLs. He is currently on the chopped consistency diet with nectar thick liquids. Patient was recently started on antibiotic Augmentin in possibly a steroid last , 5 days ago for cough and congestion. He was tested for COVID-19 and was found to be negative, his chest x-ray was reportedly negative for pneumonia. On 03/18/2021 patient was brought in to the hospital per EMS at 3:30 in the morning for complaints of worsening shortness of breath, chest pain, and his caregivers reported acting unusual last night. He was yelling out, and trying to communicate to his caregiver that he was having chest discomfort and stomach discomfort. Patient was found to be afebrile on presentation, generally does not require oxygen, however he was placed on nasal cannula at 3 L and his pulse ox of 99%. No evidence of leukocytosis on his lab work, white blood cell count was 10.3, hemoglobin is 16.4, coagulation profile is within normal limits, CO2 is 31, the rest of the electrolytes were unremarkable, B1 is 27, creatinine 0.81, lactic acid was 1.4, troponins were negative 3 at less than 0.012, proBNP was 19, he was tested for COVID-19 again and was found to be negative, CTA chest showed no evidence of ulnar embolism, and esophageal wall thickening suggesting infectious versus inflammatory esophagitis, and fluid was seen throughout the esophagus raising concern for gastroesophageal reflux. CT of the abdomen and pelvis showed increased stool b urden throughout the colon, moderate stool ball within the rectum likely impacted suggestive of early stercoral proctitis, there was flattening of the IVC suggesting hypovolemia. Patient was given 1/2 L fluid bolus in the emergency department, he was started on Zosyn and breathing treatments for an tibiotic coverage, IV steroids have also been started. On 03/19/2021 patient seen in follow-up on medical surgical floor. He is awake and alert, much more responsive today, his speech is garbled, difficult to understand, but patient is more interactive, he denies any acute distress, he states his breathing is okay, no cough, no chest pain complaints, his lungs are clear on today's exam. No wheezing. His been afebrile overnight, he is on room air, pulse ox is 92-94%, he remains on Zosyn for possibility of aspiration. No new labs, COVID-19 test was negative. Patient had a modified barium swallow today which showed evidence penetration with gross aspiration of barium. Delayed initiation and propagation with thick barium, barium pudding and barium coated cracker. Patient is being followed by speech therapy, and patient was observed at the bedside with severe coughing episode with honey thick liquids. Patient apparently tolerated all other consistencies with no overt signs of aspiration. However he remains a high risk for aspiration related to his delayed swallow initiation, impaired laryngeal excursion oral transit difficulties. Patient is well-known totherapy related to his lengthy history of dysphagia. We're awaiting further recommendations based on his modified barium swallow. For now he remains on chopped diet with thick liquids. Clinically he is stable, feeling much better, much more awake. On 03/20/2021 patient seen in follow-up on medical surgical floor, he is awake and in no acute distress breathing comfortably, room air pulse ox is 96%, no fever or chills. Vital signs have been stable, she has a productive cough, denies any chest discomfort, no phlegm production. Patient's MBS showed evidence of penetration even with thickened liquids, and there is a possibility that PEG tube insertion will be recommended. Patient is nothing by mouth right now. He is on 0.9 normal saline at a rate of 75 ML per hour. He is on Zosyn for antibiotic coverage, he is on IV Solu-Medrol 40 mg every 12 hours, is receiving breathing treatments. These labs have been reviewed, white blood cell count 9.5, hemoglobin is 13.2, BMP is pending right now. No altered mentation, he seems to be back to his baseline neurologically, his speech is at times difficult to understand, however patient is able to make his needs known. Is pleasant and cooperative, denies any acute distress. No abd pain, no nausea or vomiting. On 03/21/2021 patient is seen in follow-up. He is awake and alert, he is on room air pulse ox 93%, he is afebrile. He is awake and alert, in no acute distress, he is breathing comfortably. Vital signs have been stable, he denies any chest discomfort, general surgery was consulted in regards to a failed modified barium swallow that showed evidence of penetration even with thickened liquids. PEG tube placement is scheduled for this afternoon. In the meantime patient remains on Zosyn and IV steroids. No new chest x-rays today The patient is seen today 03/22/2021 in follow-up on the regular medical floor. He is currently resting comfortably in bed. Awake and alert. He is maintaining O2 saturations in the low 90s on room air. He is continued on DuoNeb inhalations, IV Solu-Medrol, antibiotics in the form of Zosyn. He's afebrile. Hemodynamically stable. He did have another PEG tube placed yesterday. To resume tube feeds after 24 hours. The patient is seen today 03/23/2021 in follow-up on the regular medical floor. He is a bit more awake and alert today. His admitting to verbalize. Maintaining good O2 saturations in the 90s on room air. He is currently being nourished with Jevity 1.5 at 40 ML's per hour. He is on Zosyn, bronchodilators, steroids. Objective - Vital Signs Vital signs: Vital Signs Temp 97.5 F L 03/23/21 07:23 Pulse 73 03/23/21 07:34 Resp 18 03/23/21 07:23 BP 118/66 03/23/21 07:23 Pulse Ox 91 L 03/23/21 07:23 Intake & Output 03/22/21 03/23/21 03/23/21 18:59 06:59 18:59 Weight 58.967 kg 59.2 kg Other: Voiding Method Diaper Diaper Diaper Incontinent Incontinent Incontinent # Voids 1 1 # Bowel Movements 1 - Exam GENERAL EXAM: Alert, active, 56-year-old male patient, resting comfortably in bed, on room air,comfortable in no apparent distress. patient has garbled speech related to his history of closed head injury HEAD: Normocephalic/atraumatic. EYES: Normal reaction of pupils, equal size. Conjunctiva pink, sclera white. NOSE: Clear with pink turbinates. THROAT: No erythema or exudates. NECK: No masses, no JVD, no thyroid enlargement, no adenopathy. CHEST: No chest wall deformity. Symmetrical expansion. LUNGS: Equal air entry with no crackles, wheeze, rhonchi or dullness. CVS: Regular rate and rhythm, normal S1 and S2, no gallops, no murmurs, no rubs ABDOMEN: Soft, nontender. No hepatosplenomegaly, normal bowel sounds, no gua rding or rigidity. EXTREMITIES: No clubbing, no edema, no cyanosis, 2+ pulses and upper and lower extremities. has chronic contractures of his bilateral hands, more so in his right hand MUSCULOSKELETAL: Muscle strength and tone normal. SPINE: No scoliosis or deformity SKIN: No rashes CENTRAL NERVOUS SYSTEM: Alert and oriented, oriented to self and place. No focal deficits, tone is normal in all 4 extremities. - Labs CBC & Chem 7: 03/20/21 06:48 03/20/21 06:48 Labs: Abnormal Lab Results - Last 24 Hours (Table) 03/22/21 03/22/21 Range/Units 16:41 20:34 POC Glucose (mg/dL) 109 H 119 H (75-99) mg/dL Assessment and Plan Assessment: 1 Acute hypoxemic respiratory failure, likely secondary to aspiration, bacterial versus chemical. Patient is known to have aspiration and patient had previous hospitalizations requiring intubation and placement on mechanical ventilator for aspiration related pneumonia. CT chest shows chronic changes at the lung bases supporting the diagnosis of chronic aspiration. Patient's previous although evaluations with modified barium swallow showed evidence of penetration with nectar thick liquids. As such, his clinical scenario, its reasonable to some of the patient is having episodes of aspiration on a chronic basis. Currently his present back with worsening shortness of breath and there is some chronic changes in the lung bases bilaterally supporting diagnosis of ongoing episodic aspiration. 2 History of seizure disorder, currently inactive and stable. 3 History of severe head injury in 1985 with severe developmental delay and mental retardation 4 Previous history of surgery to skull, 1985 5 Previous history of urinary tract infections, currently inactive 6 mild lactic acidosis, the lactic acidosis recovered and the patient's lactic acid normalized is down to 1.0. 7 stool impaction, a chronic problem because the patient was having the same issue on previous hospitalizations. 8 Abdominal pain, likely secondary to chronic constipation 9 Right-sided hemiparesis secondary to traumatic brain injury, status. Plan The patient was seen and evaluated by Dr. Ortega Currently stable from the pulmonary standpoint Home once cleared by medicine PEG tube placed tube feedings initiated Continue aspiration precautions We'll continue to follow I, the cosigning physician, performed a history & physical examination of the patient. Lungs sounds are clear, diminished. Maintaining good O2 saturations in the 90s on room air. I discussed the assessment and plan of care with my nurse practitioner, Dee Whelan. I attest to the above note as dictated by her.
[2021-03-23 11:53] LABS: Glucose,Whole Blood 110 mg/dL (75-99)
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
[2021-03-23 16:51] LABS: Glucose,Whole Blood 131 mg/dL (75-99)
[2021-03-23 20:25] LABS: Glucose,Whole Blood 136 mg/dL (75-99)
[2021-03-24] MEDS: PIPERACILLIN-TAZOBACTAM 3.375 GM in SODIUM CHLORIDE 0.9% 100 ML IVPB SCH ×2 (00:07→09:53)
[2021-03-24] MEDS: IPRATROPIUM-ALBUTEROL 3 ML NEB INHALATION SCH ×2 (07:56→11:39)
[2021-03-24] MEDS ORDERED: predniSONE 10 MG TAB PO SCH (09:00)
[2021-03-24] MEDS: INSULIN ASPART (NovoLOG) 100 UNIT/ML VIAL SQ SCH ×2 (09:39→11:39)
[2021-03-24 09:41] LABS: Glucose,Whole Blood 118 mg/dL (75-99)
[2021-03-24] MEDS: PANTOPRAZOLE 40 MG/10 ML VIAL IV SCH (09:53)
[2021-03-24] MEDS: lamoTRIgine 100 MG TAB PO SCH (09:54)
[2021-03-24] MEDS: bisacodyL 10 MG SUPP RECTAL SCH (09:54)
[2021-03-24] MEDS: CITALOPRAM HYDROBROMIDE 20 MG TAB PO SCH (09:54)
[2021-03-24] MEDS: HEPARIN SODIUM,PORCINE/PF 5,000 UNIT/0.5 ML SYRINGE SQ SCH (09:54)
--- NOTE | 2021-03-24 10:56 | P.PN ---
Subjective Progress Note Date: 03/24/21 Patient seen and examined at bedside. No acute events. Tolerating tube feeding. Objective - Vital Signs Vital signs: Vital Signs Temp 98 F 03/24/21 07:56 Pulse 68 03/24/21 08:07 Resp 19 03/24/21 08:05 BP 115/73 03/24/21 07:56 Pulse Ox 93 L 03/24/21 08:00 Intake & Output 03/23/21 03/24/21 03/24/21 18:59 06:59 18:59 Intake Total 280 280 Balance 280 280 Weight 68.2 kg Intake: Tube Feeding 280 280 Other: Voiding Method Diaper Diaper Diaper Incontinent Incontinent Incontinent # Voids 5 1 1 - Constitutional General appearance: Present: no acute distress - Gastrointestinal Gastrointestinal Comment(s): Soft, nontender, nondistended, PEG tube in place with no surrounding leakage or induration - Labs CBC & Chem 7: 03/20/21 06:48 03/20/21 06:48 Labs: Abnormal Lab Results - Last 24 Hours (Table) 03/23/21 03/23/21 03/23/21 Range/Units 11:52 16:49 20:22 POC Glucose (mg/dL) 110 H 131 H 136 H (75-99) mg/dL 03/24/21 Range/Units 09:39 POC Glucose (mg/dL) 118 H (75-99) mg/dL Assessment and Plan Plan: 56-year-old male status post placement of PEG tube. Currently, no significant abdominal distention. Tolerating PEG tube feeding. Site looks appropriate.Continue tube feeding based on dietary recommendations.
[2021-03-24 11:38] LABS: Glucose,Whole Blood 108 mg/dL (75-99)
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
[2021-03-24 14:36] VITALS: BP 138/48; PULSE 78; RESP 18; TEMP 98.2
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
== END 2021-03-24 16:21 | disposition home health service (06) | DRG 177 ==
LOC: EC 03:39 → 6NMEDSUR 08:44 → OBSVTOIN 13:08 → 4SSUR 15:43
PROVIDERS: ADMIT Family Medicine; ATTEND Family Medicine
PROC: 0DH63UZ Insertion of Feeding Device into Stomach, Percutaneous Approach (ICD-10-PCS; principal; 2021-03-21 07:30)
PROC: 3E0G76Z Introduction of Nutritional Substance into Upper GI, Via Natural or Artificial Opening (ICD-10-PCS; 2021-03-22)
DX: J69.0 Pneumonitis due to inhalation of food and vomit (principal); I21.9 Acute myocardial infarction, unspecified; J96.01 Acute respiratory failure with hypoxia; G81.91 Hemiplegia, unspecified affecting right dominant side; R47.01 Aphasia; F33.9 Major depressive disorder, recurrent, unspecified; E87.2 Acidosis; S06.9X0S Unspecified intracranial injury without loss of consciousness, sequela; K56.41 Fecal impaction; G40.909 Epilepsy, unspecified, not intractable, without status epilepticus; Z20.822 Contact with and (suspected) exposure to COVID-19; K21.00 Gastro-esophageal reflux disease with esophagitis, without bleeding; R13.10 Dysphagia, unspecified; H54.61 Unqualified visual loss, right eye, normal vision left eye; R32 Unspecified urinary incontinence; F89 Unspecified disorder of psychological development; F79 Unspecified intellectual disabilities; Z79.899 Other long term (current) drug therapy; Z87.891 Personal history of nicotine dependence; Z87.01 Personal history of pneumonia (recurrent); Z86.14 Personal history of Methicillin resistant Staphylococcus aureus infection; Z87.39 Personal history of other diseases of the musculoskeletal system and connective tissue; Z86.69 Personal history of other diseases of the nervous system and sense organs; Z87.440 Personal history of urinary (tract) infections; Z98.890 Other specified postprocedural states; Z82.49 Family history of ischemic heart disease and other diseases of the circulatory system
CPT/HCPCS: 36415; 43246; 71045; 71275; 74177; 74230; 80053; 82550; 83605; 83735; 83880; 84484; 85025; 85027; 85610; 85730; 87635; 93005; 93306; 94640; 94760; 96361; 96374; 96375; 99285

== ENCOUNTER 2021-03-27 08:38 | Emergency (ER) | payer MEDICARE, OTHER ==
[2021-03-27 08:50] VITALS: RESP 18; TEMP 97.8
[2021-03-27] MEDS ORDERED: SODIUM CHLORIDE 0.9% 500 ML 500 ML IV STA (09:01)
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
[2021-03-27 09:49] LABS: Basophils # (A) 0.1 k/uL (0-0.2); Basophils % (A) 1 %; Eosinophils # (A) 0.7 k/uL (0-0.7); Eosinophils % (A) 5 %; HCT 47.4 % (39.0-53.0); Lymphocytes # (A) 1.5 k/uL (1.0-4.8); Lymphocytes % (A) 11 %; MCH 32.1 pg (25.0-35.0); MCHC 33.7 g/dL (31.0-37.0); MCV 95.4 fL (80.0-100.0); Mean Platelet Volume 7.7; Monocytes # (A) 1.1 k/uL (0-1.0); Monocytes % (A) 8 %; Neutrophils # (A) 10.2 k/uL (1.3-7.7); Neutrophils % (A) 75 %; Platelet Count 261 k/uL (150-450); RBC 4.96 m/uL (4.30-5.90); RDW 12.7 % (11.5-15.5); WBC 13.6 k/uL (3.8-10.6)
[2021-03-27 10:14] LABS: ALT 22 U/L (4-49); African American GFR (CKD) >90 (>60 ml/min/1.73 sqM); Anion Gap 5 mmol/L; Blood Urea Nitrogen 18 mg/dL (9-20); Calcium 9.5 mg/dL (8.4-10.2); Carbon Dioxide 33 mmol/L (22-30); Chloride 102 mmol/L (98-107); Glucose 89 mg/dL (74-99); Non-African American GFR(CKD) >90 (>60 ml/min/1.73 sqM); Sodium 140 mmol/L (137-145); Total Bilirubin 0.5 mg/dL (0.2-1.3); Total Protein 6.9 g/dL (6.3-8.2)
[2021-03-27 10:16] LABS: AST 38 U/L (17-59); Alkaline Phosphatase 43 U/L (38-126); Magnesium 2.2 mg/dL (1.6-2.3); Potassium 5.4 mmol/L (3.5-5.1)
--- NOTE | 2021-03-27 10:21 | XR ---
EXAMINATION TYPE: XR chest 2V DATE OF EXAM: 03/27/2021 COMPARISON: 03/18/2021 HISTORY: Pain TECHNIQUE: Frontal and lateral views of the chest are obtained. FINDINGS: The lung volumes accentuate the pulmonary vasculature and cardiomediastinal silhouette. There is unchanged elevation of the right hemidiaphragm. Likely posttraumatic changes of the right distal clavicle are unchanged. IMPRESSION: No significant change since the prior exam.
[2021-03-27 11:04] LABS: INR 0.9 (<1.2); Partial Thromboplastin Time 23.6 sec (22.0-30.0)
[2021-03-27 11:45] VITALS: BP 116/75; PULSE 85
== END 2021-03-27 11:45 | disposition home or self-care (01) ==
LOC: EC 08:38
DX: K94.29 Other complications of gastrostomy (principal); G40.909 Epilepsy, unspecified, not intractable, without status epilepticus; F32.9 Major depressive disorder, single episode, unspecified; Z87.440 Personal history of urinary (tract) infections; Z87.891 Personal history of nicotine dependence
CPT/HCPCS: 36415; 71046; 80053; 82272; 83735; 84484; 85025; 85610; 85730; 86850; 86900; 86901; 96360; 99283

== ENCOUNTER 2021-05-01 08:01 | Emergency (ER) | payer MEDICARE, OTHER ==
[2021-05-01 08:10] VITALS: BP 142/85; PULSE 78; RESP 18; TEMP 97.5
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
== END 2021-05-01 10:19 | disposition home or self-care (01) ==
LOC: EC 08:01
DX: K94.23 Gastrostomy malfunction (principal); G40.909 Epilepsy, unspecified, not intractable, without status epilepticus; F32.9 Major depressive disorder, single episode, unspecified; Z87.440 Personal history of urinary (tract) infections; Z87.891 Personal history of nicotine dependence
CPT/HCPCS: 99282

== ENCOUNTER → 2021-05-19 | Outpatient (CLI) | payer MEDICARE, OTHER ==
--- NOTE | 2021-05-19 12:08 | FL ---
Modified barium swallow. HISTORY: Dysphagia. Modified barium swallow was performed with the department of speech pathology. The patient was prese nted with various consistencies of barium. Aspiration was noted with thin liquid barium, nectar thick barium and honey thick barium. Full report is to follow from the department of speech pathology. Impression: As above
== END | disposition home or self-care (01) ==
LOC: RADFLMAIN 10:59
PROVIDERS: ATTEND Internal Medicine Gastroenterology
DX: R13.10 Dysphagia, unspecified (principal)
CPT/HCPCS: 74230

== ENCOUNTER 2021-06-11 14:26 | Emergency (ER) | payer MEDICARE, OTHER ==
[2021-06-11 14:38] VITALS: BP 122/76; PULSE 60; RESP 18; TEMP 97.3
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
== END 2021-06-11 17:00 | disposition home or self-care (01) ==
LOC: EC 14:26
DX: K94.23 Gastrostomy malfunction (principal); F32.9 Major depressive disorder, single episode, unspecified; Z87.440 Personal history of urinary (tract) infections; Z87.891 Personal history of nicotine dependence
CPT/HCPCS: 99283

== ENCOUNTER 2021-07-04 10:44 | Emergency (ER) | payer MEDICARE, OTHER ==
[2021-07-04 10:53] VITALS: RESP 18
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
[2021-07-04] MEDS ORDERED: BACITRACIN OINT 1 EACH PACKET TOPICAL ONE (11:15)
--- NOTE | 2021-07-04 11:43 | XR ---
EXAMINATION TYPE: XR KUB DATE OF EXAM: 07/04/2021 COMPARISON: None INDICATION: Constipated TECHNIQUE: Single view abdomen frontal projection supine view FINDINGS: There is a normal bowel gas pattern. Some nonspecific small bowel gas is present within the mid abdom en. Psoas margins are normal. No organomegaly is present. IMPRESSION: 1. Unremarkable Abdomen
[2021-07-04 12:49] VITALS: BP 117/55; PULSE 84; TEMP 98.3
== END 2021-07-04 12:45 | disposition home or self-care (01) ==
LOC: EC 10:44 → SUPCPDRO 10:44 → EC 12:45
DX: K94.29 Other complications of gastrostomy (principal); F32.9 Major depressive disorder, single episode, unspecified; Z87.440 Personal history of urinary (tract) infections; Z87.891 Personal history of nicotine dependence
CPT/HCPCS: 74018; 99284

== ENCOUNTER 2021-07-14 18:53 | Emergency (ER) | payer MEDICARE, OTHER ==
[2021-07-14 20:07] VITALS: BP 133/83
[2021-07-14 22:20] VITALS: RESP 18
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
--- NOTE | 2021-07-14 22:55 | XR ---
EXAMINATION TYPE: XR chest 2V DATE OF EXAM: 07/14/2021 COMPARISON: 03/27/2021 TECHNIQUE: PA and lateral views submitted. HISTORY: Cough FINDINGS: Position limits assessment of the upper lobes on the right. There is subsegmental changes on the left . Hypertrophic and degenerative change of the spine. Limited inspiration. Heart size normal. No sizab le pleural effusion or pneumothorax. IMPRESSION: 1. Limited exam demonstrates left basilar infiltrate or atelectasis correlate clinically.
[2021-07-14] MEDS ORDERED: AZITHROMYCIN 500 MG TAB PO STA (23:32)
[2021-07-15 00:05] VITALS: PULSE 77; TEMP 98.7
== END 2021-07-14 23:59 | disposition home or self-care (01) ==
LOC: EC 18:53
DX: J18.9 Pneumonia, unspecified organism (principal); G40.909 Epilepsy, unspecified, not intractable, without status epilepticus; F32.9 Major depressive disorder, single episode, unspecified; Z79.899 Other long term (current) drug therapy; Z87.891 Personal history of nicotine dependence; Z20.822 Contact with and (suspected) exposure to COVID-19
CPT/HCPCS: 71046; 87635; 99283

== ENCOUNTER 2021-07-25 11:31 | Emergency (ER) | payer MEDICARE, OTHER ==
[2021-07-25 11:42] VITALS: RESP 18
[2021-07-25] MEDS ORDERED: SODIUM CHLORIDE 0.9% 500 ML 500 ML IV STA (12:37)
--- NOTE | 2021-07-25 14:00 | XR ---
EXAMINATION TYPE: XR KUB DATE OF EXAM: 07/25/2021 COMPARISON: NONE HISTORY: Pain TECHNIQUE: Single supine KUB image of the abdomen is obtained FINDINGS: Small bowel demonstrates no evidence for dilatation or air fluid levels. Gas and fecal material is seen in non-distended colon. No convincing evidence for pneumoperitoneum. No unusual calcifications. The lung bases are clear. The osseous structures are intact. IMPRESSION: 1. Moderate rectosigmoid fecal stasis noted.
--- NOTE | 2021-07-25 14:03 | XR ---
EXAMINATION TYPE: XR chest 2V DATE OF EXAM: 07/25/2021 COMPARISON: 07/14/2021 HISTORY: Shortness of breath TECHNIQUE: Frontal and lateral views of the chest are obtained. FINDINGS: Scattered senescent parenchymal changes noted. Hyperinflation compatible with COPD. No evidence for infiltrate. No evidence for atelectasis. Heart size is stable. Mediastinal structures are stable and grossly unremarkable. No evidence for hilar prominence. Degenerative changes dorsal spine. IMPRESSION: 1. No evidence for acute pulmonary disease.
[2021-07-25 14:22] LABS: Basophils # (A) 0.1 k/uL (0-0.2); Basophils % (A) 1 %; Eosinophils # (A) 0.5 k/uL (0-0.7); Eosinophils % (A) 7 %; HCT 48.2 % (39.0-53.0); HGB 16.4 gm/dL (13.0-17.5); Lymphocytes # (A) 1.8 k/uL (1.0-4.8); Lymphocytes % (A) 24 %; MCH 32.6 pg (25.0-35.0); MCV 96.1 fL (80.0-100.0); Mean Platelet Volume 10.6; Monocytes # (A) 0.6 k/uL (0-1.0); Monocytes % (A) 8 %; Neutrophils # (A) 4.1 k/uL (1.3-7.7); Neutrophils % (A) 58 %; Platelet Count 184 k/uL (150-450); RBC 5.01 m/uL (4.30-5.90); WBC 7.2 k/uL (3.8-10.6)
[2021-07-25 14:42] LABS: ALT 57 U/L (4-49); AST 40 U/L (17-59); African American GFR (CKD) >90 (>60 ml/min/1.73 sqM); Albumin 4.3 g/dL (3.5-5.0); Alkaline Phosphatase 93 U/L (38-126); Anion Gap 8 mmol/L; Blood Urea Nitrogen 19 mg/dL (9-20); Calcium 9.9 mg/dL (8.4-10.2); Carbon Dioxide 30 mmol/L (22-30); Chloride 100 mmol/L (98-107); Glucose 85 mg/dL (74-99); Non-African American GFR(CKD) >90 (>60 ml/min/1.73 sqM); Potassium 4.7 mmol/L (3.5-5.1); Sodium 138 mmol/L (137-145); Total Bilirubin 0.7 mg/dL (0.2-1.3); Total Protein 7.8 g/dL (6.3-8.2)
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
[2021-07-25 17:37] VITALS: BP 110/84; PULSE 67; TEMP 97.1
== END 2021-07-25 17:00 | disposition home or self-care (01) ==
LOC: EC 11:31
DX: R05 Cough (principal); K59.00 Constipation, unspecified; Z20.822 Contact with and (suspected) exposure to COVID-19; F32.9 Major depressive disorder, single episode, unspecified; Z87.440 Personal history of urinary (tract) infections; Z87.891 Personal history of nicotine dependence
CPT/HCPCS: 36415; 71046; 74018; 80053; 85025; 87635; 99283

== ENCOUNTER 2021-07-30 10:27 | Emergency (ER) | payer MEDICARE, OTHER ==
[2021-07-30 12:23] VITALS: RESP 16
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
[2021-07-30 12:52] LABS: Basophils # (A) 0.1 k/uL (0-0.2); Basophils % (A) 1 %; Eosinophils # (A) 0.8 k/uL (0-0.7); Eosinophils % (A) 10 %; HCT 47.2 % (39.0-53.0); HGB 16.1 gm/dL (13.0-17.5); Lymphocytes # (A) 1.9 k/uL (1.0-4.8); Lymphocytes % (A) 24 %; MCH 32.3 pg (25.0-35.0); MCHC 34.1 g/dL (31.0-37.0); MCV 94.6 fL (80.0-100.0); Mean Platelet Volume 9.1; Monocytes # (A) 0.6 k/uL (0-1.0); Monocytes % (A) 8 %; Neutrophils # (A) 4.4 k/uL (1.3-7.7); Neutrophils % (A) 56 %; Platelet Count 237 k/uL (150-450); RBC 4.99 m/uL (4.30-5.90); RDW 12.7 % (11.5-15.5)
[2021-07-30 13:02] LABS: ALT 35 U/L (4-49); African American GFR (CKD) >90 (>60 ml/min/1.73 sqM); Albumin 4.2 g/dL (3.5-5.0); Anion Gap 11 mmol/L; Blood Urea Nitrogen 17 mg/dL (9-20); Calcium 9.4 mg/dL (8.4-10.2); Carbon Dioxide 26 mmol/L (22-30); Chloride 102 mmol/L (98-107); Glucose 87 mg/dL (74-99); Non-African American GFR(CKD) >90 (>60 ml/min/1.73 sqM); Sodium 139 mmol/L (137-145); Total Bilirubin 0.3 mg/dL (0.2-1.3); Total Protein 7.4 g/dL (6.3-8.2)
[2021-07-30 13:09] LABS: AST 38 U/L (17-59); Potassium 4.5 mmol/L (3.5-5.1)
[2021-07-30 13:10] LABS: Alkaline Phosphatase 68 U/L (38-126)
--- NOTE | 2021-07-30 13:18 | XR ---
EXAMINATION TYPE: XR chest 1V portable DATE OF EXAM: 07/30/2021 COMPARISON: 07/25/2021 INDICATION: Fever TECHNIQUE: Single frontal view of the chest is obtained. FINDINGS: The heart size is normal. The pulmonary vasculature is normal. Some mild diffuse infiltrates in the left lung. Finding is nonspecific. Consider atelectasis or early pneumonia. Atypical pneumonia and early pulmonary edema could be considered. IMPRESSION: 1. Mild nonspecific infiltrates in the left lung. Atelectasis of concern most likely within the diffe rential. Early pneumonia could be considered. Consider atypical pneumonia.
[2021-07-30 14:17] VITALS: BP 110/68; PULSE 68; TEMP 98.8
== END 2021-07-30 14:17 | disposition home or self-care (01) ==
LOC: EC 10:27
DX: J18.9 Pneumonia, unspecified organism (principal); F32.9 Major depressive disorder, single episode, unspecified; Z20.822 Contact with and (suspected) exposure to COVID-19; Z87.440 Personal history of urinary (tract) infections; Z87.891 Personal history of nicotine dependence; Z87.820 Personal history of traumatic brain injury; Z93.1 Gastrostomy status
CPT/HCPCS: 71045; 80053; 85025; 87635; 99283

== ENCOUNTER 2021-08-01 19:28 | Emergency (ER) | payer MEDICARE, OTHER ==
[2021-08-01 19:36] VITALS: BP 124/71; PULSE 81; RESP 19; TEMP 98
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
== END 2021-08-01 23:23 | disposition home or self-care (01) ==
LOC: EC 19:28
DX: K94.23 Gastrostomy malfunction (principal); F32.9 Major depressive disorder, single episode, unspecified; Z87.440 Personal history of urinary (tract) infections; Z87.891 Personal history of nicotine dependence; Z87.820 Personal history of traumatic brain injury
CPT/HCPCS: 43762; 99283

== ENCOUNTER 2021-08-28 14:20 | Emergency (ER) | payer MEDICARE, OTHER ==
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
--- NOTE | 2021-08-28 16:12 | XR ---
EXAMINATION TYPE: XR chest 2V DATE OF EXAM: 08/28/2021 COMPARISON: Chest x-ray July 30, 2021 HISTORY: SOB, positive COVID TECHNIQUE: Frontal and lateral views of the chest are obtained. FINDINGS: There is exaggerated kyphosis on lateral view.. Improved aeration left lung current study. New right basilar opacity. Stable mild cardiomegaly. No pleural effusion or pneumothorax seen bilate rally. IMPRESSION: Resolved left midlung opacity. New right basilar opacity consistent with developing infil trate and/or atelectasis.
[2021-08-28] MEDS ORDERED: SODIUM CHLORIDE 0.9% 50 ML IVPB ONE (16:45)
[2021-08-28] MEDS ORDERED: CASIRIVIMAB (REGN10933) (EUA) 600 MG, IMDEVIMAB (REGN10987) (EUA) 600 MG in SODIUM CHLO... IVPB ONE (16:45)
[2021-08-28 18:39] VITALS: BP 106/86; PULSE 74; RESP 23; TEMP 98.1
== END 2021-08-28 18:38 | disposition home or self-care (01) ==
LOC: EC 14:20
DX: U07.1 COVID-19 (principal); G40.909 Epilepsy, unspecified, not intractable, without status epilepticus; F32.A Depression, unspecified; Z87.891 Personal history of nicotine dependence; Z79.899 Other long term (current) drug therapy
CPT/HCPCS: 87635; 71046; 99283; Q0243

== ENCOUNTER → 2022-04-24 | Outpatient (CLI) | payer MEDICARE, OTHER ==
--- NOTE | 2022-04-24 14:22 | XR ---
EXAMINATION TYPE: XR femur RT DATE OF EXAM: 04/24/2022 CLINICAL HISTORY: pain TECHNIQUE: Two views of the right femur are obtained. COMPARISON: None. FINDINGS: There is no acute fracture or dislocation seen of the femur. The hip and knee joints appears mildly narrowed.The overlying soft tissue appears unremarkable. IMPRESSION: There is no acute fracture or dislocation seen of the femur. ICD 10 NO FRACTURE, INITIAL EVALUATION
--- NOTE | 2022-04-24 14:23 | XR ---
EXAMINATION TYPE: XR Hip Complete RT DATE OF EXAM: 04/24/2022 CLINICAL HISTORY: pain TECHNIQUE: AP and frogleg views of the right hip are obtained. COMPARISON: None. FINDINGS: There is no acute fracture/dislocation evident. The joint space appears mildly narrowed. The overlying soft tissue appears unremarkable. IMPRESSION: 1. There is no acute fracture or dislocation. ICD 10 NO FRACTURE, INITIAL EVALUATION
--- NOTE | 2022-04-24 14:36 | XR ---
EXAMINATION TYPE: XR lumbar spine 2 or 3V DATE OF EXAM: 04/24/2022 CLINICAL HISTORY: pain TECHNIQUE: Three views of the lumbar spine are submitted. COMPARISON: None. FINDINGS: There are 5 lumbar type vertebral bodies identified. The lumbar spine shows satisfactory alignment w ithout evidence of acute fracture or dislocation. Vertebral body heights are within normal limits. Moderate multilevel degenerative disc space narrowing and mild spondylosis. Curvature convex to the l eft. The overlying soft tissue appears unremarkable. IMPRESSION: No acute fracture or dislocation is seen in the lumbar spine. ICD 10 NO FRACTURE, INITIAL EVALUATION
== END | disposition home or self-care (01) ==
LOC: RADXRMAIN 13:25
PROVIDERS: ATTEND Nurse Practitioner
DX: M79.604 Pain in right leg (principal)
CPT/HCPCS: 72100; 73502

== ENCOUNTER 2022-05-18 08:57 | Emergency (ER) | payer MEDICARE, OTHER ==
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
[2022-05-18 11:13] VITALS: BP 124/83; PULSE 62; RESP 18; TEMP 97.6
--- NOTE | 2022-05-18 11:24 | XR ---
EXAMINATION TYPE: XR abdomen 1V DATE OF EXAM: 05/18/2022 Comparison: 01/09/2022 Clinical History: 57-year-old male Gastrografin for peg tube placement Findings: A tube is in place. [id number]-mol opacification of the lumen of the gastric antrum. No evident e xtravasation of contrast. Nonobstructive bowel gas pattern. Moderate stool burden. Impression: Injection through the patient's PEG tube shows appropriate opacification of the lumen of the gastric antrum. Moderate stool burden.
== END 2022-05-18 11:12 | disposition home or self-care (01) ==
LOC: EC 08:57
DX: K94.23 Gastrostomy malfunction (principal); G40.909 Epilepsy, unspecified, not intractable, without status epilepticus; F32.A Depression, unspecified; Z87.891 Personal history of nicotine dependence; Z72.89 Other problems related to lifestyle; Z79.899 Other long term (current) drug therapy
CPT/HCPCS: 74018; 99283

== ENCOUNTER 2022-07-05 13:34 | Emergency (ER) | payer MEDICARE, OTHER ==
[2022-07-05 13:38] VITALS: RESP 20; TEMP 98
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
--- NOTE | 2022-07-05 15:51 | XR ---
EXAMINATION TYPE: XR KUB DATE OF EXAM: 07/05/2022 COMPARISON: 05/22/2022 HISTORY: PEG tube placement TECHNIQUE: Single view FINDINGS: Contrast was injected 30 mL Isovue into the gastrostomy tube. There is contrast opacificati on of the stomach and the proximal duodenum. No extravasation. Bowel gas pattern is nonobstructed. IMPRESSION: The gastrostomy tube is in good position.
[2022-07-05 16:00] VITALS: BP 102/68; PULSE 68
== END 2022-07-05 15:58 | disposition home or self-care (01) ==
LOC: EC 13:34
DX: K94.23 Gastrostomy malfunction (principal)
CPT/HCPCS: 43762; 74018; 99283

== ENCOUNTER 2022-10-14 19:26 | Emergency (ER) | payer MEDICARE, OTHER ==
[2022-10-14 19:52] VITALS: RESP 16
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
[2022-10-14 21:03] VITALS: BP 115/80; PULSE 78; TEMP 98.4
== END 2022-10-14 21:02 | disposition home or self-care (01) ==
LOC: EC 19:26
DX: K94.23 Gastrostomy malfunction (principal); G40.909 Epilepsy, unspecified, not intractable, without status epilepticus; F32.A Depression, unspecified; Z87.891 Personal history of nicotine dependence
CPT/HCPCS: 43762; 99282

== ENCOUNTER 2022-10-23 12:17 | Emergency (ER) | payer MEDICARE, OTHER ==
[2022-10-23 12:29] VITALS: TEMP 97.3
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
[2022-10-23 14:31] VITALS: BP 110/67; PULSE 68; RESP 17
== END 2022-10-23 14:30 | disposition home or self-care (01) ==
LOC: EC 12:17
DX: K94.23 Gastrostomy malfunction (principal); F32.A Depression, unspecified; Z87.891 Personal history of nicotine dependence
CPT/HCPCS: 43762; 99283

== ENCOUNTER 2023-02-24 07:46 | Emergency (ER) | payer MEDICARE, OTHER ==
[2023-02-24 08:00] VITALS: TEMP 97.7
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
--- NOTE | 2023-02-24 09:04 | XR ---
EXAMINATION TYPE: XR KUB DATE OF EXAM: 02/24/2023 8:50 AM INDICATION: Patient age:Male; 58 years old; Reason for study: peg tube placement; COMPARISON: 11/27/2022 TECHNIQUE: One radiographic view of the abdomen was obtained. FINDINGS: PEG tube projecting over the region of the stomach. Postcontrast images demonstrate opacifi cation of the gastric lumen without evidence of extravasation of contrast. Degenerative disc disease is noted throughout the spine. Impression: Opacification of the gastric lumen without evidence of extravasation contrast, consistent with approp riate PEG tube placement.
[2023-02-24 09:10] VITALS: BP 107/74; PULSE 74; RESP 18
== END 2023-02-24 09:18 | disposition home or self-care (01) ==
LOC: EC 07:46
DX: K94.23 Gastrostomy malfunction (principal); F32.A Depression, unspecified; Z87.891 Personal history of nicotine dependence; Z79.899 Other long term (current) drug therapy
CPT/HCPCS: 43762; 74018; 99283

== ENCOUNTER 2023-04-23 10:29 | Emergency (ER) | payer MEDICARE, OTHER ==
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
[2023-04-23 11:30] VITALS: BP 128/70; PULSE 84; RESP 18; TEMP 98
== END 2023-04-23 11:30 | disposition home or self-care (01) ==
LOC: EC 10:29
DX: L89.222 Pressure ulcer of left hip, stage 2 (principal); F32.A Depression, unspecified; Z79.899 Other long term (current) drug therapy; Z87.891 Personal history of nicotine dependence
CPT/HCPCS: 99282

== ENCOUNTER 2023-05-01 04:34 | Inpatient (IN) | payer MEDICARE, OTHER ==
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
--- NOTE | 2023-05-01 06:47 | XR ---
EXAMINATION TYPE: XR chest 1V DATE OF EXAM: 05/01/2023 6:06 AM COMPARISON: Chest radiographs from 08/28/2021 TECHNIQUE: XR chest 1V Frontal view of the chest. CLINICAL INDICATION:Male, 58 years old with history of pain; FINDINGS: Lungs/Pleura: No pleural effusion or pneumothorax. Patchy airspace opacities throughout the right mid and lower lung. Pulmonary vascularity: Unremarkable. Heart/mediastinum: Cardiomediastinal silhouette is unremarkable. Musculoskeletal: No acute osseous pathology. Dextrocurvature of the thoracic spine. IMPRESSION: Patchy airspace opacities throughout the right mid and lower lung consistent with pneumonia, possibly from aspiration.
--- NOTE | 2023-05-01 06:48 | XR ---
EXAMINATION TYPE: XR KUB DATE OF EXAM: .3 INDICATION: Patient age:Male; 58 years old; Reason for study: peg tube placement; COMPARISON: 02/24/2023 TECHNIQUE: One radiographic view of the abdomen was obtained. FINDINGS: PEG tube projecting over the region of the stomach. Postcontrast images demonstrate opacifi cation of the gastric lumen without evidence of extravasation of contrast. Degenerative disc disease is noted throughout the spine. Mild colonic stool burden. Impression: Opacification of the gastric lumen without evidence of extravasation contrast, consistent with approp riate PEG tube placement.
[2023-05-01] MEDS ORDERED: NALOXONE 0.4 MG/ML 1 ML VIAL IV PRN (07:09)
[2023-05-01] MEDS ORDERED: ONDANSETRON 4 MG/2 ML VIAL IVP PRN (07:09)
[2023-05-01] MEDS ORDERED: SODIUM CHLORIDE 0.9% 1,000 ML IV STA ×2 (07:09→07:25)
[2023-05-01] MEDS ORDERED: ALBUTEROL NEBULIZED 2.5 MG/3 ML INHALATION PRN (07:09)
[2023-05-01] MEDS ORDERED: IPRATROPIUM-ALBUTEROL 3 ML NEB INHALATION STA (07:09)
[2023-05-01] MEDS ORDERED: SODIUM CHLORIDE 0.9% 500 ML 500 ML IV STA ×2 (07:09→07:25)
[2023-05-01] MEDS ORDERED: MORPHINE SULFATE 4 MG/ML SYRINGE IV PRN (07:09)
[2023-05-01] MEDS ORDERED: LEVOFLOXACIN 750MG-D5W PMX 750 MG in DEXTROSE/WATER 1 150ML.BAG IVPB STA (07:14)
[2023-05-01] MEDS ORDERED: PIPERACILLIN-TAZOBACTAM 3.375 GM in SODIUM CHLORIDE 0.9% 100 ML IVPB STA (07:14)
[2023-05-01] MEDS ORDERED: ACETAMINOPHEN IV (For NPO) 1,000 MG in EMPTY BAG 1 BAG IVPB STA (07:16)
[2023-05-01] MEDS ORDERED: IBUPROFEN IV 800 MG in SODIUM CHLORIDE 0.9% 250 ML IV ONE (08:00)
[2023-05-01 08:56] LABS: ALT 24 U/L (4-49); AST 32 U/L (17-59); African American GFR (CKD) >90 (>60 ml/min/1.73 sqM); Albumin 3.1 g/dL (3.5-5.0); Alkaline Phosphatase 62 U/L (38-126); Anion Gap 9 mmol/L; Blood Urea Nitrogen 27 mg/dL (9-20); Calcium 8.3 mg/dL (8.4-10.2); Carbon Dioxide 27 mmol/L (22-30); Chloride 102 mmol/L (98-107); Glucose 94 mg/dL (74-99); Non-African American GFR(CKD) >90 (>60 ml/min/1.73 sqM); Potassium 4.8 mmol/L (3.5-5.1); Sodium 138 mmol/L (137-145); Total Bilirubin 0.8 mg/dL (0.2-1.3); Total Protein 6.3 g/dL (6.3-8.2)
[2023-05-01 09:04] LABS: NT-Pro-B-Type Natriuretic Pept 814 pg/mL
[2023-05-01 09:06] LABS: HCT 43.5 % (39.0-53.0); HGB 14.4 gm/dL (13.0-17.5); MCH 32.6 pg (25.0-35.0); MCHC 33.2 g/dL (31.0-37.0); MCV 98.1 fL (80.0-100.0); Mean Platelet Volume 9.3; Platelet Count 146 k/uL (150-450); RBC 4.43 m/uL (4.30-5.90); RDW 12.2 % (11.5-15.5); WBC 9.3 k/uL (3.8-10.6)
[2023-05-01 09:10] LABS: Partial Thromboplastin Time 22.7 sec (22.0-30.0); Prothrombin Time 10.3 sec (9.0-12.0)
[2023-05-01] MEDS ORDERED: LACTATED RINGERS 1,000 ML IV SCH (11:15)
[2023-05-01 11:27] LABS: Band Neutrophils % 20 %; Basophils # (M) 0.09 k/uL (0-0.2); Lymphocytes # (M) 1.12 k/uL (1.0-4.8); Metamyelocytes # (M) 0.09 k/uL (0); Metamyelocytes % 1 %; Monocytes # (M) 1.21 k/uL (0-1.0); Neutrophils % (M) 56 %; Nucleated Red Blood Cells 0 /100 WBC (0-0); Total Cells Counted 200
[2023-05-01 11:28] LABS: RBC Morphology Normal
[2023-05-01] MEDS ORDERED: IPRATROPIUM-ALBUTEROL 3 ML NEB INHALATION PRN (12:03)
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
[2023-05-01] MEDS: LACTATED RINGERS 1,000 ML IV SCH (12:34)
[2023-05-01 14:03] VITALS: BMI 21.9
[2023-05-01 16:49] LABS: Glucose,Whole Blood 88 mg/dL (70-110)
[2023-05-01] MEDS: PIPERACILLIN-TAZOBACTAM 3.375 GM in SODIUM CHLORIDE 0.9% 100 ML IVPB SCH ×2 (17:17→23:18)
[2023-05-01] MEDS ORDERED: DEXTROSE 50% SYRINGE 50 ML IVP PRN ×2 (18:55)
[2023-05-01] MEDS: lamoTRIgine 100 MG TAB PEG/G-TUBE SCH (20:23)
[2023-05-01] MEDS: INSULIN ASPART (NovoLOG) 100 UNIT/ML VIAL SQ SCH (23:17)
[2023-05-01 23:19] LABS: Glucose,Whole Blood 78 mg/dL (70-110)
[2023-05-02 03:11] LABS: Glucose,Whole Blood 89 mg/dL (70-110)
[2023-05-02] MEDS: LACTATED RINGERS 1,000 ML IV SCH ×2 (04:11→14:20)
[2023-05-02 06:30] LABS: Glucose,Whole Blood 119 mg/dL (70-110)
[2023-05-02] MEDS: INSULIN ASPART (NovoLOG) 100 UNIT/ML VIAL SQ SCH ×3 (06:42→17:01)
[2023-05-02 07:22] LABS: ALT 19 U/L (4-49); AST 26 U/L (17-59); African American GFR (CKD) >90 (>60 ml/min/1.73 sqM); Albumin 2.5 g/dL (3.5-5.0); Alkaline Phosphatase 57 U/L (38-126); Anion Gap 5 mmol/L; Blood Urea Nitrogen 20 mg/dL (9-20); Calcium 8.1 mg/dL (8.4-10.2); Carbon Dioxide 26 mmol/L (22-30); Chloride 106 mmol/L (98-107); Glucose 107 mg/dL (74-99); Magnesium 1.9 mg/dL (1.6-2.3); Non-African American GFR(CKD) >90 (>60 ml/min/1.73 sqM); Phosphorus 1.6 mg/dL (2.5-4.5); Sodium 137 mmol/L (137-145); Total Bilirubin 0.5 mg/dL (0.2-1.3); Total Protein 5.3 g/dL (6.3-8.2)
[2023-05-02] MEDS ORDERED: PANTOPRAZOLE 40 MG TABLET PO SCH (07:30)
[2023-05-02] MEDS ORDERED: LEVOFLOXACIN 750MG-D5W PMX 750 MG in DEXTROSE/WATER 1 150ML.BAG IVPB SCH (08:00)
[2023-05-02] MEDS: ENOXAPARIN 40 MG/0.4 ML SYRINGE SQ SCH (09:02)
[2023-05-02] MEDS: CITALOPRAM HYDROBROMIDE 20 MG TAB PEG/G-TUBE SCH (09:02)
[2023-05-02] MEDS: lamoTRIgine 100 MG TAB PEG/G-TUBE SCH ×2 (09:02→20:48)
[2023-05-02] MEDS: PIPERACILLIN-TAZOBACTAM 3.375 GM in SODIUM CHLORIDE 0.9% 100 ML IVPB SCH ×3 (09:02→23:20)
[2023-05-02] MEDS ORDERED: Phosphorus Replacement Protoco 1 EACH MISC MISCELLANE PRN (09:10)
[2023-05-02] MEDS ORDERED: POTAS-SOD-PHOS 278-164-250 MG 1 EACH PACKET PO ONE (09:30)
--- NOTE | 2023-05-02 09:39 | XR ---
EXAMINATION TYPE: XR chest 2V DATE OF EXAM: 05/02/2023 9:36 AM COMPARISON: Chest radiographs from 05/01/2023 TECHNIQUE: XR chest 2V Frontal and lateral views of the chest. CLINICAL INDICATION:Male, 58 years old with history of dyspnea; FINDINGS: Lungs/Pleura: Right lung base airspace opacities There is no evidence of pleural effusion, or pneumot horax. Pulmonary vascularity: Unremarkable. Heart/mediastinum: Cardiomediastinal silhouette is unremarkable. Musculoskeletal: No acute osseous pathology. IMPRESSION: Increased airspace opacities in right lung base correlate for pneumonia.
[2023-05-02] MEDS: ACETAMINOPHEN TAB 325 MG TAB PEG/G-TUBE PRN (09:49)
[2023-05-02 11:13] LABS: Basophils # (A) 0.1 k/uL (0-0.2); Basophils % (A) 0 %; Eosinophils # (A) 0.1 k/uL (0-0.7); Eosinophils % (A) 1 %; HCT 34.5 % (39.0-53.0); HGB 11.8 gm/dL (13.0-17.5); Lymphocytes # (A) 0.9 k/uL (1.0-4.8); Lymphocytes % (A) 8 %; MCH 34.7 pg (25.0-35.0); MCHC 34.3 g/dL (31.0-37.0); MCV 101.1 fL (80.0-100.0); Mean Platelet Volume 9.6; Monocytes # (A) 0.6 k/uL (0-1.0); Monocytes % (A) 5 %; Neutrophils # (A) 9.6 k/uL (1.3-7.7); Neutrophils % (A) 85 %; Platelet Count 146 k/uL (150-450); RBC 3.41 m/uL (4.30-5.90); RDW 12.6 % (11.5-15.5); WBC 11.3 k/uL (3.8-10.6)
[2023-05-02] MEDS ORDERED: FUROSEMIDE 10 MG/ML 4 ML VIAL IV SCH (11:30)
[2023-05-02 11:45] LABS: Glucose,Whole Blood 119 mg/dL (70-110)
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
[2023-05-02] MEDS: IPRATROPIUM-ALBUTEROL 3 ML NEB INHALATION SCH ×3 (12:17→21:25)
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
[2023-05-02] MEDS: GLYCOPYRROLATE 1 MG TAB PEG/G-TUBE SCH ×2 (14:57→20:48)
[2023-05-02 16:59] LABS: Glucose,Whole Blood 90 mg/dL (70-110)
[2023-05-02 20:48] LABS: Glucose,Whole Blood 103 mg/dL (70-110)
[2023-05-02] MEDS ORDERED: FUROSEMIDE 10 MG/ML 4 ML VIAL IV STA (21:13)
[2023-05-02] MEDS: BUDESONIDE 0.5 MG/2 ML NEBU INHALATION PRN (21:25)
--- NOTE | 2023-05-02 21:46 | XR ---
EXAMINATION TYPE: XR abdomen 1V DATE OF EXAM: 05/02/2023 INDICATION: Patient age:Male; 58 years old; Reason for study: peg tube placement; COMPARISON: 02/24/2023 TECHNIQUE: One radiographic view of the abdomen was obtained. FINDINGS: PEG tube projecting over the region of the stomach. Degenerative disc disease is noted thr oughout the spine. Mild colonic stool burden. Few pelvic phleboliths. Scoliotic curvature of the thor acolumbar spine. Impression: PEG tube demonstrated projecting over the region of the stomach.
--- NOTE | 2023-05-02 23:02 | XR ---
EXAM: XR Abdomen, 2 Views CLINICAL HISTORY: ITS.REASON XR Reason: PEG tube placement TECHNIQUE: Frontal view of the abdomen/pelvis with upright view of the abdomen. COMPARISON: No relevant prior studies available. FINDINGS: Intraperitoneal space: No free air. Gastrointestinal tract: Unremarkable. No dilation. Bones/joints: Unremarkable. Tubes, lines and devices: PEG tube terminates in the stomach. Contrast identified in the stomach and small bowel. IMPRESSION: PEG tube terminates in the stomach. Contrast identified in the stomach and small bowel.
[2023-05-03] MEDS: INSULIN ASPART (NovoLOG) 100 UNIT/ML VIAL SQ SCH ×4 (00:05→18:03)
[2023-05-03 00:06] LABS: Glucose,Whole Blood 91 mg/dL (70-110)
[2023-05-03] MEDS: LACTATED RINGERS 1,000 ML IV SCH ×2 (03:38→18:51)
[2023-05-03 06:18] LABS: Glucose,Whole Blood 108 mg/dL (70-110)
[2023-05-03] MEDS: PIPERACILLIN-TAZOBACTAM 3.375 GM in SODIUM CHLORIDE 0.9% 100 ML IVPB SCH ×2 (07:53→15:11)
[2023-05-03] MEDS: CITALOPRAM HYDROBROMIDE 20 MG TAB PEG/G-TUBE SCH (07:54)
[2023-05-03] MEDS: ENOXAPARIN 40 MG/0.4 ML SYRINGE SQ SCH (07:54)
[2023-05-03] MEDS: lamoTRIgine 100 MG TAB PEG/G-TUBE SCH ×2 (07:54→21:08)
[2023-05-03] MEDS: GLYCOPYRROLATE 1 MG TAB PEG/G-TUBE SCH ×3 (07:54→21:08)
[2023-05-03] MEDS: PANTOPRAZOLE 40 MG/10 ML VIAL IVP SCH (07:54)
[2023-05-03] MEDS: ACETAMINOPHEN TAB 325 MG TAB PEG/G-TUBE PRN (07:55)
[2023-05-03] MEDS: IPRATROPIUM-ALBUTEROL 3 ML NEB INHALATION SCH ×4 (08:49→20:38)
[2023-05-03 09:52] LABS: Basophils % (A) 0 %; Eosinophils # (A) 0.1 k/uL (0-0.7); Eosinophils % (A) 1 %; HCT 36.3 % (39.0-53.0); HGB 12.2 gm/dL (13.0-17.5); Lymphocytes # (A) 0.9 k/uL (1.0-4.8); Lymphocytes % (A) 9 %; MCH 32.9 pg (25.0-35.0); MCHC 33.4 g/dL (31.0-37.0); MCV 98.4 fL (80.0-100.0); Mean Platelet Volume 9.5; Monocytes # (A) 0.6 k/uL (0-1.0); Monocytes % (A) 6 %; Neutrophils # (A) 8.4 k/uL (1.3-7.7); Neutrophils % (A) 83 %; Platelet Count 175 k/uL (150-450); RBC 3.69 m/uL (4.30-5.90); RDW 12.2 % (11.5-15.5); WBC 10.1 k/uL (3.8-10.6)
[2023-05-03 10:26] LABS: African American GFR (CKD) >90 (>60 ml/min/1.73 sqM); Anion Gap 9 mmol/L; Blood Urea Nitrogen 19 mg/dL (9-20); Calcium 8.2 mg/dL (8.4-10.2); Carbon Dioxide 32 mmol/L (22-30); Chloride 97 mmol/L (98-107); Glucose 125 mg/dL (74-99); Magnesium 2.1 mg/dL (1.6-2.3); Non-African American GFR(CKD) >90 (>60 ml/min/1.73 sqM); Phosphorus 3.8 mg/dL (2.5-4.5); Potassium 3.7 mmol/L (3.5-5.1); Sodium 138 mmol/L (137-145)
[2023-05-03] MEDS: SCOPOLAMINE 1 MG/72 HR PATCH TRANSDERM SCH (11:25)
[2023-05-03 12:01] LABS: Glucose,Whole Blood 87 mg/dL (70-110)
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
--- NOTE | 2023-05-03 13:36 | XR ---
EXAMINATION TYPE: XR chest 2V DATE OF EXAM: 05/03/2023 1:13 PM COMPARISON: Chest radiographs from 05/02/2023 TECHNIQUE: XR chest 2V Frontal and lateral views of the chest. CLINICAL INDICATION:Male, 58 years old with history of pneumonia; FINDINGS: Lungs/Pleura: Similar right lower lung airspace opacities.. There is no evidence of pleural effusion, or pneumothorax. Pulmonary vascularity: Unremarkable. Heart/mediastinum: Cardiomediastinal silhouette is unremarkable. Musculoskeletal: No acute osseous pathology. IMPRESSION: Right lower lung airspace opacities are not significantly changed given differences of technique.
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
[2023-05-03 18:01] LABS: Glucose,Whole Blood 110 mg/dL (70-110)
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
[2023-05-04] MEDS: INSULIN ASPART (NovoLOG) 100 UNIT/ML VIAL SQ SCH ×4 (00:30→18:12)
[2023-05-04] MEDS: PIPERACILLIN-TAZOBACTAM 3.375 GM in SODIUM CHLORIDE 0.9% 100 ML IVPB SCH ×3 (00:31→16:00)
[2023-05-04 00:32] LABS: Glucose,Whole Blood 100 mg/dL (70-110)
[2023-05-04 06:21] LABS: Glucose,Whole Blood 93 mg/dL (70-110)
[2023-05-04] MEDS: IPRATROPIUM-ALBUTEROL 3 ML NEB INHALATION SCH ×4 (08:18→21:25)
[2023-05-04] MEDS: lamoTRIgine 100 MG TAB PEG/G-TUBE SCH ×2 (09:06→21:04)
[2023-05-04] MEDS: CITALOPRAM HYDROBROMIDE 20 MG TAB PEG/G-TUBE SCH (09:06)
[2023-05-04] MEDS: GLYCOPYRROLATE 1 MG TAB PEG/G-TUBE SCH ×3 (09:07→21:04)
[2023-05-04] MEDS: PANTOPRAZOLE 40 MG/10 ML VIAL IVP SCH (09:07)
[2023-05-04] MEDS: ENOXAPARIN 40 MG/0.4 ML SYRINGE SQ SCH (09:07)
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
[2023-05-04 11:03] LABS: Basophils % (A) 0 %; Eosinophils # (A) 0.4 k/uL (0-0.7); Eosinophils % (A) 5 %; HCT 37.6 % (39.0-53.0); HGB 12.4 gm/dL (13.0-17.5); Lymphocytes # (A) 1.1 k/uL (1.0-4.8); Lymphocytes % (A) 14 %; MCH 32.5 pg (25.0-35.0); MCHC 32.8 g/dL (31.0-37.0); MCV 99.1 fL (80.0-100.0); Mean Platelet Volume 9.1; Monocytes # (A) 0.5 k/uL (0-1.0); Monocytes % (A) 7 %; Neutrophils # (A) 5.7 k/uL (1.3-7.7); Neutrophils % (A) 74 %; Platelet Count 198 k/uL (150-450); RDW 12.3 % (11.5-15.5); WBC 7.8 k/uL (3.8-10.6)
[2023-05-04 11:25] LABS: ALT 18 U/L (4-49); African American GFR (CKD) >90 (>60 ml/min/1.73 sqM); Albumin 2.9 g/dL (3.5-5.0); Anion Gap 6 mmol/L; Blood Urea Nitrogen 20 mg/dL (9-20); Calcium 8.4 mg/dL (8.4-10.2); Carbon Dioxide 30 mmol/L (22-30); Chloride 102 mmol/L (98-107); Glucose 95 mg/dL (74-99); Non-African American GFR(CKD) >90 (>60 ml/min/1.73 sqM); Sodium 138 mmol/L (137-145); Total Bilirubin 0.5 mg/dL (0.2-1.3); Total Protein 6.3 g/dL (6.3-8.2)
[2023-05-04 11:32] LABS: AST 28 U/L (17-59); Alkaline Phosphatase 61 U/L (38-126); Magnesium 2.2 mg/dL (1.6-2.3); Potassium 4.4 mmol/L (3.5-5.1)
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
[2023-05-04 12:03] LABS: Glucose,Whole Blood 95 mg/dL (70-110)
[2023-05-04] MEDS: LACTATED RINGERS 1,000 ML IV SCH ×2 (12:13→21:04)
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
[2023-05-04 18:03] LABS: Glucose,Whole Blood 78 mg/dL (70-110)
[2023-05-04 23:54] LABS: Glucose,Whole Blood 101 mg/dL (70-110)
[2023-05-05] MEDS: INSULIN ASPART (NovoLOG) 100 UNIT/ML VIAL SQ SCH ×4 (00:39→18:16)
[2023-05-05] MEDS: PIPERACILLIN-TAZOBACTAM 3.375 GM in SODIUM CHLORIDE 0.9% 100 ML IVPB SCH ×3 (00:47→16:03)
[2023-05-05 06:11] LABS: Glucose,Whole Blood 108 mg/dL (70-110)
[2023-05-05] MEDS: BUDESONIDE 0.5 MG/2 ML NEBU INHALATION PRN ×2 (07:52→21:28)
[2023-05-05] MEDS: IPRATROPIUM-ALBUTEROL 3 ML NEB INHALATION SCH ×4 (07:52→21:28)
[2023-05-05] MEDS: CITALOPRAM HYDROBROMIDE 20 MG TAB PEG/G-TUBE SCH (09:26)
[2023-05-05] MEDS: GLYCOPYRROLATE 1 MG TAB PEG/G-TUBE SCH ×3 (09:26→20:38)
[2023-05-05] MEDS: ENOXAPARIN 40 MG/0.4 ML SYRINGE SQ SCH (09:26)
[2023-05-05] MEDS: lamoTRIgine 100 MG TAB PEG/G-TUBE SCH ×2 (09:26→20:38)
[2023-05-05] MEDS: PANTOPRAZOLE 40 MG/10 ML VIAL IVP SCH (09:33)
[2023-05-05 12:24] LABS: Glucose,Whole Blood 124 mg/dL (70-110)
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
[2023-05-05] MEDS: LACTATED RINGERS 1,000 ML IV SCH ×2 (15:58→23:40)
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
[2023-05-05 18:06] LABS: Glucose,Whole Blood 99 mg/dL (70-110)
[2023-05-05 20:19] LABS: Glucose,Whole Blood 108 mg/dL (70-110)
[2023-05-06 00:06] LABS: Glucose,Whole Blood 109 mg/dL (70-110)
[2023-05-06] MEDS: PIPERACILLIN-TAZOBACTAM 3.375 GM in SODIUM CHLORIDE 0.9% 100 ML IVPB SCH ×2 (00:06→08:37)
[2023-05-06] MEDS: INSULIN ASPART (NovoLOG) 100 UNIT/ML VIAL SQ SCH ×3 (00:06→13:02)
[2023-05-06 06:29] LABS: Glucose,Whole Blood 93 mg/dL (70-110)
--- NOTE | 2023-05-06 07:39 | XR ---
EXAMINATION TYPE: XR chest 1V DATE OF EXAM: 05/06/2023 COMPARISON: 05/03/2023 HISTORY: 58-year-old male pneumonia TECHNIQUE: Single frontal view of the chest is obtained. FINDINGS: Heart normal size. Right basilar opacity is improving. Some mild residual density remains. Additional scattered interstitial densities bilaterally. Chronic fracture displacement distal right clavicle/AC joint region. IMPRESSION: Improving right basilar infiltrate. Residual bilateral interstitial densities remain. Ch ronic displaced fracture deformity right AC joint.
[2023-05-06] MEDS: PANTOPRAZOLE 40 MG/10 ML VIAL IVP SCH (08:37)
[2023-05-06] MEDS: ENOXAPARIN 40 MG/0.4 ML SYRINGE SQ SCH (08:38)
[2023-05-06] MEDS: GLYCOPYRROLATE 1 MG TAB PEG/G-TUBE SCH (08:38)
[2023-05-06] MEDS: lamoTRIgine 100 MG TAB PEG/G-TUBE SCH (08:38)
[2023-05-06] MEDS: SCOPOLAMINE 1 MG/72 HR PATCH TRANSDERM SCH (08:38)
[2023-05-06] MEDS: CITALOPRAM HYDROBROMIDE 20 MG TAB PEG/G-TUBE SCH (08:38)
[2023-05-06] MEDS: IPRATROPIUM-ALBUTEROL 3 ML NEB INHALATION SCH ×2 (09:47→11:49)
[2023-05-06] MEDS: BUDESONIDE 0.5 MG/2 ML NEBU INHALATION PRN (09:47)
[2023-05-06 11:31] LABS: Glucose,Whole Blood 95 mg/dL (70-110)
[2023-05-06 13:04] VITALS: BP 108/75; PULSE 77; RESP 16; TEMP 98.4
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
== END 2023-05-06 15:25 | disposition home health service (06) | DRG 871 ==
LOC: EC 04:34 → OBSVTOIN 07:11 → 4SSUR 07:11 → 3SCARD 13:39
PROVIDERS: ADMIT Hospitalist; ATTEND Hospitalist
DX: A41.9 Sepsis, unspecified organism (principal); G93.41 Metabolic encephalopathy; J96.01 Acute respiratory failure with hypoxia; J69.0 Pneumonitis due to inhalation of food and vomit; J15.9 Unspecified bacterial pneumonia; T85.528A Displacement of other gastrointestinal prosthetic devices, implants and grafts, initial encounter; G81.91 Hemiplegia, unspecified affecting right dominant side; K94.29 Other complications of gastrostomy; L89.212 Pressure ulcer of right hip, stage 2; L89.222 Pressure ulcer of left hip, stage 2; G40.909 Epilepsy, unspecified, not intractable, without status epilepticus; F32.A Depression, unspecified; R13.10 Dysphagia, unspecified; H54.61 Unqualified visual loss, right eye, normal vision left eye; R47.02 Dysphasia; Y73.1 Therapeutic (nonsurgical) and rehabilitative gastroenterology and urology devices associated with adverse incidents; Z87.891 Personal history of nicotine dependence; Z79.899 Other long term (current) drug therapy; Z87.820 Personal history of traumatic brain injury; Z86.14 Personal history of Methicillin resistant Staphylococcus aureus infection; Z87.01 Personal history of pneumonia (recurrent)
CPT/HCPCS: 43762; 71045; 71046; 74018; 80048; 80053; 83036; 83605; 83735; 83880; 84100; 84145; 84484; 85025; 85610; 85730; 86140; 87040; 87634; 94640; 94760; 96361; 96365; 96367; 96368; 99284; 99285

== ENCOUNTER 2023-05-08 00:29 | Inpatient (IN) | payer MEDICARE, OTHER ==
[2023-05-08 00:39] LABS: Glucose,Whole Blood 135 mg/dL (70-110)
[2023-05-08 00:56] LABS: Allen Test Performed? Yes
[2023-05-08 01:01] LABS: Basophils % (A) 0 %; Eosinophils # (A) 0.1 k/uL (0-0.7); Eosinophils % (A) 1 %; HCT 40.7 % (39.0-53.0); HGB 13.7 gm/dL (13.0-17.5); Lymphocytes # (A) 0.8 k/uL (1.0-4.8); Lymphocytes % (A) 6 %; MCHC 33.8 g/dL (31.0-37.0); MCV 97.6 fL (80.0-100.0); Mean Platelet Volume 7.9; Monocytes # (A) 0.7 k/uL (0-1.0); Monocytes % (A) 6 %; Neutrophils # (A) 10.5 k/uL (1.3-7.7); Neutrophils % (A) 86 %; Platelet Count 378 k/uL (150-450); RBC 4.17 m/uL (4.30-5.90); RDW 12.4 % (11.5-15.5); WBC 12.2 k/uL (3.8-10.6)
[2023-05-08 01:01] LABS: ABG Base Excess 1.7 mmol/L; ABG HCO3 27 mmol/L (21-25); ABG Oxygen Saturation 96.2 % (94-97); ABG PCO2 44 mmHg (35-45); ABG PH 7.39 (7.35-7.45); ABG PO2 82 mmHg (83-108); ABG TCO2 28 mmol/L (19-24)
[2023-05-08 01:08] LABS: INR 0.9 (<1.2); Partial Thromboplastin Time 22.9 sec (22.0-30.0)
[2023-05-08 01:10] LABS: ABG HCO3 26 mmol/L (21-25); ABG PCO2 50 mmHg (35-45); ABG PH 7.32 (7.35-7.45); ABG PO2 76 mmHg (83-108); ABG TCO2 28 mmol/L (19-24); Allen Test Performed? Yes
[2023-05-08 01:13] LABS: ALT 52 U/L (4-49); AST 66 U/L (17-59); African American GFR (CKD) >90 (>60 ml/min/1.73 sqM); Albumin 3.5 g/dL (3.5-5.0); Alkaline Phosphatase 71 U/L (38-126); Anion Gap 14 mmol/L; Blood Urea Nitrogen 34 mg/dL (9-20); Calcium 8.5 mg/dL (8.4-10.2); Carbon Dioxide 22 mmol/L (22-30); Chloride 102 mmol/L (98-107); Glucose 139 mg/dL (74-99); Non-African American GFR(CKD) >90 (>60 ml/min/1.73 sqM); Potassium 4.9 mmol/L (3.5-5.1); Sodium 138 mmol/L (137-145); Total Bilirubin 0.4 mg/dL (0.2-1.3); Total Protein 7.3 g/dL (6.3-8.2)
[2023-05-08 01:21] LABS: NT-Pro-B-Type Natriuretic Pept 78 pg/mL
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
[2023-05-08] MEDS ORDERED: NALOXONE 0.4 MG/ML 1 ML VIAL IV PRN (03:13)
[2023-05-08] MEDS ORDERED: LEVOFLOXACIN 750MG-D5W PMX 750 MG in DEXTROSE/WATER 1 150ML.BAG IVPB STA (03:16)
[2023-05-08] MEDS: IPRATROPIUM-ALBUTEROL 3 ML NEB INHALATION SCH ×5 (03:23→20:05)
--- NOTE | 2023-05-08 05:58 | XR ---
EXAM: XR Chest, 1 View CLINICAL HISTORY: sob TECHNIQUE: Frontal view of the chest. COMPARISON: 05/06/2023 FINDINGS: Patient is rotated to the right. Heart is normal in size. No CHF. Hypoventilation with asymmetric right perihilar atelectasis versus infiltrate. No pleural effusion or pneumothorax. Bones are unchanged. IMPRESSION: Hypoventilation with asymmetric right perihilar atelectasis versus infiltrate.
[2023-05-08] MEDS ORDERED: ALBUTEROL NEBULIZED 2.5 MG/3 ML INHALATION PRN (07:15)
[2023-05-08] MEDS ORDERED: IPRATROPIUM 0.5 MG/2.5 ML NEBU INHALATION PRN (07:15)
[2023-05-08] MEDS ORDERED: ONDANSETRON 4 MG/2 ML VIAL IVP PRN (07:17)
[2023-05-08] MEDS ORDERED: IPRATROPIUM-ALBUTEROL 3 ML NEB INHALATION PRN (07:26)
[2023-05-08] MEDS: SCOPOLAMINE 1 MG/72 HR PATCH TRANSDERM SCH (07:44)
[2023-05-08] MEDS ORDERED: PIPERACILLIN-TAZOBACTAM 3.375 GM in SODIUM CHLORIDE 0.9% 100 ML IVPB ONE (08:00)
[2023-05-08] MEDS: CITALOPRAM HYDROBROMIDE 20 MG TAB PEG/G-TUBE SCH (10:02)
[2023-05-08] MEDS: lamoTRIgine 100 MG TAB PEG/G-TUBE SCH ×2 (10:02→22:56)
[2023-05-08] MEDS: PANTOPRAZOLE 40 MG/10 ML VIAL IVP SCH ×2 (10:02→22:56)
[2023-05-08] MEDS: GLYCOPYRROLATE 1 MG TAB PEG/G-TUBE SCH ×2 (10:02→22:57)
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
[2023-05-08] MEDS: PIPERACILLIN-TAZOBACTAM 3.375 GM in SODIUM CHLORIDE 0.9% 100 ML IVPB SCH (15:23)
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
[2023-05-08] MEDS: HEPARIN SODIUM,PORCINE 5,000 UNIT/ML 1 ML VIAL SQ SCH (22:56)
[2023-05-09] MEDS: PIPERACILLIN-TAZOBACTAM 3.375 GM in SODIUM CHLORIDE 0.9% 100 ML IVPB SCH ×3 (01:02→15:43)
[2023-05-09] MEDS: IPRATROPIUM-ALBUTEROL 3 ML NEB INHALATION SCH ×5 (01:11→21:39)
[2023-05-09] MEDS: PANTOPRAZOLE 40 MG/10 ML VIAL IVP SCH ×2 (09:01→21:57)
[2023-05-09] MEDS: CITALOPRAM HYDROBROMIDE 20 MG TAB PEG/G-TUBE SCH (09:02)
[2023-05-09] MEDS: lamoTRIgine 100 MG TAB PEG/G-TUBE SCH ×2 (09:02→22:29)
[2023-05-09] MEDS: HEPARIN SODIUM,PORCINE 5,000 UNIT/ML 1 ML VIAL SQ SCH ×2 (09:02→21:57)
[2023-05-09] MEDS: GLYCOPYRROLATE 1 MG TAB PEG/G-TUBE SCH ×2 (09:03→22:29)
[2023-05-09 09:05] LABS: Basophils # (A) 0.03 X 10*3/uL (0.00-0.10); Basophils % (A) 0.5 %; Eosinophils % (A) 9.7 %; HCT 37.2 % (39.6-50.0); Lymphocytes # (A) 1.24 X 10*3/uL (0.90-5.00); MCH 31.3 pg (27.0-32.0); MCHC 32.3 d/dL (32.0-37.0); MCV 97.1 FL (80.0-97.0); Mean Platelet Volume 9.4 FL (9.5-12.2); Monocytes # (A) 0.58 X 10*3/uL (0.20-1.00); Monocytes % (A) 9.4 %; NRBC Per 100 WBC 0 X 10*3/uL (0.00-0.01); Neutrophils # (A) 3.72 X 10*3/uL (1.80-7.70); Neutrophils % (A) 60.1 %; Platelet Count 349 X 10*3/uL (140-440); RBC 3.83 X 10*6/uL (4.40-5.60); RDW 12.4 % (11.5-14.5); WBC 6.19 X 10*3/uL (4.50-10.00)
[2023-05-09 09:25] LABS: ALT 37 U/L (10-49); AST 40 U/L (14-35); Albumin 3.2 d/dL (3.8-4.9); Alkaline Phosphatase 59 U/L (41-126); Blood Urea Nitrogen 15.4 mg/dL (9.0-27.0); Carbon Dioxide 24.6 mmol/L (21.6-31.8); Chloride 104 mmol/L (96-109); Globulin 3.2 d/dL (1.6-3.3); Glucose 72 mg/dL (70-110); Potassium 4.5 mmol/L (3.5-5.5); Sodium 139 mmol/L (135-145); Total Bilirubin 0.3 mg/dL (0.3-1.2); Total Protein 6.4 d/dL (6.2-8.2)
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
[2023-05-09] MEDS: IBUPROFEN 600 MG TAB PO PRN (15:39)
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
[2023-05-10] MEDS: PIPERACILLIN-TAZOBACTAM 3.375 GM in SODIUM CHLORIDE 0.9% 100 ML IVPB SCH ×3 (01:28→14:53)
[2023-05-10] MEDS: IPRATROPIUM-ALBUTEROL 3 ML NEB INHALATION SCH ×4 (08:06→20:19)
[2023-05-10] MEDS: BUDESONIDE 0.5 MG/2 ML NEBU INHALATION PRN (08:06)
[2023-05-10] MEDS: PANTOPRAZOLE 40 MG/10 ML VIAL IVP SCH ×2 (08:39→23:07)
[2023-05-10] MEDS: GLYCOPYRROLATE 1 MG TAB PEG/G-TUBE SCH ×2 (08:40→23:06)
[2023-05-10] MEDS: lamoTRIgine 100 MG TAB PEG/G-TUBE SCH ×2 (08:40→23:06)
[2023-05-10] MEDS: CITALOPRAM HYDROBROMIDE 20 MG TAB PEG/G-TUBE SCH (08:40)
[2023-05-10] MEDS: HEPARIN SODIUM,PORCINE 5,000 UNIT/ML 1 ML VIAL SQ SCH ×2 (08:40→23:06)
--- NOTE | 2023-05-10 11:14 | XR ---
EXAMINATION TYPE: XR chest 1V portable DATE OF EXAM: 05/10/2023 10:17 AM COMPARISON: Chest radiographs from 05/08/2023 TECHNIQUE: XR chest 1V portable Frontal view of the chest. CLINICAL INDICATION:Male, 58 years old with history of short of breath; FINDINGS: Lungs/Pleura: Similar multifocal airspace opacities. No evidence of pneumothorax or pleural effusion. Pulmonary vascularity: Unremarkable. Heart/mediastinum: Cardiomediastinal silhouette is unremarkable. Musculoskeletal: No acute osseous pathology. IMPRESSION: Improved from 05/03/2023 right basilar airspace opacities.
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
[2023-05-10] MEDS: IBUPROFEN 600 MG TAB PO PRN (14:49)
[2023-05-10 19:58] LABS: Glucose,Whole Blood 119 mg/dL (70-110)
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
[2023-05-11] MEDS: PIPERACILLIN-TAZOBACTAM 3.375 GM in SODIUM CHLORIDE 0.9% 100 ML IVPB SCH ×3 (00:20→16:15)
[2023-05-11 07:03] LABS: ALT 28 U/L (4-49); AST 28 U/L (17-59); African American GFR (CKD) >90 (>60 ml/min/1.73 sqM); Albumin 3.2 g/dL (3.5-5.0); Albumin/Globulin Ratio 0.9; Alkaline Phosphatase 58 U/L (38-126); Anion Gap 9 mmol/L; Blood Urea Nitrogen 15 mg/dL (9-20); C Reactive Protein 0.9 mg/dL (<1.0); Calcium 8.6 mg/dL (8.4-10.2); Carbon Dioxide 26 mmol/L (22-30); Chloride 106 mmol/L (98-107); Globulin 3.7 g/dL; Glucose 114 mg/dL (74-99); Non-African American GFR(CKD) >90 (>60 ml/min/1.73 sqM); Potassium 4.3 mmol/L (3.5-5.1); Sodium 141 mmol/L (137-145); Total Bilirubin 0.3 mg/dL (0.2-1.3); Total Protein 6.9 g/dL (6.3-8.2)
--- NOTE | 2023-05-11 07:05 | PN ---
PROGRESS NOTE DATE OF SERVICE: 05/10/2023 SUBJECTIVE: This is a 58-year-old gentleman, who was admitted with possible aspiration pneumonia and possible sepsis also present on admission. The patient is on IV antibiotics rhonchi. Chest x-ray was reviewed. Pulmonary is following the patient closely. Cultures are negative so far. PAST MEDICAL HISTORY: Reviewed. CURRENT MEDICATIONS: Reviewed include IV Zosyn, rest of medication noted. PHYSICAL EXAMINATION: VITAL SIGNS: Pulse is 73, blood pressure 110/62, respirations 18. HEENT: Conjunctivae normal. NECK: No jugular venous distention. RESPIRATION: A few scattered rhonchi. ABDOMEN: Soft. PEG tube in situ. NERVOUS SYSTEM: Unable to cooperate. ASSESSMENT: 1. Acute bilateral aspiration pneumonia with sepsis present on admission. 2. Status post PEG tube feeds. 3. Acute hypoxic respiratory failure secondary to aspiration pneumonia, status post BiPAP. 4. Depression. 5. Right hip pressure ulcer stage II, present on admission. 6. Left hip pressure ulcer stage II, present on admission. 7. Multiple medical issues. RECOMMENDATIONS: Recommend to continue current management and continue with antibiotics. Otherwise, aspiration precautions . Follow the cultures closely. Follow with multiple consultants. Prognosis guarded. Further recommendations to follow. MMODL / IJN: [id number] / JAVAD
[2023-05-11 07:25] LABS: Glucose,Whole Blood 97 mg/dL (70-110)
[2023-05-11] MEDS ORDERED: DEXTROSE 50% SYRINGE 50 ML IVP PRN ×2 (07:30)
[2023-05-11] MEDS: IPRATROPIUM-ALBUTEROL 3 ML NEB INHALATION SCH ×4 (08:10→20:39)
[2023-05-11] MEDS: BUDESONIDE 0.5 MG/2 ML NEBU INHALATION PRN (08:10)
[2023-05-11] MEDS: CITALOPRAM HYDROBROMIDE 20 MG TAB PEG/G-TUBE SCH (08:48)
[2023-05-11] MEDS: lamoTRIgine 100 MG TAB PEG/G-TUBE SCH ×2 (08:48→20:55)
[2023-05-11] MEDS: IBUPROFEN 600 MG TAB PO PRN ×2 (08:48→16:14)
[2023-05-11] MEDS: GLYCOPYRROLATE 1 MG TAB PEG/G-TUBE SCH ×2 (08:49→20:55)
[2023-05-11] MEDS: HEPARIN SODIUM,PORCINE 5,000 UNIT/ML 1 ML VIAL SQ SCH ×2 (08:49→20:55)
[2023-05-11] MEDS: PANTOPRAZOLE 40 MG/10 ML VIAL IVP SCH ×2 (08:49→20:55)
[2023-05-11] MEDS: SCOPOLAMINE 1 MG/72 HR PATCH TRANSDERM SCH (08:49)
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
[2023-05-11 10:58] LABS: Basophils # (A) 0.03 X 10*3/uL (0.00-0.10); Basophils % (A) 0.4 %; Eosinophils # (A) 0.32 X 10*3/uL (0.04-0.35); Eosinophils % (A) 4.8 %; HGB 13.1 d/dL (13.0-17.0); Lymphocytes # (A) 1.53 X 10*3/uL (0.90-5.00); Lymphocytes % (A) 22.9 %; MCH 32.3 pg (27.0-32.0); MCHC 33.6 d/dL (32.0-37.0); MCV 96.3 FL (80.0-97.0); Mean Platelet Volume 9.1 FL (9.5-12.2); Monocytes # (A) 0.69 X 10*3/uL (0.20-1.00); Monocytes % (A) 10.3 %; NRBC Per 100 WBC 0 X 10*3/uL (0.00-0.01); Neutrophils # (A) 4.08 X 10*3/uL (1.80-7.70); Neutrophils % (A) 61.3 %; Platelet Count 450 X 10*3/uL (140-440); RBC 4.05 X 10*6/uL (4.40-5.60); RDW 12.7 % (11.5-14.5); WBC 6.67 X 10*3/uL (4.50-10.00)
[2023-05-11] MEDS: INSULIN ASPART (NovoLOG) 100 UNIT/ML VIAL SQ SCH ×2 (13:06→17:34)
[2023-05-11 13:07] LABS: Glucose,Whole Blood 132 mg/dL (70-110)
[2023-05-11 17:08] LABS: Glucose,Whole Blood 106 mg/dL (70-110)
--- NOTE | 2023-05-11 20:34 | PN ---
PROGRESS NOTE DATE OF SERVICE: 05/11/2023 SUBJECTIVE: This is a 58-year-old gentleman, who was admitted with acute bilateral aspiration pneumonia, also had PEG tube feeds. No chest pain. No palpitation. OBJECTIVE: VITAL SIGNS: Pulse is 87, blood pressure 120/70, respirations 20. CHEST: A few scattered rhonchi and crackles. ABDOMEN: Soft. PEG tube in situ. NERVOUS SYSTEM: Unchanged. LABORATORY DATA: Reviewed. ASSESSMENT: 1. Acute bilateral aspiration pneumonia with sepsis present on admission. 2. Status post PEG tube feeds. 3. Acute hypoxic respiratory failure secondary to aspiration pneumonia, status post BiPAP, present on admission. 4. Depression. 5. Right hip pressure ulcer stage II, present on admission. 6. Left hip pressure ulcer stage II, present on admission. 7. Multiple medical issues. RECOMMENDATIONS: Recommend to continue current management and continue symptomatic treatment. Continue with bronchodilators. Continue with antibiotics. Closely follow with multiple consultants. PT, OT evaluation, possible rehab. Further recommendations to follow. MMODL / IJN: [id number] /
[2023-05-12 00:03] LABS: Glucose,Whole Blood 104 mg/dL (70-110)
[2023-05-12] MEDS: PIPERACILLIN-TAZOBACTAM 3.375 GM in SODIUM CHLORIDE 0.9% 100 ML IVPB SCH ×4 (00:30→23:58)
[2023-05-12] MEDS: INSULIN ASPART (NovoLOG) 100 UNIT/ML VIAL SQ SCH ×5 (00:31→23:59)
[2023-05-12 06:00] LABS: Glucose,Whole Blood 95 mg/dL (70-110)
[2023-05-12 07:07] LABS: Glucose,Whole Blood 97 mg/dL (70-110)
[2023-05-12] MEDS: IPRATROPIUM-ALBUTEROL 3 ML NEB INHALATION SCH ×4 (07:50→20:38)
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
[2023-05-12] MEDS: lamoTRIgine 100 MG TAB PEG/G-TUBE SCH ×2 (10:40→21:17)
[2023-05-12] MEDS: CITALOPRAM HYDROBROMIDE 20 MG TAB PEG/G-TUBE SCH (10:40)
[2023-05-12] MEDS: GLYCOPYRROLATE 1 MG TAB PEG/G-TUBE SCH ×2 (10:40→21:17)
[2023-05-12] MEDS: PANTOPRAZOLE 40 MG/10 ML VIAL IVP SCH ×2 (10:41→21:17)
[2023-05-12] MEDS: HEPARIN SODIUM,PORCINE 5,000 UNIT/ML 1 ML VIAL SQ SCH ×2 (10:41→21:17)
[2023-05-12 12:05] LABS: Glucose,Whole Blood 86 mg/dL (70-110)
[2023-05-12] MEDS ORDERED: PROPOFOL 10 MG/ML 20 ML VIAL IV ONE (13:19)
[2023-05-12] MEDS ORDERED: LIDOCAINE 2% INJ 20 MG/ML (2 ML VIAL) ONE (13:19)
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
[2023-05-12] MEDS ORDERED: IV FLUID CONTINUATION 1,000 ML IV ONE (13:24)
[2023-05-12] MEDS ORDERED: LIDOCAINE 2% INJ 20 MG/ML INTRATRACH ONE (13:32)
--- NOTE | 2023-05-12 15:16 | OP ---
OPERATIVE REPORT DATE OF SERVICE : PROCEDURES PERFORMED: Bronchoscopy and random bronchoalveolar lavage and bronchial washing of all the different lobes. PREOPERATIVE DIAGNOSES: 1. Aspiration pneumonia. 2. Unable to clear secretions. 3. Mucus plugging, expected. POSTOPERATIVE DIAGNOSES: 1. Aspiration pneumonia. 2. Unable to clear secretions. 3. Mucus plugging, expected. ANESTHESIA USED: IV conscious sedation. CAMPUS SAFETY OFFICER: Dr. Dee Whelan. DESCRIPTION OF PROCEDURE: The patient was placed in the supine position. O2 was applied via a Ventimask. JACK MACHINE OPERATOR administered his IV conscious sedation. We monitored his O2 saturation continuously. Blood pressure was intermittently monitored, and cardiac rhythm was continuously monitored. After adequate IV conscious sedation, the bronchoscope was inserted through the right naris after lidocaine was applied topically in the right naris. Then, the bronchoscope was advanced down to the area of the vocal cords. Significant thick purulent secretions and mucus plugs noted around the vocal cords, and these were suctioned with difficulty, but clear. Lidocaine was applied over the vocal cords, and the bronchoscope was advanced further down to the trachea. Thorough examination was done of the trachea, jerod, right upper lobe, right middle lobe, right lower lobe, left upper lobe, lingula, and left lower lobe. There was evidence of significant thick purulent secretions and mucus plugs noted throughout. These were suctioned and lavaged from the different lobes and from the distal trachea. Fluid was sent for different diagnostic studies. Procedure was well tolerated. No complications. No evidence of any endobronchial tumors. MMODL / IJN: [id number] /
[2023-05-12] MEDS: IBUPROFEN 600 MG TAB PO PRN ×2 (15:40→22:58)
[2023-05-12 17:12] LABS: Glucose,Whole Blood 106 mg/dL (70-110)
[2023-05-12 23:57] LABS: Glucose,Whole Blood 87 mg/dL (70-110)
[2023-05-13 05:49] LABS: Glucose,Whole Blood 98 mg/dL (70-110)
[2023-05-13] MEDS: INSULIN ASPART (NovoLOG) 100 UNIT/ML VIAL SQ SCH ×3 (05:49→17:59)
[2023-05-13 06:53] LABS: Basophils % (A) 0 %; Eosinophils # (A) 0.3 k/uL (0-0.7); Eosinophils % (A) 3 %; HCT 40.7 % (39.0-53.0); HGB 13.5 gm/dL (13.0-17.5); Lymphocytes # (A) 1.4 k/uL (1.0-4.8); Lymphocytes % (A) 14 %; MCH 32.3 pg (25.0-35.0); MCHC 33.1 g/dL (31.0-37.0); MCV 97.6 fL (80.0-100.0); Mean Platelet Volume 7.5; Monocytes # (A) 0.5 k/uL (0-1.0); Monocytes % (A) 5 %; Neutrophils # (A) 7.6 k/uL (1.3-7.7); Neutrophils % (A) 77 %; Platelet Count 414 k/uL (150-450); RBC 4.17 m/uL (4.30-5.90); RDW 13.1 % (11.5-15.5); WBC 9.9 k/uL (3.8-10.6)
[2023-05-13 07:10] LABS: African American GFR (CKD) >90 (>60 ml/min/1.73 sqM); Anion Gap 6 mmol/L; Blood Urea Nitrogen 20 mg/dL (9-20); Carbon Dioxide 28 mmol/L (22-30); Chloride 108 mmol/L (98-107); Glucose 111 mg/dL (74-99); Magnesium 2.1 mg/dL (1.6-2.3); Non-African American GFR(CKD) >90 (>60 ml/min/1.73 sqM); Potassium 4.2 mmol/L (3.5-5.1); Sodium 142 mmol/L (137-145)
[2023-05-13 07:20] LABS: Glucose,Whole Blood 116 mg/dL (70-110)
[2023-05-13 07:24] LABS: Appearance,BF Turbid (Clear); RBC, Body Fluid 26250 /UL (0-2000)
[2023-05-13] MEDS: IPRATROPIUM-ALBUTEROL 3 ML NEB INHALATION SCH ×4 (07:51→20:46)
[2023-05-13] MEDS: PIPERACILLIN-TAZOBACTAM 3.375 GM in SODIUM CHLORIDE 0.9% 100 ML IVPB SCH ×2 (08:23→16:23)
[2023-05-13] MEDS: HEPARIN SODIUM,PORCINE 5,000 UNIT/ML 1 ML VIAL SQ SCH ×2 (08:23→20:58)
[2023-05-13] MEDS: GLYCOPYRROLATE 1 MG TAB PEG/G-TUBE SCH ×2 (08:24→20:58)
[2023-05-13] MEDS: CITALOPRAM HYDROBROMIDE 20 MG TAB PEG/G-TUBE SCH (08:24)
[2023-05-13] MEDS: lamoTRIgine 100 MG TAB PEG/G-TUBE SCH ×2 (08:24→20:58)
[2023-05-13] MEDS: PANTOPRAZOLE 40 MG/10 ML VIAL IVP SCH ×2 (09:24→20:58)
[2023-05-13 11:16] LABS: Nucleated Cells, Body Fluid 4800 /UL
[2023-05-13 11:49] LABS: Glucose,Whole Blood 109 mg/dL (70-110)
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
[2023-05-13] MEDS: IBUPROFEN 600 MG TAB PO PRN (12:13)
[2023-05-13 13:52] VITALS: BMI 21.2
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
[2023-05-13 17:22] LABS: Glucose,Whole Blood 97 mg/dL (70-110)
[2023-05-13 23:54] LABS: Glucose,Whole Blood 96 mg/dL (70-110)
[2023-05-14] MEDS: INSULIN ASPART (NovoLOG) 100 UNIT/ML VIAL SQ SCH ×3 (00:07→13:09)
[2023-05-14] MEDS: PIPERACILLIN-TAZOBACTAM 3.375 GM in SODIUM CHLORIDE 0.9% 100 ML IVPB SCH ×2 (00:40→08:50)
[2023-05-14 05:56] LABS: Glucose,Whole Blood 102 mg/dL (70-110)
[2023-05-14 07:16] LABS: Glucose,Whole Blood 109 mg/dL (70-110)
--- NOTE | 2023-05-14 07:37 | P.PN ---
Subjective Progress Note Date: 05/11/23 Principal diagnosis: Asp Pneumonia Patient is a 58-year-old male with a past medical history significant for traumatic brain injury with right hemiplegia dysphagia did have a PEG tube for feeding recently admitted to the hospital and was treated for aspiration pneumonia with sepsis patient was treated with Zosyn, subsequent discharged home on Augmentin presented back to the hospital worsening symptoms not concerning for recurrent aspiration pneumonia. On today's evaluation that is 05/11/2023 the patient remains to be afebrile, patient seem to be breathing slightly comfortably and is currently on 3 L nasal cannula oxygen patient continued to have a congested cough but not bringing up any sputum no vomiting or diarrhea has been reported. Patient did have a normal vitamin 6.67 admission white count was 12.2, creatinine 0.56 procalcitonin 0.11 blood cultures so far negative sputum not collected Objective - Vital Signs Vital signs: Vital Signs Temp 99.2 F 05/11/23 07:05 Pulse 92 05/11/23 12:41 Resp 20 05/11/23 07:05 BP 154/72 05/11/23 07:05 Pulse Ox 92 L 05/11/23 08:10 FiO2 40 05/08/23 10:52 Intake & Output 05/10/23 05/11/23 05/11/23 18:59 06:59 18:59 Intake Total 0 Balance 0 Weight 58.967 kg Intake: Tube Feeding 0 Other: Voiding Method Diaper Diaper Diaper # Voids 2 2 - Exam GENERAL DESCRIPTION: Middle-age male lying in bed in no distress RESPIRATORY SYSTEM: Unlabored breathing , coarse breath sounds bilaterally HEART: S1 S2 regular rate and rhythm ,no loud murmurs ABDOMEN: Soft , no tenderness EXTREMITIES: No edema feet - Labs CBC & Chem 7: 05/13/23 06:29 05/13/23 06:29 Labs: Abnormal Lab Results - Last 24 Hours (Table) 05/10/23 05/11/23 05/11/23 Range/Units 19:57 06:10 06:10 RBC 4.05 L (4.40-5.60) X 10*6/uL Hct 39.0 L (39.6-50.0) % MCH 32.3 H (27.0-32.0) pg Plt Count 450 H (140-440) X 10*3/uL MPV 9.1 L (9.5-12.2) FL Creatinine 0.56 L (0.66-1.25) mg/dL Glucose 114 H (74-99) mg/dL POC Glucose (mg/dL) 119 H (70-110) mg/dL Albumin 3.2 L (3.5-5.0) g/dL Procalcitonin (0.02-0.09) ng/mL 05/11/23 05/11/23 Range/Units 06:10 13:05 RBC (4.40-5.60) X 10*6/uL Hct (39.6-50.0) % MCH (27.0-32.0) pg Plt Count (140-440) X 10*3/uL MPV (9.5-12.2) FL Creatinine (0.66-1.25) mg/dL Glucose (74-99) mg/dL POC Glucose (mg/dL) 132 H (70-110) mg/dL Albumin (3.5-5.0) g/dL Procalcitonin 0.11 H (0.02-0.09) ng/mL Microbiology - Last 24 Hours (Table) 05/08/23 04:00 Blood Culture - Preliminary Blood 05/08/23 03:45 Blood Culture - Preliminary Blood Assessment and Plan (1) Aspiration pneumonia Current Visit: Yes Status: Acute Code(s): J69.0 - PNEUMONITIS DUE TO INHALATION OF FOOD AND VOMIT SNOMED Code(s): 459401435 Plan: 1patient is in the hospital with increasing shortness of breath concerning for possible aspiration pneumonia with a recent similar admission to the hospital responded to Zosyn cultures negative failing outpatient oral Augmentin therapy and question of possible recurrent aspiration, however repeat chest x-ray shows overall improvement 2unable to get a sputum blood culture for negative procalcitonin mildly elevated patient scheduled for bronchoscopy tomorrow. 3we will continue patient on Zosyn while waiting for the bronchoscopy and culture to be finalized to determine his discharge antibiotics Dictation was produced using [employer] dictation software. please excuse any grammatical, word or spelling errors. Time with Patient: Less than 30
--- NOTE | 2023-05-14 07:39 | P.PN ---
Subjective Progress Note Date: 05/12/23 Principal diagnosis: Asp Pneumonia Patient is a 58-year-old male with a past medical history significant for traumatic brain injury with right hemiplegia dysphagia did have a PEG tube for feeding recently admitted to the hospital and was treated for aspiration pneumonia with sepsis patient was treated with Zosyn, subsequent discharged home on Augmentin presented back to the hospital worsening symptoms not concerning for recurrent aspiration pneumonia. On today's evaluation that is 05/12/2023 patient remains to be afebrile, the patient is breathing comfortably on 3 L nasal cannula oxygen patient is nonverbal however per the family at the bedside the patient did have a congested cough but not abdominal to bring up any sputum patient has been tolerating his tube feeds and no vomiting or diarrhea has been reported. Patient did have a normal white count of 6.67 yesterday no CBC is done today blood culture negative so far Objective - Vital Signs Vital signs: Vital Signs Temp 97.6 F 05/12/23 07:10 Pulse 100 05/12/23 11:29 Resp 16 05/12/23 07:10 BP 134/79 05/12/23 07:10 Pulse Ox 87 L 05/12/23 07:10 FiO2 40 05/12/23 00:38 Intake & Output 05/11/23 05/12/23 05/12/23 18:59 06:59 18:59 Intake Total 575 Balance 575 Intake: Intake, IV Titration 100 Amount Piperacillin-Tazobactam 3 100 .375 gm In Sodium Chloride 0.9% 100 ml @ 25 mls/hr IVPB Q8HR [facility] Rx# :[id number] Tube Feeding 475 Other: Voiding Method Diaper Diaper # Voids 2 - Exam GENERAL DESCRIPTION: Middle-age male lying in bed in no distress RESPIRATORY SYSTEM: Unlabored breathing , coarse breath sounds bilaterally HEART: S1 S2 regular rate and rhythm ,no loud murmurs ABDOMEN: Soft , no tenderness EXTREMITIES: No edema feet - Labs CBC & Chem 7: 05/13/23 06:29 05/13/23 06:29 Labs: Abnormal Lab Results - Last 24 Hours (Table) 05/11/23 Range/Units 13:05 POC Glucose (mg/dL) 132 H (70-110) mg/dL Microbiology - Last 24 Hours (Table) 05/08/23 04:00 Blood Culture - Preliminary Blood 05/08/23 03:45 Blood Culture - Preliminary Blood Assessment and Plan (1) Aspiration pneumonia Current Visit: Yes Status: Acute Code(s): J69.0 - PNEUMONITIS DUE TO INHALATION OF FOOD AND VOMIT SNOMED Code(s): 875560392 Plan: 1patient is in the hospital with increasing shortness of breath concerning for possible aspiration pneumonia with a recent similar admission to the hospital responded to Zosyn cultures negative failing outpatient oral Augmentin therapy and question of possible recurrent aspiration, however repeat chest x-ray shows overall improvement 2Patient is scheduled for bronchoscopy this afternoon and lavage cultures will be followed. 3patient will continue with the Zosyn while waiting for bronchoscopy culture to finalize to determine discharge antibiotics family at the bedside question concern answered Dictation was produced using [employer] dictation software. please excuse any grammatical, word or spelling errors. Time with Patient: Less than 30
--- NOTE | 2023-05-14 07:41 | P.PN ---
Subjective Progress Note Date: 05/13/23 Principal diagnosis: Asp Pneumonia Patient is a 58-year-old male with a past medical history significant for traumatic brain injury with right hemiplegia dysphagia did have a PEG tube for feeding recently admitted to the hospital and was treated for aspiration pneumonia with sepsis patient was treated with Zosyn, subsequent discharged home on Augmentin presented back to the hospital worsening symptoms not concerning for recurrent aspiration pneumonia.The patient is status post bronchoscopy and lavage on 05/12/2023. On today's evaluation that is 05/13/2023 the patient remains to be afebrile, the patient is breathing comfortably on 3 L nasal cannula oxygen patient does not seem to be any distressed no matting or diarrhea has been reported he is not able to provide reliable history. Patient did have a white count of 9.9 creatinine 0.63 blood culture 4 negative bronchial washing cultures are currently pending Objective - Vital Signs Vital signs: Vital Signs Temp 98.5 F 05/13/23 07:00 Pulse 83 05/13/23 08:01 Resp 16 05/13/23 08:00 BP 112/62 05/13/23 07:00 Pulse Ox 91 L 05/13/23 07:00 FiO2 40 05/12/23 00:38 Intake & Output 05/12/23 05/13/23 05/13/23 18:59 06:59 18:59 Intake Total 200 820 Balance 200 820 Weight 51 kg Intake: IV 200 Intake, IV Titration 100 Amount Piperacillin-Tazobactam 3 100 .375 gm In Sodium Chloride 0.9% 100 ml @ 25 mls/hr IVPB Q8HR [facility] Rx# :[id number] Tube Feeding 600 Other 120 Other: Voiding Method Diaper Diaper # Voids 1 3 - Exam GENERAL DESCRIPTION: Middle-age male lying in bed in no distress RESPIRATORY SYSTEM: Unlabored breathing , coarse breath sounds bilaterally HEART: S1 S2 regular rate and rhythm ,no loud murmurs ABDOMEN: Soft , no tenderness EXTREMITIES: No edema feet - Labs CBC & Chem 7: 05/13/23 06:29 05/13/23 06:29 Labs: Abnormal Lab Results - Last 24 Hours (Table) 05/12/23 05/13/23 05/13/23 Range/Units 13:35 06:29 06:29 RBC 4.17 L (4.30-5.90) m/uL Chloride 108 H (98-107) mmol/L Creatinine 0.63 L (0.66-1.25) mg/dL Glucose 111 H (74-99) mg/dL POC Glucose (mg/dL) (70-110) mg/dL Fluid Appearance Turbid A (Clear) [place] 8[address]23 H (0-2000) /uL 05/13/23 Range/Units 07:18 RBC (4.30-5.90) m/uL Chloride (98-107) mmol/L Creatinine (0.66-1.25) mg/dL Glucose (74-99) mg/dL POC Glucose (mg/dL) 116 H (70-110) mg/dL Fluid Appearance (Clear) Fluid RBC (0-2000) /uL Assessment and Plan (1) Aspiration pneumonia Current Visit: Yes Status: Acute Code(s): J69.0 - PNEUMONITIS DUE TO INHALATION OF FOOD AND VOMIT SNOMED Code(s): 546911817 Plan: 1patient is in the hospital with increasing shortness of breath concerning for possible aspiration pneumonia with a recent similar admission to the hospital responded to Zosyn cultures negative failing outpatient oral Augmentin therapy and question of possible recurrent aspiration, however repeat chest x-ray shows overall improvement 2Patient is status post bronchoscopy and lavage on 05/12/2023 the cultures currently pending. 3patient seem to have shown some clinical improvement and we will continue patient on Zosyn while waiting for the culture to finalize to determine discharge antibiotics Dictation was produced using [employer] dictation software. please excuse any grammatical, word or spelling errors. Time with Patient: Less than 30
[2023-05-14] MEDS: IPRATROPIUM-ALBUTEROL 3 ML NEB INHALATION SCH ×2 (08:46→11:54)
[2023-05-14] MEDS: BUDESONIDE 0.5 MG/2 ML NEBU INHALATION PRN (08:46)
[2023-05-14] MEDS: SCOPOLAMINE 1 MG/72 HR PATCH TRANSDERM SCH (08:51)
[2023-05-14] MEDS: GLYCOPYRROLATE 1 MG TAB PEG/G-TUBE SCH (08:51)
[2023-05-14] MEDS: lamoTRIgine 100 MG TAB PEG/G-TUBE SCH (08:51)
[2023-05-14] MEDS: CITALOPRAM HYDROBROMIDE 20 MG TAB PEG/G-TUBE SCH (08:51)
[2023-05-14] MEDS: PANTOPRAZOLE 40 MG/10 ML VIAL IVP SCH (08:51)
[2023-05-14] MEDS: HEPARIN SODIUM,PORCINE 5,000 UNIT/ML 1 ML VIAL SQ SCH (08:51)
[2023-05-14] MEDS ORDERED: IPRATROPIUM-ALBUTEROL 3 ML NEB INHALATION PRN (10:00)
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
[2023-05-14 12:44] LABS: Glucose,Whole Blood 113 mg/dL (70-110)
[2023-05-14 13:12] VITALS: BP 126/67; PULSE 90; RESP 20; TEMP 97.5
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
[2023-05-14] MEDS ORDERED: BUDESONIDE 1 MG/2 ML NEBU INHALATION SCH (20:00)
== END 2023-05-14 14:50 | DRG 871 ==
LOC: EC 00:29 → 3SCARD 03:13 → 5NMEDONC 15:06
PROVIDERS: ADMIT Hospitalist; ATTEND Hospitalist
PROC: 0BCB8ZZ Extirpation of Matter from Left Lower Lobe Bronchus, Via Natural or Artificial Opening Endoscopic (ICD-10-PCS; principal; 2023-05-13)
PROC: 0BC68ZZ Extirpation of Matter from Right Lower Lobe Bronchus, Via Natural or Artificial Opening Endoscopic (ICD-10-PCS; 2023-05-13)
PROC: 0BD68ZX Extraction of Right Lower Lobe Bronchus, Via Natural or Artificial Opening Endoscopic, Diagnostic (ICD-10-PCS; 2023-05-13)
PROC: 0BDB8ZX Extraction of Left Lower Lobe Bronchus, Via Natural or Artificial Opening Endoscopic, Diagnostic (ICD-10-PCS; 2023-05-13)
PROC: 5A09357 Assistance with Respiratory Ventilation, Less than 24 Consecutive Hours, Continuous Positive Airway Pressure (ICD-10-PCS; 2023-05-13)
DX: A41.9 Sepsis, unspecified organism (principal); J69.0 Pneumonitis due to inhalation of food and vomit; J96.01 Acute respiratory failure with hypoxia; G81.91 Hemiplegia, unspecified affecting right dominant side; T17.590A Other foreign object in bronchus causing asphyxiation, initial encounter; F32.A Depression, unspecified; G40.909 Epilepsy, unspecified, not intractable, without status epilepticus; H54.61 Unqualified visual loss, right eye, normal vision left eye; L89.212 Pressure ulcer of right hip, stage 2; L89.222 Pressure ulcer of left hip, stage 2; R13.10 Dysphagia, unspecified; Z79.899 Other long term (current) drug therapy; Z82.49 Family history of ischemic heart disease and other diseases of the circulatory system; Z87.440 Personal history of urinary (tract) infections; Z93.1 Gastrostomy status; Z87.820 Personal history of traumatic brain injury; Z87.891 Personal history of nicotine dependence
CPT/HCPCS: 31624; 36410; 36415; 36600; 71045; 76937; 80048; 80053; 82805; 83605; 83735; 83880; 84145; 84484; 85025; 85610; 85730; 86140; 87040; 87070; 87102; 87116; 87205; 87206; 87496; 87498; 87502; 87529; 87634; 87798; 88108; 88305; 89050; 93005; 94640; 94660; 94760; 96365; 96366; 96367; 96375; 99291

== ENCOUNTER 2023-09-15 15:26 | Emergency (ER) | payer MEDICARE, OTHER ==
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
[2023-09-15] MEDS ORDERED: SODIUM CHLORIDE 0.9% 500 ML 500 ML IV STA (16:57)
[2023-09-15] MEDS ORDERED: SODIUM CHLORIDE 0.9% 1,000 ML IV STA (16:57)
[2023-09-15] MEDS ORDERED: LORazepam 2 MG/ML INJ IV STA (16:57)
[2023-09-15] MEDS ORDERED: MORPHINE SULFATE 4 MG/ML SYRINGE IVP STA (16:57)
[2023-09-15 18:03] LABS: Basophils # (A) 0.1 k/uL (0-0.2); Basophils % (A) 1 %; Eosinophils # (A) 0.7 k/uL (0-0.7); Eosinophils % (A) 8 %; HGB 15.8 gm/dL (13.0-17.5); Lymphocytes % (A) 23 %; MCH 33.4 pg (25.0-35.0); MCHC 33.5 g/dL (31.0-37.0); MCV 99.5 fL (80.0-100.0); Mean Platelet Volume 9.3; Monocytes # (A) 0.7 k/uL (0-1.0); Monocytes % (A) 8 %; Neutrophils % (A) 58 %; Platelet Count 258 k/uL (150-450); RBC 4.72 m/uL (4.30-5.90); RDW 13.2 % (11.5-15.5); WBC 8.6 k/uL (3.8-10.6)
[2023-09-15 18:18] LABS: ALT 26 U/L (4-49); AST 51 U/L (17-59); African American GFR (CKD) >90 (>60 ml/min/1.73 sqM); Albumin 3.8 g/dL (3.5-5.0); Alkaline Phosphatase 92 U/L (38-126); Amylase 58 U/L (30-110); Anion Gap 12 mmol/L; Blood Urea Nitrogen 24 mg/dL (9-20); Carbon Dioxide 23 mmol/L (22-30); Chloride 101 mmol/L (98-107); Glucose 71 mg/dL (74-99); Lipase 53 U/L (23-300); Non-African American GFR(CKD) >90 (>60 ml/min/1.73 sqM); Sodium 136 mmol/L (137-145); Total Bilirubin 0.9 mg/dL (0.2-1.3); Total Protein 7.2 g/dL (6.3-8.2)
[2023-09-15 18:34] LABS: Potassium 5.6 mmol/L (3.5-5.1)
[2023-09-15 19:43] VITALS: BP 101/67; PULSE 78; RESP 16; TEMP 97.3
--- NOTE | 2023-09-15 19:54 | XR ---
EXAMINATION TYPE: XR KUB portable DATE OF EXAM: 09/15/2023 7:14 PM CLINICAL INDICATION:Male, 58 years old with history of PEGoGram; [facility] COMPARISON: 05/02/2023 KUB TECHNIQUE AND FINDINGS: 30 mL of Isovue 300 was reportedly injected via the patient's indwelling PEG tube, a supine KUB showing the abdomen and pelvis was obtained and submitted for interpretation. Contrast injected through indwelling PEG tube partially fills the lumen of the stomach. Contrast appe ars to be intraluminal with no gross extravasation suggested, with limited assessment without orthogo nal views. The abdominal bowel gas pattern is nonobstructive. No dilated bowel or air-fluid levels. Moderate barb unt of stool throughout colon. No visible pneumoperitoneum. Osseous structures appear grossly intact as seen. Moderate degenerative changes of the mid to lower lumbar spine with mild levocurvature. Mode rate bilateral hip arthropathy. IMPRESSION: 1. PEG tube in place. No definite evidence of extra luminal contrast. 2. Nonspecific, likely nonobstructive bowel gas pattern. Moderate colonic stool, correlate for const ipation. 3. If concern persists, consider follow-up radiographs and/or CT.
== END 2023-09-15 19:27 | disposition home or self-care (01) ==
LOC: EC 15:26
DX: K94.23 Gastrostomy malfunction (principal); G40.909 Epilepsy, unspecified, not intractable, without status epilepticus; F32.A Depression, unspecified; Z79.899 Other long term (current) drug therapy; Z87.891 Personal history of nicotine dependence
CPT/HCPCS: 43762; 99284; 96374; 96375; 36415; 80053; 82150; 83690; 85025; 74018; J2060; J2270

== ENCOUNTER → 2023-11-25 | Outpatient (CLI) | payer MEDICARE, OTHER ==
--- NOTE | 2023-11-25 21:40 | FL ---
EXAMINATION TYPE: FL barium swallow w video DATE OF EXAM: 11/25/2023 CLINICAL HISTORY: 58-year-old male with Z9 3.1, PEG tube, previous pneumonia, assess for aspiration. TECHNIQUE: Deglutition study is performed utilizing thin liquid barium, honey and nectar thick liqui d barium, barium thick applesauce, crushed and chopped solids, and barium coated cracker. Total fluoroscopy time: 2 minutes 48 seconds. Total images: None. Real-time fluoroscopy support was provided to speech pathology. DOSE AREA PRODUCT (DAP) UGY*M,MGY*CM: 19.9 COMPARISON: None. FINDINGS: Swallow initiation was mildly delayed with premature bolus loss with all liquid consistencies. There is transient penetration with thin liquids. Otherwise, no aspiration seen. No significant phary ngeal residue was appreciated. IMPRESSION: Delayed swallow and episodes of transient penetration with thin liquids. No other penetration or aspi ration seen. Please refer to speech therapist notes for further details if necessary.
== END | disposition home or self-care (01) ==
LOC: RADFLMAIN 11:57
PROVIDERS: ATTEND Family Medicine
DX: R13.10 Dysphagia, unspecified (principal); R47.02 Dysphasia; Z93.1 Gastrostomy status; Z87.01 Personal history of pneumonia (recurrent)
CPT/HCPCS: 74230

== ENCOUNTER 2024-02-13 07:58 | Inpatient (IN) | payer MEDICARE, OTHER ==
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
[2024-02-13] MEDS: SODIUM CHLORIDE 0.9% 500 ML 500 ML IV SCH (08:38)
[2024-02-13] MEDS: cefTRIAXone IN SWFI 1,000 MG/10 ML SYRINGE IVP STA (08:40)
[2024-02-13] MEDS: IBUPROFEN 600 MG TAB PO STA (08:45)
[2024-02-13 09:01] LABS: Basophils % (A) 0 %; Eosinophils # (A) 0.2 k/uL (0-0.7); Eosinophils % (A) 1 %; HCT 48.6 % (39.0-53.0); HGB 15.7 gm/dL (13.0-17.5); Lymphocytes # (A) 0.6 k/uL (1.0-4.8); Lymphocytes % (A) 3 %; MCH 33.4 pg (25.0-35.0); MCHC 32.3 g/dL (31.0-37.0); MCV 103.5 fL (80.0-100.0); Macrocytosis Slight; Mean Platelet Volume 8.8; Monocytes # (A) 0.8 k/uL (0-1.0); Monocytes % (A) 4 %; Neutrophils # (A) 18.6 k/uL (1.3-7.7); Neutrophils % (A) 92 %; Platelet Count 264 k/uL (150-450); RDW 13.1 % (11.5-15.5); WBC 20.2 k/uL (3.8-10.6)
[2024-02-13 09:15] LABS: ALT 38 U/L (4-49); AST 36 U/L (17-59); African American GFR (CKD) >90 (>60 ml/min/1.73 sqM); Albumin 3.6 g/dL (3.5-5.0); Alkaline Phosphatase 71 U/L (38-126); Anion Gap 7 mmol/L; Blood Urea Nitrogen 34 mg/dL (9-20); Calcium 8.7 mg/dL (8.4-10.2); Carbon Dioxide 31 mmol/L (22-30); Chloride 112 mmol/L (98-107); Glucose 96 mg/dL (74-99); Non-African American GFR(CKD) >90 (>60 ml/min/1.73 sqM); Potassium 4.1 mmol/L (3.5-5.1); Sodium 150 mmol/L (137-145); Total Bilirubin 0.5 mg/dL (0.2-1.3); Total Protein 7.2 g/dL (6.3-8.2)
[2024-02-13 09:23] LABS: INR 0.9 (<1.2); Partial Thromboplastin Time 23.2 sec (22.0-30.0); Prothrombin Time 10.2 sec (10.0-12.5)
--- NOTE | 2024-02-13 09:38 | XR ---
EXAMINATION TYPE: XR chest 2V DATE OF EXAM: 02/13/2024 COMPARISON: 05/10/2023 HISTORY: 59-year-old male with fever TECHNIQUE: AP and lateral views FINDINGS: Heart normal size. Aorta within normal limits. There is patchy airspace opacity throughout the right mid and lower lung. No pleural effusion. Chronic fracture deformity distal right clavicle and ossific ation suggesting old injury to the right coracoclavicular ligaments. IMPRESSION: Patchy pneumonia right mid and lower lung.
[2024-02-13 09:54] LABS: Appearance,Urine Clear (Clear); Bacteria,Urine Rare /hpf; Bilirubin,Urine Negative (Negative); Blood,Urine Negative (Negative); Color,Urine Light Yellow; Glucose,Urine (UA) Negative (Negative); Ketones,Urine Negative (Negative); Leukocyte Esterase,Urine Trace (Negative); Mucus,Urine Rare /hpf; Nitrite,Urine Negative (Negative); PH, Urine 8.5 (5.0-8.0); Protein,Urine 1+ (Negative); RBC,Urine 2 /hpf (0-5); Specific Gravity,Urine 1.025 (1.001-1.035); Squamous Epithelial Cell,Urine <1 /hpf (0-4); WBC,Urine 7 /hpf (0-5)
[2024-02-13] MEDS ORDERED: PNEUMONIA PROTOCOL UTILIZED 1 EACH MISC PO PRN (12:13)
[2024-02-13] MEDS ORDERED: ALBUTEROL NEBULIZED 2.5 MG/3 ML INHALATION PRN (13:11)
[2024-02-13] MEDS: AZITHROMYCIN 500 MG in SODIUM CHLORIDE 0.9% 250 ML IVPB STA (13:31)
[2024-02-13] MEDS: DEXTROSE 5% IN WATER 1,000 ML IV SCH (14:06)
[2024-02-13] MEDS: SODIUM CHLORIDE 0.9% 1,000 ML IV SCH (14:11)
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
[2024-02-13] MEDS: PIPERACILLIN-TAZOBACTAM 3.375 GM in SODIUM CHLORIDE 0.9% 100 ML IVPB SCH (16:09)
[2024-02-13] MEDS: ALBUTEROL NEBULIZED 2.5 MG/3 ML INHALATION SCH (17:06)
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
[2024-02-14] MEDS: lamoTRIgine 100 MG TAB PEG/G-TUBE SCH (00:37)
[2024-02-14 02:06] LABS: Glucose,Whole Blood 103 mg/dL (70-110)
[2024-02-14 06:38] LABS: HCT 42.8 % (39.0-53.0); HGB 13.7 gm/dL (13.0-17.5); MCH 32.8 pg (25.0-35.0); MCV 102.7 fL (80.0-100.0); Macrocytosis Slight; Mean Platelet Volume 8.7; Platelet Count 228 k/uL (150-450); RBC 4.17 m/uL (4.30-5.90); WBC 18.8 k/uL (3.8-10.6)
[2024-02-14 07:13] LABS: African American GFR (CKD) >90 (>60 ml/min/1.73 sqM); Anion Gap 3 mmol/L; Blood Urea Nitrogen 27 mg/dL (9-20); Calcium 8.3 mg/dL (8.4-10.2); Carbon Dioxide 26 mmol/L (22-30); Chloride 113 mmol/L (98-107); Glucose 136 mg/dL (74-99); Non-African American GFR(CKD) >90 (>60 ml/min/1.73 sqM); Potassium 4.2 mmol/L (3.5-5.1); Sodium 142 mmol/L (137-145)
--- NOTE | 2024-02-14 07:30 | XR ---
EXAMINATION TYPE: XR chest 1V DATE OF EXAM: 02/14/2024 COMPARISON: 02/13/2024 HISTORY: 59-year-old male pneumonia TECHNIQUE: Single frontal view of the chest is obtained. FINDINGS: Lung volumes are further diminished. Increasing hazy density at the left base. Increasing interstitial density. Ongoing patchy densities right mid and lower lung. IMPRESSION: Diminishing lung volumes limiting the evaluation but with persistent patchy right lung o pacity and worsening aeration at the left base. Unable to exclude worsening pneumonitis at this time.
[2024-02-14] MEDS: PANTOPRAZOLE 40 MG TABLET PO SCH (07:57)
[2024-02-14] MEDS: ENOXAPARIN 40 MG/0.4 ML SYRINGE SQ SCH (07:57)
[2024-02-14] MEDS ORDERED: AZITHROMYCIN 500 MG TAB PO SCH (09:00)
--- NOTE | 2024-02-14 12:12 | P.PN ---
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 Patient was sent to the ER today mostly because of a Tmax of 103 noted by the [facility] staff. Patient was found to be febrile with a temp of 102.6 in the ER, his O2 saturation was 88% on room air, and a chest x-ray showed right mid and right lower lobe pneumonia. Patient was admitted placed on Rocephin and Zithromax, and this consult was initiated. Could not obtain any history from the patient, patient has profound mental disability. Patient has leukocytosis with WBC count of 20.2 hemoglobin 15.7 sodium is elevated at 150 renal profile is normal bicarb is normal lactic acid is 2.1 however follow-up lactic acid went down to 1.3 in the ER patient tested negative for influenza A influenza B RSV and COVID-19 The patient is seen today February 14, 2024 in follow-up in the emergency department. He is currently sitting up on a stretcher. Awake, alert. Maintaining O2 saturations in the 90s on room air. Follow-up chest x-ray reveals diminished lung volumes limiting the evaluation but with persistent patchy right lung opacity and worsening aeration on the left base. White count 18.8. Hemoglobin 13.7. Platelets 228. Sodium 142. Potassium 4.2. Bicarb 26. BUN 27. Creatinine 0.52. Glucose 136. He remains on antibiotics in the form of Zosyn. Lovenox for DVT prophylaxis. Normal saline at 75 MLS per hour. Objective - Vital Signs Vital signs: Vital Signs Temp 97.3 F L 02/14/24 05:04 Pulse 109 H 02/14/24 08:45 Resp 20 02/14/24 08:45 BP 136/97 02/14/24 06:14 Pulse Ox 96 02/14/24 08:38 FiO2 Intake & Output 02/13/24 02/14/24 02/14/24 18:59 06:59 18:59 Weight 68.039 kg - Exam General: Reveals an awake 59-year-old male, mentally challenged from previous brain trauma, on room air, not in distress. Derm: Dry and warm, no cyanosis. Head: Atraumatic, normocephalic patient has deformity noted in the right periorbital area Eyes: EOMI, no lid lag, anicteric sclera right periorbital changes probably related to previous trauma or surgery Mouth: Dry mucous membranes. Cardiovascular: Distant S1-S2, no S3 gallop, no murmur Lungs: Diffuse rhonchi noted bilaterally and crackles at the right base. Ext: Seems to have contracture of the right upper extremity and left upper extremity but none noted in the lower extremities Neuro: Contractured extremities, unable to assess Psych: Unable to assess - Labs CBC & Chem 7: 02/14/24 06:30 02/14/24 06:30 Labs: Abnormal Lab Results - Last 24 Hours (Table) 02/13/24 02/14/24 02/14/24 Range/Units 12:45 06:30 06:30 WBC 18.8 H (3.8-10.6) k/uL RBC 4.17 L (4.30-5.90) m/uL MCV 102.7 H (80.0-100.0) fL Chloride 113 H (98-107) mmol/L BUN 27 H (9-20) mg/dL Creatinine 0.52 L (0.66-1.25) mg/dL Glucose 136 H (74-99) mg/dL Plasma Lactic Acid Patrice 2.3 H* (0.7-2.0) mmol/L Calcium 8.3 L (8.4-10.2) mg/dL Assessment and Plan Assessment: Acute right lower lobe and right middle lobe pneumonia most likely secondary to aspiration pneumonia hence would recommend mostly treatment with Zosyn Acute sepsis secondary to pneumonia with fever, leukocytosis, and extensive pneumonia involving the right lung Prerenal azotemia and dehydration History of seizure disorder maintained on Lamictal History of traumatic brain injury with right-sided hemiplegia Chronic dysphagia and history of PEG tube placement Plan: The patient was seen and evaluated Chest x-ray, labs and medications reviewed Currently stable and on room air Continue Zosyn for now Check a procalcitonin Lovenox for DVT prophylax Continue tube feedings with Jevity This patient was seen independently by the pulmonary nurse practitioner addressing pulmonary issues I have personally seen and examined the patient, performed the documentation and the assessment and plan as written. Number of minutes spent on the visit: 24.
--- NOTE | 2024-02-14 12:41 | P.PN ---
Subjective Progress Note Date: 02/14/24 59 year old M with PMH of seizure disorder, asthma, h/o TBI with right hemiplegia and dysphagia with PEG presents [facility] the ED from his [facility] for fever. Patient is alert and oriented x 1 and majory of history is obtained from chart review. He was noted to have a Tmax of 103F which prompted staff at the senior living to send him to the ED. In the ED he underwent extensive evaluation. Tmax 102.6F, BP 199/69, HR 124, 88% on RA. CBC, CMP, Coag panel performed significant for WBC 20.2, MCV 103.5, Na 150, Cl 112, bicarb 31, BUN 34, Cr 0.6. Lactic acid 2.1. UA 1+ protein, trace LE. Flu, RSV, COVID negative. EKG sinus tachycardia with HR 117. CXR showed right mid and lower lung PNA. Patient was given a dose of Rocephin and Azithromycin and admitted for acute hypoxic respiratory failure secondary to PNA. The case was discussed with the POA mother and sister on admission. Patient has recently started pleasure feeds and takes some medication with thickened liquids. Speech therapy consulted for swallow evaluation. Antibiotics was switched to Zosyn for better coverage of aspiration PNA. Restarted on tube feeds. Pulmonary consulted. 02/13 Patient was seen and examined. Currently on 5L NC. Appears congested. Pulmonary note reviewed, agree with present management. CXR done today shows right sided opacity and worsening aeration in the left base. Maintained on Zosyn (D2). Tube feeds restarted yesterday. CBC WBC 18.8, RBC 4.17, MCV 102.7. BMP Cl 113, BUN 27, Cr 0.52, glu 136, Ca 8.3. Repeat lactic acid 1.3. General: non toxic, mild distress, appears at stated age Derm: warm, dry Head: atraumatic, normocephalic, symmetric Eyes: EOMI, no lid lag, anicteric sclera Mouth: no lip lesion, mucus membranes moist Cardiovascular: S1S2 tachy, no murmur Lungs: Coarse BS bilateral, no rhonchi, no rales , no accessory muscle use Ext: no gross muscle atrophy, no edema, no contractures Neuro: Contractured extremities Psych: Unable to perform Sepsis likely related to aspiration pneumonia: Continue Zosyn 3.375 g IV TID (D2). Obtain BCx, sputum Cx, Legionella Ag. Telemetry monitoring. D5W switched to NS at 75 cc/hr. Obtain procalcitonin. Pulmonary on board. Prerenal azotemia: IV hydration as above. Macrocytosis Seizure disorder: Lamictal 200 mg PEG BID. Asthma: Albuterol neb TID PRN for SOB/wheezing. h/o TBI with right hemiplegia and dysphagia with PEG Resolved: Hypernatremia CODE STATUS: FULL CODE. DVT Prophylaxis: Lovenox SQ GI Prophylaxis: Designated medical POA if patient is not able to make medical decisions for themselves: I have reviewed the following clinical sales consultant notes: Pulmonary I have reviewed the results of the following tests: CBC, BMP I have ordered the following tests: CBC, BMP for tomorrow. Procal, BCx, Sputum Cx pending. I have discussed the care of this patient with the following independent historian: I have independently interpreted the following test below: CXR I have discussed the management of this patient with the following physician: Objective - Vital Signs Vital signs: Vital Signs Temp 97.3 F L 02/14/24 05:04 Pulse 109 H 02/14/24 08:45 Resp 20 02/14/24 08:45 BP 136/97 02/14/24 06:14 Pulse Ox 96 02/14/24 08:38 FiO2 Intake & Output 02/13/24 02/14/24 02/14/24 18:59 06:59 18:59 Weight 68.039 kg - Labs CBC & Chem 7: 02/14/24 06:30 02/14/24 06:30 Labs: Abnormal Lab Results - Last 24 Hours (Table) 02/13/24 02/13/24 02/13/24 Range/Units 08:45 08:45 12:45 WBC (3.8-10.6) k/uL RBC (4.30-5.90) m/uL MCV (80.0-100.0) fL Chloride (98-107) mmol/L BUN (9-20) mg/dL Creatinine (0.66-1.25) mg/dL Glucose (74-99) mg/dL Plasma Lactic Acid Patrice 2.1 H* 2.3 H* (0.7-2.0) mmol/L Calcium (8.4-10.2) mg/dL Urine pH 8.5 H (5.0-8.0) Urine Protein 1+ H (Negative) Ur Leukocyte Esterase Trace H (Negative) Urine WBC 7 H (0-5) /hpf Urine WBC Clumps Rare H (None) /hpf Urine Bacteria Rare H (None) /hpf Urine Mucus Rare H (None) /hpf 02/14/24 02/14/24 Range/Units 06:30 06:30 WBC 18.8 H (3.8-10.6) k/uL RBC 4.17 L (4.30-5.90) m/uL MCV 102.7 H (80.0-100.0) fL Chloride 113 H (98-107) mmol/L BUN 27 H (9-20) mg/dL Creatinine 0.52 L (0.66-1.25) mg/dL Glucose 136 H (74-99) mg/dL Plasma Lactic Acid Patrice (0.7-2.0) mmol/L Calcium 8.3 L (8.4-10.2) mg/dL Urine pH (5.0-8.0) Urine Protein (Negative) Ur Leukocyte Esterase (Negative) Urine WBC (0-5) /hpf Urine WBC Clumps (None) /hpf Urine Bacteria (None) /hpf Urine Mucus (None) /hpf
[2024-02-14] MEDS: SODIUM CHLORIDE 0.9% 1,000 ML IV SCH (15:23)
[2024-02-14 17:56] VITALS: BMI 22.1
--- NOTE | 2024-02-15 11:34 | P.PN ---
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 Patient was sent to the ER today mostly because of a Tmax of 103 noted by the intermediate staff. Patient was found to be febrile with a temp of 102.6 in the ER, his O2 saturation was 88% on room air, and a chest x-ray showed right mid and right lower lobe pneumonia. Patient was admitted placed on Rocephin and Zithromax, and this consult was initiated. Could not obtain any history from the patient, patient has profound mental disability. Patient has leukocytosis with WBC count of 20.2 hemoglobin 15.7 sodium is elevated at 150 renal profile is normal bicarb is normal lactic acid is 2.1 however follow-up lactic acid went down to 1.3 in the ER patient tested negative for influenza A influenza B RSV and COVID-19 The patient is seen today February 14, 2024 in follow-up in the emergency department. He is currently sitting up on a stretcher. Awake, alert. Maintaining O2 saturations in the 90s on room air. Follow-up chest x-ray reveals diminished lung volumes limiting the evaluation but with persistent patchy right lung opacity and worsening aeration on the left base. White count 18.8. Hemoglobin 13.7. Platelets 228. Sodium 142. Potassium 4.2. Bicarb 26. BUN 27. Creatinine 0.52. Glucose 136. He remains on antibiotics in the form of Zosyn. Lovenox for DVT prophylaxis. Normal saline at 75 MLS per hour. The patient is seen today February 15, 2024 in follow-up on the regular medical floor. He is currently resting in bed. Awake and alert. Maintaining good O2 saturations in the 90s on 2 L/min per nasal cannula. He is afebrile. Hemodynamically stable. Blood cultures revealing no growth. White count 18.8. Hemoglobin 13.7. Sodium 142. Potassium 4.2. Bicarb 26. BUN 27. Creatinine 0.52. Glucose 136. Procalcitonin 0.21. He remains on Zosyn. Lovenox for DVT prophylaxis Objective - Vital Signs Vital signs: Vital Signs Temp 97.9 F 02/15/24 07:23 Pulse 79 05/14/24 08:59 Resp 22 02/15/24 08:00 BP 120/75 02/15/24 07:23 Pulse Ox 93 L 02/15/24 08:47 FiO2 Intake & Output 02/14/24 02/15/24 02/15/24 18:59 06:59 18:59 Output Total 750 Balance -750 Weight 68.039 kg 72 kg Output: Urine 750 Other: Voiding Method Indwelling Catheter Indwelling Catheter - Exam General: An awake 59-year-old male, mentally challenged from previous brain trauma, on room air, not in distress. Derm: Dry and warm, no cyanosis. Head: Deformity noted in the right periorbital area Eyes: EOMI, no lid lag, anicteric sclera right periorbital changes probably related to previous trauma or surgery Mouth: Dry mucous membranes. Cardiovascular: Distant S1-S2, no S3 gallop, no murmur Lungs: Diffuse rhonchi noted bilaterally and crackles at the right base. Ext: Seems to have contracture of the right upper extremity and left upper extremity but none noted in the lower extremities Neuro: Contractured extremities, unable to assess Psych: Unable to assess - Labs CBC & Chem 7: 02/14/24 06:30 02/14/24 06:30 Labs: Abnormal Lab Results - Last 24 Hours (Table) 02/14/24 Range/Units 06:30 Procalcitonin 0.21 H (0.02-0.09) ng/mL Microbiology - Last 24 Hours (Table) 02/13/24 08:45 Blood Culture - Preliminary Blood 02/13/24 08:30 Blood Culture - Preliminary Blood Assessment and Plan Assessment: Acute right lower lobe and right middle lobe pneumonia most likely secondary to aspiration pneumonia, on Zosyn, procalcitonin 0.21 Acute sepsis secondary to pneumonia with fever, leukocytosis, and extensive pneumonia involving the right lung Prerenal azotemia and dehydration History of seizure disorder maintained on Lamictal History of traumatic brain injury with right-sided hemiplegia Chronic dysphagia and history of PEG tube placement Plan: The patient was seen and evaluated Labs and medications reviewed Stable and on room air Continue Zosyn Lovenox for DVT prophylax Continue tube feedings Follow-up chest x-ray in the a.m. This patient was seen independently by the pulmonary nurse practitioner addressing pulmonary issues I have personally seen and examined the patient, performed the documentation and the assessment and plan as written. Number of minutes spent on the visit: 22.
[2024-02-15 12:38] LABS: HCT 38.6 % (39.0-53.0); HGB 12.6 gm/dL (13.0-17.5); MCH 34.2 pg (25.0-35.0); MCHC 32.7 g/dL (31.0-37.0); MCV 104.8 fL (80.0-100.0); Macrocytosis Slight; Mean Platelet Volume 9.8; Platelet Count 187 k/uL (150-450); RBC 3.69 m/uL (4.30-5.90); RDW 13.1 % (11.5-15.5); WBC 9.8 k/uL (3.8-10.6)
[2024-02-15 12:53] LABS: African American GFR (CKD) >90 (>60 ml/min/1.73 sqM); Anion Gap 5 mmol/L; Blood Urea Nitrogen 23 mg/dL (9-20); Calcium 8.2 mg/dL (8.4-10.2); Carbon Dioxide 24 mmol/L (22-30); Chloride 111 mmol/L (98-107); Glucose 78 mg/dL (74-99); Non-African American GFR(CKD) >90 (>60 ml/min/1.73 sqM); Potassium 4.3 mmol/L (3.5-5.1); Sodium 140 mmol/L (137-145)
--- NOTE | 2024-02-15 13:40 | P.PN ---
Subjective Progress Note Date: 02/15/24 59 year old M with PMH of seizure disorder, asthma, h/o TBI with right hemiplegia and dysphagia with PEG presents to the ED from his skilled nursing for fever. Patient is alert and oriented x 1 and majory of history is obtained from chart review. He was noted to have a Tmax of 103F which prompted staff at the skilled nursing to send him to the ED. In the ED he underwent extensive evaluation. Tmax 102.6F, BP 199/69, HR 124, 88% on RA. CBC, CMP, Coag panel performed significant for WBC 20.2, MCV 103.5, Na 150, Cl 112, bicarb 31, BUN 34, Cr 0.6. Lactic acid 2.1. UA 1+ protein, trace LE. Flu, RSV, COVID negative. EKG sinus tachycardia with HR 117. CXR showed right mid and lower lung PNA. Patient was given a dose of Rocephin and Azithromycin and admitted for acute hypoxic respiratory failure secondary to PNA. The case was discussed with the POA mother and sister on admission. Patient has recently started pleasure feeds and takes some medication with thickened liquids. Speech therapy consulted for swallow evaluation. Antibiotics was switched to Zosyn for better coverage of aspiration PNA. Restarted on tube feeds. Pulmonary on board. Failed swallow eval with speech, strict NPO. 02/14 Patient was seen and examined. Currently on 4L NC saturating low 90s. Appears less congested. Pulmonary note reviewed, agree with present management. Maintained on Zosyn (D3). CBC RBC 3.69, Hg 12.6, Hct 38.6, MCV 104.8. BMP Cl 111, BUN 23, Cr 0.57, Ca 8.2. Procal 0.21. BCx negative so far. General: non toxic, no distress, appears at stated age Derm: warm, dry Head: atraumatic, normocephalic, symmetric Eyes: EOMI, no lid lag, anicteric sclera Mouth: no lip lesion, mucus membranes moist Cardiovascular: S1S2 tachy, no murmur Lungs: Coarse BS bilateral, bilateral rhonchi, no rales , no accessory muscle use Ext: + muscle atrophy Neuro: Contractured extremities Psych: Unable to perform Sepsis likely related to aspiration pneumonia: Continue Zosyn 3.375 g IV TID (D3). Follow BCx, sputum Cx. Legionella Ag neg. Telemetry monitoring. NS at 75 cc/hr. Pulmonary on board. Prerenal azotemia: Improving. IV hydration as above. Macrocytosis Seizure disorder: Lamictal 200 mg PEG BID. Asthma: Albuterol neb TID PRN for SOB/wheezing. h/o TBI with right hemiplegia and dysphagia with PEG Resolved: Hypernatremia CODE STATUS: FULL CODE. DVT Prophylaxis: Lovenox SQ GI Prophylaxis: Designated medical POA if patient is not able to make medical decisions for themselves: I have reviewed the following strategy planning consultant notes: Pulmonary I have reviewed the results of the following tests: CBC, BMP I have ordered the following tests: CBC, BMP for tomorrow. Procal, BCx, Sputum Cx pending. I have discussed the care of this patient with the following independent historian: I have independently interpreted the following test below: CXR I have discussed the management of this patient with the following physician: Objective - Vital Signs Vital signs: Vital Signs Temp 97.9 F 02/15/24 12:22 Pulse 92 02/15/24 12:22 Resp 18 02/15/24 12:22 BP 119/73 02/15/24 12:22 Pulse Ox 91 L 02/15/24 12:22 FiO2 Intake & Output 02/14/24 02/15/24 02/15/24 18:59 06:59 18:59 Output Total 750 Balance -750 Weight 68.039 kg 72 kg Output: Urine 750 Other: Voiding Method Indwelling Catheter Indwelling Catheter # Bowel Movements 1 - Labs CBC & Chem 7: 02/15/24 11:39 02/15/24 11:39 Labs: Abnormal Lab Results - Last 24 Hours (Table) 02/14/24 02/15/24 02/15/24 Range/Units 06:30 11:39 11:39 RBC 3.69 L (4.30-5.90) m/uL Hgb 12.6 L (13.0-17.5) gm/dL Hct 38.6 L (39.0-53.0) % MCV 104.8 H (80.0-100.0) fL Chloride 111 H (98-107) mmol/L BUN 23 H (9-20) mg/dL Creatinine 0.57 L (0.66-1.25) mg/dL Calcium 8.2 L (8.4-10.2) mg/dL Procalcitonin 0.21 H (0.02-0.09) ng/mL Microbiology - Last 24 Hours (Table) 02/13/24 08:45 Blood Culture - Preliminary Blood 02/13/24 08:30 Blood Culture - Preliminary Blood
[2024-02-15 13:58] VITALS: RESP 18
[2024-02-15] MEDS: KETOROLAC 15 MG/ML 1 ML VIAL IVP PRN (17:18)
[2024-02-15 22:21] LABS: Glucose,Whole Blood 89 mg/dL (70-110)
[2024-02-16 07:42] LABS: HCT 38.3 % (39.0-53.0); HGB 12.3 gm/dL (13.0-17.5); MCH 33.6 pg (25.0-35.0); MCHC 32.2 g/dL (31.0-37.0); MCV 104.4 fL (80.0-100.0); Macrocytosis Slight; Mean Platelet Volume 9.3; Platelet Count 200 k/uL (150-450); RBC 3.67 m/uL (4.30-5.90); RDW 13.1 % (11.5-15.5); WBC 7.8 k/uL (3.8-10.6)
[2024-02-16 07:46] LABS: African American GFR (CKD) >90 (>60 ml/min/1.73 sqM); Anion Gap 3 mmol/L; Blood Urea Nitrogen 22 mg/dL (9-20); Calcium 8.1 mg/dL (8.4-10.2); Carbon Dioxide 25 mmol/L (22-30); Chloride 112 mmol/L (98-107); Glucose 93 mg/dL (74-99); Non-African American GFR(CKD) >90 (>60 ml/min/1.73 sqM); Potassium 3.8 mmol/L (3.5-5.1); Sodium 140 mmol/L (137-145)
--- NOTE | 2024-02-16 11:09 | P.PN ---
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 Patient was sent to the ER today mostly because of a Tmax of 103 noted by the [facility] staff. Patient was found to be febrile with a temp of 102.6 in the ER, his O2 saturation was 88% on room air, and a chest x-ray showed right mid and right lower lobe pneumonia. Patient was admitted placed on Rocephin and Zithromax, and this consult was initiated. Could not obtain any history from the patient, patient has profound mental disability. Patient has leukocytosis with WBC count of 20.2 hemoglobin 15.7 sodium is elevated at 150 renal profile is normal bicarb is normal lactic acid is 2.1 however follow-up lactic acid went down to 1.3 in the ER patient tested negative for influenza A influenza B RSV and COVID-19 The patient is seen today February 14, 2024 in follow-up in the emergency department. He is currently sitting up on a stretcher. Awake, alert. Maintaining O2 saturations in the 90s on room air. Follow-up chest x-ray reveals diminished lung volumes limiting the evaluation but with persistent patchy right lung opacity and worsening aeration on the left base. White count 18.8. Hemoglobin 13.7. Platelets 228. Sodium 142. Potassium 4.2. Bicarb 26. BUN 27. Creatinine 0.52. Glucose 136. He remains on antibiotics in the form of Zosyn. Lovenox for DVT prophylaxis. Normal saline at 75 MLS per hour. The patient is seen today February 15, 2024 in follow-up on the regular medical floor. He is currently resting in bed. Awake and alert. Maintaining good O2 saturations in the 90s on 2 L/min per nasal cannula. He is afebrile. Hemodynamically stable. Blood cultures revealing no growth. White count 18.8. Hemoglobin 13.7. Sodium 142. Potassium 4.2. Bicarb 26. BUN 27. Creatinine 0.52. Glucose 136. Procalcitonin 0.21. He remains on Zosyn. Lovenox for DVT prophylaxis The patient is seen today February 16, 2024 in follow-up on the regular medical floor. He is resting in bed. Awake. Maintaining O2 saturations in the 90s on room air. He has normal saline at 75 MLS per hour. He is receiving Jevity tube feedings at 40 MLS per hour. He remains on Zosyn. Procalcitonin was 0.21. Lo venox for DVT prophylaxis. Blood cultures revealed no growth. White count 7.8. Hemoglobin 12.3. Platelets 200. Sodium 140. Potassium 3.8. Bicarb 25. BUN 22. Creatinine 0.51. Glucose 93. Objective - Vital Signs Vital signs: Vital Signs Temp 98.8 F 02/16/24 07:28 Pulse 79 02/16/24 08:36 Resp 18 02/16/24 07:28 BP 114/66 02/16/24 07:28 Pulse Ox 93 L 02/16/24 08:10 FiO2 Intake & Output 02/15/24 02/16/24 02/16/24 18:59 06:59 18:59 Intake Total 1560 Output Total 625 300 Balance -625 1260 Weight 71.5 kg Intake: Intake, IV Titration 1000 Amount Piperacillin-Tazobactam 3 100 .375 gm In Sodium Chloride 0.9% 100 ml @ 25 mls/hr IVPB Q8HR [facility] Rx# :[id number] Sodium Chloride 0.9% 1, 900 000 ml @ 75 mls/hr IV . [id number] REPLACED BY [facility] Rx#:[id number] Tube Feeding 440 Other 120 Output: Urine 625 300 Straight 100 Other: Voiding Method Indwelling Catheter Indwelling Catheter Indwelling Catheter # Bowel Movements 1 - Exam General: An awake 59-year-old male, resting in bed, mentally challenged from previous brain trauma, on room air, not in distress. Derm: Dry and warm, no cyanosis. Head: Deformity noted in the right periorbital area Eyes: EOMI, no lid lag, anicteric sclera right periorbital changes probably related to previous trauma or surgery Mouth: Dry mucous membranes. Cardiovascular: Distant S1-S2, no S3 gallop, no murmur Lungs: Diffuse rhonchi noted bilaterally and crackles at the right base. Ext: Seems to have contracture of the right upper extremity and left upper extremity but none noted in the lower extremities Neuro: Contractured extremities, unable to assess Psych: Unable to assess - Labs CBC & Chem 7: 02/16/24 06:54 02/16/24 06:54 Labs: Abnormal Lab Results - Last 24 Hours (Table) 02/15/24 02/15/24 02/16/24 Range/Units 11:39 11:39 06:54 RBC 3.69 L 3.67 L (4.30-5.90) m/uL Hgb 12.6 L 12.3 L (13.0-17.5) gm/dL Hct 38.6 L 38.3 L (39.0-53.0) % MCV 104.8 H 104.4 H (80.0-100.0) fL Chloride 111 H (98-107) mmol/L BUN 23 H (9-20) mg/dL Creatinine 0.57 L (0.66-1.25) mg/dL Calcium 8.2 L (8.4-10.2) mg/dL 02/16/24 Range/Units 06:54 RBC (4.30-5.90) m/uL Hgb (13.0-17.5) gm/dL Hct (39.0-53.0) % MCV (80.0-100.0) fL Chloride 112 H (98-107) mmol/L BUN 22 H (9-20) mg/dL Creatinine 0.51 L (0.66-1.25) mg/dL Calcium 8.1 L (8.4-10.2) mg/dL Microbiology - Last 24 Hours (Table) 02/13/24 08:45 Blood Culture - Preliminary Blood 02/13/24 08:30 Blood Culture - Preliminary Blood Assessment and Plan Assessment: Acute right lower lobe and right middle lobe pneumonia most likely secondary to aspiration pneumonia, on Zosyn, procalcitonin 0.21 Acute sepsis secondary to pneumonia with fever, leukocytosis, and extensive pneumonia involving the right lung Prerenal azotemia and dehydration History of seizure disorder maintained on Lamictal History of traumatic brain injury with right-sided hemiplegia Chronic dysphagia and history of PEG tube placement Plan: The patient was seen and evaluated Labs and medications reviewed Stable and on room air Chest x-ray pending Possible return to adult foster care today This patient was seen independently by the pulmonary nurse practitioner addressing pulmonary issues I have personally seen and examined the patient, performed the documentation and the assessment and plan as written. Number of minutes spent on the visit: 23.
[2024-02-16 12:46] VITALS: BP 118/73; TEMP 99.1
--- NOTE | 2024-02-16 14:25 | XR ---
EXAMINATION TYPE: XR chest 1V portable DATE OF EXAM: 02/16/2024 Comparison: 02/14/2024 Clinical History: 59-year-old male Aspiration pneumonia Findings: Heart normal size. Diffuse interstitial and patchy airspace opacities are redemonstrated especially i n the right greater than left mid and lower lungs. Chronic bony deformity at the right AC joint and d istal right clavicle. Impression: Interstitial and patchy infiltrate redemonstrated in the right greater than left mid and lower lungs.
--- NOTE | 2024-02-16 14:26 | P.DS ---
Providers Date of admission: 02/13/24 12:14 Expected date of discharge: 02/16/24 Attending physician: Shelbie Luis DO Consults: 02/13/24 13:26 Consult Physician Routine Consulting Provider: Joao Lazcano Consult Reason/Comments: PNA Do you want consulting provider notified?: Yes Primary care physician: Stated None Hospital Course: Discharge Diagnosis: Aspiration Pneumonia, possible gram negative with sepsis Acute hypoxic respiratory failure Dysphagia Seizure disorder TBI with right hemiplegia Asthma Hospital Course: Patient is a 59-year-old male with history of dysphagia status post recent PEG tube placement, total TBI with right hemiplegia, asthma, and seizure disorder who presented from his long-term due to fever and altered mentation. In the emergency department he was found to have a possible aspiration pneumonia with sepsis due to had chest x-ray showing a right lower lobe infiltrate, temperature 102.6 F, and a white blood cell count of 20. He was started on Rocephin and Zithromax and was admitted due to pneumonia. Antibiotics were transitioned to Zosyn for better aspiration coverage. Pulmonary was consulted. Patient failed swallow evaluation was kept NPO. He was able to be weaned off of his oxygen by the morning of 02/15. His white blood cell count subsided. He was doing well and was determined stable for discharge home. Follow-up: Augmentin for an additional 4 days due to possible gram negative in a patient with known aspiration risks, Patient is to be stick NPO. He should have a repeat chest x-ray in 1 week. Head of the bed greater than 30 degrees. Patient seen and examined at bedside.Non verbal but shakes haed "no" to pain or shortness of breath. No acute concerns per nursing. Vital signs reviewed and stable. General: Nontoxic, no distress, appears at stated age Cardiovascular: S1S2 reg, no murmur, positive posterior tibial pulse bilateral, Lungs: CTA bilateral, no rhonchi, no rales, no accessory muscle use Abdominal: Soft, nontender to palpation, no guarding, no appreciable organomegaly Psy Nontoxic, no distressl appears at stated age of 35 minutes S1S2 rege no murmurr positive posterior tibial pulse bilateral was disch CTA bilateral4 no rhonchi, no ralesr no accessory muscle usel voice john Soft nontender to palpatione no guarding no appreciable organomegalyn some m Alert exist. oriented Plan - Discharge Summary Discharge Rx Participant: No New Discharge Prescriptions: New Amoxic-Pot Clav 400-57Mg/5Ml [Augmentin 400-57 mg/5 ml Susp] 11 ml PO Q12H #100 ml Continue lamoTRIgine 200 mg PEG/G-TUBE BID Omeprazole 20 mg PEG/G-TUBE AC-BRKFST Albuterol Nebulized [Ventolin Nebulized] 2.5 mg INHALATION RT-Q8H PRN PRN Reason: Shortness Of Breath Discharge Medication List lamoTRIgine 200 mg PEG/G-TUBE BID 05/03/15 [History] Albuterol Nebulized [Ventolin Nebulized] 2.5 mg INHALATION RT-Q8H PRN 05/01/23 [History] Omeprazole 20 mg PEG/G-TUBE AC-BRKFST 05/01/23 [History] Amoxic-Pot Clav 400-57Mg/5Ml [Augmentin 400-57 mg/5 ml Susp] 11 ml PO Q12H #100 ml 02/16/24 [Rx] Follow up Appointment(s)/Referral(s): Kim Harding,Home Care [NON-STAFF] - 1 Week None,Stated [Primary Care Provider] - 1-2 days [facility], [REFERRING] - 1 Week Activity/Diet/Wound Care/Special Instructions: PCP: Daniela Wadsworth Address: [address] [place] [address] [id number], [place] [address] Activity: As tolerated Diet: Tube feedings only, resume as ordered previously. Special Instructions: Follow-up with PCP in 1-2 days head of bed greter than 30 degrees with tub feeding. Suggest repeat chest x-ray in 1 week Discharge Disposition: HOME WITH HOME HEALTH SERVICES
[2024-02-16 16:13] VITALS: PULSE 90
== END 2024-02-16 17:51 | disposition home health service (06) | DRG 871 ==
LOC: EC 07:58 → 5NMEDONC 12:14
PROVIDERS: ADMIT Internal Medicine; ATTEND Internal Medicine
PROC: 3E0G76Z Introduction of Nutritional Substance into Upper GI, Via Natural or Artificial Opening (ICD-10-PCS; 2024-02-13)
PROC: 05HF33Z Insertion of Infusion Device into Left Cephalic Vein, Percutaneous Approach (ICD-10-PCS; principal; 2024-02-15 15:35)
DX: A41.50 Gram-negative sepsis, unspecified (principal); J15.69 Pneumonia due to other Gram-negative bacteria; J69.0 Pneumonitis due to inhalation of food and vomit; J96.01 Acute respiratory failure with hypoxia; G81.91 Hemiplegia, unspecified affecting right dominant side; E87.0 Hyperosmolality and hypernatremia; R65.20 Severe sepsis without septic shock; S06.9XAS Unspecified intracranial injury with loss of consciousness status unknown, sequela; R13.10 Dysphagia, unspecified; R47.89 Other speech disturbances; G40.909 Epilepsy, unspecified, not intractable, without status epilepticus; J45.909 Unspecified asthma, uncomplicated; M62.50 Muscle wasting and atrophy, not elsewhere classified, unspecified site; R32 Unspecified urinary incontinence; H54.61 Unqualified visual loss, right eye, normal vision left eye; K59.00 Constipation, unspecified; E86.0 Dehydration; R39.2 Extrarenal uremia; D75.89 Other specified diseases of blood and blood-forming organs; Z79.899 Other long term (current) drug therapy; Z87.891 Personal history of nicotine dependence; Z93.1 Gastrostomy status; Z86.14 Personal history of Methicillin resistant Staphylococcus aureus infection; Z20.822 Contact with and (suspected) exposure to COVID-19
CPT/HCPCS: 36410; 36415; 71045; 71046; 76937; 80048; 80053; 81001; 83605; 84145; 85025; 85027; 85610; 85730; 87040; 87449; 87636; 93005; 94640; 94760; 96361; 96365; 96366; 96372; 96375; 99285

== ENCOUNTER 2024-02-17 04:53 | Inpatient (IN) | payer MEDICARE, OTHER ==
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
[2024-02-17] MEDS: ACETAMINOPHEN IV (For NPO) 1,000 MG in EMPTY BAG 1 BAG IVPB STA (05:25)
[2024-02-17 05:38] LABS: Basophils % (A) 0 %; Eosinophils # (A) 0.7 k/uL (0-0.7); Eosinophils % (A) 8 %; HCT 42.1 % (39.0-53.0); Lymphocytes # (A) 1.4 k/uL (1.0-4.8); Lymphocytes % (A) 15 %; MCH 33.8 pg (25.0-35.0); MCHC 33.3 g/dL (31.0-37.0); MCV 101.4 fL (80.0-100.0); Mean Platelet Volume 9.1; Monocytes # (A) 0.6 k/uL (0-1.0); Monocytes % (A) 6 %; Neutrophils # (A) 6.6 k/uL (1.3-7.7); Neutrophils % (A) 70 %; Platelet Count 224 k/uL (150-450); RBC 4.16 m/uL (4.30-5.90); RDW 12.8 % (11.5-15.5); WBC 9.5 k/uL (3.8-10.6)
[2024-02-17 05:50] LABS: INR 0.9 (<1.2); Partial Thromboplastin Time 24.6 sec (22.0-30.0); Prothrombin Time 9.9 sec (10.0-12.5)
[2024-02-17 05:53] LABS: ALT 26 U/L (4-49); AST 41 U/L (17-59); African American GFR (CKD) >90 (>60 ml/min/1.73 sqM); Albumin 3.5 g/dL (3.5-5.0); Alkaline Phosphatase 63 U/L (38-126); Anion Gap 9 mmol/L; Blood Urea Nitrogen 19 mg/dL (9-20); Calcium 8.5 mg/dL (8.4-10.2); Carbon Dioxide 25 mmol/L (22-30); Chloride 108 mmol/L (98-107); Glucose 117 mg/dL (74-99); Non-African American GFR(CKD) >90 (>60 ml/min/1.73 sqM); Potassium 4.3 mmol/L (3.5-5.1); Sodium 142 mmol/L (137-145); Total Bilirubin 0.5 mg/dL (0.2-1.3); Total Protein 6.9 g/dL (6.3-8.2)
[2024-02-17 06:02] LABS: NT-Pro-B-Type Natriuretic Pept 234 pg/mL
[2024-02-17 06:04] LABS: Macrocytosis Slight
[2024-02-17] MEDS ORDERED: PNEUMONIA PROTOCOL UTILIZED 1 EACH MISC PO PRN (06:34)
[2024-02-17] MEDS: SODIUM CHLORIDE 0.9% 1,000 ML IV SCH (06:37)
[2024-02-17] MEDS: PIPERACILLIN-TAZOBACTAM 3.375 GM in SODIUM CHLORIDE 0.9% 100 ML IVPB SCH (06:55)
--- NOTE | 2024-02-17 07:23 | XR ---
EXAMINATION TYPE: XR chest 1V portable DATE OF EXAM: 02/17/2024 Comparison: 02/16/2024 Clinical History: 59-year-old male respiratory distress Findings: Heart upper limits of normal in size. Patient rotated toward the right ovary normal, mediastinal cont ours. The patient's chin obscures the medial apices. Patchy interstitial changes are present bilatera lly, right greater than left, slightly increased from prior. Impression: Slight increased patchy interstitial infiltrates, right greater than left.
[2024-02-17] MEDS ORDERED: ALBUTEROL NEBULIZED 2.5 MG/3 ML INHALATION PRN (09:36)
[2024-02-17] MEDS ORDERED: NALOXONE 0.4 MG/ML 1 ML VIAL IV PRN (09:38)
[2024-02-17] MEDS ORDERED: LACTULOSE 20 GM/30 ML CUP PEG/G-TUBE PRN (09:38)
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
[2024-02-17] MEDS: PANTOPRAZOLE 40 MG TABLET PO SCH (09:46)
[2024-02-17] MEDS: lamoTRIgine 100 MG TAB PEG/G-TUBE SCH (09:46)
[2024-02-17] MEDS: AMPICILLIN-SULBACTAM 3 GM in SODIUM CHLORIDE 0.9% 100 ML IVPB SCH (11:04)
[2024-02-17] MEDS: IPRATROPIUM-ALBUTEROL 3 ML NEB INHALATION PRN (11:30)
--- NOTE | 2024-02-17 11:43 | XR ---
EXAMINATION TYPE: XR chest 1V portable DATE OF EXAM: 02/17/2024, 0952 hours Comparison: 02/17/2024, 0526 hours Clinical History: 59-year-old male Pneumonia Findings: Heart limits of normal in size. Patchy interstitial changes right mid and lower lung and left base sh ows slight improvement from prior. No pleural effusion. Impression: Mild patchy interstitial densities right mid and lower lung and left base shows slight improvement fr om earlier today.
[2024-02-17] MEDS ORDERED: DEXTROSE 50% SYRINGE 50 ML IVP PRN ×2 (20:20)
[2024-02-18 00:08] LABS: Glucose,Whole Blood 91 mg/dL (70-110)
[2024-02-18] MEDS: INSULIN ASPART (NovoLOG) 100 UNIT/ML VIAL SQ SCH ×2 (00:22→06:39)
[2024-02-18 06:17] LABS: Glucose,Whole Blood 105 mg/dL (70-110)
--- NOTE | 2024-02-18 07:57 | XR ---
EXAMINATION TYPE: XR chest 1V portable DATE OF EXAM: 02/18/2024 Comparison: 02/17/2024 Clinical History: 59 year-old male shortness of breath Findings: Patient's chin obscures the apices. Old injury to the right AC joint. Heart upper limits of normal in size. Interstitial and patchy densities appear to be increasing. Impression: Portable exam limited by the patient's chin down. Interstitial and bilateral patchy opacities appear to be increasing. Correlate for developing pulmonary edema versus pneumonitis.
--- NOTE | 2024-02-18 08:53 | CDI ---
Documentation Clarification Form Date: 02/18/2024 From: Dee Macdonald Phone: [phone] Admit Date: 02/17/2024 06:34:00 AM Patient Name: Jayce Ivy Visit Number: [id number] Discharge Date: ATTENTION: The Clinical Documentation Specialists (CDI) and [facility] Coding Staff appreciate your assistance in clarifying documentation. Please respond to the clarification below the line at the bottom and electronically sign. The CDI & [facility] Coding staff will review the response and follow-up if needed. Please note: Queries are made part of the Legal Health Record. If you have any questions, please contact the author of this message via ITS. Dr. Shelbie Luis: Sepsis is documented in the ED note 02/16 but is not noted in subsequent documentation. Clarification is requested. History/Risk Factors: 59 yo male with history of Asthma, PNA, Seizure disorder and TBI with right side hemiplegia, Recent aspiration PNA, recent PEG tube placement, who presents with worsening respiratory distress and fevers Clinical Indicators: 02/16 Triage VS: 101/77, 101.1, 114, 24, 92% on 6 liters nonrebreather 02/16-02/17 Tmax: 101.1(02/16) 02/16 ED note, Clinical Impression: "Pneumonia, Sepsis, Aspiration pneumonia, BiPAP dependence" 02/16 WBC: 4.16 Lactic Acid: 2.0 Procalcitonin: 0.10 Blood culture: Gram positive Cocci in clusters Treatment: Normal Saline IV 130cc/hour start 02/16 Unasyn 3gram IV R2excof start 02/16 Zosyn 3.375gram IV [id number] given once 02/16 Please clarify if the Sepsis is: [ ] Sepsis POA confirmed, remains under treatment [ x ] Sepsis confirmed, resolved [ ] Sepsis ruled out [ ] Other condition, please specify [ ] Unable to determine SIRS Criteria: 2 or more of the following may indicate SIRS Temperature < 96.8F (36C) or > 101.0F (38.3C) Heart Rate > 90 bpm Respiratory Rate > 20 breaths/min or PaCO2 < 32 mmHg White Blood Cell Count > 12,000 or < 4,000 cells/mm3 or > 10% bands MTDD
--- NOTE | 2024-02-18 08:55 | XR ---
EXAMINATION TYPE: XR chest 1V portable DATE OF EXAM: 02/18/2024 at 0635 hours Comparison: 02/18/2024 at 0132 hours Clinical History: 59-year-old male follow-up pneumonia Findings: Heart and lungs are normal in size. Improved inspiratory effort. Mild patchy interstitial changes per sist but with some improvement, likely due to the improved lung volumes. Impression: Mild patchy interstitial densities remain though with some interval improvement, likely on the basis of improved inspiratory effort.
[2024-02-18 09:41] LABS: Basophils % (A) 0 %; Eosinophils # (A) 0.9 k/uL (0-0.7); Eosinophils % (A) 13 %; HCT 35.9 % (39.0-53.0); HGB 11.5 gm/dL (13.0-17.5); Lymphocytes % (A) 14 %; MCH 33.1 pg (25.0-35.0); MCHC 31.9 g/dL (31.0-37.0); MCV 103.8 fL (80.0-100.0); Macrocytosis Slight; Mean Platelet Volume 8.8; Monocytes # (A) 0.5 k/uL (0-1.0); Monocytes % (A) 8 %; Neutrophils # (A) 4.5 k/uL (1.3-7.7); Neutrophils % (A) 64 %; Platelet Count 204 k/uL (150-450); RBC 3.46 m/uL (4.30-5.90); RDW 13.2 % (11.5-15.5)
[2024-02-18 09:51] LABS: African American GFR (CKD) >90 (>60 ml/min/1.73 sqM); Anion Gap 4 mmol/L; Blood Urea Nitrogen 15 mg/dL (9-20); Calcium 8.2 mg/dL (8.4-10.2); Carbon Dioxide 27 mmol/L (22-30); Chloride 109 mmol/L (98-107); Glucose 96 mg/dL (74-99); Non-African American GFR(CKD) >90 (>60 ml/min/1.73 sqM); Potassium 4.1 mmol/L (3.5-5.1); Sodium 140 mmol/L (137-145)
[2024-02-18 12:08] LABS: Glucose,Whole Blood 107 mg/dL (70-110)
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
--- NOTE | 2024-02-18 13:29 | P.PN ---
Subjective Progress Note Date: 02/18/24 Patient is a 59-year-old half-way resident with recently placed PEG tube on 12/03/2023 and recent hospitalization for aspiration pneumonia from 02/12 through 02/15 who Candi presented to the ER within less than 24 hours for worsening respiratory distress and fevers. Of note prior to his last hospital stay patient had started pleasure feeds and then was admitted with aspiration pneumonia. On arrival to the ER today his vital signs were remarkable for fever of 101.1 and O2 sat of 92% on 6 L. Laboratory analysis included CBC, coags, CMP, troponin, and BNP which are remarkable for creatinine 0.51. Chest x-ray demonstrates worsening right-sided middle and lower lobe infiltrate in the emergency department he was Zosyn, IV Tylenol, and normal saline at 130 cc/h. Arrangements were made for admission for recurrent pneumonia. Patient seen this morning. He appears to be in respiratory distress. He is having a hard time coughing. Last night his O2 requirements increased and he was transferred to the stepdown unit. Vital signs reviewed General examination -nonverbal, appears critically ill crackles in right lower lung Heart - + S1S2 no murmurs Lungs -crackles in right lower lung Abdomen soft NT ND +ve BS Extremities - No edema DENTISTRY PROFESSOR -right hemiplegia which is chronic Psych -patient nonverbal so unable to assess Assessment/Plan: Aspiration Pneumonia, recurrent Acute hypoxic respiratory failure Dysphagia Last night patient's O2 requirements increased. He is currently on 6 L nasal cannula Resume IV Unasyn 1 out of 2 blood cultures positive for gram-positive cocci likely contaminant fo llow-up on blood cultures until finalized Consult pulmonology Strict n.p.o. Patient has a poor prognosis due to recurrent aspiration. Will need to discuss goals of care with patient's guardian Seizure disorder TBI with right hemiplegia Cognitive imairment - Supportive care - Lamotrigine 200 mg via peg BID. Asthma without exacerabation - albuterol every 8 hours as needed The patient is admitted with an anticipated greater than 2 midnight stay for evaluation of full code Surrogate decision-maker: Emerita Ivy CODE STATUS:Full DVT prophylaxis: SCDs Objective - Vital Signs Vital signs: Vital Signs Temp 97.5 F L 02/18/24 11:19 Pulse 81 02/18/24 11:19 Resp 22 02/18/24 11:19 BP 109/67 02/18/24 11:19 Pulse Ox 97 02/18/24 11:19 FiO2 50 02/18/24 11:44 Intake & Output 02/17/24 02/18/24 02/18/24 18:59 06:59 18:59 Intake Total 30 115 230 Output Total 200 Balance 30 115 30 Weight 71.5 kg 63 kg Intake: IV 5 Invasive Line 2 5 Tube Feeding 115 225 Other 30 Output: Urine 200 Other: Voiding Method Diaper Diaper Diaper Incontinent Incontinent Incontinent External Catheter # Bowel Movements 1 - Labs CBC & Chem 7: 02/18/24 08:46 02/18/24 08:46 Labs: Abnormal Lab Results - Last 24 Hours (Table) 02/17/24 02/18/24 02/18/24 Range/Units 05:18 08:46 08:46 RBC 3.46 L (4.30-5.90) m/uL Hgb 11.5 L (13.0-17.5) gm/dL Hct 35.9 L (39.0-53.0) % MCV 103.8 H (80.0-100.0) fL Eosinophils # 0.9 H (0-0.7) k/uL Chloride 109 H (98-107) mmol/L Creatinine 0.44 L (0.66-1.25) mg/dL Calcium 8.2 L (8.4-10.2) mg/dL Procalcitonin 0.10 H (0.02-0.09) ng/mL Microbiology - Last 24 Hours (Table) 02/17/24 05:15 Blood Culture - Preliminary Blood 02/17/24 05:00 Blood Culture Gram Stain - Preliminary Blood Blood Culture - Preliminary Molecular ID
[2024-02-18] MEDS: ACETAMINOPHEN TAB 325 MG TAB PEG/G-TUBE PRN (15:05)
[2024-02-18] MEDS: IPRATROPIUM-ALBUTEROL 3 ML NEB INHALATION SCH (15:59)
[2024-02-18 17:34] LABS: Glucose,Whole Blood 93 mg/dL (70-110)
[2024-02-19] MEDS: MELATONIN 3 MG TABLET PEG/G-TUBE PRN (00:06)
[2024-02-19 00:18] LABS: Glucose,Whole Blood 121 mg/dL (70-110)
[2024-02-19 06:25] LABS: Glucose,Whole Blood 121 mg/dL (70-110)
[2024-02-19 08:28] LABS: Basophils % (A) 0 %; Eosinophils # (A) 0.6 k/uL (0-0.7); Eosinophils % (A) 7 %; HCT 38.7 % (39.0-53.0); HGB 12.2 gm/dL (13.0-17.5); Lymphocytes # (A) 1.5 k/uL (1.0-4.8); Lymphocytes % (A) 17 %; MCH 32.5 pg (25.0-35.0); MCHC 31.5 g/dL (31.0-37.0); MCV 103.2 fL (80.0-100.0); Macrocytosis Slight; Mean Platelet Volume 8.6; Monocytes # (A) 0.6 k/uL (0-1.0); Monocytes % (A) 7 %; Neutrophils # (A) 5.9 k/uL (1.3-7.7); Neutrophils % (A) 67 %; Platelet Count 256 k/uL (150-450); RBC 3.75 m/uL (4.30-5.90); RDW 13.1 % (11.5-15.5); WBC 8.8 k/uL (3.8-10.6)
[2024-02-19 08:38] LABS: African American GFR (CKD) >90 (>60 ml/min/1.73 sqM); Anion Gap 5 mmol/L; Blood Urea Nitrogen 15 mg/dL (9-20); Calcium 8.4 mg/dL (8.4-10.2); Carbon Dioxide 29 mmol/L (22-30); Chloride 108 mmol/L (98-107); Glucose 101 mg/dL (74-99); Non-African American GFR(CKD) >90 (>60 ml/min/1.73 sqM); Potassium 4.2 mmol/L (3.5-5.1); Sodium 142 mmol/L (137-145)
[2024-02-19 11:56] LABS: Glucose,Whole Blood 113 mg/dL (70-110)
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
--- NOTE | 2024-02-19 13:28 | P.PN ---
Subjective Progress Note Date: 02/19/24 Patient is a 59-year-old care home resident with recently placed PEG tube on 12/03/2023 and recent hospitalization for aspiration pneumonia from 02/12 through 02/15 who Candi presented to the ER within less than 24 hours for worsening respiratory distress and fevers. Of note prior to his last hospital stay patient had started pleasure feeds and then was admitted with aspiration pneumonia. On arrival to the ER today his vital signs were remarkable for fever of 101.1 and O2 sat of 92% on 6 L. Laboratory analysis included CBC, coags, CMP, troponin, and BNP which are remarkable for creatinine 0.51. Chest x-ray demonstrates worsening right-sided middle and lower lobe infiltrate in the emergency department he was Zosyn, IV Tylenol, and normal saline at 130 cc/h. Arrangements were made for admission for recurrent pneumonia. Patient's antibiotics which from IV Zosyn to Unasyn. Pulmonology following the patient. Patient seen this morning. He does not appear to be in any acute distress. Patient has been started on tube feeds. Using a paper that had yes and no on that I discussed goals of care with the patient. I did ask the patient if he wanted intubation and he pointed at no. I then asked him if he wants CPR and again he pointed at no. Patient currently still on 6 L nasal cannula. 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 On previous admission patient was weaned down to room air. Continue to wean down oxygen as tolerated Resume IV Unasyn 1 out of 2 blood cultures positive for gram-positive cocci likely contaminant follow-up on blood cultures until finalized Pulmonology on board Strict n.p.o. Patient has a poor prognosis due to recurrent aspiration. Will need to discuss goals of care with patient's guardian I discussed goals of care with the patient using paper that had yes and no on it. It appears that patient wants to be DNR/DNI. I did call his legal guardian who did not answer the phone. Seizure disorder TBI with right hemiplegia Cognitive imairment - Supportive care - Lamotrigine 200 mg via peg BID. Asthma without exacerabation - albuterol every 8 hours as needed The patient is admitted with an anticipated greater than 2 midnight stay for evaluation of full code Surrogate decision-maker: Emerita Ivy CODE STATUS:Full DVT prophylaxis: SCDs Objective - Vital Signs Vital signs: Vital Signs Temp 97.2 F L 02/19/24 12:00 Pulse 90 02/19/24 12:00 Resp 22 02/19/24 12:00 BP 128/65 02/19/24 12:00 Pulse Ox 94 L 02/19/24 12:00 FiO2 50 02/18/24 11:44 Intake & Output 02/18/24 02/19/24 02/19/24 18:59 06:59 18:59 Intake Total 950 20 200 Output Total 450 340 700 Balance 500 -320 -500 Weight 63 kg Intake: IV 125 20 .9@10 120 Invasive Line 1 10 Invasive Line 2 5 10 Intake, IV Titration 200 Amount Ampicillin-Sulbactam 3 gm 200 In Sodium Chloride 0.9% 100 ml @ 200 mls/hr IVPB Q6HR [facility] Rx#:[id number] Tube Feeding 625 200 Output: Urine 450 340 700 Other: Voiding Method Diaper Diaper Diaper Incontinent Incontinent Incontinent External Catheter External Catheter External Catheter # Voids 2 # Bowel Movements 1 - Labs CBC & Chem 7: 02/19/24 07:34 02/19/24 07:34 Labs: Abnormal Lab Results - Last 24 Hours (Table) 02/19/24 02/19/24 02/19/24 Range/Units 00:12 06:17 07:34 RBC 3.75 L (4.30-5.90) m/uL Hgb 12.2 L (13.0-17.5) gm/dL Hct 38.7 L (39.0-53.0) % MCV 103.2 H (80.0-100.0) fL Chloride (98-107) mmol/L Creatinine (0.66-1.25) mg/dL Glucose (74-99) mg/dL POC Glucose (mg/dL) 121 H 121 H (70-110) mg/dL 02/19/24 02/19/24 Range/Units 07:34 11:54 RBC (4.30-5.90) m/uL Hgb (13.0-17.5) gm/dL Hct (39.0-53.0) % MCV (80.0-100.0) fL Chloride 108 H (98-107) mmol/L Creatinine 0.50 L (0.66-1.25) mg/dL Glucose 101 H (74-99) mg/dL POC Glucose (mg/dL) 113 H (70-110) mg/dL Microbiology - Last 24 Hours (Table) 02/17/24 05:15 Blood Culture - Preliminary Blood
[2024-02-19 17:18] LABS: Glucose,Whole Blood 103 mg/dL (70-110)
[2024-02-19 23:57] LABS: Glucose,Whole Blood 101 mg/dL (70-110)
[2024-02-20 05:30] LABS: Glucose,Whole Blood 91 mg/dL (70-110)
[2024-02-20 06:38] LABS: Basophils # (A) 0.1 k/uL (0-0.2); Basophils % (A) 1 %; Eosinophils % (A) 12 %; HCT 39.5 % (39.0-53.0); HGB 12.5 gm/dL (13.0-17.5); Lymphocytes # (A) 1.3 k/uL (1.0-4.8); Lymphocytes % (A) 15 %; MCH 32.9 pg (25.0-35.0); MCHC 31.6 g/dL (31.0-37.0); MCV 104.1 fL (80.0-100.0); Macrocytosis Slight; Mean Platelet Volume 8.2; Monocytes # (A) 0.5 k/uL (0-1.0); Monocytes % (A) 6 %; Neutrophils # (A) 5.4 k/uL (1.3-7.7); Neutrophils % (A) 65 %; Platelet Count 245 k/uL (150-450); RDW 12.9 % (11.5-15.5); WBC 8.4 k/uL (3.8-10.6)
[2024-02-20 06:45] LABS: African American GFR (CKD) >90 (>60 ml/min/1.73 sqM); Anion Gap 2 mmol/L; Blood Urea Nitrogen 14 mg/dL (9-20); Calcium 8.6 mg/dL (8.4-10.2); Carbon Dioxide 32 mmol/L (22-30); Chloride 106 mmol/L (98-107); Glucose 105 mg/dL (74-99); Non-African American GFR(CKD) >90 (>60 ml/min/1.73 sqM); Potassium 4.3 mmol/L (3.5-5.1); Sodium 140 mmol/L (137-145)
--- NOTE | 2024-02-20 11:29 | P.PN ---
Subjective Progress Note Date: 02/20/24 Patient is a 59-year-old [facility] resident with recently placed PEG tube on 12/03/2023 and recent hospitalization for aspiration pneumonia from 02/12 through 02/15 who Candi presented to the ER within less than 24 hours for worsening respiratory distress and fevers. Of note prior to his last hospital stay patient had started pleasure feeds and then was admitted with aspiration pneumonia. On arrival to the ER today his vital signs were remarkable for fever of 101.1 and O2 sat of 92% on 6 L. Laboratory analysis included CBC, coags, CMP, troponin, and BNP which are remarkable for creatinine 0.51. Chest x-ray demonstrates worsening right-sided middle and lower lobe infiltrate in the emergency department he was Zosyn, IV Tylenol, and normal saline at 130 cc/h. Arrangements were made for admission for recurrent pneumonia. Patient's antibiotics which from IV Zosyn to Unasyn. Pulmonology following the patient. I discussed goals of care with the patient's mother. Patient's mother did did make the patient DNR/DNI. I also told nurse to wean patient's oxygen down. Patient was seen this morning. He is a poor historian as he is nonverbal. Patient did not appear to be in any distress. 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 On previous admission patient was weaned down to room air. Continue to wean down oxygen as tolerated Resume IV Unasyn 1 out of 2 blood cultures positive for gram-positive cocci likely contaminant follow-up on blood cultures until finalized Pulmonology on board Strict n.p.o. Patient has a poor prognosis due to recurrent aspiration. Patient's mother is wondering if we can start him on comfort feeding. I did tell the mother that if patient goes hospice then he can go on comfort feedings. At this time mother does not want to pursue hospice. Mother is amenable to changing patient's CODE STATUS to DNR/DNI. Seizure disorder TBI with right hemiplegia Cognitive imairment - Supportive care - Lamotrigine 200 mg via peg BID. Asthma without exacerabation - albuterol every 8 hours as needed The patient is admitted with an anticipated greater than 2 midnight stay for evaluation of full code Surrogate decision-maker: Emerita Ivy CODE STATUS: DNR/DNI. Discussed with patient's mother who is patient's legal guardian. DVT prophylaxis: SCDs Objective - Vital Signs Vital signs: Vital Signs Temp 98.4 F 02/20/24 09:10 Pulse 88 02/20/24 11:02 Resp 20 02/20/24 11:02 BP 137/73 02/20/24 11:02 Pulse Ox 96 02/20/24 11:02 FiO2 50 02/18/24 11:44 Intake & Output 02/19/24 02/20/24 02/20/24 18:59 06:59 18:59 Intake Total 440 30 10 Output Total 700 1050 Balance -260 -1020 10 Weight 63.1 kg Intake: IV 30 10 Invasive Line 1 10 Invasive Line 2 20 10 Tube Feeding 440 Output: Urine 700 1050 Other: Voiding Method Diaper Diaper Diaper Incontinent Incontinent Incontinent External Catheter External Catheter External Catheter - Labs CBC & Chem 7: 02/20/24 06:12 02/20/24 06:12 Labs: Abnormal Lab Results - Last 24 Hours (Table) 02/19/24 02/20/24 02/20/24 Range/Units 11:54 06:12 06:12 RBC 3.80 L (4.30-5.90) m/uL Hgb 12.5 L (13.0-17.5) gm/dL MCV 104.1 H (80.0-100.0) fL Eosinophils # 1.0 H (0-0.7) k/uL Carbon Dioxide 32 H (22-30) mmol/L Creatinine 0.48 L (0.66-1.25) mg/dL Glucose 105 H (74-99) mg/dL POC Glucose (mg/dL) 113 H (70-110) mg/dL Microbiology - Last 24 Hours (Table) 02/17/24 05:00 Blood Culture Gram Stain - Final Blood Blood Culture - Final Coagulase Negative Staph Molecular ID 02/17/24 05:15 Blood Culture - Preliminary Blood
[2024-02-20 11:54] LABS: Glucose,Whole Blood 118 mg/dL (70-110)
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
[2024-02-20 18:01] LABS: Glucose,Whole Blood 101 mg/dL (70-110)
[2024-02-21 00:26] LABS: Glucose,Whole Blood 103 mg/dL (70-110)
[2024-02-21 06:01] LABS: Glucose,Whole Blood 94 mg/dL (70-110)
[2024-02-21 11:36] LABS: Basophils % (A) 1 %; Eosinophils # (A) 0.9 k/uL (0-0.7); Eosinophils % (A) 12 %; HCT 41.1 % (39.0-53.0); Lymphocytes # (A) 1.1 k/uL (1.0-4.8); Lymphocytes % (A) 15 %; MCH 33.1 pg (25.0-35.0); MCHC 31.7 g/dL (31.0-37.0); MCV 104.5 fL (80.0-100.0); Macrocytosis Slight; Monocytes # (A) 0.5 k/uL (0-1.0); Monocytes % (A) 7 %; Neutrophils # (A) 4.7 k/uL (1.3-7.7); Neutrophils % (A) 63 %; Platelet Count 265 k/uL (150-450); RBC 3.93 m/uL (4.30-5.90); RDW 12.6 % (11.5-15.5); WBC 7.5 k/uL (3.8-10.6)
[2024-02-21 11:49] LABS: African American GFR (CKD) >90 (>60 ml/min/1.73 sqM); Anion Gap 4 mmol/L; Blood Urea Nitrogen 18 mg/dL (9-20); Calcium 8.7 mg/dL (8.4-10.2); Carbon Dioxide 29 mmol/L (22-30); Chloride 105 mmol/L (98-107); Glucose 101 mg/dL (74-99); Non-African American GFR(CKD) >90 (>60 ml/min/1.73 sqM); Potassium 4.6 mmol/L (3.5-5.1); Sodium 138 mmol/L (137-145)
[2024-02-21 11:56] LABS: Glucose,Whole Blood 95 mg/dL (70-110)
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
--- NOTE | 2024-02-21 15:44 | P.PN ---
Subjective Progress Note Date: 02/21/24 Hospital Course: Patient is a 59-year-old assisted resident with recently placed PEG tube on 12/03/2023 and recent hospitalization for aspiration pneumonia from 02/12 through 02/15 who presented again to the ER within less than 24 hours for worsening respiratory distress and fevers. Of note prior to his last hospital stay patient had started pleasure feeds and then was admitted with aspiration pneumonia. On arrival to the ER, his vital signs were remarkable for fever of 101.1 and O2 sat of 92% on 6 L. Laboratory analysis included CBC, coags, CMP, troponin, and BNP which are remarkable for creatinine 0.51. Chest x-ray demonstrates worsening right-sided middle and lower lobe infiltrate in the emergency department he was Zosyn, IV Tylenol, and normal saline at 130 cc/h. Arrangements were made for admission for recurrent aspiration pneumonia. Patient's antibiotics which from IV Zosyn to Unasyn. Pulmonology following the patient. Subjective: Patient seen and examined at bedside. No acute events overnight. He is nonverbal at baseline. Currently on 6 L nasal cannula. Pertinent positives and negatives as discussed above, a complete review of systems was performed and all other systems are negative. Vitals Signs Reviewed. 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 -Continue tube feeds, IV fluids discontinued Seizure disorder TBI with right hemiplegia Cognitive imairment - Supportive care - Lamotrigine 200 mg via peg BID. Asthma without exacerabation -DuoNeb every 4 hours DVT ppx: Lovenox Code status: DNR/DNI Anticipated discharge place: Pending clinical course Anticipated discharge time: Pending clinical course Objective - Vital Signs Vital signs: Vital Signs Temp 98.6 F 02/21/24 09:19 Pulse 86 02/21/24 13:44 Resp 20 02/21/24 13:44 BP 120/69 02/21/24 12:00 Pulse Ox 96 02/21/24 12:00 FiO2 50 02/18/24 11:44 Intake & Output 02/20/24 02/21/24 02/21/24 18:59 06:59 18:59 Intake Total 20 20 500 Output Total 600 1250 700 Balance -580 -1230 -200 Weight 63.1 kg Intake: IV 20 20 20 Invasive Line 2 20 20 20 Tube Feeding 480 Output: Urine 600 1250 700 Other: Voiding Method Diaper Diaper Diaper Incontinent Incontinent Incontinent External Catheter External Catheter External Catheter - Labs CBC & Chem 7: 02/21/24 10:49 02/21/24 10:49 Labs: Abnormal Lab Results - Last 24 Hours (Table) 02/21/24 02/21/24 Range/Units 10:49 10:49 RBC 3.93 L (4.30-5.90) m/uL MCV 104.5 H (80.0-100.0) fL Eosinophils # 0.9 H (0-0.7) k/uL Creatinine 0.47 L (0.66-1.25) mg/dL Glucose 101 H (74-99) mg/dL Microbiology - Last 24 Hours (Table) 02/17/24 05:15 Blood Culture - Preliminary Blood
[2024-02-21 18:10] LABS: Glucose,Whole Blood 105 mg/dL (70-110)
[2024-02-21 23:46] LABS: Glucose,Whole Blood 113 mg/dL (70-110)
[2024-02-22 05:45] LABS: Glucose,Whole Blood 108 mg/dL (70-110)
--- NOTE | 2024-02-22 07:36 | XR ---
EXAMINATION TYPE: XR chest 1V DATE OF EXAM: 02/22/2024 COMPARISON: 02/18/2024 INDICATION: Follow-up pneumonia TECHNIQUE: Single frontal view of the chest is obtained. FINDINGS: The heart size is normal. The pulmonary vasculature is normal. The lungs are clear. Previous left lower lobe infiltrate is resolved. Chin overlies the right apex causing some limitation. IMPRESSION: 1. No acute pulmonary process.
[2024-02-22] MEDS ORDERED: ALBUTEROL NEBULIZED 2.5 MG/3 ML INHALATION PRN (10:16)
[2024-02-22 12:19] LABS: Glucose,Whole Blood 108 mg/dL (70-110)
--- NOTE | 2024-02-22 14:15 | P.PN ---
Subjective Progress Note Date: 02/22/24 Hospital Course: Patient is a 59-year-old [facility] resident with recently placed PEG tube on 12/03/2023 and recent hospitalization for aspiration pneumonia from 02/12 through 02/15 who presented again to the ER within less than 24 hours for worsening respiratory distress and fevers. Of note prior to his last hospital stay patient had started pleasure feeds and then was admitted with aspiration pneumonia. On arrival to the ER, his vital signs were remarkable for fever of 101.1 and O2 sat of 92% on 6 L. Laboratory analysis included CBC, coags, CMP, troponin, and BNP which are remarkable for creatinine 0.51. Chest x-ray demonstrates worsening right-sided middle and lower lobe infiltrate in the emergency department he was Zosyn, IV Tylenol, and normal saline at 130 cc/h. Arrangements were made for admission for recurrent aspiration pneumonia. Patient's antibiotics which from IV Zosyn to Unasyn. Pulmonology following the patient. Still having increased sputum production, unable to clear. Subjective: Patient seen and examined at bedside. No acute events overnight. He is nonv erbal at baseline. Currently on 4 L nasal cannula. Pertinent positives and negatives as discussed above, a complete review of systems was performed and all other systems are negative. Vitals Signs Reviewed. 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 Assessment and Plan: Aspiration Pneumonia, recurrent Acute hypoxic respiratory failure Dysphagia secondary to traumatic brain injury -Currently on 4 L nasal cannula, continue to wean oxygen, was previously weaned down to room air during previous hospitalization -Continue IV Unasyn 3 g every 6 hours -1 out of 2 blood cultures positive for coag negative staph, contaminant -Pulmonology following -Continue strict n.p.o. -Continue tube feeds, IV fluids discontinued -Patient unable to clear sputum, causing increased respiratory distress. Chest x-ray looks within normal limits. Oxygen requirements remain the same. Added albuterol as needed, asked respiratory therapy to try his chest physiotherapy. Seizure disorder TBI with right hemiplegia Cognitive imairment - Supportive care - Lamotrigine 200 mg via peg BID. Asthma without exacerabation -DuoNeb every 4 hours DVT ppx: Lovenox Code status: DNR/DNI Anticipated discharge place: Pending clinical course Anticipated discharge time: Pending clinical course Objective - Vital Signs Vital signs: Vital Signs Temp 98.5 F 02/22/24 07:08 Pulse 90 02/22/24 10:41 Resp 16 02/22/24 07:08 BP 117/78 02/22/24 07:08 Pulse Ox 96 02/22/24 07:08 FiO2 50 02/18/24 11:44 Intake & Output 02/21/24 02/22/24 02/22/24 18:59 06:59 18:59 Intake Total 750 850 Output Total 700 900 Balance 50 -50 Weight 63.1 kg Intake: IV 20 10 Invasive Line 2 20 10 Tube Feeding 730 840 Output: Urine 700 900 Other: Voiding Method Diaper Diaper Diaper Incontinent Incontinent Incontinent External Catheter External Catheter External Catheter - Labs CBC & Chem 7: 02/21/24 10:49 02/21/24 10:49 Labs: Abnormal Lab Results - Last 24 Hours (Table) 02/21/24 Range/Units 23:44 POC Glucose (mg/dL) 113 H (70-110) mg/dL Microbiology - Last 24 Hours (Table) 02/17/24 05:15 Blood Culture - Final Blood
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
[2024-02-22 17:20] LABS: Glucose,Whole Blood 94 mg/dL (70-110)
[2024-02-22] MEDS: methylPREDNISolone SOD SUCCI 125 MG/2 ML VIAL IV STA (17:51)
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
[2024-02-22 23:40] LABS: Glucose,Whole Blood 144 mg/dL (70-110)
[2024-02-23 05:45] LABS: Glucose,Whole Blood 143 mg/dL (70-110)
[2024-02-23] MEDS: SCOPOLAMINE 1 MG/72 HR PATCH TRANSDERM SCH (10:07)
[2024-02-23 12:23] LABS: Glucose,Whole Blood 118 mg/dL (70-110)
[2024-02-23 14:22] LABS: Basophils # (A) 0.01 X 10*3/uL (0.00-0.10); Basophils % (A) 0.1 %; Eosinophils # (A) 0 X 10*3/uL (0.04-0.35); Eosinophils % (A) 0 %; HCT 38.4 % (39.6-50.0); HGB 12.5 g/dL (13.0-17.0); Lymphocytes # (A) 1.05 X 10*3/uL (0.90-5.00); Lymphocytes % (A) 13.7 %; MCH 33.5 pg (27.0-32.0); MCHC 32.6 g/dL (32.0-37.0); MCV 102.9 FL (80.0-97.0); Mean Platelet Volume 10.2 FL (9.5-12.2); Monocytes # (A) 0.79 X 10*3/uL (0.20-1.00); Monocytes % (A) 10.3 %; NRBC Per 100 WBC 0 X 10*3/uL (0.00-0.01); Neutrophils # (A) 5.77 X 10*3/uL (1.80-7.70); Neutrophils % (A) 75.6 %; Platelet Count 289 X 10*3/uL (140-440); RBC 3.73 X 10*6/uL (4.40-5.60); RDW 12.8 % (11.5-14.5); WBC 7.64 X 10*3/uL (4.50-10.00)
--- NOTE | 2024-02-23 14:50 | XR ---
EXAMINATION TYPE: XR chest 1V portable DATE OF EXAM: 02/23/2024 COMPARISON: 02/22/2024 INDICATION: Worsening hypoxia TECHNIQUE: Single frontal view of the chest is obtained. Patient is rotated to the right. FINDINGS: The heart size is normal. The pulmonary vasculature is normal. There is interval development of a large consolidation at the left lung base. Correlate for atelectas is and pneumonia. There is silhouetting of the left diaphragm. IMPRESSION: 1. New consolidation left lower lobe. Correlate for atelectasis and pneumonia. Follow-up is recommend ed.
[2024-02-23] MEDS ORDERED: VANCOMYCIN IV PER PHARMACY 1 EACH MISC MISCELLANE PRN (14:58)
--- NOTE | 2024-02-23 15:01 | P.PN ---
Subjective Progress Note Date: 02/23/24 Hospital Course: Patient is a 59-year-old [facility] resident with recently placed PEG tube on 12/03/2023 and recent hospitalization for aspiration pneumonia from 02/12 through 02/15 who presented again to the ER within less than 24 hours for worsening respiratory distress and fevers. Of note prior to his last hospital stay patient had started pleasure feeds and then was admitted with aspiration pneumonia. On arrival to the ER, his vital signs were remarkable for fever of 101.1 and O2 sat of 92% on 6 L. Laboratory analysis included CBC, coags, CMP, troponin, and BNP which are remarkable for creatinine 0.51. Chest x-ray demonstrates worsening right-sided middle and lower lobe infiltrate in the emergency department he was Zosyn, IV Tylenol, and normal saline at 130 cc/h. Arrangements were made for admission for recurrent aspiration pneumonia. Patient's antibiotics which from IV Zosyn to Unasyn. Pulmonology following the patient. Still having increased sputum production, unable to clear. On 02/22/2024 patient had worsening respiratory function due to unable to clear secretion. Chest physiotherapy did not help. He received deep suction which helped resolve some of the symptoms. On 02/22 he had similar issues, now having increased oxygen requirements Subjective: Patient seen and examined at bedside. No acute events overnight. He is nonverbal at baseline. Worsening respiratory status Pertinent positives and negatives as discussed above, a complete review of systems was performed and all other systems are negative. Vitals Signs Reviewed. 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 -right hemiplegia which is chronic Psych -patient nonverbal so unable to assess Data Reviewed Today: Pertinent Labs: WBC 7.64, hemoglobin 12.5, blood sugars range between 10 2-1 43 Imaging: Chest x-ray independently interpreted, new Left lower lobe consolidation Assessment and Plan: Aspiration Pneumonia, recurrent Acute hypoxic respiratory failure Dysphagia secondary to traumatic brain injury -Requiring increased amount of oxygen, currently on 15 L nasal cannula -Discussed management with pulmonology, will start him on IV vancomycin, monitor for renal toxicity, also given 40 of IV Lasix once, if worsening oxygen requirements, will start on BiPAP. -Continue IV Unasyn 3 g every 6 hours -1 out of 2 blood cultures positive for coag negative staph, contaminant -Continue strict n.p.o. -Continue tube feeds, IV fluids discontinued Seizure disorder TBI with right hemiplegia Cognitive imairment - Supportive care - Lamotrigine 200 mg via peg BID. Asthma without exacerabation -DuoNeb every 4 hours DVT ppx: Lovenox Code status: DNR/DNI Anticipated discharge place: Pending clinical course Anticipated discharge time: Pending clinical course Objective - Vital Signs Vital signs: Vital Signs Temp 97.5 F L 02/23/24 13:14 Pulse 95 02/23/24 13:14 Resp 19 02/23/24 13:14 BP 109/65 02/23/24 13:14 Pulse Ox 90 L 02/23/24 13:14 FiO2 50 02/18/24 11:44 Intake & Output 02/22/24 02/23/24 02/23/24 18:59 06:59 18:59 Intake Total 240 Output Total 750 Balance -510 Weight 63.1 kg 62.5 kg Intake: Tube Feeding 240 Output: Urine 750 Other: Voiding Method Diaper Diaper Diaper Incontinent Incontinent Incontinent External Catheter External Catheter External Catheter - Labs CBC & Chem 7: 02/23/24 07:57 02/21/24 10:49 Labs: Abnormal Lab Results - Last 24 Hours (Table) 02/22/24 02/23/24 02/23/24 Range/Units 23:37 05:39 07:57 RBC 3.73 L (4.40-5.60) X 10*6/uL Hgb 12.5 L (13.0-17.0) g/dL Hct 38.4 L (39.6-50.0) % MCV 102.9 H (80.0-97.0) FL MCH 33.5 H (27.0-32.0) pg Eosinophils # 0 L (0.04-0.35) X 10*3/uL POC Glucose (mg/dL) 144 H 143 H (70-110) mg/dL 02/23/24 Range/Units 12:21 RBC (4.40-5.60) X 10*6/uL Hgb (13.0-17.0) g/dL Hct (39.6-50.0) % MCV (80.0-97.0) FL MCH (27.0-32.0) pg Eosinophils # (0.04-0.35) X 10*3/uL POC Glucose (mg/dL) 118 H (70-110) mg/dL Microbiology - Last 24 Hours (Table) 02/17/24 05:15 Blood Culture - Final Blood
[2024-02-23 15:09] LABS: BUN/Creat Ratio 42.33 Ratio (12.00-20.00); Blood Urea Nitrogen 25.4 mg/dL (9.0-27.0); Glucose 129 mg/dL (70-110)
[2024-02-23 15:10] LABS: Calcium 9.1 mg/dL (8.7-10.3); Carbon Dioxide 26.7 mmol/L (21.6-31.8); Chloride 104 mmol/L (96-109); Potassium 4.6 mmol/L (3.5-5.5); Sodium 140 mmol/L (135-145)
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
[2024-02-23] MEDS: FUROSEMIDE 10 MG/ML 4 ML VIAL IV STA (16:30)
[2024-02-23] MEDS: VANCOMYCIN 1,000 MG in SODIUM CHLORIDE 0.9% 250 ML IVPB SCH (16:30)
[2024-02-23 18:00] LABS: Glucose,Whole Blood 109 mg/dL (70-110)
[2024-02-24 00:54] LABS: Glucose,Whole Blood 105 mg/dL (70-110)
[2024-02-24 06:13] LABS: Glucose,Whole Blood 119 mg/dL (70-110)
[2024-02-24 07:10] LABS: Glucose,Whole Blood 123 mg/dL (70-110)
[2024-02-24 11:05] LABS: BUN/Creat Ratio 45.17 Ratio (12.00-20.00); Blood Urea Nitrogen 27.1 mg/dL (9.0-27.0); Calcium 8.5 mg/dL (8.7-10.3); Carbon Dioxide 27.2 mmol/L (21.6-31.8); Chloride 103 mmol/L (96-109); Glucose 114 mg/dL (70-110); Potassium 4.4 mmol/L (3.5-5.5); Sodium 141 mmol/L (135-145)
[2024-02-24 12:04] LABS: Glucose,Whole Blood 85 mg/dL (70-110)
[2024-02-24 12:42] LABS: Basophils # (A) 0.03 X 10*3/uL (0.00-0.10); Basophils % (A) 0.3 %; Eosinophils # (A) 0.59 X 10*3/uL (0.04-0.35); Eosinophils % (A) 6.8 %; HCT 39.5 % (39.6-50.0); HGB 12.8 g/dL (13.0-17.0); Lymphocytes # (A) 1.83 X 10*3/uL (0.90-5.00); Lymphocytes % (A) 20.9 %; MCHC 32.4 g/dL (32.0-37.0); MCV 101.8 FL (80.0-97.0); Mean Platelet Volume 10.4 FL (9.5-12.2); Monocytes # (A) 0.68 X 10*3/uL (0.20-1.00); Monocytes % (A) 7.8 %; NRBC Per 100 WBC 0 X 10*3/uL (0.00-0.01); Neutrophils # (A) 5.59 X 10*3/uL (1.80-7.70); Platelet Count 282 X 10*3/uL (140-440); RBC 3.88 X 10*6/uL (4.40-5.60); RDW 13.2 % (11.5-14.5); WBC 8.74 X 10*3/uL (4.50-10.00)
--- NOTE | 2024-02-24 15:34 | P.PN ---
Subjective Progress Note Date: 02/24/24 Hospital Course: Patient is a 59-year-old intermediate resident with recently placed PEG tube on 12/03/2023 and recent hospitalization for aspiration pneumonia from 02/12 through 02/15 who presented again to the ER within less than 24 hours for worsening respiratory distress and fevers. Of note prior to his last hospital stay patient had started pleasure feeds and then was admitted with aspiration pneumonia. On arrival to the ER, his vital signs were remarkable for fever of 101.1 and O2 sat of 92% on 6 L. Laboratory analysis included CBC, coags, CMP, troponin, and BNP which are remarkable for creatinine 0.51. Chest x-ray demonstrates worsening right-sided middle and lower lobe infiltrate in the emergency department he was Zosyn, IV Tylenol, and normal saline at 130 cc/h. Arrangements were made for admission for recurrent aspiration pneumonia. Patient's antibiotics which from IV Zosyn to Unasyn. Pulmonology following the patient. Still having increased sputum production, unable to clear. On 02/22/2024 patient had worsening respiratory function due to unable to clear secretion. Chest physiotherapy did not help. He received deep suction which helped resolve some of the symptoms. On 02/22 he had similar issues, now having increased oxygen requirements. He now has left-sided pneumonia. Hospice was consulted. Family wants to continue current therapy, may consider hospice at a later time. Subjective: Patient seen and examined at bedside. No acute events overnight. He is nonverbal at baseline. Respiratory function slightly improved. Pertinent positives and negatives as discussed above, a complete review of systems was performed and all other systems are negative. Vitals Signs Reviewed. General examination -nonverbal Heart - + S1S2 no murmurs Lungs -bibasilar Rales, supplemental oxygen Abdomen soft NT ND +ve BS, PEG tube in place Extremities -lower extremity dependent edema, contractures [employer] -right hemiplegia which is chronic Psych -patient nonverbal so unable to assess Data Reviewed Today: Pertinent Labs: WBC 8.74, hemoglobin 12.8, creatinine 0.6 Imaging: Chest x-ray independently interpreted, new Left lower lobe consolidation Assessment and Plan: Aspiration Pneumonia, recurrent Acute hypoxic respiratory failure Dysphagia secondary to traumatic brain injury -Had a long conversation with family with regards to hospice, family still undecided, thinking about treating that ammonia, and if there is recurrent aspiration pneumonia, may consider hospice -Pulmonology following, patient currently on IV vancomycin, monitor for renal toxicity, continue IV Unasyn 3 g every 6 hours -1 out of 2 blood cultures positive for coag negative staph, contaminant -Continue strict n.p.o. -Continue tube feeds, IV fluids discontinued Seizure disorder TBI with right hemiplegia Cognitive imairment - Supportive care - Lamotrigine 200 mg via peg BID. Asthma without exacerabation -DuoNeb every 4 hours DVT ppx: Lovenox Code status: DNR/DNI Anticipated discharge place: Pending clinical course Anticipated discharge time: Pending clinical course Objective - Vital Signs Vital signs: Vital Signs Temp 98.4 F 02/24/24 12:02 Pulse 80 02/24/24 15:24 Resp 17 02/24/24 12:02 BP 112/70 02/24/24 12:02 Pulse Ox 91 L 02/24/24 12:02 FiO2 50 02/18/24 11:44 Intake & Output 02/23/24 02/24/24 02/24/24 18:59 06:59 18:59 Intake Total 480 Output Total 1200 Balance -1200 480 Weight 62.5 kg 62.5 kg Intake: Tube Feeding 480 Output: Urine 1200 Other: Voiding Method Diaper Diaper Diaper Incontinent Incontinent Incontinent External Catheter External Catheter External Catheter - Labs CBC & Chem 7: 02/24/24 06:52 02/24/24 06:52 Labs: Abnormal Lab Results - Last 24 Hours (Table) 02/24/24 02/24/24 02/24/24 Range/Units 06:11 06:52 06:52 RBC 3.88 L (4.40-5.60) X 10*6/uL Hgb 12.8 L (13.0-17.0) g/dL Hct 39.5 L (39.6-50.0) % MCV 101.8 H (80.0-97.0) FL MCH 33.0 H (27.0-32.0) pg Eosinophils # 0.59 H (0.04-0.35) X 10*3/uL BUN 27.1 H (9.0-27.0) mg/dL BUN/Creatinine Ratio 45.17 H (12.00-20.00) Ratio Glucose 114 H (70-110) mg/dL POC Glucose (mg/dL) 119 H (70-110) mg/dL Calcium 8.5 L (8.7-10.3) mg/dL 02/24/24 Range/Units 07:08 RBC (4.40-5.60) X 10*6/uL Hgb (13.0-17.0) g/dL Hct (39.6-50.0) % MCV (80.0-97.0) FL MCH (27.0-32.0) pg Eosinophils # (0.04-0.35) X 10*3/uL BUN (9.0-27.0) mg/dL BUN/Creatinine Ratio (12.00-20.00) Ratio Glucose (70-110) mg/dL POC Glucose (mg/dL) 123 H (70-110) mg/dL Calcium (8.7-10.3) mg/dL
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
[2024-02-24 18:26] LABS: Glucose,Whole Blood 106 mg/dL (70-110)
[2024-02-24] MEDS: VANCOMYCIN 1,000 MG in SODIUM CHLORIDE 0.9% 250 ML IVPB SCH (18:39)
[2024-02-25 00:22] LABS: Glucose,Whole Blood 83 mg/dL (70-110)
[2024-02-25 06:21] LABS: Glucose,Whole Blood 90 mg/dL (70-110)
[2024-02-25 10:08] LABS: African American GFR (CKD) >90 (>60 ml/min/1.73 sqM); Non-African American GFR(CKD) >90 (>60 ml/min/1.73 sqM)
[2024-02-25] MEDS: VANCOMYCIN TROUGH DUE 1 EACH MISC MISCELLANE ONE (10:29)
[2024-02-25 11:25] LABS: Glucose,Whole Blood 84 mg/dL (70-110)
[2024-02-25 11:59] LABS: Glucose,Whole Blood 116 mg/dL (70-110)
--- NOTE | 2024-02-25 12:32 | US ---
EXAMINATION TYPE: US venous doppler duplex LE RT DATE OF EXAM: 02/25/2024 12:27 PM COMPARISON: NONE CLINICAL INDICATION: Male, 59 years old with history of RLE edema; Edema right leg SIDE PERFORMED: Right TECHNIQUE: The lower extremity deep venous system is examined utilizing real time linear array sonog brooke with graded compression, doppler sonography and color-flow sonography. VESSELS IMAGED: Common Femoral Vein Deep Femoral Vein Greater Saphenous Vein * Femoral Vein Popliteal Vein Small Saphenous Vein * Proximal Calf Veins (* superficial vessels) Very limited exam- pt non-verbal, mentally challenged in position- could only image distal fe moral vein to proximal calf veins Right Leg: Very limited views show no DVT within distal femoral vein to proximal calf veins IMPRESSION: Grayscale, color doppler, spectral doppler imaging performed of the deep veins of the lo wer extremities. There is normal flow, compressibility, vascular waveforms.
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
--- NOTE | 2024-02-25 15:23 | XR ---
EXAMINATION TYPE: XR chest 1V DATE OF EXAM: 02/25/2024 3:04 PM CLINICAL INDICATION:Male, 59 years old with history of Pneumonia follow-up; [facility] COMPARISON: Chest radiographs from 02/21/2024 TECHNIQUE: XR chest 1V Frontal view of the chest. FINDINGS: Rotated exam. Lungs/Pleura: Low lung volumes are present. There is no evidence of pleural effusion, focal consolida tion, or pneumothorax. Pulmonary vascularity: Unremarkable. Heart/mediastinum: Cardiomediastinal silhouette is unremarkable. Musculoskeletal: No acute osseous pathology. IMPRESSION: Rotated exam with generalized hazy appearance which could represent atelectasis versus patient's pneu monia. Overall imaging does not appear that different from prior.
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
[2024-02-25] MEDS: FUROSEMIDE 10 MG/ML 4 ML VIAL IV STA (16:19)
[2024-02-25 17:15] LABS: Glucose,Whole Blood 106 mg/dL (70-110)
[2024-02-25] MEDS: VANCOMYCIN 1,250 MG in SODIUM CHLORIDE 0.9% 250 ML IVPB SCH (17:50)
[2024-02-25 23:45] LABS: Glucose,Whole Blood 103 mg/dL (70-110)
[2024-02-26 06:29] LABS: Glucose,Whole Blood 114 mg/dL (70-110)
[2024-02-26 09:16] LABS: HCT 39.9 % (39.6-50.0); HGB 13.2 g/dL (13.0-17.0); MCH 33.2 pg (27.0-32.0); MCHC 33.1 g/dL (32.0-37.0); MCV 100.5 FL (80.0-97.0); Mean Platelet Volume 9.8 FL (9.5-12.2); NRBC Per 100 WBC 0 X 10*3/uL (0.00-0.01); Platelet Count 290 X 10*3/uL (140-440); RBC 3.97 X 10*6/uL (4.40-5.60); RDW 12.8 % (11.5-14.5); WBC 10.79 X 10*3/uL (4.50-10.00)
[2024-02-26 09:23] LABS: BUN/Creat Ratio 41.83 Ratio (12.00-20.00); Blood Urea Nitrogen 25.1 mg/dL (9.0-27.0); Glucose 111 mg/dL (70-110)
[2024-02-26 09:24] LABS: ALT 27 U/L (10-49); AST 25 U/L (14-35); Albumin 3.6 g/dL (3.8-4.9); Albumin/Globulin Ratio 1.09 Ratio (1.60-3.17); Alkaline Phosphatase 61 U/L (41-126); Carbon Dioxide 29.5 mmol/L (21.6-31.8); Chloride 102 mmol/L (96-109); Globulin 3.3 g/dL (1.6-3.3); Potassium 4.3 mmol/L (3.5-5.5); Sodium 142 mmol/L (135-145); Total Bilirubin 0.3 mg/dL (0.3-1.2); Total Protein 6.9 g/dL (6.2-8.2)
[2024-02-26 11:52] LABS: Glucose,Whole Blood 112 mg/dL (70-110)
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
[2024-02-26 17:19] LABS: Glucose,Whole Blood 114 mg/dL (70-110)
[2024-02-27 00:15] LABS: Glucose,Whole Blood 102 mg/dL (70-110)
[2024-02-27 05:52] LABS: Glucose,Whole Blood 102 mg/dL (70-110)
[2024-02-27 10:03] LABS: African American GFR (CKD) >90 (>60 ml/min/1.73 sqM); Non-African American GFR(CKD) >90 (>60 ml/min/1.73 sqM)
[2024-02-27 10:08] LABS: Vancomycin,Random 22.6 ug/mL
[2024-02-27] MEDS: VANCOMYCIN TROUGH DUE 1 EACH MISC MISCELLANE ONE (10:34)
[2024-02-27 12:05] LABS: Glucose,Whole Blood 87 mg/dL (70-110)
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
[2024-02-27] MEDS: AMPICILLIN-SULBACTAM 3 GM in SODIUM CHLORIDE 0.9% 100 ML IVPB SCH (16:28)
[2024-02-27 17:09] LABS: Glucose,Whole Blood 109 mg/dL (70-110)
[2024-02-27] MEDS: VANCOMYCIN 1,000 MG in SODIUM CHLORIDE 0.9% 250 ML IVPB SCH (20:54)
[2024-02-28 00:04] LABS: Glucose,Whole Blood 106 mg/dL (70-110)
[2024-02-28] MEDS: ONDANSETRON 4 MG/2 ML VIAL IVP PRN (04:56)
[2024-02-28 06:18] LABS: Glucose,Whole Blood 95 mg/dL (70-110)
[2024-02-28 11:00] LABS: HCT 38.5 % (39.0-53.0); HGB 12.7 gm/dL (13.0-17.5); MCH 34.4 pg (25.0-35.0); MCV 104.5 fL (80.0-100.0); Macrocytosis Slight; Mean Platelet Volume 8.2; Platelet Count 268 k/uL (150-450); RBC 3.69 m/uL (4.30-5.90); WBC 8.1 k/uL (3.8-10.6)
[2024-02-28 11:06] LABS: ALT 22 U/L (4-49); African American GFR (CKD) >90 (>60 ml/min/1.73 sqM); Albumin 3.1 g/dL (3.5-5.0); Albumin/Globulin Ratio 0.9; Anion Gap 4 mmol/L; Blood Urea Nitrogen 21 mg/dL (9-20); Calcium 8.4 mg/dL (8.4-10.2); Carbon Dioxide 27 mmol/L (22-30); Chloride 107 mmol/L (98-107); Globulin 3.4 g/dL; Glucose 97 mg/dL (74-99); Non-African American GFR(CKD) >90 (>60 ml/min/1.73 sqM); Sodium 138 mmol/L (137-145); Total Bilirubin 0.6 mg/dL (0.2-1.3); Total Protein 6.5 g/dL (6.3-8.2)
[2024-02-28 11:26] LABS: AST 34 U/L (17-59); Alkaline Phosphatase 43 U/L (38-126); Magnesium 1.8 mg/dL (1.6-2.3); Potassium 5.3 mmol/L (3.5-5.1)
[2024-02-28 11:54] LABS: Glucose,Whole Blood 94 mg/dL (70-110)
[2024-02-28] MEDS: NYSTATIN 100,000 UNIT/GM POWD 15 GM TOPICAL SCH (12:05)
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
[2024-02-28] MEDS: NYSTATIN 100,000 UNIT/GM OINT 30 GM TUBE TOPICAL SCH (16:07)
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
[2024-02-28 17:13] LABS: Glucose,Whole Blood 78 mg/dL (70-110)
[2024-02-28 23:40] LABS: Glucose,Whole Blood 92 mg/dL (70-110)
[2024-02-29 06:27] LABS: Glucose,Whole Blood 114 mg/dL (70-110)
[2024-02-29 07:17] LABS: African American GFR (CKD) >90 (>60 ml/min/1.73 sqM); Non-African American GFR(CKD) >90 (>60 ml/min/1.73 sqM)
[2024-02-29] MEDS: ENOXAPARIN 40 MG/0.4 ML SYRINGE SQ SCH (09:50)
[2024-02-29 10:13] LABS: Anion Gap 5 mmol/L; Blood Urea Nitrogen 17 mg/dL (9-20); Calcium 8.4 mg/dL (8.4-10.2); Carbon Dioxide 27 mmol/L (22-30); Chloride 107 mmol/L (98-107); Glucose 102 mg/dL (74-99); Sodium 139 mmol/L (137-145)
[2024-02-29 10:20] LABS: Potassium 4.6 mmol/L (3.5-5.1)
[2024-02-29 10:53] LABS: HCT 39.1 % (39.0-53.0); HGB 12.8 gm/dL (13.0-17.5); MCH 33.3 pg (25.0-35.0); MCHC 32.7 g/dL (31.0-37.0); MCV 102.1 fL (80.0-100.0); Macrocytosis Slight; Mean Platelet Volume 8.2; Platelet Count 270 k/uL (150-450); RBC 3.84 m/uL (4.30-5.90); RDW 12.6 % (11.5-15.5)
[2024-02-29] MEDS: VANCOMYCIN TROUGH DUE 1 EACH MISC MISCELLANE ONE (11:56)
[2024-02-29 12:24] LABS: Glucose,Whole Blood 86 mg/dL (70-110)
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
--- NOTE | 2024-02-29 14:43 | P.PN ---
Subjective Progress Note Date: 02/29/24 Hospital course: Patient is a pleasant 59-year-old male with a past medical history of TBI right hemiplegia, dysphagia, blindness of right eye, and severe aphasia. He resides in a [facility]. He recently had a PEG tube placed on 12/03/2023 and underwent hospitalization for aspiration pneumonia from 02/13/2024 through 02/16/2024. After being discharged and returning to the [facility], patient returned to the emergency department on 02/17/2024 for again worsening respiratory distress and fevers. Of note, prior to this last hospitalization stay patient was started on pleasure feeds at [facility] resulting in admission for aspiration pneumonia. On arrival to the emergency department, patient underwent evaluation. Vital signs upon arrival show blood pressure 101/77, heart rate 114, respiratory rate 24, temp 101.1 F, and SpO2 of 92% on 6 L EKG was completed showing sinus tachycardia at 110 bpm. Chest x-ray completed showing slight increased patchy of interstitial infiltrates right greater than left. Patient was admitted under our services for this upon admission secondary to recurrent aspiration pneumonia with acute hypoxic respiratory failure. Consultation to pulmonology was placed. Patient continued to have difficulties clearing secretions and chest physiotherapy was performed without successful improvement. Respiratory was also called to bedside and patient required deep suctioning which did help resolve some symptoms. However, on 02/23/24 patient again developing worsening hypoxia and a repeat chest x-ray was completed showing new consolidation of left lower lobe. Hospice was consulted at this time and met with family, family has chosen to continue with current therapy and may revisit consideration of hospice in the future. Physical exam: Patient doing well this morning. He is awake and alert and has been fully weaned off of oxygen and is maintaining SPO2 on room air. Plan for likely discharge within the next 24 hours. [facility] was contacted they confirmed they do not have a hospital bed available for patient. Prescription was filled out as patient requires hospital bed for tube feedings and history of recurrent aspiration pneumonia. Patient's head of bed is to be elevated to 45 degrees at all times. Vital signs reviewed . General: Chronically ill appearing Derm: Skin warm and dry, normal coloration for ethnicity. Head: Asymmetry from previous TBI. Eyes: Blindness secondary to previous TBI with injury to right eye. Mouth: no lip lesions, mucus membranes moist Cardiovascular: regular rate and rhythm with normal S1S2, no murmur, positive posterior tibial pulses bilaterally, and cap refill < 2 seconds. Lungs: Respirations even, regular, and unlabored on room air. Lungs much more clear this morning, no rhonchi, wheezing, crackles, or rales noted. Abdominal: soft, nontender to palpation, no guarding, no appreciable organomegaly. Ext:, Right hemiplegia with contractures and moderate swelling of right foot and lower leg. Neuro/Psych: Patient is awake and alert but nonverbal at baseline, able to communicate with thumbs up or thumbs down. Assessment and Plan of Care: Aspiration Pneumonia, recurrent Acute hypoxic respiratory failure Dysphagia secondary to traumatic brain injury -Pulmonology following, reviewed documentation in chart. Desktop Analyst discussed with family the possibility of tracheostomy tube in the future. -Continue IV antibiotics with Vancomycin 1250 mg every 8 hours and Unasyn 3 g every 6 hours. Monitor renal function and vancomycin trough closely to watch for any signs of vancomycin associated renal toxicity. -1 out of 2 blood cultures positive for coag negative staph, contaminant -Continue strict NPO and feeding via tube feed only. -Aspiration precautions in place with head of bed elevated to 45 degrees at all times -Telemetry monitoring -Continue supplemental if needed oxygen to maintain SpO2 equal to or greater than 92%. -DuoNebs scheduled 4 times daily and as needed for wheezing/shortness of breath. -Standing orders in place for deep suctioning as needed -Continue chest physiotherapy 4 times daily. Right lower extremity swelling Doppler right lower extremity negative for DVT TBI with right hemiplegia blindness of right eye, and severe aphasia Seizure disorder, secondary to TBI Cognitive imairment secondary to TBI -Continue safe and supportive care with assistance as needed. -Seizure precautions and fall precautions in place -Continue Lamotrigine 200 mg via peg BID. Patient will require hospital bed for tube feedings and history of recurrent aspiration pneumonia. Patient's head of bed needs to be elevated to 45 degrees AT ALL TIMES. Data and imaging reviewed: Vital signs reviewed. Blood pressure 102/67, heart rate 82, respiratory rate 16, temp 98.5 F, and SpO2 of 92% on room air. Morning labs reviewed. CBC showing stable macrocytic anemia with hemoglobin of 12.8 and MCV of 102.1. BMP markable with sodium 139, potassium 4.6, BUN is 17, creatinine 0.43, GFR greater than 90. Magnesium also normal at 1.8 vancomycin trough therapeutic at 20.2. CODE STATUS: DNR/DNI DVT prophylaxis: Lovenox Anticipated discharge date: Pending clinical course Anticipated discharge place: Pending clinical course Patient was seen independently by Nurse Pracitioner. This document was prepared using [employer] dictation software. Please allow for errors in aboriginal education teacher, while rare they do occur. Gamaliel Laureano WORKDAY CONSULTANT rendered care for this patient independently, reviewed the findings and plan as documented in the note above. I did not physically speak with or examine the patient on this date. Objective - Vital Signs Vital signs: Vital Signs Temp 98.5 F 02/29/24 07:04 Pulse 82 02/29/24 07:04 Resp 16 02/29/24 07:04 BP 102/67 02/29/24 07:04 Pulse Ox 98 02/29/24 07:04 FiO2 50 02/18/24 11:44 Intake & Output 02/28/24 02/29/24 02/29/24 18:59 06:59 18:59 Intake Total 1230 720 Output Total 450 1200 Balance 780 -480 Weight 58 kg Intake: IV 60 .9@10 60 Intake, IV Titration 450 Amount Ampicillin-Sulbactam 3 gm 200 In Sodium Chloride 0.9% 100 ml @ 200 mls/hr IVPB Q6H [facility] Rx#:[id number] Vancomycin 1,000 mg In 250 Sodium Chloride 0.9% 250 ml @ 125 mls/hr IVPB Q8H [facility] Rx#:[id number] Tube Feeding 720 720 Output: Urine 450 1200 Other: Voiding Method Diaper Diaper Incontinent Incontinent External Catheter External Catheter # Voids 1 - Labs CBC & Chem 7: 02/29/24 10:37 02/29/24 06:18 Labs: Abnormal Lab Results - Last 24 Hours (Table) 02/28/24 02/28/24 02/29/24 Range/Units 10:41 10:42 06:18 RBC 3.69 L (4.30-5.90) m/uL Hgb 12.7 L (13.0-17.5) gm/dL Hct 38.5 L (39.0-53.0) % MCV 104.5 H (80.0-100.0) fL Potassium 5.3 H (3.5-5.1) mmol/L BUN 21 H (9-20) mg/dL Creatinine 0.46 L 0.43 L (0.66-1.25) mg/dL POC Glucose (mg/dL) (70-110) mg/dL Albumin 3.1 L (3.5-5.0) g/dL 02/29/24 Range/Units 06:25 RBC (4.30-5.90) m/uL Hgb (13.0-17.5) gm/dL Hct (39.0-53.0) % MCV (80.0-100.0) fL Potassium (3.5-5.1) mmol/L BUN (9-20) mg/dL Creatinine (0.66-1.25) mg/dL POC Glucose (mg/dL) 114 H (70-110) mg/dL Albumin (3.5-5.0) g/dL
[2024-02-29 15:41] VITALS: BMI 20.6
[2024-02-29 17:00] LABS: Glucose,Whole Blood 114 mg/dL (70-110)
[2024-03-01 00:02] LABS: Glucose,Whole Blood 80 mg/dL (70-110)
[2024-03-01 05:48] LABS: Glucose,Whole Blood 84 mg/dL (70-110)
[2024-03-01 07:47] LABS: African American GFR (CKD) >90 (>60 ml/min/1.73 sqM); Non-African American GFR(CKD) >90 (>60 ml/min/1.73 sqM)
--- NOTE | 2024-03-01 10:09 | P.DS ---
Providers Date of admission: 02/17/24 06:34 Expected date of discharge: 03/01/24 Attending physician: Marky Adan MD Consults: 02/18/24 08:13 Consult Physician Routine Consulting Provider: Joselito Garibay Reason/Comments: hypoxia and pneumonia Do you want consulting provider notified?: Yes Primary care physician: Stated None Hospital Course: Hospital co discharge Diagnosis: Aspiration Pneumonia, recurrent. Patient will require hospital bed for tube feedings and history of recurrent aspiration pneumonia. Patient's head of bed needs to be elevated to 45 degrees AT ALL TIMES. Acute hypoxic respiratory failure. Dysphagia secondary to traumatic brain injury. Right lower extremity swelling. Doppler right lower extremity negative for DVT TBI with right hemiplegia blindness of right eye, and severe aphasia. Seizure disorder, secondary to TBI. Continue Lamotrigine 200 mg via peg BID. Cognitive imairment secondary to TBI Hospital Course: Patient is a pleasant 59-year-old male with a past medical history of TBI right hemiplegia, dysphagia, blindness of right eye, and severe aphasia. He resides in a [facility]. He recently had a PEG tube placed on 12/03/2023 and underwent hospitalization for aspiration pneumonia from 02/13/2024 through 02/16/2024. After being discharged and returning to the [facility], patient returned to the emergency department on 02/17/2024 for again worsening respiratory distress and fevers. Of note, prior to this last hospitalization stay patient was started on pleasure feeds at [facility] resulting in admission for aspiration pneumonia. On arrival to the emergency department, patient underwent evaluation. Vital signs upon arrival show blood pressure 101/77, heart rate 114, respiratory rate 24, temp 101.1 F, and SpO2 of 92% on 6 L EKG was completed showing sinus tachycardia at 110 bpm. Chest x-ray completed showing slight increased patchy of interstitial infiltrates right greater than left. Patient was admitted under our services for this upon admission secondary to recurrent aspiration pneumonia with acute hypoxic respiratory failure. Consultation to pulmonology was placed. Patient continued to have difficulties clearing secretions and chest physiotherapy was performed without successful improvement. Respiratory was also called to bedside and patient required deep suctioning which did help resolve some symptoms. However, on 02/23/24 patient again developing worsening hypoxia and a repeat chest x-ray was completed showing new consolidation of left lower lobe. Patient completed a 13-day course of IV antibiotics. He has successfully been weaned off of oxygen and is doing well. [facility] was contacted and notified that patient will require hospital bed with head of bed elevated to 45 degrees or above at all times. Prescription was sent for hospital bed and per [facility] bed is being delivered this morning. Patient has been cleared from pulmonary perspective for discharge and is medically stable for discharge at this time. Again, staff at [facility] notified that patient must have head of bed elevated to 45 degrees or more at all times with no exceptions. Physical exam: Vital signs reviewed . General: Chronically ill appearing Derm: Skin warm and dry, normal coloration for ethnicity. Head: Asymmetry from previous TBI. Eyes: Blindness secondary to previous TBI with injury to right eye. Mouth: no lip lesions, mucus membranes moist Cardiovascular: regular rate and rhythm with normal S1S2, no murmur, positive posterior tibial pulses bilaterally, and cap refill < 2 seconds. Lungs: Respirations even, regular, and unlabored on room air. Lungs much more clear this morning, no rhonchi, wheezing, crackles, or rales noted. Abdominal: soft, nontender to palpation, no guarding, no appreciable organomegaly. Ext:, Right hemiplegia with contractures and moderate swelling of right foot and lower leg. Neuro/Psych: Patient is awake and alert but nonverbal at baseline, able to communicate with thumbs up or thumbs down. A total of 33 minutes of time were spent preparing this complex discharge beth padgett. Pt was discharged on 03/01/24 at 9:58 AM Patient was seen independently by Nurse Practitioner. This document was prepared using [employer] dictation software. Please allow for errors in finish remover while rare they do occur. Patient Condition at Discharge: Stable Plan - Discharge Summary Discharge Rx Participant: No New Discharge Prescriptions: New Lactulose [Cephulac] 20 gm PEG/G-TUBE DAILY PRN #360 ml PRN Reason: Constipation Nystatin 100,000 Unit/gm Oint [Mycostatin Oint] 1 applic TOPICAL TID 30 Days #1 dispenser Nystatin 100,000 Unit/gm Powd [Mycostatin Powder] 1 applic TOPICAL TID 30 Days #1 dispenser Scopolamine 1 mg/72 Hr Patch [TransDerm Scop] 1 patch TRANSDERM Q72H 30 Days #10 patch Acetaminophen Tab [Tylenol] 650 mg PEG/G-TUBE Q6HR PRN #30 tab PRN Reason: Mild Pain Or Fever > 100.5 Continue lamoTRIgine 200 mg PEG/G-TUBE BID Omeprazole 20 mg PEG/G-TUBE AC-BRKFST Albuterol Nebulized [Ventolin Nebulized] 2.5 mg INHALATION RT-Q8H PRN PRN Reason: Shortness Of Breath Discontinued Amoxic-Pot Clav 400-57Mg/5Ml [Augmentin 400-57 mg/5 ml Susp] 11 ml PO Q12H #100 ml Discharge Medication List lamoTRIgine 200 mg PEG/G-TUBE BID 05/03/15 [History] Albuterol Nebulized [Ventolin Nebulized] 2.5 mg INHALATION RT-Q8H PRN 05/01/23 [History] Omeprazole 20 mg PEG/G-TUBE AC-BRKFST 05/01/23 [History] Acetaminophen Tab [Tylenol] 650 mg PEG/G-TUBE Q6HR PRN #30 tab 03/01/24 [Rx] Lactulose [Cephulac] 20 gm PEG/G-TUBE DAILY PRN #360 ml 03/01/24 [Rx] Nystatin 100,000 Unit/gm Oint [Mycostatin Oint] 1 applic TOPICAL TID 30 Days #1 dispenser 03/01/24 [Rx] Nystatin 100,000 Unit/gm Powd [Mycostatin Powder] 1 applic TOPICAL TID 30 Days #1 dispenser 03/01/24 [Rx] Scopolamine 1 mg/72 Hr Patch [TransDerm Scop] 1 patch TRANSDERM Q72H 30 Days #10 patch 03/01/24 [Rx] Follow up Appointment(s)/Referral(s): [facility]Home [facility] [NON-STAFF] - Edwar Carrillo MD [REFERRING] - 1 Week (establish care with a PCP, please schedule appointment for post hospital discharge follow up) [facility], [REFERRING] - 1 Week Nelly Ortega MD [STAFF PHYSICIAN] - 04/14/24 10:15 am (Per office this is the soonest this can get you in.) Activity/Diet/Wound Care/Special Instructions: Activity: Bedrest, offload with pillows and turn and prop with pillows q2 hours Diet: STRICT NOTHING BY MOUTH. Tube feed only. Special Instructions: Patient requires hospital bed for tube feedings and history of recurrent aspiration pneumonia. Patient's head of bed needs to be elevated to 45 degrees or greater AT ALL TIMES, no exceptions. Thank you for allowing us to participate in your care, it was truly a pleasure having you for our patient!!! Discharge Disposition: HOME WITH HOME HEALTH SERVICES
[2024-03-01 11:41] LABS: Glucose,Whole Blood 124 mg/dL (70-110)
[2024-03-01 12:37] VITALS: BP 129/68; PULSE 72; RESP 18; TEMP 98.4
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
== END 2024-03-01 15:15 | disposition home health service (06) | DRG 871 ==
LOC: EC 04:53 → 3SCARD 06:34 → 5NMEDONC 02-21 22:47
PROVIDERS: ADMIT Internal Medicine; ATTEND Internal Medicine
PROC: 5A09357 Assistance with Respiratory Ventilation, Less than 24 Consecutive Hours, Continuous Positive Airway Pressure (ICD-10-PCS; principal; 2024-02-17)
DX: A41.9 Sepsis, unspecified organism (principal); J69.0 Pneumonitis due to inhalation of food and vomit; J96.01 Acute respiratory failure with hypoxia; T17.890A Other foreign object in other parts of respiratory tract causing asphyxiation, initial encounter; G81.91 Hemiplegia, unspecified affecting right dominant side; Z43.1 Encounter for attention to gastrostomy; R47.01 Aphasia; S06.9XAS Unspecified intracranial injury with loss of consciousness status unknown, sequela; G40.909 Epilepsy, unspecified, not intractable, without status epilepticus; J45.909 Unspecified asthma, uncomplicated; F32.A Depression, unspecified; Z66 Do not resuscitate; R13.10 Dysphagia, unspecified; R41.89 Other symptoms and signs involving cognitive functions and awareness; H54.61 Unqualified visual loss, right eye, normal vision left eye; R32 Unspecified urinary incontinence; D53.9 Nutritional anemia, unspecified; M62.462 Contracture of muscle, left lower leg; M62.461 Contracture of muscle, right lower leg; M79.89 Other specified soft tissue disorders; Z79.899 Other long term (current) drug therapy; Z87.891 Personal history of nicotine dependence; Z87.01 Personal history of pneumonia (recurrent); Z71.3 Dietary counseling and surveillance; Z86.14 Personal history of Methicillin resistant Staphylococcus aureus infection; Z88.5 Allergy status to narcotic agent; Y09 Assault by unspecified means
CPT/HCPCS: 36415; 70360; 71045; 80048; 80053; 80202; 82565; 83036; 83605; 83735; 83880; 84145; 84484; 85025; 85027; 85610; 85730; 87040; 87449; 93005; 94640; 94660; 94667; 94668; 94760; 96365; 96366; 96375; 99291

== ENCOUNTER 2024-03-08 11:39 | Day surgery (SDC) | payer MEDICARE, OTHER ==
[2024-03-08 13:00] VITALS: TEMP 97.3
--- NOTE | 2024-03-08 13:48 | P.PCN ---
Date of Procedure: 03/08/24 Procedure(s) Performed: Procedure(s) Performed: BRIEF HISTORY: Patient is a 59-year-old, pleasant, white male with history of traumatic brain injury and history of PEG tube Placement several years ago he scheduled for a PEG tube replacement today because of PEG tube malfunction. His last PEG tube was replaced in December 2023... PROCEDURE PERFORMED: PEG tube replacement PREOPERATIVE DIAGNOSIS: PEG tube malfunction. Anesthesia none PROCEDURE: After informed consent was obtained, the patient was brought into the endoscopy unit. He was placed in supine position. The previously placed PEG tube was deflated and was removed without any difficulty. A 14-Jordanian balloon replacement PEG tube was passed from the existing gastrostomy site was gently advanced into the stomach. The balloon was inflated with 5 mL of normal saline. The external bumper was placed at 2 cm kolby and the patient tolerated the procedure well l. IMPRESSION: Successful 14-Jordanian PEG tube replacement as described above. RECOMMENDATIONS: Patient can be discharged home today and the PEG tube can be used for feedings today. Additional CC's: Cheng Gomes
[2024-03-08 14:02] VITALS: RESP 16
[2024-03-08 14:07] VITALS: BP 115/67; PULSE 76
== END 2024-03-08 14:16 ==
LOC: ORWHC2ENDO 11:39
PROVIDERS: ATTEND Internal Medicine Gastroenterology
DX: K94.23 Gastrostomy malfunction (principal); Z87.820 Personal history of traumatic brain injury; Z88.5 Allergy status to narcotic agent; Z79.899 Other long term (current) drug therapy; Z87.891 Personal history of nicotine dependence
CPT/HCPCS: 43246; 43762

== ENCOUNTER 2024-05-27 10:06 | Emergency (ER) | payer MEDICARE, OTHER | END 2024-05-27 12:30 | disposition home or self-care (01) | LOC: EC 10:06 | DX: K94.23 Gastrostomy malfunction (principal) | CPT/HCPCS: 43762; 99282; 99285 ==

== ENCOUNTER 2024-06-02 06:11 | Day surgery (SDC) | payer MEDICARE, OTHER ==
[2024-06-01 13:33] VITALS: BMI 22.1
[2024-06-02 06:34] VITALS: RESP 18; TEMP 98.3
[2024-06-02] MEDS: LACTATED RINGERS 1,000 ML IV SCH (06:43)
[2024-06-02] MEDS: IV FLUID CONTINUATION 1,000 ML IV ONE ×2 (06:43→06:56)
--- NOTE | 2024-06-02 07:12 | P.PCN ---
Date of Procedure: 06/02/24 Procedure(s) Performed: Brief history. Patient is a 59-year-old white male with history of traumatic brain injury and aspiration pneumonia has a PEG tube in place for the last 2 years. A week ago the PEG tube was accidentally pulled out and he went to the emergency room and had a 14 [place] [address] catheter in place. Since then the PEG tube has been leaking and hence he is scheduled for PEG tube placement today. procedure performed PEG tube replacement Preoperative diagnosis: PEG tube malfunction Procedure: Patient was brought into the endoscopy unit. The previously placed Mandujano's catheter in the emergency room a week ago was removed without any difficulty after the balloon was deflated. A 14 Bol[place]ian balloon replacement PEG tube was passed through the existing gastrostomy site was gently advanced into the stomach cavity. The balloon was inflated with 5 cc of normal saline. Patient tolerated procedure well. Recommendations Patient will be discharged home and the peg tube can be used for feeds today.
[2024-06-02 07:51] VITALS: BP 113/68; PULSE 71
== END 2024-06-02 07:53 ==
LOC: ORWHC2ENDO 06:11
PROVIDERS: ATTEND Internal Medicine Gastroenterology
DX: K94.23 Gastrostomy malfunction (principal); J45.909 Unspecified asthma, uncomplicated; G40.909 Epilepsy, unspecified, not intractable, without status epilepticus; Z79.899 Other long term (current) drug therapy; Z88.5 Allergy status to narcotic agent; Y83.8 Other surgical procedures as the cause of abnormal reaction of the patient, or of later complication, without mention of misadventure at the time of the procedure
CPT/HCPCS: 43762

== ENCOUNTER 2024-10-25 08:22 | Inpatient (IN) | payer MEDICARE, OTHER ==
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
[2024-10-25] MEDS: LORazepam 2 MG/ML INJ IM STA (09:31)
[2024-10-25] MEDS ORDERED: NALOXONE 0.4 MG/ML 1 ML VIAL IV PRN (10:23)
[2024-10-25 11:21] LABS: Basophils % (A) 0 %; Eosinophils # (A) 0.7 k/uL (0-0.7); Eosinophils % (A) 9 %; HCT 41.6 % (39.0-53.0); Lymphocytes # (A) 1.3 k/uL (1.0-4.8); Lymphocytes % (A) 17 %; MCH 33.2 pg (25.0-35.0); MCHC 33.6 g/dL (31.0-37.0); MCV 98.9 fL (80.0-100.0); Mean Platelet Volume 8.7; Monocytes # (A) 0.4 k/uL (0-1.0); Monocytes % (A) 6 %; Neutrophils # (A) 5.1 k/uL (1.3-7.7); Neutrophils % (A) 67 %; Platelet Count 257 k/uL (150-450); RBC 4.21 m/uL (4.30-5.90); RDW 12.7 % (11.5-15.5); WBC 7.6 k/uL (3.8-10.6)
[2024-10-25] MEDS: PANTOPRAZOLE 40 MG/10 ML VIAL IV STA (11:25)
[2024-10-25] MEDS: SODIUM CHLORIDE 0.9% 500 ML 500 ML IV STA (11:25)
[2024-10-25] MEDS: SODIUM CHLORIDE 0.9% 1,000 ML IV STA (11:25)
[2024-10-25 11:29] LABS: INR 0.9 (<1.2); Partial Thromboplastin Time 23.9 sec (22.0-30.0); Prothrombin Time 10.4 sec (10.0-12.5)
[2024-10-25 11:38] LABS: ALT 18 U/L (4-49); AST 24 U/L (17-59); African American GFR (CKD) >90 (>60 ml/min/1.73 sqM); Albumin 3.7 g/dL (3.5-5.0); Alkaline Phosphatase 77 U/L (38-126); Anion Gap 6 mmol/L; Blood Urea Nitrogen 17 mg/dL (9-20); Calcium 8.9 mg/dL (8.4-10.2); Carbon Dioxide 34 mmol/L (22-30); Chloride 100 mmol/L (98-107); Glucose 79 mg/dL (74-99); Magnesium 1.9 mg/dL (1.6-2.3); Non-African American GFR(CKD) >90 (>60 ml/min/1.73 sqM); Phosphorus 3.4 mg/dL (2.5-4.5); Potassium 4.1 mmol/L (3.5-5.1); Sodium 140 mmol/L (137-145); Total Bilirubin 0.6 mg/dL (0.2-1.3); Total Protein 6.8 g/dL (6.3-8.2)
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
[2024-10-25 14:44] LABS: Glucose,Whole Blood 76 mg/dL (70-110)
[2024-10-25] MEDS: ONDANSETRON 4 MG/2 ML VIAL IVP STA (17:02)
[2024-10-25 17:03] LABS: Glucose,Whole Blood 68 mg/dL (70-110)
[2024-10-25] MEDS: DEXTROSE 5% IN WATER 1,000 ML IV SCH (17:39)
[2024-10-25 23:57] LABS: Glucose,Whole Blood 81 mg/dL (70-110)
[2024-10-26 06:25] LABS: Glucose,Whole Blood 84 mg/dL (70-110)
[2024-10-26] MEDS ORDERED: LIDOCAINE 2% (PF) 20 MG/ML 5 ML VIAL ONE (09:43)
[2024-10-26] MEDS ORDERED: PROPOFOL 10 MG/ML 20 ML VIAL IV ONE (09:43)
--- NOTE | 2024-10-26 10:09 | P.PCN ---
Date of Procedure: 10/26/24 Procedure(s) Performed: Brief history: Patient is a 59-year-old pleasant white male scheduled for an EGD with PEG tube placement today. Patient has history of traumatic brain injury and has a PEG tube in place since 2020. He came to the emergency room yesterday morning after he excellently pulled out the PEG tube. Attempts at replacing the PEG tube at the bedside was unsuccessful. Hence he scheduled for an upper endoscopy with a PEG tube placement today. Procedure performed: EGD with attempted PEG tube placement but unsuccessful Preoperative diagnosis: Oropharyngeal dysphagia/PEG tube malfunction IV sedation by anesthesia Procedure: After informed consent was obtained with the patient as well as the family the patient was brought into the endoscopy unit. IV conscious sedation was administered by anesthesia under continuous monitoring. The Olympus GF 160 video endoscope was inserted into the mouth and esophagus intubated without any difficulty and was gradually advanced to the stomach and duodenum. The bulb and second part of the duodenum was visualized which appeared normal. The scope at this time was withdrawn to the stomach adequately insufflated with air. At this time despite adequate insufflation of air I was not able to achieve any transillumination on the dentate abdominal wall. 1% Xylocaine was infiltrated to the skin at the previous gastrostomy site. I tried to probe the previous gastrostomy site with a needle as well as with the wire and despite multiple attempts I was not able to advance the needle into the stomach cavity. At this time I terminated the procedure. The visualized portions of the antrum body cardia and fundus of the stomach appeared normal. The esophagus was carefully examined as the scope was gradually being withdrawn and there were linear erosions noted in the distal esophagus consistent with LA grade C reflux esophagitis. Rest of the esophagus appeared normal and the patient tolerated the procedure well. Impression: Unsuccessful PEG tube placement Linear erosions or ulcerations of the distal esophagus consistent with LA grade C reflux esophagitis Recommendations: Findings of this examination were discussed with the patient's family. Will obtain surgical consultation for gastrostomy tube placement. He will be started on Protonix 40 mg twice daily for severe reflux esophagitis..
[2024-10-26] MEDS: IV FLUID CONTINUATION 1,000 ML IV ONE (10:11)
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
[2024-10-26 12:49] LABS: Glucose,Whole Blood 83 mg/dL (70-110)
[2024-10-26] MEDS ORDERED: ALBUTEROL NEBULIZED 2.5 MG/3 ML INHALATION PRN (15:13)
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
[2024-10-26] MEDS: SCOPOLAMINE 1 MG/72 HR PATCH TRANSDERM SCH (15:30)
[2024-10-26 17:45] LABS: Glucose,Whole Blood 99 mg/dL (70-110)
[2024-10-26] MEDS ORDERED: BACLOFEN 10 MG TAB PEG/G-TUBE SCH (20:00)
[2024-10-26] MEDS: lamoTRIgine 100 MG TAB PEG/G-TUBE SCH (20:04)
[2024-10-26] MEDS: PANTOPRAZOLE 40 MG/10 ML VIAL IVP SCH (20:24)
[2024-10-26 23:40] LABS: Glucose,Whole Blood 96 mg/dL (70-110)
[2024-10-27 05:50] LABS: Glucose,Whole Blood 96 mg/dL (70-110)
[2024-10-27] MEDS ORDERED: NON FORMULARY DRUG (Omeprazole [Omeprazole] 20 MG Tablet.Dr) PEG/G-TUBE SCH (06:00)
[2024-10-27 06:02] LABS: HCT 42.2 % (39.0-53.0); MCH 32.9 pg (25.0-35.0); MCHC 33.3 g/dL (31.0-37.0); Mean Platelet Volume 8.5; Platelet Count 231 k/uL (150-450); RBC 4.26 m/uL (4.30-5.90); RDW 12.2 % (11.5-15.5); WBC 6.3 k/uL (3.8-10.6)
[2024-10-27 06:31] LABS: African American GFR (CKD) >90 (>60 ml/min/1.73 sqM); Anion Gap 6 mmol/L; Blood Urea Nitrogen 8 mg/dL (9-20); Carbon Dioxide 26 mmol/L (22-30); Chloride 104 mmol/L (98-107); Glucose 92 mg/dL (74-99); Non-African American GFR(CKD) >90 (>60 ml/min/1.73 sqM); Sodium 136 mmol/L (137-145)
[2024-10-27] MEDS ORDERED: DOCUSATE ORAL SOLN 100 MG/10 ML CUP PEG/G-TUBE PRN (08:00)
[2024-10-27] MEDS ORDERED: [UNRECOGNIZED DRUG - OTHER] PEG/G-TUBE SCH (08:00)
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
[2024-10-27 11:48] LABS: Glucose,Whole Blood 102 mg/dL (70-110)
[2024-10-27] MEDS: IV FLUID CONTINUATION 1,000 ML IV ONE (12:38)
[2024-10-27] MEDS ORDERED: PROPOFOL 10 MG/ML 20 ML VIAL IV ONE (14:00)
[2024-10-27] MEDS ORDERED: LIDOCAINE 1% INJ 10MG/ML (20 ML MDV) ONE (14:00)
[2024-10-27] MEDS ORDERED: ceFAZolin 1 GM/50 ML BAG (PMX) ONE (14:00)
[2024-10-27] MEDS: SODIUM CHLORIDE 0.9% 100 ML with ceFAZolin 2,000 MG IV ONE (14:45)
--- NOTE | 2024-10-27 14:49 | P.PN ---
Subjective Progress Note Date: 10/27/24 Per Medical H and P, " Patient is a 59-year-old male with asthma, seizure disorder who was brought in by EMS and his pumper gauger at bedside secondary to patient pulling out his PEG tube is being evaluated in the emergency department. Patient has seen Dr. Samaniego in the past. Patient has had a PEG tube with tube feedings for some time and resides at a [place] [facility]. Patient was seen at bedside today. Case was discussed with nurse and general surgery team. Per general surgery, patient did undergo an EGD this morning however PEG tube was not able to be placed. Patient will receive a gastrostomy tube placement tomorrow with Dr. Cobb. Patient is very difficult to understand and was unable to answer my questions. ED documentation reviewed. In the ED patient was treated with Ativan 1 mg IM x 1, Zofran 4 mg IV x 1, 1.5 L bolus of normal saline, Protonix 40 mg IV x 1 Vitals on admission temperature 98, pulse rate 77, respiratory rate 17, blood pressure 123/68, O2 sat 95% on room air EKG independently interpreted as sinus bradycardia at 59 bpm, QTc interval 394 ms Labs on admission show WBC 7.6, hemoglobin 14, hematocrit 41.6, platelets 257, PT 10.4, PTT 23.9, INR 0.9, sodium 140, potassium 4.1, chloride 100, carbon dioxide 34, BUN 17, creatinine 0.56, glucose 79" Progress note for 10/27/2024: Patient was seen at bedside. Patient is scheduled to undergo an open gastrostomy tube placement today with general surgery. Review of Systems Was not obtained as patient was not able to respond to my questions Physical exam: Vital signs reviewed General: nontoxic, no distress, appears at stated age Derm: warm, dry, intact Head: atraumatic, normocephalic, symmetric Eyes: EOMI, anicteric sclera Mouth: no lip lesion, mucus membranes moist Cardiovascular: S1 S2 reg, no murmur Lungs: CTA bilateral, no rhonchi, no rales, no accessory muscle use Abdominal: soft, non-tender to palpation, surgical dressing noted covering previous PEG tube site with no signs of erythema, swelling, drainage. Extremities: No cyanosis, clubbing, or pedal edema. Neuro: Alert, Oriented, Gross neurological examination did not reveal any focal deficits. Psych: well appearing, appropriate affect Assessment/Plan: Patient is a 59-year-old male with asthma, seizure disorder who was brought in by EMS and his pumper gauger at bedside secondary to patient pulling out his PEG tube is being evaluated in the emergency department. Patient will be admitted to internal medicine service. Active: #. PEG tube malfunction Scheduled to undergo open gastrostomy tube placement today with general surgery Can likely be discharged back to [place] [facility] after surgery tomorrow Continue D5W at 75 cc an hour Morning labs CBC and BMP Chronic: #. GERD #. Seizure disorder Home medications will be resumed once PEG tube has been placed F: No restrictions E: Replete as needed N: Feeding tube A: Wheelchair The patient is admitted with an anticipated less than 2 midnight stay for evaluation of feeding tube removal CODE STATUS: Full code Discussed with: Patient Anticipated discharge place: Home Attestation I have seen and examined this patient with my resident , discussed the same with the resident/JADEN, and agree with the dictator's assessment and plan as written Dr. Rashard simms Objective - Vital Signs Vital signs: Vital Signs Temp 97.8 F 10/27/24 12:38 Pulse 77 10/27/24 12:38 Resp 16 10/27/24 12:38 BP 117/59 10/27/24 12:38 Pulse Ox 98 10/27/24 12:38 FiO2 Intake & Output 10/26/24 10/27/24 10/27/24 18:59 06:59 18:59 Intake Total 200 Output Total 400 Balance 200 -400 Intake: IV 200 Output: Urine 400 Other: Voiding Method Diaper Diaper Diaper Incontinent Incontinent Incontinent # Voids 2 1 - Labs CBC & Chem 7: 10/27/24 05:35 10/27/24 05:35 Labs: Abnormal Lab Results - Last 24 Hours (Table) 10/27/24 10/27/24 Range/Units 05:35 05:35 RBC 4.26 L (4.30-5.90) m/uL Sodium 136 L (137-145) mmol/L BUN 8 L (9-20) mg/dL Creatinine 0.49 L (0.66-1.25) mg/dL
[2024-10-27 14:59] VITALS: BMI 20.9
--- NOTE | 2024-10-27 15:15 | P.PCN ---
Date of Procedure: 10/27/24 Procedure(s) Performed: PREOPERATIVE DIAGNOSIS: Malnutrition, malfunctioning PEG tube POSTOPERATIVE DIAGNOSIS: Same PROCEDURE: EGD with PEG tube placement SURGEON: Reza EBL: Minimal ANESTHESIA: Sedation COMPLICATIONS: None OPERATIVE PROCEDURE: The patient was placed in the supine position on the operating room table. The patient was sedated per anesthesia that time. The Olympus gastroscope was inserted into the oropharynx and passed under direct visualization to the region of the duodenum. No obstruction was seen. The pylorus was widely patent. The stomach was carefully inspected. The previous gastrostomy site in the mid body of the stomach was noted. Probing the outer opening on the skin with a metal probe was performed. In doing so I was able to enter the stomach lumen without difficulty. A hemostat was then used to dilate that tract. The catheter was then advanced into the stomach and through that the wire was advanced. The wire was grasped with an endoscopic snare. The wire was pulled through the oropharynx. The catheter was then threaded over the guidewire and the guidewire and catheter were pulled anteriorly until the hub of the PEG tube catheter was seated against the anterior wall the stomach. The circular bolster was applied and tightened down. The endoscope was then readvanced into the stomach. There was no evidence of any bleeding and there was appropriate tightness on the bolster. The catheter was cut appropriately. The dual port feeding adapter was applied. DISPOSITION: Stable to recovery room
[2024-10-27 17:23] LABS: Glucose,Whole Blood 88 mg/dL (70-110)
[2024-10-27 23:59] LABS: Glucose,Whole Blood 116 mg/dL (70-110)
[2024-10-28 06:11] LABS: Glucose,Whole Blood 116 mg/dL (70-110)
[2024-10-28 07:47] VITALS: BP 106/64; PULSE 82; TEMP 98.8
--- NOTE | 2024-10-28 09:33 | P.PN ---
Subjective Progress Note Date: 10/28/24 Patient is resting in his bed. Tube feeds have resumed. PEG tube site looks clean. Objective - Vital Signs Vital signs: Vital Signs Temp 98.8 F 10/28/24 07:00 Pulse 82 10/28/24 07:00 Resp 16 10/28/24 07:00 BP 106/64 10/28/24 07:00 Pulse Ox 92 L 10/28/24 07:00 FiO2 Intake & Output 10/27/24 10/28/24 10/28/24 18:59 06:59 18:59 Intake Total 275 Output Total 400 1400 Balance -125 -1400 Weight 57.153 kg 52 kg Intake: IV 275 Output: Urine 400 1400 Other: Voiding Method Diaper Diaper Incontinent Incontinent - Labs CBC & Chem 7: 10/27/24 05:35 10/27/24 05:35 Labs: Abnormal Lab Results - Last 24 Hours (Table) 10/27/24 10/28/24 Range/Units 23:58 06:07 POC Glucose (mg/dL) 116 H 116 H (70-110) mg/dL
--- NOTE | 2024-10-28 11:51 | P.DS ---
Providers Date of admission: 10/27/24 08:39 Expected date of discharge: 10/28/24 Attending physician: Hiwto Tavera Consults: 10/25/24 11:27 Consult Physician Routine Consulting Provider: Clarice Samaniego Consult Reason/Comments: known, G Tube issues Do you want consulting provider notified?: Yes 10/26/24 10:37 Consult Physician Urgent Consulting Provider: Chano Cobb Reason/Comments: Feeding tube placement,unable to place PEG Do you want consulting provider notified?: Yes Primary care physician: Cheng Gomes [facility] Course: Hospital course: Patient is a 59-year-old male with asthma, seizure disorder who was brought in by EMS and his boat buffer plastic at bedside secondary to patient pulling out his PEG tube is being evaluated in the emergency department. Patient has seen Dr. Samaniego in the past. Patient has had a PEG tube with tube feedings for some time and resides at a intermediate. Patient was seen at bedside today. Case was discussed with nurse and general surgery team. Per general surgery, patient did undergo an EGD this morning however PEG tube was not able to be placed. Patient will receive a gastrostomy tube placement tomorrow with Dr. Cobb. Roberto rendon was unable to answer my questions. In the ED patient was treated with Ativan 1 mg IM x 1, Zofran 4 mg IV x 1, 1.5 L bolus of normal saline, Protonix 40 mg IV x 1. Vitals on admission temperature 98, pulse rate 77, respiratory rate 17, blood pressure 123/68, O2 sat 95% on room air. EKG independently interpreted as sinus bradycardia at 59 bpm, QTc interval 394 ms. Labs on admission show WBC 7.6, hemoglobin 14, hematocrit 41.6, platelets 257, PT 10.4, PTT 23.9, INR 0.9, sodium 140, potassium 4.1, chloride 100, carbon dioxide 34, BUN 17, creatinine 0.56, glucose 79. Patient subsequently underwent an open gastrostomy tube placement on 10/27/2024. He tolerated the procedure well with minimal estimated blood loss. No intraoperative complications were reported. Patient is seen at bedside on 10/28/2024. He is medically stable to be discharged back to intermediate. Recommend to follow-up with primary care physician in 1 to 2 days after discharge. Physical examination at discharge: General: nontoxic, no distress, appears at stated age Derm: warm, dry, intact Head: atraumatic, normocephalic, symmetric Eyes: EOMI, anicteric sclera Mouth: no lip lesion, mucus membranes moist Cardiovascular: S1 S2 reg, no murmur Lungs: CTA bilateral, no rhonchi, no rales, no accessory muscle use Abdominal: soft, non-tender to palpation, PEG tube site looks clean with no signs of erythema, swelling, drainage Extremities: No cyanosis, clubbing, or pedal edema. Neuro: Alert, Oriented, Gross neurological examination did not reveal any focal deficits. Psych: well appearing, appropriate affect I have seen and examined this patient with my resident , discussed the same with the resident/JADEN, and agree with the dictator's assessment and plan as written Dr. Rashard simms Patient Condition at Discharge: Stable Plan - Discharge Summary Discharge Rx Participant: No New Discharge Prescriptions: Continue lamoTRIgine 200 mg PEG/G-TUBE BID@799,1999 Isosource 1.5 Erich 1 dose PEG/G-TUBE DAILY@0800 Omeprazole 20 mg PEG/G-TUBE DAILY@06 Albuterol Nebulized [Ventolin Nebulized] 2.5 mg INHALATION RT-TID PRN PRN Reason: Shortness Of Breath Scopolamine 1 mg/72 Hr Patch [TransDerm Scop] 1 patch TRANSDERM Q72H 30 Days #10 patch Docusate Oral Soln [Colace Oral Soln] 100 mg PEG/G-TUBE DAILY@0800 PRN PRN Reason: Constipation Baclofen 10 mg PEG/G-TUBE BID@799,1999 Discharge Medication List lamoTRIgine 200 mg PEG/G-TUBE BID@799,199905/03/15 [History] Albuterol Nebulized [Ventolin Nebulized] 2.5 mg INHALATION RT-TID PRN 05/01/23 [History] Omeprazole 20 mg PEG/G-TUBE DAILY@0600 05/01/23 [History] Scopolamine 1 mg/72 Hr Patch [TransDerm Scop] 1 patch TRANSDERM Q72H 30 Days #10 patch 03/01/24 [Rx] Baclofen 10 mg PEG/G-TUBE BID@799,199910/25/24 [History] Docusate Oral Soln [Colace Oral Soln] 100 mg PEG/G-TUBE DAILY@0800 PRN 10/25/24 [History] Isosource 1.5 Erich 1 dose PEG/G-TUBE DAILY@0800 10/25/24 [History] Follow up Appointment(s)/Referral(s): Cheng Gomes [Primary Care Provider] - 1-2 days Patient Instructions/Handouts: How to Use and Care for Your PEG Tube (ED), PEG Tube Insertion (DC) Discharge Disposition: HOME SELF-CARE
[2024-10-28 11:54] VITALS: RESP 18
[2024-10-28 11:57] LABS: Glucose,Whole Blood 113 mg/dL (70-110)
== END 2024-10-28 13:10 | disposition home or self-care (01) | DRG 394 ==
LOC: EC 08:22 → 6NMEDSUR 10:23 → OBSVTOIN 10-27 08:39
PROVIDERS: ADMIT Hospitalist; ATTEND Hospitalist
PROC: 0DH63UZ Insertion of Feeding Device into Stomach, Percutaneous Approach (ICD-10-PCS; principal; 2024-10-26 11:30)
PROC: 0DJ08ZZ Inspection of Upper Intestinal Tract, Via Natural or Artificial Opening Endoscopic (ICD-10-PCS; principal; 2024-10-26 11:30)
PROC: 3E0G76Z Introduction of Nutritional Substance into Upper GI, Via Natural or Artificial Opening (ICD-10-PCS; 2024-10-27)
DX: K94.23 Gastrostomy malfunction (principal); E46 Unspecified protein-calorie malnutrition; G81.91 Hemiplegia, unspecified affecting right dominant side; F32.A Depression, unspecified; J45.909 Unspecified asthma, uncomplicated; G40.909 Epilepsy, unspecified, not intractable, without status epilepticus; K22.10 Ulcer of esophagus without bleeding; H54.40 Blindness, one eye, unspecified eye; R00.1 Bradycardia, unspecified; K21.00 Gastro-esophageal reflux disease with esophagitis, without bleeding; R13.12 Dysphagia, oropharyngeal phase; Z87.820 Personal history of traumatic brain injury; Z79.899 Other long term (current) drug therapy; Z87.891 Personal history of nicotine dependence; Z28.310 Unvaccinated for COVID-19; Z71.3 Dietary counseling and surveillance; Z87.01 Personal history of pneumonia (recurrent); Z87.440 Personal history of urinary (tract) infections; Z88.5 Allergy status to narcotic agent; Z86.14 Personal history of Methicillin resistant Staphylococcus aureus infection; Z53.09 Procedure and treatment not carried out because of other contraindication
CPT/HCPCS: 43246; 80048; 80053; 83735; 84100; 85025; 85027; 85610; 85730; 93005; 96360; 96361; 96372; 99285

== ENCOUNTER 2025-01-28 17:51 | Inpatient (IN) | payer MEDICARE, OTHER ==
[2025-01-28 18:30] LABS: Basophils # (A) 0.04 10*3/uL (0.00-0.10); Basophils % (A) 0.5 %; Eosinophils # (A) 0.44 10*3/uL (0.04-0.35); HCT 33.3 % (39.6-50.0); HGB 10.8 g/dL (13.0-17.0); Lymphocytes # (A) 1.23 10*3/uL (0.90-5.00); MCH 30.9 pg (27.0-32.0); MCHC 32.4 g/dL (32.0-37.0); MCV 95.4 fL (80.0-97.0); Mean Platelet Volume 10.1 fL (9.5-12.2); Monocytes # (A) 0.69 10*3/uL (0.20-1.00); Monocytes % (A) 7.9 %; Neutrophils # (A) 6.34 10*3/uL (1.80-7.70); Neutrophils % (A) 72.4 %; Platelet Count 242 10*3/uL (140-440); RBC 3.49 10*6/uL (4.40-5.60); RDW 13.2 % (11.5-14.5); WBC 8.76 10*3/uL (4.50-10.00)
--- NOTE | 2025-01-28 18:37 | XR ---
EXAMINATION TYPE: XR chest 2V DATE OF EXAM: 01/28/2025 6:29 PM COMPARISON: None CLINICAL INDICATION: Male, 59 years old with history of difficulty breathing; [facility] TECHNIQUE: XR chest 2V Frontal and lateral views of the chest. FINDINGS: Lungs/Pleura: There is no evidence of pleural effusion, focal consolidation, or pneumothorax. Pulmonary vascularity: Unremarkable. Heart/mediastinum: Cardiomediastinal silhouette is unremarkable. Musculoskeletal: No acute osseous pathology. IMPRESSION: No acute cardiopulmonary disease/process. [facility], , 01/28/2025 6:35 PM
[2025-01-28 18:41] LABS: ALT 35 U/L (4-49); African American GFR (CKD) >90 (>60 ml/min/1.73 sqM); Albumin 3.4 g/dL (3.5-5.0); Anion Gap 8 mmol/L; Blood Urea Nitrogen 15 mg/dL (9-20); Calcium 8.9 mg/dL (8.4-10.2); Carbon Dioxide 30 mmol/L (22-30); Chloride 100 mmol/L (98-107); Glucose 95 mg/dL (74-99); Non-African American GFR(CKD) >90 (>60 ml/min/1.73 sqM); Sodium 138 mmol/L (137-145); Total Bilirubin 0.4 mg/dL (0.2-1.3); Total Protein 6.6 g/dL (6.3-8.2)
[2025-01-28 18:48] LABS: AST 40 U/L (17-59); Alkaline Phosphatase 76 U/L (38-126); Magnesium 1.8 mg/dL (1.6-2.3); Potassium 3.9 mmol/L (3.5-5.1)
[2025-01-28 18:49] LABS: NT-Pro-B-Type Natriuretic Pept 24 pg/mL
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
[2025-01-28 20:13] LABS: INR 0.9 (<1.2); Partial Thromboplastin Time 22.2 sec (22.0-30.0); Prothrombin Time 10.6 sec (10.0-12.5)
[2025-01-28] MEDS: IPRATROPIUM-ALBUTEROL 3 ML NEB INHALATION STA (20:43)
[2025-01-28 20:57] LABS: Influenza A Not Detected (Not Detectd); Influenza B Not Detected (Not Detectd); RSV Not Detected (Not Detectd)
[2025-01-28] MEDS ORDERED: PNEUMONIA PROTOCOL UTILIZED 1 EACH MISC PO PRN (21:10)
[2025-01-28] MEDS: SODIUM CHLORIDE 0.9% 1,000 ML IV SCH (21:49)
[2025-01-28] MEDS: AZITHROMYCIN 500 MG in SODIUM CHLORIDE 0.9% 250 ML IVPB STA ×2 (22:50→22:54)
[2025-01-29] MEDS: IPRATROPIUM-ALBUTEROL 3 ML NEB INHALATION PRN (02:14)
[2025-01-29] MEDS: IPRATROPIUM-ALBUTEROL 3 ML NEB INHALATION SCH (06:23)
--- NOTE | 2025-01-29 09:46 | XR ---
EXAMINATION TYPE: XR chest 2V DATE OF EXAM: 01/29/2025 9:38 AM COMPARISON: 01/28/2025 CLINICAL INDICATION: Male, 59 years old with history of pneumonia, , TECHNIQUE: AP and lateral views FINDINGS: Limited by lordotic positioning. Heart upper limits of normal in size. Hazy density at the left lung base probably projectional. Follow-up can be performed. Bony changes suggesting old injury at the dis andrade right clavicle and right coracoclavicular ligaments. IMPRESSION: Limited by lordotic positioning. Hazy density at the left base probably projectional. Follow-up if co ncern for early developing pneumonia. [facility], Workstation: [facility], 01/29/2025 9:44 AM
[2025-01-29] MEDS: AZITHROMYCIN 500 MG TAB PO SCH (10:53)
[2025-01-29 12:06] LABS: Allen Test Performed? Yes
[2025-01-29 12:08] LABS: ABG Base Excess 3.3 mmol/L; ABG HCO3 29 mmol/L (21-25); ABG PCO2 46 mmHg (35-45); ABG TCO2 30 mmol/L (19-24)
[2025-01-29 12:12] LABS: ABG PO2 55 mmHg (83-108)
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
[2025-01-29] MEDS ORDERED: IBUPROFEN ORAL SUSP 100 MG/5 ML CUP PEG/G-TUBE PRN (14:33)
[2025-01-29] MEDS ORDERED: SENNOSIDES-DOCUSATE SODIUM 1 EACH TAB PO PRN (14:33)
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
[2025-01-29 16:21] VITALS: BMI 17.2
[2025-01-29] MEDS: SCOPOLAMINE 1 MG/72 HR PATCH TRANSDERM SCH (17:27)
[2025-01-29] MEDS ORDERED: [UNRECOGNIZED DRUG - OTHER] PEG/G-TUBE SCH (21:00)
[2025-01-29] MEDS: cefTRIAXone 2 GM in DEXTROSE 5% IN WATER 50 ML IVPB SCH (21:44)
[2025-01-29] MEDS: BACLOFEN 10 MG TAB PEG/G-TUBE SCH (22:19)
[2025-01-29] MEDS: SENNOSIDES-DOCUSATE SODIUM 1 EACH TAB PO SCH (22:19)
[2025-01-29] MEDS: lamoTRIgine 100 MG TAB PEG/G-TUBE SCH (22:19)
[2025-01-30] MEDS: PANTOPRAZOLE 40 MG/10 ML VIAL IVP SCH (05:57)
[2025-01-30 07:51] VITALS: RESP 18; TEMP 98.1
[2025-01-30] MEDS ORDERED: DOCUSATE ORAL SOLN 100 MG/10 ML CUP PEG/G-TUBE PRN (08:00)
[2025-01-30 10:29] LABS: Basophils # (A) 0.04 X 10*3/uL (0.00-0.10); Basophils % (A) 0.8 %; Eosinophils # (A) 0.65 X 10*3/uL (0.04-0.35); Eosinophils % (A) 13.2 %; HCT 31.4 % (39.6-50.0); HGB 9.7 g/dL (13.0-17.0); Lymphocytes # (A) 1.31 X 10*3/uL (0.90-5.00); Lymphocytes % (A) 26.5 %; MCH 29.9 pg (27.0-32.0); MCHC 30.9 g/dL (32.0-37.0); MCV 96.9 FL (80.0-97.0); Mean Platelet Volume 10.4 FL (9.5-12.2); Monocytes # (A) 0.61 X 10*3/uL (0.20-1.00); Monocytes % (A) 12.3 %; NRBC Per 100 WBC 0 X 10*3/uL (0.00-0.01); Neutrophils # (A) 2.32 X 10*3/uL (1.80-7.70); Platelet Count 247 X 10*3/uL (140-440); RBC 3.24 X 10*6/uL (4.40-5.60); RDW 13.4 % (11.5-14.5); WBC 4.94 X 10*3/uL (4.50-10.00)
[2025-01-30 10:41] LABS: Blood Urea Nitrogen 13.2 mg/dL (9.0-27.0); Calcium 8.5 mg/dL (8.7-10.3); Carbon Dioxide 28.9 mmol/L (21.6-31.8); Chloride 108 mmol/L (96-109); Glucose 108 mg/dL (70-110); Potassium 4.1 mmol/L (3.5-5.5); Sodium 143 mmol/L (135-145)
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
[2025-01-30] MEDS: CITALOPRAM HYDROBROMIDE 20 MG TAB PEG/G-TUBE SCH (11:33)
[2025-01-30 12:19] LABS: Glucose,Whole Blood 115 mg/dL (70-110)
[2025-01-30 12:52] VITALS: BP 95/59
[2025-01-30 15:43] VITALS: PULSE 70
[2025-01-30 17:09] LABS: Glucose,Whole Blood 151 mg/dL (70-110)
== END 2025-01-30 18:18 | disposition home health service (06) | DRG 189 ==
LOC: EC 17:51 → 5NMEDONC 21:10 → OBSVTOIN 01-30 07:53
PROVIDERS: ADMIT Internal Medicine; ATTEND Internal Medicine
DX: J96.21 Acute and chronic respiratory failure with hypoxia (principal); G81.91 Hemiplegia, unspecified affecting right dominant side; Z11.52 Encounter for screening for COVID-19; G40.909 Epilepsy, unspecified, not intractable, without status epilepticus; J45.909 Unspecified asthma, uncomplicated; F32.A Depression, unspecified; I69.391 Dysphagia following cerebral infarction; Z93.1 Gastrostomy status; H54.61 Unqualified visual loss, right eye, normal vision left eye; R13.10 Dysphagia, unspecified; R32 Unspecified urinary incontinence; Z79.899 Other long term (current) drug therapy; Z82.49 Family history of ischemic heart disease and other diseases of the circulatory system; Z87.01 Personal history of pneumonia (recurrent); Z87.820 Personal history of traumatic brain injury; Z87.891 Personal history of nicotine dependence; Z87.828 Personal history of other (healed) physical injury and trauma; Z88.5 Allergy status to narcotic agent
CPT/HCPCS: 36415; 36600; 71046; 80048; 80053; 82805; 83605; 83735; 83880; 84145; 84484; 85025; 85379; 85610; 85730; 87040; 87449; 87636; 93005; 94640; 94760; 96365; 96366; 96367; 99285

== ENCOUNTER 2025-02-09 09:20 | Inpatient (IN) | payer MEDICARE, OTHER ==
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
[2025-02-09 10:22] LABS: ALT 154 U/L (4-49); African American GFR (CKD) >90 (>60 ml/min/1.73 sqM); Albumin 3.4 g/dL (3.5-5.0); Anion Gap 6 mmol/L; Blood Urea Nitrogen 34 mg/dL (9-20); Calcium 8.7 mg/dL (8.4-10.2); Carbon Dioxide 28 mmol/L (22-30); Chloride 106 mmol/L (98-107); Glucose 123 mg/dL (74-99); Non-African American GFR(CKD) >90 (>60 ml/min/1.73 sqM); Sodium 140 mmol/L (137-145); Total Bilirubin 0.5 mg/dL (0.2-1.3); Total Protein 6.6 g/dL (6.3-8.2)
[2025-02-09 10:30] LABS: NT-Pro-B-Type Natriuretic Pept 256 pg/mL
--- NOTE | 2025-02-09 10:36 | XR ---
EXAMINATION TYPE: XR chest 2V DATE OF EXAM: 02/09/2025 10:29 AM COMPARISON: Chest radiographs from 01/29/2025 TECHNIQUE: XR chest 2V Frontal and lateral views of the chest. CLINICAL INDICATION:Male, 60 years old with history of difficulty breathing; FINDINGS: Patient is rotated which limits evaluation. Lungs/Pleura: No sizable pleural effusion or pneumothorax. Patchy airspace opacities within the right lung. Pulmonary vascularity: Unremarkable. Heart/mediastinum: Cardiomediastinal silhouette is enlarged and stable. Musculoskeletal: No acute osseous pathology. IMPRESSION: Patchy airspace opacities within the right lung concerning for pneumonia. [facility], , 02/09/2025 10:34 AM
[2025-02-09 10:42] LABS: AST 119 U/L (17-59); Alkaline Phosphatase 58 U/L (38-126); Potassium 4.7 mmol/L (3.5-5.1)
[2025-02-09] MEDS: SODIUM CHLORIDE 0.9% 1,000 ML IV ONE ×2 (11:18→14:17)
[2025-02-09 12:01] LABS: Basophils # (A) 0.04 10*3/uL (0.00-0.10); Basophils % (A) 0.3 %; Eosinophils # (A) 0.16 10*3/uL (0.04-0.35); Eosinophils % (A) 1.4 %; HCT 40.5 % (39.6-50.0); HGB 13.2 g/dL (13.0-17.0); Lymphocytes # (A) 1.07 10*3/uL (0.90-5.00); Lymphocytes % (A) 9.1 %; MCH 30.9 pg (27.0-32.0); MCHC 32.6 g/dL (32.0-37.0); MCV 94.8 fL (80.0-97.0); Mean Platelet Volume 10.2 fL (9.5-12.2); Monocytes # (A) 0.87 10*3/uL (0.20-1.00); Monocytes % (A) 7.4 %; Neutrophils % (A) 81.5 %; Platelet Count 279 10*3/uL (140-440); RBC 4.27 10*6/uL (4.40-5.60); RDW 13.4 % (11.5-14.5); WBC 11.78 10*3/uL (4.50-10.00)
[2025-02-09 12:26] LABS: INR 1.1 (<1.2); Prothrombin Time 11.5 sec (10.0-12.5)
[2025-02-09 12:38] LABS: Partial Thromboplastin Time 20.4 sec (22.0-30.0)
[2025-02-09] MEDS ORDERED: PNEUMONIA PROTOCOL UTILIZED 1 EACH MISC PO PRN (13:02)
[2025-02-09] MEDS ORDERED: IPRATROPIUM-ALBUTEROL 3 ML NEB INHALATION PRN (13:05)
[2025-02-09 13:15] LABS: Influenza A Not Detected (Not Detectd); Influenza B Not Detected (Not Detectd); RSV Not Detected (Not Detectd)
[2025-02-09] MEDS: AZITHROMYCIN 500 MG in SODIUM CHLORIDE 0.9% 250 ML IVPB STA (14:06)
[2025-02-09] MEDS: IPRATROPIUM-ALBUTEROL 3 ML NEB INHALATION SCH (14:57)
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
[2025-02-10 05:50] LABS: Glucose,Whole Blood 93 mg/dL (70-110)
--- NOTE | 2025-02-10 06:48 | XR ---
EXAMINATION TYPE: XR chest 1V portable DATE OF EXAM: 02/10/2025 CLINICAL INDICATION: Male, 60 years old with history of pneumonia, progress study. TECHNIQUE: Single AP portable supine view of the chest is obtained. COMPARISON: Chest x-ray from one day earlier FINDINGS: Patient more rotated to the right on current study. Persistent patchy multifocal opacities in the right lung. Left lung remains clear. Cardiac silhouette size is stable and within normal limi ts. Osseous structures are intact. IMPRESSION: Persistent patchy multifocal right lung acute infiltrates and/or atelectasis. No signific ant change from one day earlier. [facility], , 02/10/2025 6:46 AM
[2025-02-10 07:36] VITALS: RESP 18
[2025-02-10 09:59] VITALS: BMI 22.6
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
[2025-02-10] MEDS ORDERED: AZITHROMYCIN 500 MG in SODIUM CHLORIDE 0.9% 250 ML IVPB SCH (12:00)
[2025-02-10 13:14] LABS: Glucose,Whole Blood 89 mg/dL (70-110)
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
[2025-02-10 16:40] VITALS: BP 112/88; PULSE 91; TEMP 97.7
== END 2025-02-10 16:39 | disposition home or self-care (01) | DRG 177 ==
LOC: EC 09:20 → 4SSUR 13:35
PROVIDERS: ADMIT Hospitalist; ATTEND Hospitalist
DX: J69.0 Pneumonitis due to inhalation of food and vomit (principal); J96.01 Acute respiratory failure with hypoxia; G40.909 Epilepsy, unspecified, not intractable, without status epilepticus; F32.A Depression, unspecified; Z93.1 Gastrostomy status; Z11.52 Encounter for screening for COVID-19; H54.61 Unqualified visual loss, right eye, normal vision left eye; R32 Unspecified urinary incontinence; Z79.899 Other long term (current) drug therapy; Z82.49 Family history of ischemic heart disease and other diseases of the circulatory system; Z87.01 Personal history of pneumonia (recurrent); Z87.820 Personal history of traumatic brain injury; Z87.891 Personal history of nicotine dependence; Z87.19 Personal history of other diseases of the digestive system; Z88.5 Allergy status to narcotic agent
CPT/HCPCS: 36415; 71045; 71046; 80053; 83605; 83880; 84145; 84484; 85025; 85610; 85730; 87040; 87636; 93005; 94640; 96361; 96365; 96367; 99285